=== PATIENT | female | born 1945 | race Caucasian/White ===

== ENCOUNTER 2017-02-10 23:24 | Observation (INO) | payer MEDICARE, OTHER ==
[2017-02-10] MEDS ORDERED: Ondansetron 4 MG/2 ML SDV IVPUSH ONE (23:45)
[2017-02-10] MEDS ORDERED: Morphine 4 MG/ML Syringe IVPUSH PRN (23:45)
[2017-02-10] MEDS ORDERED: Sodium Chloride 0.9% 1,000 ML IV ONE (23:45)
[2017-02-11] MEDS ORDERED: Sodium Chloride 0.9% 1,000 ML IV ONE (00:06)
--- NOTE | 2017-02-11 00:11 | EDM.PDOC ---
ED HPI GENERAL MEDICAL PROBLEM - General Chief Complaint: Gastrointestinal Problem Time Seen by Provider: 02/10/17 23:44 Source of Information: Reports: Patient History Limitations: Reports: No Limitations - History of Present Illness INITIAL COMMENTS - FREE TEXT/NARRATIVE: 71 y/o F with recent diagnosis of lymphoma (per patient, "aggressive", cancer is everywhere including bones and blood), not yet receiving treatment, presents with diffuse back pain and vomiting. Pain started a couple of days ago. Has been in her shoulders and back. Pain has been severe. Took 1 tab oxycodone around 10 AM and 2tab at 4pm with little relief. Started vomiting a few hours ago. Has had about 4 episodes of vomiting. No hematemesis. Denies abdominal pain. Still feels nauseated. No diarrhea or constipation. No fever. No chest pain/SOB/cough. Has f/u scheduled for tomorrow with heme/onc specialist. Back Pain Score (Numeric/FACES): 10 - Related Data Allergies Allergy/AdvReac Type Severity Reaction Status Date / Time erythromycin base Allergy Joint Pain Verified 05/04/16 17:21 [Erythromycin Base] Penicillins Allergy Joint Pain Verified 05/04/16 17:21 propoxyphene HCl Allergy Giddiness Verified 05/04/16 17:21 [From Darvon] Home Meds: Home Meds Albuterol [Ventolin HFA] 2 puff INH BID PRN 05/04/16 [History] Amitriptyline HCl 100 mg PO BEDTIME 05/04/16 [History] Aspirin [Halfprin] 81 mg PO DAILY 05/04/16 [History] Calcium Carbonate/Vitamin D3 [Calcium 500 + Vit D 400] 1 tab PO DAILY 05/04/16 [ History] Glucosamine [Glucosamine Sulfate] 500 mg PO DAILY 05/04/16 [History] Losartan [Cozaar] 25 mg PO DAILY 05/04/16 [History] Metoprolol Succinate [Toprol XL 50mg] 50 mg PO BID 05/04/16 [History] Omeprazole 20 mg PO DAILY 05/04/16 [History] Rosuvastatin [Crestor] 20 mg PO DAILY 02/10/17 [History] Ondansetron [Zofran ODT] 4 mg PO Q4H PRN #24 tab.dis 02/11/17 [Rx] Past Medical History HEENT History: Reports: Cataract Respiratory History: Reports: Bronchitis, Recurrent Neurological History: Reports: CVA Oncologic (Cancer) History: Reports: Lymphoma - Past Surgical History HEENT Surgical History: Reports: Cataract Surgery, Other (See Below) Other HEENT Surgeries/Procedures: throat biopsy carotid atery sugery GI Surgical History: Reports: Appendectomy, Cholecystectomy Female Surgical History: Reports: Hysterectomy Social & Family History - Family History Family Medical History: Noncontributory - Tobacco Use Smoking Status *Q: Never Smoker - Caffeine Use Caffeine Use: Reports: Coffee - Recreational Drug Use Recreational Drug Use: No ED ROS GENERAL - Review of Systems Review Of Systems: See Below Constitutional: Reports: Malaise, Weakness, Fatigue. Denies: Fever HEENT: Reports: No Symptoms Respiratory: Denies: Shortness of Breath Cardiovascular: Denies: Chest Pain Endocrine: Reports: Fatigue GI/Abdominal: Reports: Nausea, Vomiting. Denies: Abdominal Pain : Denies: Dysuria Musculoskeletal: Reports: Back Pain Skin: Reports: No Symptoms Neurological: Reports: No Symptoms ED EXAM, GI/ABD - Physical Exam Exam: See Below Exam Limited By: No Limitations General Appearance: Alert, WD/WN, No Apparent Distress Eyes: Bilateral: Normal Appearance Ears: Normal External Exam Nose: Normal Inspection Throat/Mouth: Other (dry lips, dry mucous membranes) Head: Atraumatic, Normocephalic Neck: Normal Inspection, Supple, Non-Tender, Full Range of Motion Respiratory/Chest: No Respiratory Distress, Lungs Clear, Normal Breath Sounds, Chest Non-Tender Cardiovascular: Normal Peripheral Pulses, Regular Rate, Rhythm, No Murmur GI/Abdominal Exam: Soft, Non-Tender, No Distention. No: Rebound Back Exam: Normal Inspection, Full Range of Motion. No: CVA Tenderness (L), CVA Tenderness (R), Vertebral Tenderness Extremities: Normal Inspection, Normal Range of Motion Neurological: Alert, Oriented, Normal Cognition, No Motor/Sensory Deficits Psychiatric: Normal Affect, Normal Mood Skin Exam: Warm, Dry, Intact, Normal Color, No Rash Course - Vital Signs Last Recorded V/S: Last Vital Signs Temp 35.6 C 02/10/17 23:29 Pulse 93 02/10/17 23:29 Resp 16 02/10/17 23:29 BP 197/106 H 02/10/17 23:29 Pulse Ox 90 L 02/10/17 23:29 - Orders/Labs/Meds Orders: Active Orders 24 hr Category Date Time Status Abdomen Series w Chest 1V [CR] Stat Exams 02/11/17 00:02 Ordered UA W/MICROSCOPIC [URIN] Stat Lab 02/11/17 00:06 Uncollected Morphine Med 02/10/17 23:45 Active 4 mg IVPUSH Q2H PRN Medication Orders Morphine Sulfate (Morphine) 4 mg IVPUSH Q2H PRN PRN Reason: Pain Last Admin: 02/11/17 00:02 Dose: 4 mg Labs: Laboratory Tests 02/10/17 02/10/17 Range/Units 23:40 23:40 WBC 7.24 (3.98-10.04) K/mm3 RBC 4.54 (3.98-5.22) M/mm3 Hgb 13.0 (11.2-15.7) gm/L Hct 39.5 (34.1-44.9) % MCV 87.0 (79.4-94.8) fl MCH 28.6 (25.6-32.2) pg MCHC 32.9 (32.2-35.5) g/dl RDW Std Deviation 46.5 H (36.4-46.3) fL Plt Count 228 (182-369) K/mm3 MPV 9.5 (9.4-12.3) fl Neut % (Auto) 69.6 (34.0-71.1) % Lymph % (Auto) 18.8 L (19.3-51.7) % Thur[place] % (Auto) 7.0 (4.7-12.5) % Eos % (Auto) 2.9 (0.7-5.8) Baso % (Auto) 1.0 (0.1-1.2) % Neut # (Auto) 5.04 (1.56-6.13) K/mm3 Lymph # (Auto) 1.36 (1.18-3.74) K/mm3 [place] # (Auto) 0.51 H (0.24-0.36) K/mm3 Eos # (Auto) 0.21 (0.04-0.36) K/mm3 Baso # (Auto) 0.07 (0.01-0.08) K/mm3 Sodium 142 (136-145) mEq/L Potassium 3.8 (3.5-5.1) mEq/L Chloride 103 (98-107) mEq/L Carbon Dioxide 29 (21-32) mEq/L Anion Gap 13.8 (5-15) BUN 12 (7-18) mg/dL Creatinine 1.2 H (0.55-1.02) mg/dL Est Cr Clr Drug Dosing 38.13 mL/min Estimated GFR (MDRD) 44 (>60) mL/min BUN/Creatinine Ratio 10.0 L (14-18) Glucose 136 H (83-115) mg/dL Calcium 9.2 (8.5-10.1) mg/dL Total Bilirubin 0.4 (0.2-1.0) mg/dL AST 39 H (15-37) U/L ALT 25 (14-59) U/L Alkaline Phosphatase 96 (46-116) U/L Total Protein 7.9 (6.4-8.2) g/dl Albumin 3.8 (3.4-5.0) g/dl Globulin 4.1 gm/dL Albumin/Globulin Ratio 0.9 L (1-2) Lipase 151 (73-393) U/L Meds: Medications Generic Name Dose Route Start Last Admin Trade Name Freq PRN Reason Stop Dose Admin Morphine Sulfate 4 mg 02/10/17 23:45 02/11/17 00:02 Morphine IVPUSH 4 mg Q2H PRN Administration Pain Discontinued Medications Generic Name Dose Route Start Last Admin Trade Name Freq PRN Reason Stop Dose Admin Hydromorphone HCl 1 mg 02/11/17 01:00 02/11/17 01:06 Dilaudid IVPUSH 02/11/17 01:01 1 mg ONETIME ONE Administration Sodium Chloride 1,000 mls @ 1,000 mls/hr 02/10/17 23:45 02/10/17 23:50 Normal Saline IV 02/11/17 00:44 1,000 mls/hr ONETIME ONE Administration Sodium Chloride 1,000 mls @ 2,000 mls/hr 02/11/17 00:06 02/11/17 01:33 Normal Saline IV 02/11/17 00:35 2,000 mls/hr ONETIME ONE Administration Ketorolac Tromethamine 30 mg 02/11/17 00:41 02/11/17 00:48 Toradol IVPUSH 02/11/17 00:42 30 mg ONETIME ONE Administration Metoclopramide HCl 10 mg 02/11/17 00:26 02/11/17 00:33 Reglan PO 02/11/17 00:27 10 mg ONETIME ONE Administration Ondansetron HCl 4 mg 02/10/17 23:45 02/10/17 23:50 Zofran IVPUSH 02/10/17 23:46 4 mg ONETIME ONE Administration Ondansetron HCl 4 mg 02/11/17 00:26 02/11/17 00:32 Zofran IVPUSH 02/11/17 00:27 4 mg ONETIME ONE Administration - Re-Assessments/Exams Free Text/Narrative Re-Assessment/Exam: 02/11/17 00:10 CBC, chem/lft's WNL. 02/11/17 00:42 Abd XR shows no evidence of obstruction. On CXR, no ptx, no infiltrate, mediastinal fullness that I suspect is c/w her hx of extensive lymphoma. She feels better after IVF and zofran. Has tolerated sips of water but still feels queasy. Ordered another 4mg zofran + PO reglan. Pain is currently controlled. Will reeval. 02/11/17 01:38 Pain worse, given dilaudid. Then had another episode of vomiting. Etiology of nausea not clear, possibly due to narcotics which she has required for pain control. She continues to have no abdominal pain. XR doesn't suggest obstruction. Abd soft/nontender. Discussed with Dr. Mathur who agrees to admit for pain and nausea control. Departure - Departure Time of Disposition: 01:39 Disposition: Refer to Observation Clinical Impression: Nausea & vomiting Qualifiers: Vomiting type: unspecified Vomiting Intractability: non-intractable Qualified Code(s): R11.2 - Nausea with vomiting, unspecified Back pain Qualifiers: Back pain location: thoracic back pain Chronicity: acute Back pain laterality: bilateral Qualified Code(s): M54.6 - Pain in thoracic spine - Discharge Information Prescriptions: Ondansetron [Zofran ODT] 4 mg PO Q4H PRN #24 tab.dis PRN Reason: Nausea Referrals: Delbert Forrest MD [Primary Care Provider] - Forms: ED Department Discharge Additional Instructions: 1. Follow up with clinical documentation specialist tomorrow as planned. Discuss pain control plan. 2. Take zofran as prescribed for nausea 3. Drink plenty of fluids. Clear liquid diet until nausea improves, then advance diet to include bland foods such as broth. 4. Return to the Emergency Department if you have worsening vomiting, uncontrolled pain, difficulty breathing, abdominal pain, or any other concerning symptoms. - My Orders Last 24 Hours: My Active Orders 02/10/17 23:45 Morphine 4 mg IVPUSH Q2H PRN 02/11/17 00:02 Abdomen Series w Chest 1V [CR] Stat 02/11/17 00:06 UA W/MICROSCOPIC [URIN] Stat - Assessment/Plan Last 24 Hours: My Active Orders 02/10/17 23:45 Morphine 4 mg IVPUSH Q2H PRN 02/11/17 00:02 Abdomen Series w Chest 1V [CR] Stat 02/11/17 00:06 UA W/MICROSCOPIC [URIN] Stat
[2017-02-11] MEDS ORDERED: Metoclopramide 10 MG Tab PO ONE (00:26)
[2017-02-11] MEDS ORDERED: Ondansetron 4 MG/2 ML SDV IVPUSH ONE (00:26)
[2017-02-11] MEDS ORDERED: Ketorolac 30 MG/ML SDV IVPUSH ONE (00:41)
[2017-02-11] MEDS ORDERED: HYDROmorphone 1 MG/ML Syringe IVPUSH ONE (01:00)
[2017-02-11] MEDS ORDERED: diphenhydrAMINE 50 MG/ML SDV IVPUSH ONE (01:40)
[2017-02-11] MEDS ORDERED: Prochlorperazine 10 MG in Sodium Chloride 0.9% 50 ML IV ONE (01:40)
[2017-02-11] MEDS ORDERED: Sodium Chloride 0.9% 1,000 ML IV SCH (03:15)
[2017-02-11] MEDS ORDERED: Ondansetron 4 MG/2 ML SDV IVPUSH PRN (03:17)
[2017-02-11] MEDS ORDERED: Scopolamine 1.5 MG Transdermal Patch TRDERM SCH (03:30)
--- NOTE | 2017-02-11 06:27 | PCM.HP ---
H&P History of Present Illness - General Date of Service: 02/11/17 Admit Problem/Dx: Admission Diagnosis/Problem Admission Diagnosis/Problem Vomiting Source of Information: Patient, Old Records, Provider, RN Notes Reviewed, Significant Other History Limitations: Reports: No Limitations - History of Present Illness Initial Comments - Free Text/Narative: This is a 71 yo elderly white female with past medical hx/o HTN, HLD, GERD and Possibly Insomnia who presents to ED with complaints of diffuse back pain. Her pain started 2 days ago. Her pain is burning in nature and localized to her spine with radiation to her right shoulder with intermittent numbness and tingling. She has been taking oxycodone but w/o much relief. Her c/o is associated with nauseated and vomiting. She has 4 emesis at home and fills up a vomit bag while in ED. She denies any recent travel. No unusual diet or drinks. She has not gone on a camping trip or hiking. Her last meal was a PB& J sandwich with chips. No sick contact. She had the same food the other day but w/o any trouble. Patient was recently diagnosed with "aggressive form of lymphoma" via biopsy of a mass on her right neck/sub mandibular region. She also had undergone PET scanning and which she was found to have multiple areas of metastatic disease: spine, chest, and hip and lower extremity bones. She has seen Dr. Robbins at [facility] and patient is scheduled for further outpatient testing. Her initial workup in emergency department shows an unremarkable CBC. Her chemistry is remarkable for creatinine of 1.2, glucose of 136, and AST of 39. Her UA is suggestive of mild UTI but patient is asymptomatic. Chest x-ray report reads nodular densities within the chest difficult to exclude metastatic disease. Patient is being admitted for intractable nausea with vomiting and back pain. She is full code. Back Pain Score (Numeric/FACES): 7 - Related Data Allergies/Adverse Reactions: Allergies Allergy/AdvReac Type Severity Reaction Status Date / Time erythromycin base AdvReac Joint Pain Verified 02/11/17 09:03 [Erythromycin Base] Penicillins AdvReac Joint Pain Verified 02/11/17 09:03 propoxyphene HCl AdvReac Giddiness Verified 02/11/17 09:03 [From Darvon] Home Medications: Home Meds Albuterol [Ventolin HFA] 2 puff INH BID PRN 05/04/16 [History] Amitriptyline HCl 100 mg PO BEDTIME 05/04/16 [History] Aspirin [Halfprin] 81 mg PO DAILY 05/04/16 [History] Calcium Carbonate/Vitamin D3 [Calcium 500 + Vit D 400] 1 tab PO DAILY 05/04/16 [ History] Glucosamine [Glucosamine Sulfate] 500 mg PO DAILY 05/04/16 [History] Losartan [Cozaar] 25 mg PO DAILY 05/04/16 [History] Metoprolol Succinate [Toprol XL 50mg] 50 mg PO BID 05/04/16 [History] Omeprazole 20 mg PO DAILY 05/04/16 [History] Rosuvastatin [Crestor] 20 mg PO DAILY 02/10/17 [History] Past Medical History HEENT History: Reports: Cataract Respiratory History: Reports: Bronchitis, Recurrent, Other (See Below) Other Respiratory History: Chronic bronchitis - excessive phlegm Other Gastrointestinal History: possibly has IBS Musculoskeletal History: Reports: Arthritis Other Musculoskeletal History: a couple surgeries on left foot: Pin to left foot - flat footed - Took out extra bone. Unsure if any screws/pins are still remaining. Neurological History: Reports: CVA Other Neuro History: a few CVA's - no residual weaknesses from those. 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 Endocrine/Metabolic History: Reports: Obesity/BMI 30+ Oncologic (Cancer) History: Reports: Lymphoma Other Oncologic History: recent diagnosis. - Past Surgical History HEENT Surgical History: Reports: Cataract Surgery, Other (See Below) Other HEENT Surgeries/Procedures: throat biopsy and "opened up throat". carotid atery sugery. Reading glasses. Full dentures GI Surgical History: Reports: Appendectomy, Cholecystectomy Female Surgical History: Reports: Hysterectomy Social & Family History - Family History Family Medical History: Noncontributory - Tobacco Use Smoking Status *Q: Former Smoker Years of Tobacco use: 20 Packs/Tins Daily: 1 Used Tobacco, but Quit: Yes Month Tobacco Last Used: 1995 Second Hand Smoke Exposure: No - Caffeine Use Caffeine Use: Reports: Coffee Other Caffeine Use: pot of coffee per day - Recreational Drug Use Recreational Drug Use: No H&P Review of Systems - Review of Systems: Review Of Systems: See Below General: Reports: Malaise, Weakness, Fatigue. Denies: Fever, Chills, Decreased Appetite, Weight Loss HEENT: Reports: No Symptoms Pulmonary: Denies: Shortness of Breath Cardiovascular: Denies: Chest Pain, Dyspnea on Exertion Gastrointestinal: Reports: Flatus, Nausea, Vomiting, Other (bloating ). Denies : Abdominal Pain, Diarrhea, Decreased Appetite, Difficulty Swallowing Genitourinary: Reports: No Symptoms Musculoskeletal: Reports: Back Pain Skin: Denies: Cyanosis, Rash, Erythema, Wound, Lesions Psychiatric: Denies: Confusion, Depression, Anxiety, Hallucinations, Suicidal Ideation Neurological: Reports: No Symptoms Hematologic/Lymphatic: Reports: No Symptoms Immunologic: Reports: No Symptoms Exam - Exam Exam: See Below - Vital Signs Vital Signs: Last Vital Signs Temp 35.8 C 02/11/17 02:12 Pulse 98 02/11/17 03:18 Resp 23 H 02/11/17 02:15 BP 116/66 02/11/17 03:18 Pulse Ox 93 L 02/11/17 03:20 Weight: 84.141 kg - Exam General: Alert, Oriented, Cooperative, Mild Distress, Moderate Distress HEENT: Conjunctiva Clear, EACs Clear, EOMI, Hearing Intact, Mucosa Moist & [place] , Nares Patent, Normal Nasal Septum, Pupils Equal, Pupils Reactive Neck: Supple, Trachea Midline, +2 Carotid Pulse wo Bruit, Full Range of Motion, Other (Palpable mass near right mandibular area) Lungs: Clear to Auscultation, Normal Respiratory Effort Cardiovascular: Regular Rate, Regular Rhythm GI/Abdominal Exam: Normal Bowel Sounds, Soft, Non-Tender, No Organomegaly, No Distention, No Abnormal Bruit, No Mass (Female) Exam: Deferred Rectal (Female) Exam: Deferred Back Exam: Normal Inspection, Decreased Range of Motion, Muscle Spasm, Vertebral Tenderness, Other (No skin breaks, obvious deformity or alarming lesions) Extremities: Normal Inspection, Normal Range of Motion, Non-Tender, No Pedal Edema, Normal Capillary Refill Peripheral Pulses: 2+: Posterior Tibial (L), Posterior Tibial (R), Dorsalis Pedis (L), Dorsalis Pedis (R) Skin: Warm, Dry, Intact Neuro Extensive - Mental Status: Oriented x3, Normal Cognition, Memory Intact Neuro Extensive - Motor, Sensory, Reflexes: CN II-XII Intact, Normal Gait Psychiatric: Alert, Normal Affect, Normal Mood - Patient Data Lab Results Last 24 hrs: Laboratory Results - last 24 hr 02/11/17 Range/Units 01:46 Urine Color Yellow (Yellow) Urine Appearance Slt cloudy H (Clear) Urine pH 7.0 (5.0-8.0) Ur Specific [place] 1.020 (1.005-1.030) Urine Protein 1+ H (Negative) Urine Glucose (UA) Negative (Negative) Urine Ketones Negative (Negative) Urine Occult Blood Negative (Negative) Urine Nitrite Negative (Negative) Urine Bilirubin Negative (Negative) Urine Urobilinogen 1.0 (0.2-1.0) Ur Leukocyte Esterase 2+ H (Negative) Urine RBC Not seen (0-5) /hpf Urine WBC 50-75 H (0-5) /hpf Urine WBC Clumps Not seen (NOT SEEN) /hpf Ur Epithelial Cells 0-5 (0-5) /hpf Amorphous Sediment Few H (NOT SEEN) /hpf Urine Bacteria Moderate H (FEW) /hpf Urine Mucus Not seen (FEW) /hpf Urine Yeast Not seen (NOT SEEN) Result Diagrams: 02/10/17 23:40 02/10/17 23:40 *Q Meaningful Use (ADM) - VTE *Q VTE Criteria *Q: - Stroke *Q Stroke Criteria *Q: - AMI *Q AMI Criteria *Q: Problem List Initiated/Reviewed/Updated: Yes Orders Last 24hrs: Active Orders 24 hr Category Date Time Status Patient Status [ADT] Routine ADT 02/11/17 02:13 Active Activity as Tolerated [RC] QSHIFT Care 02/11/17 03:15 Active Oxygen Therapy [RC] ASDIRECTED Care 02/11/17 03:25 Active Telemetry Monitoring [Cardiac Monitoring] [RC] . Care 02/11/17 02:12 Active DIRECTED Clear Liquid Diet [DIET] Diet 02/11/17 Breakfast Active CULTURE URINE [RM] Routine Lab 02/11/17 01:46 Received HYDROmorphone [Dilaudid] Med 02/11/17 03:16 Active 1 mg IVPUSH Q1H PRN Ondansetron [Zofran] Med 02/11/17 03:17 Active 4 mg IVPUSH Q4HR PRN Remove Patch Med 02/14/17 03:30 Active 1 ea TRDERM Q72H Scopolamine [Transderm-Scop] Med 02/11/17 03:30 Active 1.5 mg TRDERM Q72H Sodium Chloride 0.9% [Normal Saline] 1,000 ml Med 02/11/17 03:15 Active IV ASDIRECTED Code Status [Resuscitation Status] Routine Resus Stat 02/11/17 03:14 Ordered Medication Orders Hydromorphone HCl (Dilaudid) 1 mg IVPUSH Q1H PRN PRN Reason: Pain Sodium Chloride (Normal Saline) 1,000 mls @ 100 mls/hr IV ASDIRECTED SAMUEL Last Admin: 02/11/17 03:30 Dose: 100 mls/hr Miscellaneous Information (Remove Patch) 1 ea TRDERM Q72H SAMUEL Ondansetron HCl (Zofran) 4 mg IVPUSH Q4HR PRN PRN Reason: Nausea Scopolamine (Transderm-Scop) 1.5 mg TRDERM Q72H SAMUEL Last Admin: 02/11/17 03:52 Dose: 1.5 mg Assessment/Plan Comment:: Assessment/Plan: Acute: Acute Back Pain - S/p Fall and Recent Diagnosis of Lyphoma S/p Biopsy - Cannot r/o metastatic disease - She now follow Dr. Seymour - She had done recent CT scan (unsure what type), will obtain from [facility] - She does not want us to repeat tests that were already been done, will wait for her reports - Pain medications Intractable Nausea/Vomiting - Ate PB&J [place] and chips - She had PB&J the day before but w/o any problems - Possible food poisoning - No unusual diet/drinks, No recent travel, has not gone camping or hiking - Vomited 4 times at home - Filled up a vomit bag in ED Aggressive Lymphoma with Metastatic Disease - Recently 02/08/17 diagnosed in [place] - Had a biopsy done on the , last month by Dr. Loja, and official path report this past Saturday - She now follows Dr. Robbins as Marilee Archuleta Chronic: HTN HLD GERD Hx/o CVA Plan: Admit to Med-Surg Routine AM Labs Resume Home Meds Start clear liquids and advanced as tolerated PT/OT consult SW/CM for d/c planning Additional orders as above Code status:1
--- NOTE | 2017-02-11 08:38 | CR ---
Abdominal series: Frontal view of the chest was obtained as well as supine and upright views of the abdomen. Comparison: Previous chest x-ray of 08/24/14. Nodular densities are identified within the chest. Difficult to exclude metastatic disease. These nodular densities appear as an interval change from prior study and are most noticeable within the left upper chest. Emphysematous change is seen. Heart size appears within normal limits. Tortuous thoracic aorta is seen. Surgical clips seen within the abdomen. Bowel gas pattern appears within normal limits. No abnormal calcifications or discrete soft tissue abnormality is seen. No free air is identified. Impression: 1. Nodular densities within the chest. Difficult to exclude metastatic disease. Chest CT could be obtained to further evaluate. 2. Other portions of the abdominal series show nothing acute. Diagnostic code #9
[2017-02-11] MEDS ORDERED: Acetaminophen 325 MG Tab PO PRN (08:46)
[2017-02-11] MEDS ORDERED: Metoprolol Tartrate 5 MG/5 ML SDV IVPUSH PRN (08:46)
[2017-02-11] MEDS ORDERED: Promethazine 12.5 MG in Sodium Chloride 0.9% 50 ML IV PRN (08:46)
[2017-02-11] MEDS ORDERED: Albuterol/Ipratropium 3.0-0.5 MG/3 ML Neb Soln NEB PRN (08:46)
[2017-02-11] MEDS ORDERED: LORazepam 2 MG/ML MDV IV PRN (08:46)
[2017-02-11] MEDS ORDERED: Acetaminophen/HYDROcodone 325-5 MG Tab PO PRN (08:46)
[2017-02-11] MEDS ORDERED: hydrALAZINE 20 MG/ML SDV IVPUSH PRN (08:46)
[2017-02-11] MEDS ORDERED: Bisacodyl 5 MG Tab PO PRN (08:46)
[2017-02-11] MEDS ORDERED: Ondansetron 4 MG/2 ML SDV IV PRN (08:46)
[2017-02-11] MEDS ORDERED: Docusate Sodium 100 MG Cap PO PRN (08:46)
[2017-02-11] MEDS ORDERED: Polyethylene Glycol 3350 Powder 17 GM Packet PO PRN (08:46)
[2017-02-11] MEDS: HYDROmorphone 1 MG/ML Syringe IVPUSH PRN ×2 (11:09→21:24)
[2017-02-11] MEDS ORDERED: Albuterol 6.7 GM Inhaler INH PRN (14:33)
[2017-02-11] MEDS ORDERED: fentaNYL 12 MCG/HR Transdermal Patch TRDERM SCH (15:00)
[2017-02-11] MEDS ORDERED: Sodium Chloride 0.9% 10 ML Syringe FLUSH PRN (15:13)
[2017-02-11] MEDS: oxyCODONE 5 MG Tab PO PRN (20:11)
[2017-02-11] MEDS: Docusate Sodium 100 MG Cap PO SCH (20:17)
[2017-02-11] MEDS: Metoprolol Succinate 50 MG Tab.ER **PTOM PO SCH (20:18)
[2017-02-11] MEDS ORDERED: AMITRIPTYLINE 100 MG PO SCH (21:00)
[2017-02-11] MEDS ORDERED: Temazepam 7.5 MG Cap PO PRN (21:00)
[2017-02-12] MEDS: oxyCODONE 5 MG Tab PO PRN ×2 (06:28→13:06)
[2017-02-12] MEDS ORDERED: Non-Formulary Medication 1 Each (Losartan 25 MG) PO SCH (09:00)
[2017-02-12] MEDS ORDERED: Calcium Carbonate/Vitamin D3 1500 MG-200 Units Tab PO SCH (09:00)
[2017-02-12] MEDS ORDERED: ROSUVASTATIN 20 MG PO SCH (09:00)
[2017-02-12] MEDS ORDERED: GLUCOSAMINE 500 MG PO SCH (09:00)
[2017-02-12] MEDS ORDERED: Aspirin 81 MG Tab.EC PO SCH (09:00)
[2017-02-12] MEDS: Docusate Sodium 100 MG Cap PO SCH (09:16)
[2017-02-12] MEDS: Metoprolol Succinate 50 MG Tab.ER **PTOM PO SCH (09:16)
[2017-02-12] MEDS ORDERED: LOSARTAN 25 MG PO SCH (10:00)
--- NOTE | 2017-02-12 11:54 | PCM.DCSUM1 ---
Discharge Summary - Hospital Course Brief History: This is a 71 yo elderly white female with past medical hx/o HTN, HLD, GERD and Possibly Insomnia who presents to ED with complaints of diffuse back pain. Her pain started 2 days ago. Her pain is burning in nature and localized to her spine with radiation to her right shoulder with intermittent numbness and tingling. She has been taking oxycodone but w/o much relief. - Discharge Data Discharge Date: 02/12/17 Discharge Disposition: Home, Self-Care 01 Condition: Good - Discharge Diagnosis/Problem(s) (1) Back pain SNOMED Code(s): 809517193 ICD Code: M54.9 - DORSALGIA, UNSPECIFIED Status: Acute Qualifiers: Back pain location: thoracic back pain Chronicity: acute Back pain laterality: bilateral Qualified Code(s): M54.6 - Pain in thoracic spine (2) Nausea & vomiting SNOMED Code(s): 80998909 ICD Code: R11.2 - NAUSEA WITH VOMITING, UNSPECIFIED Status: Resolved Qualifiers: Vomiting type: unspecified Vomiting Intractability: non-intractable Qualified Code(s): R11.2 - Nausea with vomiting, unspecified (3) Lymphoma SNOMED Code(s): 339402479 ICD Code: C85.90 - NON-HODGKIN LYMPHOMA, UNSPECIFIED, UNSPECIFIED SITE Status: Acute Qualifiers: Lymphoma type: unspecified type Lymphoma site: neck Qualified Code(s): C85.91 - Non-Hodgkin lymphoma, unspecified, lymph nodes of head, face, and neck (4) Hypoxemia SNOMED Code(s): 672358567 ICD Code: R09.02 - HYPOXEMIA Status: Acute Problem Details: 2/2 Metastatic Lung Disease (Lymphoma) and Pulmonary Nodules - Patient Summary/Data Operative Procedure(s) Performed: None Complications: None Consults: Consultations 02/11/17 08:46 Consult to Case Management [CONS] Routine Consult to Environmental Engineering Professor [CONS] Routine Recommended Follow-up Testing/Procedures: None Hospital Course: She was primarily admitted for medical management of intractable nausea and vomiting. We felt this was related to possible food poisoning after eating a peanut butter and jelly sandwich. With supportive care and antiemetic medications, the patient slowly improved on this regimen. Thereafter, she was slowly started on clear diet until she tolerated solid food. On this admission she also complained of back pain with radiation to her right arm. We felt this was related to her metastatic bone disease but a good pain regimen was provided for her. Her hospital course was uncomplicated. However she experienced hypoxemia due to her metastatic lung disease and therefore she will be discharged with supplemental O2. Overall, Gayle has done well since admission. She is now ready for discharge. She will be released with pain medication regimen along with stool softeners. She will also be provided with a reversal agent for oversedation. Patient is to follow-up with her Dr. Robbins at [facility] for further testing and placement of her portable a catheter. She was advised to follow-up with Dr. Reese in 1-2 weeks as scheduled. Her PCP was called and updated about the discharge care plan. - Patient Instructions Diet: Usual Diet as Tolerated Activity: As Tolerated Driving: May Drive Today Showering/Bathing: May Shower Notify Provider of: Fever, Increased Pain, Nausea and/or Vomiting Other/Special Instructions: - Please take all medications as directed. - Continue daily routine activities without restrictions. - Call or follow up with your doctor in 1-2 weeks. - Keep your appointments with Dr. Robbins. - Discharge Plan Prescriptions/Med Rec: Bisacodyl 10 mg RC DAILY PRN #15 supp.rect PRN Reason: Constipation Docusate Sodium [Colace] 100 mg PO BID #60 cap Naloxone [Narcan] 0.4 mg INJECT ASDIRECTED PRN #2 syringe PRN Reason: Oversedation Ondansetron [Zofran ODT] 4 mg PO Q6H PRN #20 tab.dis PRN Reason: Other Scopolamine [Transderm-Scop] 1.5 mg TRDERM Q72H PRN #20 patch PRN Reason: Other fentaNYL [Duragesic] 12 mcg TRDERM Q72H #20 patch oxyCODONE 5 mg PO ASDIRECTED PRN #120 tablet PRN Reason: Other Home Medications: Home Meds Albuterol [Ventolin HFA] 2 puff INH BID PRN 05/04/16 [History] Amitriptyline HCl 100 mg PO BEDTIME 05/04/16 [History] Aspirin [Halfprin] 81 mg PO DAILY 05/04/16 [History] Calcium Carbonate/Vitamin D3 [Calcium 500 + Vit D 400] 1 tab PO DAILY 05/04/16 [ History] Glucosamine [Glucosamine Sulfate] 500 mg PO DAILY 05/04/16 [History] Losartan [Cozaar] 25 mg PO DAILY 05/04/16 [History] Metoprolol Succinate [Toprol XL 50mg] 50 mg PO BID 05/04/16 [History] Omeprazole 20 mg PO DAILY 05/04/16 [History] Rosuvastatin [Crestor] 20 mg PO DAILY 02/10/17 [History] Bisacodyl 10 mg RC DAILY PRN #15 supp.rect 02/12/17 [Rx] Docusate Sodium [Colace] 100 mg PO BID #60 cap 02/12/17 [Rx] Naloxone [Narcan] 0.4 mg INJECT ASDIRECTED PRN #2 syringe 02/12/17 [Rx] Ondansetron [Zofran ODT] 4 mg PO Q6H PRN #20 tab.dis 02/12/17 [Rx] Scopolamine [Transderm-Scop] 1.5 mg TRDERM Q72H PRN #20 patch 02/12/17 [Rx] fentaNYL [Duragesic] 12 mcg TRDERM Q72H #20 patch 02/12/17 [Rx] oxyCODONE 5 mg PO ASDIRECTED PRN #120 tablet 02/12/17 [Rx] Patient Handouts: Shortness of Breath, [id number], Nausea and Vomiting, Adult , Dizziness, [id number], Rehydration, Elderly Referrals: Delbert Forrest MD [Primary Care Provider] - 02/22/17 7:45 am - Discharge Summary/Plan Comment DC Time >30 min.: Yes (45 mins) Discharge Summary/Plan Comment: Discharge to Home - General Info Date of Service: 02/12/17 Admission Dx/Problem (Free Text: Admission Diagnosis/Problem Admission Diagnosis/Problem Vomiting Subjective Update: Follow Up Functional Status: Reports: Pain Controlled, Tolerating Diet, Ambulating. Denies: Urinating - Review of Systems General: Denies: Fever, Weakness, Fatigue, Malaise HEENT: Reports: No Symptoms Pulmonary: Denies: Shortness of Breath Cardiovascular: Denies: Chest Pain Gastrointestinal: Denies: Abdominal Pain, Nausea, Vomiting Genitourinary: Reports: Incontinence Musculoskeletal: Reports: Back Pain Skin: Reports: No Symptoms Neurological: Denies: Confusion, Difficulty Walking, Weakness, Gait Disturbance Psychiatric: Denies: Depression, Mood Lability, Anxiety, Hallucinations - Patient Data Vitals - Most Recent: Last Vital Signs Temp 36.8 C 02/12/17 08:11 Pulse 90 02/12/17 09:16 Resp 14 02/12/17 08:11 BP 140/79 02/12/17 09:16 Pulse Ox 92 L 02/12/17 08:11 Weight - Most Recent: 86.228 kg I&O - Last 24 hours: Intake & Output 02/11/17 02/12/17 02/12/17 22:59 06:59 14:59 Intake Total 2560 625 120 Output Total 950 750 Balance 1610 -125 120 Lab Results - Last 24 hrs: Laboratory Results - last 24 hr 02/12/17 Range/Units 05:05 Sodium 140 (136-145) mEq/L Potassium 4.1 (3.5-5.1) mEq/L Chloride 105 (98-107) mEq/L Carbon Dioxide 29 (21-32) mEq/L Anion Gap 10.1 (5-15) BUN 10 (7-18) mg/dL Creatinine 1.1 H (0.55-1.02) mg/dL Est Cr Clr Drug Dosing 41.60 mL/min Estimated GFR (MDRD) 49 (>60) mL/min BUN/Creatinine Ratio 9.1 L (14-18) Glucose 87 (83-115) mg/dL Calcium 8.6 (8.5-10.1) mg/dL Magnesium 2.1 (1.8-2.4) mg/dl Med Orders - Current: Current Medications Acetaminophen (Tylenol) 650 mg PO Q4H PRN PRN Reason: Pain (Mild 1-3)/fever Albuterol (Proventil Hfa) 0 gm INH BID PRN PRN Reason: wheeze and cough Albuterol/Ipratropium (Duoneb 3.0-0.5 Mg/3 Ml) 3 ml NEB Q4H PRN PRN Reason: Shortness Of Breath/wheezing Amitriptyline HCl (Elavil) 0 mg PO BEDTIME [facility] Last Admin: 02/11/17 20:18 Dose: 100 mg Aspirin (Halfprin) 81 mg PO DAILY [facility] Last Admin: 02/12/17 09:15 Dose: 81 mg Bisacodyl (Dulcolax) 5 mg PO DAILY PRN PRN Reason: Constipation Calcium Carbonate (Calcium Carbonate/Vitamin D 1500 Mg-200 Unit) 1 tab PO DAILY [facility] Last Admin: 02/12/17 09:16 Dose: Not Given Docusate Sodium (Colace) 100 mg PO BID [facility] Last Admin: 02/12/17 09:16 Dose: Not Given Fentanyl (Duragesic) 12 mcg TRDERM Q72H [facility] Last Admin: 02/11/17 15:07 Dose: 12 mcg Hydralazine HCl (Apresoline) 10 mg IVPUSH Q4H PRN PRN Reason: Hypertension Hydromorphone HCl (Dilaudid) 1 mg IVPUSH Q1H PRN PRN Reason: Pain Last Admin: 02/11/17 21:24 Dose: 1 mg Promethazine HCl 12.5 mg/ (Sodium Chloride) 50.5 mls @ 100 mls/hr IV Q6H PRN PRN Reason: Nausea/Vomiting Lorazepam (Ativan) 0.5 mg IV Q6H PRN PRN Reason: Anxiety Magnesium Sulfate (Pharmacy To Dose - Magnesium Replacement) 1 dose .XX ASDIRECTED [facility] Metoprolol Succinate (Toprol Xl) 50 mg PO BID [facility] Last Admin: 02/12/17 09:16 Dose: 50 mg Metoprolol Tartrate (Lopressor) 5 mg IVPUSH Q4H PRN PRN Reason: Tachycardia Miscellaneous Information (Remove Patch) 1 ea TRDERM Q72H [facility] Miscellaneous Information (Remove Patch) 0 ea TRDERM Q72H [facility] Ondansetron HCl (Zofran) 4 mg IV Q6H PRN PRN Reason: Nausea/Vomiting Oxycodone HCl (Oxycodone) 5 mg PO Q4H PRN PRN Reason: Pain Last Admin: 02/12/17 06:28 Dose: 5 mg Omeprazole 20 Mg 0 each PO BEDTIME [facility] Last Admin: 02/11/17 21:25 Dose: 20 each Glucosamine 500 Mg 0 each PO DAILY [facility] Last Admin: 02/12/17 09:15 Dose: Not Given Losartan 25 Mg Dose 0 each PO DAILY [facility] Last Admin: 02/12/17 10:21 Dose: 1 each Polyethylene Glycol (Miralax) 17 gm PO DAILY PRN PRN Reason: Constipation Potassium Chloride (Pharmacy To Dose - Potassium Replacement) 1 dose .XX ASDIRECTED [facility] Rosuvastatin Calcium (Crestor) 0 mg PO DAILY [facility] Last Admin: 02/12/17 09:08 Dose: 10 mg Scopolamine (Transderm-Scop) 1.5 mg TRDERM Q72H [facility] Last Admin: 02/11/17 03:52 Dose: 1.5 mg Senna/Docusate Sodium (Senna Plus) 1 tab PO BID PRN PRN Reason: Constipation Sodium Chloride (Saline Flush) 10 ml FLUSH ASDIRECTED PRN PRN Reason: Keep Vein Open Temazepam (Restoril) 7.5 mg PO BEDTIME PRN PRN Reason: Sleep Discontinued Medications Hydrocodone Bitart/Acetaminophen (Hillister 325-5 Mg) 1 tab PO Q4H PRN PRN Reason: Pain (moderate 4-6) Last Admin: 02/11/17 12:07 Dose: 1 tab Diphenhydramine HCl (Benadryl) 50 mg IVPUSH ONETIME ONE Stop: 02/11/17 01:41 Last Admin: 02/11/17 01:48 Dose: 50 mg Docusate Sodium (Colace) 100 mg PO BID PRN PRN Reason: Constipation Hydromorphone HCl (Dilaudid) 1 mg IVPUSH ONETIME ONE Stop: 02/11/17 01:01 Last Admin: 02/11/17 01:06 Dose: 1 mg Sodium Chloride (Normal Saline) 1,000 mls @ 1,000 mls/hr IV ONETIME ONE Stop: 02/11/17 00:44 Last Admin: 02/10/17 23:50 Dose: 1,000 mls/hr Sodium Chloride (Normal Saline) 1,000 mls @ 2,000 mls/hr IV ONETIME ONE Stop: 02/11/17 00:35 Last Admin: 02/11/17 01:33 Dose: 2,000 mls/hr Prochlorperazine Edisylate 10 (mg/ Sodium Chloride) 52 mls @ 150 mls/hr IV ONETIME ONE Stop: 02/11/17 02:00 Last Admin: 02/11/17 01:49 Dose: 150 mls/hr Sodium Chloride (Normal Saline) 1,000 mls @ 100 mls/hr IV ASDIRECTED [facility] Last Admin: 02/11/17 03:30 Dose: 100 mls/hr Ketorolac Tromethamine (Toradol) 30 mg IVPUSH ONETIME ONE Stop: 02/11/17 00:42 Last Admin: 02/11/17 00:48 Dose: 30 mg Metoclopramide HCl (Reglan) 10 mg PO ONETIME ONE Stop: 02/11/17 00:27 Last Admin: 02/11/17 00:33 Dose: 10 mg Morphine Sulfate (Morphine) 4 mg IVPUSH Q2H PRN PRN Reason: Pain Last Admin: 02/11/17 00:02 Dose: 4 mg Non-Formulary Medication (Losartan) 25 mg PO DAILY [facility] Ondansetron HCl (Zofran) 4 mg IVPUSH ONETIME ONE Stop: 02/10/17 23:46 Last Admin: 02/10/17 23:50 Dose: 4 mg Ondansetron HCl (Zofran) 4 mg IVPUSH ONETIME ONE Stop: 02/11/17 00:27 Last Admin: 02/11/17 00:32 Dose: 4 mg Ondansetron HCl (Zofran) 4 mg IVPUSH Q4HR PRN PRN Reason: Nausea - Exam General: Reports: Alert, Oriented, Cooperative, No Acute Distress HEENT: Reports: Pupils Equal, Pupils Reactive, EOMI, Mucous Membr. Moist/[place] Neck: Reports: Supple, Trachea Midline Lungs: Reports: Clear to Auscultation, Normal Respiratory Effort Cardiovascular: Reports: Regular Rate, Regular Rhythm GI/Abdominal Exam: Normal Bowel Sounds, Soft, Non-Tender, No Organomegaly, No Distention, No Abnormal Bruit, No Mass (Female) Exam: Deferred Rectal (Female) Exam: Deferred Back Exam: Reports: Normal Inspection, Decreased Range of Motion Extremities: Normal Inspection, Normal Range of Motion, Non-Tender, No Pedal Edema, Normal Capillary Refill Skin: Reports: Warm, Dry, Intact Neurological: Reports: No New Focal Deficit Psy/Mental Status: Reports: Alert, Normal Affect, Normal Mood *Q Meaningful Use (DIS) - VTE *Q VTE Criteria *Q: - Stroke *Q Stroke Criteria *Q: - AMI *Q AMI Criteria *Q:
[2017-02-12 12:23] VITALS: BP 130/75
== END 2017-02-12 14:00 | disposition home or self-care (01) ==
LOC: JD.ED 23:24 → JD.MS 02-11 01:40 → UNDOADMOB 02-11 01:40 → JD.MS 02-11 18:52
PROVIDERS: ADMIT Internal Medicine; ATTEND Internal Medicine
DX: M54.6 Pain in thoracic spine (principal); R11.2 Nausea with vomiting, unspecified; C85.91 Non-Hodgkin lymphoma, unspecified, lymph nodes of head, face, and neck; R09.02 Hypoxemia; J42 Unspecified chronic bronchitis; M19.90 Unspecified osteoarthritis, unspecified site; E66.9 Obesity, unspecified; I10 Essential (primary) hypertension; E78.5 Hyperlipidemia, unspecified; K21.9 Gastro-esophageal reflux disease without esophagitis; Z86.73 Personal history of transient ischemic attack (TIA), and cerebral infarction without residual deficits; Z87.891 Personal history of nicotine dependence; Z79.82 Long term (current) use of aspirin; Z79.899 Other long term (current) drug therapy; Z88.0 Allergy status to penicillin; Z88.1 Allergy status to other antibiotic agents; Z88.5 Allergy status to narcotic agent; Z98.890 Other specified postprocedural states; Z90.49 Acquired absence of other specified parts of digestive tract; Z90.710 Acquired absence of both cervix and uterus
CPT/HCPCS: 36415; 74022; 80048; 80053; 81001; 83690; 83735; 85025; 87086; 94761; 96361; 96374; 96375; 99285; A9270; J0780; J1170; J1200; J1885; J2270; J2405; J7040; J7050; 96376; 99284; G0378

== ENCOUNTER 2017-03-30 13:50 | Inpatient (IN) | payer MEDICARE, OTHER ==
[2017-03-30] MEDS ORDERED: Lactated Ringers 1,000 ML IV ONE ×3 (14:13→21:15)
[2017-03-30] MEDS ORDERED: Sodium Chloride 0.9% 10 ML Syringe FLUSH PRN (14:14)
[2017-03-30] MEDS ORDERED: Benzocaine/Menthol 20%-0.5% Spray 56 GM Canister TOP ONE (14:22)
--- NOTE | 2017-03-30 15:38 | EDM.PDOC ---
ED HPI GENERAL MEDICAL PROBLEM - General Chief Complaint: Cardiovascular Problem Stated Complaint: [facility] Time Seen by Provider: 03/30/17 14:17 Source of Information: Reports: Patient, EMS, Family, Significant Other History Limitations: Reports: No Limitations - History of Present Illness INITIAL COMMENTS - FREE TEXT/NARRATIVE: 71-year-old female presents for evaluation treatment of anal pain and dehydration. History is obtained from EMS, the patient's and her daughter. Reports that she has had diarrhea for the last few days. Reports that she is more weak than normal and has a decreased appetite. patient is normally able to get up and do things on her own but she was so weak today family was unable to get her up and therefore to call the ambulance. patient is complaining that her bottom hurts. They have been applying Desitin and hydrocortisone but the discomfort continues. She denies any vomiting, chest pain or shortness of breath. She reports some mild abdominal discomfort to the lower abdomen. Patient has a past medical history of lymphoma. She is currently on her second round of chemotherapy. She had her second dose on Saturday. 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 Currently seen oncologist at [facility] in [place], Dr. Damon Florentino. patient lives at home with her . Perineal Area Pain Score (Numeric/FACES): 5 - Related Data Allergies Allergy/AdvReac Type Severity Reaction Status Date / Time Penicillins Allergy Cannot Verified 03/30/17 14:10 Remember Home Meds: Home Meds Acetaminophen 650 mg PO Q6H PRN 03/30/17 [History] Albuterol [Ventolin HFA] 8 gm INH BID PRN 03/30/17 [History] Allopurinol [Zyloprim] 300 mg PO DAILY 03/30/17 [History] Amitriptyline HCl 100 mg PO BEDTIME 03/30/17 [History] Aspirin 81 mg PO BRK 03/30/17 [History] Losartan [Cozaar] 25 mg PO DAILY 03/30/17 [History] Metoprolol Succinate [Toprol XL] 50 mg PO BID 03/30/17 [History] Omeprazole 20 mg PO DAILY 03/30/17 [History] Pregabalin [Lyrica] 50 mg PO TID 03/30/17 [History] Rosuvastatin [Crestor] 20 mg PO DAILY 03/30/17 [History] Scopolamine [Transderm-Scop] 1.5 mg TRDERM Q72H 03/30/17 [History] fentaNYL [Fentanyl] 1 each TD ASDIRECTED 03/30/17 [History] Social & Family History - Tobacco Use Smoking Status *Q: Never Smoker Second Hand Smoke Exposure: No - Caffeine Use Caffeine Use: Reports: Coffee - Recreational Drug Use Recreational Drug Use: No ED ROS GENERAL - Review of Systems Review Of Systems: See Below Constitutional: Reports: Weakness, Decreased Appetite. Denies: Fever Respiratory: Denies: Shortness of Breath Cardiovascular: Denies: Chest Pain GI/Abdominal: Reports: Abdominal Pain (mild lower abdominal pain ). Denies: Vomiting Neurological: Reports: Syncope (family reports that she has had 2 syncopal episodes over the last 2 days these were unwitnessed) ED EXAM, GENERAL - Physical Exam Exam: See Below Exam Limited By: No Limitations General Appearance: Alert, WD/WN, No Apparent Distress Nose: Normal Inspection Throat/Mouth: Normal Inspection, Normal Voice, No Airway Compromise, Other (dry mucus membranes) Respiratory/Chest: No Respiratory Distress, Lungs Clear, Normal Breath Sounds Cardiovascular: Normal Peripheral Pulses, Regular Rate, Rhythm, No Murmur GI/Abdominal: Normal Bowel Sounds, Soft, Non-Tender Neurological: Alert Psychiatric: Normal Affect, Normal Mood Skin Exam: Warm, Dry, Pallor EKG INTERPRETATION EKG Date: 03/30/17 Time: 14:50 Rate (Beats/Min): 105 [place]: Normal P-Wave: Present QRS: Normal ST-T: Depressed (subtle in V2/V3) QT: Prolonged EKG Interpretation Comments: sinus tachycardia at [address] depression in V2/V3. No ST segment elevation. Reviewed by myself and Dr. Kathleen Willis. Course - Vital Signs Last Recorded V/S: Last Vital Signs Temp 37.4 C 03/30/17 20:49 Pulse 106 H 03/30/17 21:13 Resp 18 03/30/17 20:49 BP 103/52 L 03/30/17 21:13 Pulse Ox 94 L 03/30/17 21:13 - Orders/Labs/Meds Orders: Active Orders 24 hr Category Date Time Status Antiembolic Devices [RC] PER UNIT ROUTINE Care 03/30/17 18:26 Active Cardiac Monitoring [RC] . DIRECTED Care 03/30/17 14:15 Active EKG 12 Lead [EKG Documentation Completion] [RC] STAT Care 03/30/17 14:43 Active Height and Weight [RC] DAILY Care 03/30/17 18:24 Active Intake and Output [RC] QSHIFT Care 03/30/17 18:24 Active Oxygen Therapy [RC] PRN Care 03/30/17 18:24 Active Peripheral IV Care [RC] . DIRECTED Care 03/30/17 14:14 Active RT Aerosol Therapy [RC] ASDIRECTED Care 03/30/17 18:26 Active Up With Assistance [RC] ASDIRECTED Care 03/30/17 18:24 Active Up ad Kaylee [RC] ASDIRECTED Care 03/30/17 18:24 Active VTE/DVT Education [RC] PER UNIT ROUTINE Care 03/30/17 18:24 Active Vital Signs [RC] Q4H Care 03/30/17 18:24 Active Consult to Case Management [CONS] Routine Cons 03/30/17 18:26 Active Consult to Exchange Consultant [CONS] Routine Cons 03/30/17 18:26 Active Consult to Home Service Consultant [CONS] Routine Cons 03/30/17 18:26 Active Consult to Spiritual Care [CONS] Routine Cons 03/30/17 18:26 Active OT Evaluation and Treatment [CONS] Routine Cons 03/30/17 18:26 Active PT Evaluation and Treatment [CONS] Routine Cons 03/30/17 18:26 Active Respiratory Care Assess and Treatment [CONS] Routine Cons 03/30/17 18:26 Active Regular Diet [DIET] Diet 03/30/17 Dinner Active Chest 1V Frontal [CR] Stat Exams 03/30/17 14:14 Taken BASIC METABOLIC PANEL,BMP [CHEM] AM Lab 03/31/17 05:11 Ordered BASIC METABOLIC PANEL,BMP [CHEM] AM Lab 04/01/17 05:11 Ordered BASIC METABOLIC PANEL,BMP [CHEM] AM Lab 04/02/17 05:11 Ordered BASIC METABOLIC PANEL,BMP [CHEM] AM Lab 04/03/17 05:11 Ordered C DIFFICILE BY PCR W/NAP1 [MOLEC] Stat Lab 03/30/17 15:08 Ordered C-REACTIVE PROTEIN [CHEM] AM Lab 03/31/17 05:11 Ordered C-REACTIVE PROTEIN [CHEM] AM Lab 04/01/17 05:11 Ordered C-REACTIVE PROTEIN [CHEM] AM Lab 04/02/17 05:11 Ordered C-REACTIVE PROTEIN [CHEM] AM Lab 04/03/17 05:11 Ordered CBC WITH AUTO DIFF [HEME] AM Lab 03/31/17 05:11 Ordered CBC WITH AUTO DIFF [HEME] AM Lab 04/01/17 05:11 Ordered CBC WITH AUTO DIFF [HEME] AM Lab 04/02/17 05:11 Ordered CBC WITH AUTO DIFF [HEME] AM Lab 04/03/17 05:11 Ordered CULTURE BLOOD [BC] Stat Lab 03/30/17 14:30 Received CULTURE BLOOD [BC] Stat Lab 03/30/17 14:39 Received CULTURE URINE [RM] Stat Lab 03/30/17 14:13 Received MAGNESIUM [CHEM] AM Lab 03/31/17 05:11 Ordered MAGNESIUM [CHEM] AM Lab 04/01/17 05:11 Ordered MAGNESIUM [CHEM] AM Lab 04/02/17 05:11 Ordered MAGNESIUM [CHEM] AM Lab 04/03/17 05:11 Ordered Acetaminophen [Tylenol] Med 03/30/17 18:24 Active 650 mg PO Q4H PRN Acetaminophen/HYDROcodone [[place] 325-5 MG] Med 03/30/17 18:24 Active 1 tab PO Q4H PRN Albuterol [Proventil HFA] Med 03/30/17 18:29 Pending 0 puff INH BID PRN Albuterol/Ipratropium [DuoNeb 3.0-0.5 MG/3 ML] Med 03/30/17 18:24 Active 3 ml NEB Q4H PRN Allopurinol [Zyloprim] Med 03/31/17 09:00 Active 300 mg PO DAILY Amitriptyline [Elavil] Med 03/30/17 21:00 Active 100 mg PO BEDTIME Aspirin Med 03/31/17 07:00 Active 81 mg PO BRK Bisacodyl [Dulcolax] Med 03/30/17 18:24 Active 5 mg PO DAILY PRN Docusate Sodium [Colace] Med 03/30/17 18:24 Active 100 mg PO BID PRN Docusate Sodium/Sennosides [Senna Plus] Med 03/30/17 18:24 Active 1 tab PO BID PRN LORazepam [Ativan] Med 03/30/17 18:24 Active 1 mg IV Q6H PRN LORazepam [Ativan] Med 03/30/17 18:29 Active 2 mg IVPUSH Q4H PRN Losartan [Cozaar] Med 03/31/17 09:00 Active 25 mg PO DAILY Magnesium Rep Pharmacy to Dose [Pharmacy to Dose - Med 03/30/17 18:30 Pending Magnesium Replacement] 1 dose .XX ASDIRECTED Metoprolol Succinate [Toprol XL] Med 03/30/17 21:00 Active 50 mg PO BID Metoprolol Tartrate [Lopressor] Med 03/30/17 18:29 Active 5 mg IVPUSH Q4H PRN Ondansetron [Zofran] Med 03/30/17 18:24 Active 4 mg IV Q6H PRN Pantoprazole [ProTONIX] Med 03/31/17 09:00 Active 40 mg PO DAILY Polyethylene Glycol 3350 [MiraLAX] Med 03/30/17 18:24 Active 17 gm PO DAILY PRN Potassium Rep Pharmacy to Dose [Pharmacy to Dose - Med 03/30/17 18:30 Pending Potassium Replacement] 1 dose .XX ASDIRECTED Pregabalin [Lyrica] Med 03/30/17 21:00 Active 50 mg PO TID Promethazine [Phenergan] 12.5 mg Med 03/30/17 18:24 Active Sodium Chloride 0.9% [Normal Saline] 50 ml IV Q6H Rosuvastatin [Crestor] Med 03/31/17 09:00 Active 20 mg PO DAILY Scopolamine [Transderm-Scop] Med 03/30/17 20:00 Active 1.5 mg TRDERM Q72H Sodium Chloride 0.9% [Saline Flush] Med 03/30/17 14:14 Active 10 ml FLUSH ASDIRECTED PRN Temazepam [Restoril] Med 03/30/17 18:24 Active 7.5 mg PO BEDTIME PRN fentaNYL [Fentanyl] Med 03/30/17 18:30 Pending 1 each TD ASDIRECTED hydrALAZINE [Apresoline] Med 03/30/17 18:29 Active 20 mg IVPUSH Q4H PRN Antiembolic Hose [OM.PC] Per Unit Routine Oth 03/30/17 18:25 Ordered Blood Culture x2 Reflex Set [OM.PC] Stat Oth 03/30/17 14:14 Ordered Peripheral IV Insertion Adult [OM.PC] Routine Oth 03/30/17 14:14 Ordered Resuscitation Status Routine Resus Stat 03/30/17 18:24 Ordered Medication Orders Acetaminophen (Tylenol) 650 mg PO Q4H PRN PRN Reason: Pain (Mild 1-3)/fever Hydrocodone Bitart/Acetaminophen ([place] 325-5 Mg) 1 tab PO Q4H PRN PRN Reason: Pain (moderate 4-6) Albuterol (Proventil Hfa) 0 puff INH BID PRN PRN Reason: Wheezing Albuterol/Ipratropium (Duoneb 3.0-0.5 Mg/3 Ml) 3 ml NEB Q4H PRN PRN Reason: Shortness Of Breath/wheezing Allopurinol (Zyloprim) 300 mg PO DAILY [facility] Amitriptyline HCl (Elavil) 100 mg PO BEDTIME [facility] Aspirin (Aspirin) 81 mg PO BRK [facility] Bisacodyl (Dulcolax) 5 mg PO DAILY PRN PRN Reason: Constipation Cyanocobalamin (Vitamin B12) 1,000 mcg PO DAILY [facility] Docusate Sodium (Colace) 100 mg PO BID PRN PRN Reason: Constipation Dronabinol (Marinol) 2.5 mg PO TIDAC [facility] Hydralazine HCl (Apresoline) 20 mg IVPUSH Q4H PRN PRN Reason: Hypertension Hydromorphone HCl (Dilaudid) 1 mg IVPUSH Q4H PRN PRN Reason: Pain Last Admin: 03/30/17 20:23 Dose: 1 mg Promethazine HCl 12.5 mg/ (Sodium Chloride) 50.5 mls @ 100 mls/hr IV Q6H PRN PRN Reason: Nausea/Vomiting Levofloxacin/Dextrose 750 mg/ (Premix) 150 mls @ 150 mls/hr IV Q24H [facility] Meropenem 500 mg/ Sodium (Chloride) 100 mls @ 200 mls/hr IV Q12H [facility]EL Last Admin: 03/30/17 20:40 Dose: 200 mls/hr Potassium Chloride 10 meq/ (Premix) 100 mls @ 100 mls/hr IV Q1H [facility] Stop: 03/30/17 21:59 Lactated Ringer's (Ringers, Lactated) 1,000 mls @ 250 mls/hr IV ONETIME ONE Stop: 03/31/17 01:14 Lorazepam (Ativan) 1 mg IV Q6H PRN PRN Reason: Anxiety Lorazepam (Ativan) 2 mg IVPUSH Q4H PRN PRN Reason: Seizures Losartan Potassium (Cozaar) 25 mg PO DAILY [facility] Magnesium Sulfate (Pharmacy To Dose - Magnesium Replacement) 1 dose .XX ASDIRECTED [facility] Metoprolol Succinate (Toprol Xl) 50 mg PO BID [facility] Metoprolol Tartrate (Lopressor) 5 mg IVPUSH Q4H PRN PRN Reason: Tachycardia Multivitamins/Minerals (Cerovite Advanced Formula Tablet) 1 tab PO BEDTIME [facility] Fentanyl [Fentanyl] (1 Each) 1 each TD ASDIRECTED [facility] Ondansetron HCl (Zofran) 4 mg IV Q6H PRN PRN Reason: Nausea/Vomiting Pantoprazole Sodium (Protonix) 40 mg PO DAILY [facility] Polyethylene Glycol (Miralax) 17 gm PO DAILY PRN PRN Reason: Constipation Potassium Chloride (Pharmacy To Dose - Potassium Replacement) 1 dose .XX ASDIRECTED [facility] Pregabalin (Lyrica) 50 mg PO TID [facility] Rosuvastatin Calcium (Crestor) 20 mg PO DAILY [facility] Scopolamine (Transderm-Scop) 1.5 mg TRDERM Q72H [facility] Senna/Docusate Sodium (Senna Plus) 1 tab PO BID PRN PRN Reason: Constipation Sodium Chloride (Saline Flush) 10 ml FLUSH ASDIRECTED PRN PRN Reason: Keep Vein Open Last Admin: 03/30/17 14:49 Dose: 10 ml Temazepam (Restoril) 7.5 mg PO BEDTIME PRN PRN Reason: Sleep Thiamine HCl (Vitamin B-1) 100 mg PO BEDTIME [facility] Labs: Laboratory Tests 03/30/17 03/30/17 03/30/17 Range/Units 13:57 14:30 14:30 WBC (3.98-10.04) K/mm3 RBC (3.98-5.22) M/mm3 Hgb (11.2-15.7) gm/L Hct (34.1-44.9) % MCV (79.4-94.8) fl MCH (25.6-32.2) pg MCHC (32.2-35.5) g/dl RDW Std Deviation (36.4-46.3) fL Plt Count (182-369) K/mm3 MPV (9.4-12.3) fl Neutrophils % (Manual) (40-60) % Band Neutrophils % (0-10) % Lymphocytes % (Manual) (20-40) % Atypical Lymphs % % Monocytes % (Manual) (2-10) % Eosinophils % (Manual) (0.7-5.8) % Basophils % (Manual) (0.1-1.2) Toxic Granulation Dohle Bodies Platelet Estimate Plt Morphology Comment Hypochromasia Anisocytosis Macrocytosis RBC Morph Comment Sodium 139 (136-145) mEq/L Potassium 3.3 L (3.5-5.1) mEq/L Chloride 103 (98-107) mEq/L Carbon Dioxide 28 (21-32) mEq/L Anion Gap 11.3 (5-15) BUN 17 (7-18) mg/dL Creatinine 1.1 H (0.55-1.02) mg/dL Est Cr Clr Drug Dosing 36.41 mL/min Estimated GFR (MDRD) 49 (>60) mL/min BUN/Creatinine Ratio 15.5 (14-18) Glucose 97 (83-115) mg/dL Lactic Acid 1.0 (0.4-2.0) mmol/L Calcium 8.8 (8.5-10.1) mg/dL Total Bilirubin 0.8 (0.2-1.0) mg/dL AST 17 (15-37) U/L ALT 17 (14-59) U/L Alkaline Phosphatase 55 (46-116) U/L C-Reactive Protein 25.8 H* (<1.0) mg/dL Total Protein 6.1 L (6.4-8.2) g/dl Albumin 2.9 L (3.4-5.0) g/dl Globulin 3.2 gm/dL Albumin/Globulin Ratio 0.9 L (1-2) Urine Color Yellow (Yellow) Urine Appearance Slt cloudy H (Clear) Urine pH 6.0 (5.0-8.0) Ur Specific [place] 1.015 (1.005-1.030) Urine Protein Trace H (Negative) Urine Glucose (UA) Negative (Negative) Urine Ketones Trace H (Negative) Urine Occult Blood Negative (Negative) Urine Nitrite Negative (Negative) Urine Bilirubin Negative (Negative) Urine Urobilinogen 0.2 (0.2-1.0) Ur Leukocyte Esterase Negative (Negative) Urine RBC 0-5 (0-5) /hpf Urine WBC 0-5 (0-5) /hpf Ur Epithelial Cells 0-5 (0-5) /hpf Urine Bacteria Few (FEW) /hpf Urine Mucus Not seen (FEW) /hpf 03/30/17 Range/Units 14:50 WBC 0.47 L* (3.98-10.04) K/mm3 RBC 3.35 L (3.98-5.22) M/mm3 Hgb 9.3 L (11.2-15.7) gm/L Hct 28.6 L (34.1-44.9) % MCV 85.4 (79.4-94.8) fl MCH 27.8 (25.6-32.2) pg MCHC 32.5 (32.2-35.5) g/dl RDW Std Deviation 49.3 H (36.4-46.3) fL Plt Count 83 L (182-369) K/mm3 MPV 10.4 (9.4-12.3) fl Neutrophils % (Manual) 28 L (40-60) % Band Neutrophils % 0 (0-10) % Lymphocytes % (Manual) 58 H (20-40) % Atypical Lymphs % 0 % Monocytes % (Manual) 10 (2-10) % Eosinophils % (Manual) 4 (0.7-5.8) % Basophils % (Manual) 0 L (0.1-1.2) Toxic Granulation Few Dohle Bodies Few Platelet Estimate Decreased Plt Morphology Comment See note Hypochromasia 1+ slight Anisocytosis 1+ slight Macrocytosis 1+ slight RBC Morph Comment Not Reportable Sodium (136-145) mEq/L Potassium (3.5-5.1) mEq/L Chloride (98-107) mEq/L Carbon Dioxide (21-32) mEq/L Anion Gap (5-15) BUN (7-18) mg/dL Creatinine (0.55-1.02) mg/dL Est Cr Clr Drug Dosing mL/min Estimated GFR (MDRD) (>60) mL/min BUN/Creatinine Ratio (14-18) Glucose (83-115) mg/dL Lactic Acid (0.4-2.0) mmol/L Calcium (8.5-10.1) mg/dL Total Bilirubin (0.2-1.0) mg/dL AST (15-37) U/L ALT (14-59) U/L Alkaline Phosphatase (46-116) U/L C-Reactive Protein (<1.0) mg/dL Total Protein (6.4-8.2) g/dl Albumin (3.4-5.0) g/dl Globulin gm/dL Albumin/Globulin Ratio (1-2) Urine Color (Yellow) Urine Appearance (Clear) Urine pH (5.0-8.0) Ur Specific [place] (1.005-1.030) Urine Protein (Negative) Urine Glucose (UA) (Negative) Urine Ketones (Negative) Urine Occult Blood (Negative) Urine Nitrite (Negative) Urine Bilirubin (Negative) Urine Urobilinogen (0.2-1.0) Ur Leukocyte Esterase (Negative) Urine RBC (0-5) /hpf Urine WBC (0-5) /hpf Ur Epithelial Cells (0-5) /hpf Urine Bacteria (FEW) /hpf Urine Mucus (FEW) /hpf Meds: Medications Generic Name Dose Route Start Last Admin Trade Name Freq PRN Reason Stop Dose Admin Acetaminophen 650 mg 03/30/17 18:24 Tylenol PO Q4H PRN Pain (Mild 1-3)/fever Hydrocodone Bitart/Acetaminophen 1 tab 03/30/17 18:24 [place] 325-5 Mg PO Q4H PRN Pain (moderate 4-6) Albuterol 0 puff 03/30/17 18:29 Proventil Hfa INH BID PRN Wheezing Albuterol/Ipratropium 3 ml 03/30/17 18:24 Duoneb 3.0-0.5 Mg/3 Ml NEB Q4H PRN Shortness Of Breath/wheezing Allopurinol 300 mg 03/31/17 09:00 Zyloprim PO DAILY [facility] Amitriptyline HCl 100 mg 03/30/17 21:00 Elavil PO BEDTIME [facility] Aspirin 81 mg 03/31/17 07:00 Aspirin PO BRK [facility] Bisacodyl 5 mg 03/30/17 18:24 Dulcolax PO DAILY PRN Constipation Cyanocobalamin 1,000 mcg 03/31/17 09:00 Vitamin B12 PO DAILY [facility] Docusate Sodium 100 mg 03/30/17 18:24 Colace PO BID PRN Constipation Dronabinol 2.5 mg 03/31/17 07:00 Marinol PO TIDAC [facility] Hydralazine HCl 20 mg 03/30/17 18:29 Apresoline IVPUSH Q4H PRN Hypertension Hydromorphone HCl 1 mg 03/30/17 20:18 03/30/17 20:23 Dilaudid IVPUSH 1 mg Q4H PRN Administration Pain Promethazine HCl 12.5 mg/ 50.5 mls @ 100 mls/hr 03/30/17 18:24 Sodium Chloride IV Q6H PRN Nausea/Vomiting Levofloxacin/Dextrose 750 mg/ 150 mls @ 150 mls/hr 03/31/17 09:00 Premix IV Q24H [facility] Meropenem 500 mg/ Sodium 100 mls @ 200 mls/hr 03/30/17 19:00 03/30/17 20:40 Chloride IV 200 mls/hr Q12H [facility] Administration Potassium Chloride 10 meq/ 100 mls @ 100 mls/hr 03/30/17 20:00 Premix IV 03/30/17 21:59 Q1H [facility]EL Lactated Ringer's 1,000 mls @ 250 mls/hr 03/30/17 21:15 Ringers, Lactated IV 03/31/17 01:14 ONETIME ONE Lorazepam 1 mg 03/30/17 18:24 Ativan IV Q6H PRN Anxiety Lorazepam 2 mg 03/30/17 18:29 Ativan IVPUSH Q4H PRN Seizures Losartan Potassium 25 mg 03/31/17 09:00 Cozaar PO DAILY [facility] Magnesium Sulfate 1 dose 03/30/17 18:30 Pharmacy To Dose - Magnesium Replacement .XX ASDIRECTED [facility] Metoprolol Succinate 50 mg 03/30/17 21:00 Toprol Xl PO BID [facility] Metoprolol Tartrate 5 mg 03/30/17 18:29 Lopressor IVPUSH Q4H PRN Tachycardia Multivitamins/Minerals 1 tab 03/30/17 21:00 Cerovite Advanced Formula Tablet PO BEDTIME [facility] Fentanyl [Fentanyl] 1 each 03/30/17 18:30 1 Each TD ASDIRECTED [facility] Ondansetron HCl 4 mg 03/30/17 18:24 Zofran IV Q6H PRN Nausea/Vomiting Pantoprazole Sodium 40 mg 03/31/17 09:00 Protonix PO DAILY [facility] Polyethylene Glycol 17 gm 03/30/17 18:24 Miralax PO DAILY PRN Constipation Potassium Chloride 1 dose 03/30/17 18:30 Pharmacy To Dose - Potassium Replacement .XX ASDIRECTED [facility] Pregabalin 50 mg 03/30/17 21:00 Lyrica PO TID [facility] Rosuvastatin Calcium 20 mg 03/31/17 09:00 Crestor PO DAILY [facility] Scopolamine 1.5 mg 03/30/17 20:00 Transderm-Scop TRDERM Q72H [facility] Senna/Docusate Sodium 1 tab 03/30/17 18:24 Senna Plus PO BID PRN Constipation Sodium Chloride 10 ml 03/30/17 14:14 03/30/17 14:49 Saline Flush FLUSH 10 ml ASDIRECTED PRN Administration Keep Vein Open Temazepam 7.5 mg 03/30/17 18:24 Restoril PO BEDTIME PRN Sleep Thiamine HCl 100 mg 03/30/17 21:00 Vitamin B-1 PO BEDTIME [facility] Discontinued Medications Generic Name Dose Route Start Last Admin Trade Name Freq PRN Reason Stop Dose Admin Benzocaine/Menthol 1 gm 03/30/17 14:22 03/30/17 14:48 Dermoplast Pain Relief [place] TOP 03/30/17 14:23 1 spray ONETIME ONE Administration Hydromorphone HCl 0.25 mg 03/30/17 18:24 Dilaudid IVPUSH Q2H PRN Pain (severe 7-10) Lactated Ringer's 1,000 mls @ 999 mls/hr 03/30/17 14:13 03/30/17 14:20 Ringers, Lactated IV 03/30/17 15:13 999 mls/hr .BOLUS ONE Administration Lactated Ringer's 1,000 mls @ 999 mls/hr 03/30/17 15:08 03/30/17 15:45 Ringers, Lactated IV 03/30/17 16:08 999 mls/hr .BOLUS ONE Administration Levofloxacin/Dextrose 750 mg/ 150 mls @ 100 mls/hr 03/30/17 16:36 03/30/17 16 :55 Premix IV 03/30/17 18:05 100 mls/hr ONETIME ONE Administration Lactated Ringer's Confirm 03/30/17 20:51 Ringers, Lactated Administered 03/30/17 20:52 Dose 1,000 mls @ as directed .ROUTE .K-MED ONE - Radiology Interpretation Free Text/Narrative:: chest 1 view shows mild cardiomegaly. no acute intrathoracic process. - Re-Assessments/Exams Free Text/Narrative Re-Assessment/Exam: 03/30/17 16:23 patient's labs have returned. Of note her white blood cell count is markedly decreased at 0.47, hgb is 9.3 and platelets are 83. I called [facility] and was able to talk with the patient's oncologist Dr. Florentino who is on-call this weekend. Believes the pancytopenia is likely from her chemotherapy. Recommend we check for C. difficile, which is currently pending. He also recommends we get blood cultures, which are currently pending. Recommended admitting her for observation for fluids and possibly prophylactic antibiotics. Recommended giving her some Levaquin. felt she be adequately treated in [place] and did not feel she needed to come to [place] presently. 03/30/17 16:[address] Fernandez, hospitalist carbonizer tester. He agrees to accept the patient. Plan will be to keep her here at the hospital. Will give IV fluids and prophylactic antibiotics. Departure - Departure Time of Disposition: 18:50 Disposition: Admitted As Inpatient 65 Condition: Poor Clinical Impression: Dehydration, Pancytopenia - My Orders Last 24 Hours: My Active Orders 03/30/17 14:13 CULTURE URINE [RM] Stat 03/30/17 14:14 Peripheral IV Care [RC] . DIRECTED Chest 1V Frontal [CR] Stat Sodium Chloride 0.9% [Saline Flush] 10 ml FLUSH ASDIRECTED PRN Blood Culture x2 Reflex Set [OM.PC] Stat Peripheral IV Insertion Adult [OM.PC] Routine 03/30/17 14:15 Cardiac Monitoring [RC] . DIRECTED 03/30/17 14:30 CULTURE BLOOD [BC] Stat 03/30/17 14:39 CULTURE BLOOD [BC] Stat 03/30/17 14:43 EKG 12 Lead [EKG Documentation Completion] [RC] STAT 03/30/17 15:08 C DIFFICILE BY PCR W/NAP1 [MOLEC] Stat - Assessment/Plan Last 24 Hours: My Active Orders 03/30/17 14:13 CULTURE URINE [RM] Stat 03/30/17 14:14 Peripheral IV Care [RC] . DIRECTED Chest 1V Frontal [CR] Stat Sodium Chloride 0.9% [Saline Flush] 10 ml FLUSH ASDIRECTED PRN Blood Culture x2 Reflex Set [OM.PC] Stat Peripheral IV Insertion Adult [OM.PC] Routine 03/30/17 14:15 Cardiac Monitoring [RC] . DIRECTED 03/30/17 14:30 CULTURE BLOOD [BC] Stat 03/30/17 14:39 CULTURE BLOOD [BC] Stat 03/30/17 14:43 EKG 12 Lead [EKG Documentation Completion] [RC] STAT 03/30/17 15:08 C DIFFICILE BY PCR W/NAP1 [MOLEC] Stat
[2017-03-30] MEDS ORDERED: Levofloxacin/Dextrose 5%-Water 750 MG in Premix Bag 1 BAG IV ONE (16:36)
--- NOTE | 2017-03-30 18:16 | PCM.HP ---
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 She is currently on chemotherapy. She just completed second cycle of it and has 3 more cycle to complete. Patient reports associated symptoms of generalized weakness, poor appetite, weakness, malaise, fatigue, nausea and vomiting, and diarrhea. Her initial workup in the emergency department shows a CBC remarkable for WBC of 0.47, RBC of 3.35, hemoglobin of 9.3, hematocrit of 28.6, platelet of 83, neutrophils of 28%, lymphocyte of 58% and basophils of 0%. Her chemistry is remarkable for potassium of 3.3, creatinine 1.1, C-reactive protein of 25.8, total protein of 6.1, albumin of 2.9. Her UA is negative for urinary tract infection. A chest x-ray shows no acute abnormality Patient is being admitted for chemotherapy drugs related symptoms. She is full code. Perineal Area Pain Score (Numeric/FACES): 5 - Related Data Allergies/Adverse Reactions: Allergies Allergy/AdvReac Type Severity Reaction Status Date / Time Penicillins Allergy Cannot Verified 03/30/17 14:10 Remember Home Medications: Home Meds Acetaminophen 650 mg PO Q6H PRN 03/30/17 [History] Albuterol [Ventolin HFA] 8 gm INH BID PRN 03/30/17 [History] Allopurinol [Zyloprim] 300 mg PO DAILY 03/30/17 [History] Amitriptyline HCl 100 mg PO BEDTIME 03/30/17 [History] Aspirin 81 mg PO BRK 03/30/17 [History] Losartan [Cozaar] 25 mg PO DAILY 03/30/17 [History] Metoprolol Succinate [Toprol XL] 50 mg PO BID 03/30/17 [History] Omeprazole 20 mg PO DAILY 03/30/17 [History] Pregabalin [Lyrica] 50 mg PO TID 03/30/17 [History] Rosuvastatin [Crestor] 20 mg PO DAILY 03/30/17 [History] Scopolamine [Transderm-Scop] 1.5 mg TRDERM Q72H 03/30/17 [History] fentaNYL [Fentanyl] 1 each TD ASDIRECTED 03/30/17 [History] Social & Family History - Tobacco Use Smoking Status *Q: Never Smoker Second Hand Smoke Exposure: No - Caffeine Use Caffeine Use: Reports: Coffee - Recreational Drug Use Recreational Drug Use: No H&P Review of Systems - Review of Systems: Review Of Systems: ROS reveals no pertinent complaints other than HPI. Exam - Exam Exam: See Below - Vital Signs Vital Signs: Last Vital Signs Temp 36.3 C 03/30/17 14:05 Pulse 111 H 03/30/17 14:05 Resp 20 03/30/17 14:05 BP 91/70 03/30/17 14:05 Pulse Ox 95 03/30/17 14:05 Weight: 49.895 kg - Exam General: Alert, Oriented, Cooperative, Other (Severely weak and pale) HEENT: Conjunctiva Clear, EACs Clear, EOMI, Hearing Intact, Mucosa Moist & [place] , Nares Patent, Normal Nasal Septum, Posterior Pharynx Clear, Pupils Equal, Pupils Reactive Neck: Supple, Trachea Midline, +2 Carotid Pulse wo Bruit. No: JVD Lungs: Clear to Auscultation, Normal Respiratory Effort Cardiovascular: Regular Rate, Regular Rhythm GI/Abdominal Exam: Normal Bowel Sounds, Soft, Non-Tender, No Organomegaly, No Distention, No Abnormal Bruit, No Mass, Tender (Mid abdomen) (Female) Exam: Deferred Rectal (Female) Exam: Deferred Back Exam: Other (deferred) Extremities: Normal Inspection, Normal Range of Motion, Non-Tender, No Pedal Edema, Normal Capillary Refill Peripheral Pulses: 2+: Posterior Tibial (L), Posterior Tibial (R), Dorsalis Pedis (L), Dorsalis Pedis (R) Skin: Warm, Dry, Intact Neuro Extensive - Mental Status: Oriented x3, Normal Cognition, Memory Intact, Slow Response to Commands Neuro Extensive - Motor, Sensory, Reflexes: Other (deferred: she is too weak ). No: Abnormal Gait Psychiatric: Alert, Depressed. No: Normal Affect - Patient Data Lab Results Last 24 hrs: Laboratory Results - last 24 hr 03/30/17 03/30/17 03/30/17 Range/Units 13:57 14:30 14:30 WBC (3.98-10.04) K/mm3 RBC (3.98-5.22) M/mm3 Hgb (11.2-15.7) gm/L Hct (34.1-44.9) % MCV (79.4-94.8) fl MCH (25.6-32.2) pg MCHC (32.2-35.5) g/dl RDW Std Deviation (36.4-46.3) fL Plt Count (182-369) K/mm3 MPV (9.4-12.3) fl Neutrophils % (Manual) (40-60) % Band Neutrophils % (0-10) % Lymphocytes % (Manual) (20-40) % Atypical Lymphs % % Monocytes % (Manual) (2-10) % Eosinophils % (Manual) (0.7-5.8) % Basophils % (Manual) (0.1-1.2) Toxic Granulation Dohle Bodies Platelet Estimate Plt Morphology Comment Hypochromasia Anisocytosis Macrocytosis RBC Morph Comment Sodium 139 (136-145) mEq/L Potassium 3.3 L (3.5-5.1) mEq/L Chloride 103 (98-107) mEq/L Carbon Dioxide 28 (21-32) mEq/L Anion Gap 11.3 (5-15) BUN 17 (7-18) mg/dL Creatinine 1.1 H (0.55-1.02) mg/dL Est Cr Clr Drug Dosing 36.41 mL/min Estimated GFR (MDRD) 49 (>60) mL/min BUN/Creatinine Ratio 15.5 (14-18) Glucose 97 (83-115) mg/dL Lactic Acid 1.0 (0.4-2.0) mmol/L Calcium 8.8 (8.5-10.1) mg/dL Total Bilirubin 0.8 (0.2-1.0) mg/dL AST 17 (15-37) U/L ALT 17 (14-59) U/L Alkaline Phosphatase 55 (46-116) U/L C-Reactive Protein 25.8 H* (<1.0) mg/dL Total Protein 6.1 L (6.4-8.2) g/dl Albumin 2.9 L (3.4-5.0) g/dl Globulin 3.2 gm/dL Albumin/Globulin Ratio 0.9 L (1-2) Urine Color Yellow (Yellow) Urine Appearance Slt cloudy H (Clear) Urine pH 6.0 (5.0-8.0) Ur Specific [place] 1.015 (1.005-1.030) Urine Protein Trace H (Negative) Urine Glucose (UA) Negative (Negative) Urine Ketones Trace H (Negative) Urine Occult Blood Negative (Negative) Urine Nitrite Negative (Negative) Urine Bilirubin Negative (Negative) Urine Urobilinogen 0.2 (0.2-1.0) Ur Leukocyte Esterase Negative (Negative) Urine RBC 0-5 (0-5) /hpf Urine WBC 0-5 (0-5) /hpf Ur Epithelial Cells 0-5 (0-5) /hpf Urine Bacteria Few (FEW) /hpf Urine Mucus Not seen (FEW) /hpf 03/30/17 Range/Units 14:50 WBC 0.47 L* (3.98-10.04) K/mm3 RBC 3.35 L (3.98-5.22) M/mm3 Hgb 9.3 L (11.2-15.7) gm/L Hct 28.6 L (34.1-44.9) % MCV 85.4 (79.4-94.8) fl MCH 27.8 (25.6-32.2) pg MCHC 32.5 (32.2-35.5) g/dl RDW Std Deviation 49.3 H (36.4-46.3) fL Plt Count 83 L (182-369) K/mm3 MPV 10.4 (9.4-12.3) fl Neutrophils % (Manual) 28 L (40-60) % Band Neutrophils % 0 (0-10) % Lymphocytes % (Manual) 58 H (20-40) % Atypical Lymphs % 0 % Monocytes % (Manual) 10 (2-10) % Eosinophils % (Manual) 4 (0.7-5.8) % Basophils % (Manual) 0 L (0.1-1.2) Toxic Granulation Few Dohle Bodies Few Platelet Estimate Decreased Plt Morphology Comment See note Hypochromasia 1+ slight Anisocytosis 1+ slight Macrocytosis 1+ slight RBC Morph Comment Not Reportable Sodium (136-145) mEq/L Potassium (3.5-5.1) mEq/L Chloride (98-107) mEq/L Carbon Dioxide (21-32) mEq/L Anion Gap (5-15) BUN (7-18) mg/dL Creatinine (0.55-1.02) mg/dL Est Cr Clr Drug Dosing mL/min Estimated GFR (MDRD) (>60) mL/min BUN/Creatinine Ratio (14-18) Glucose (83-115) mg/dL Lactic Acid (0.4-2.0) mmol/L Calcium (8.5-10.1) mg/dL Total Bilirubin (0.2-1.0) mg/dL AST (15-37) U/L ALT (14-59) U/L Alkaline Phosphatase (46-116) U/L C-Reactive Protein (<1.0) mg/dL Total Protein (6.4-8.2) g/dl Albumin (3.4-5.0) g/dl Globulin gm/dL Albumin/Globulin Ratio (1-2) Urine Color (Yellow) Urine Appearance (Clear) Urine pH (5.0-8.0) Ur Specific [place] (1.005-1.030) Urine Protein (Negative) Urine Glucose (UA) (Negative) Urine Ketones (Negative) Urine Occult Blood (Negative) Urine Nitrite (Negative) Urine Bilirubin (Negative) Urine Urobilinogen (0.2-1.0) Ur Leukocyte Esterase (Negative) Urine RBC (0-5) /hpf Urine WBC (0-5) /hpf Ur Epithelial Cells (0-5) /hpf Urine Bacteria (FEW) /hpf Urine Mucus (FEW) /hpf Result Diagrams: 03/30/17 14:50 03/30/17 14:30 *Q Meaningful Use (ADM) - VTE *Q VTE Criteria *Q: - Stroke *Q Stroke Criteria *Q: - AMI *Q AMI Criteria *Q: Problem List Initiated/Reviewed/Updated: Yes Orders Last 24hrs: Active Orders 24 hr Category Date Time Status Cardiac Monitoring [RC] . DIRECTED Care 03/30/17 14:15 Active EKG 12 Lead [EKG Documentation Completion] [RC] STAT Care 03/30/17 14:43 Active Peripheral IV Care [RC] . DIRECTED Care 03/30/17 14:14 Active Chest 1V Frontal [CR] Stat Exams 03/30/17 14:14 Taken C DIFFICILE BY PCR W/NAP1 [MOLEC] Stat Lab 03/30/17 15:08 Ordered CULTURE BLOOD [BC] Stat Lab 03/30/17 14:30 Received CULTURE BLOOD [BC] Stat Lab 03/30/17 14:39 Received CULTURE URINE [RM] Stat Lab 03/30/17 16:41 Ordered Levofloxacin/Dextrose 5%-Water [Levaquin in D5W 750 MG/ Med 03/30/17 16:36 Active 150 ML] 750 mg Premix Bag 1 bag IV ONETIME Sodium Chloride 0.9% [Saline Flush] Med 03/30/17 14:14 Active 10 ml FLUSH ASDIRECTED PRN Blood Culture x2 Reflex Set [OM.PC] Stat Oth 03/30/17 14:14 Ordered Peripheral IV Insertion Adult [OM.PC] Routine Oth 03/30/17 14:14 Ordered Medication Orders Levofloxacin/Dextrose 750 mg/ (Premix) 150 mls @ 100 mls/hr IV ONETIME ONE Stop: 03/30/17 18:05 Last Admin: 03/30/17 16:55 Dose: 100 mls/hr Sodium Chloride (Saline Flush) 10 ml FLUSH ASDIRECTED PRN PRN Reason: Keep Vein Open Last Admin: 03/30/17 14:49 Dose: 10 ml Assessment/Plan Comment:: Assessment/Plan: Acute: Chemotherapy Associated Symptoms/Failure to Thrive - Anal Pain, Dehydration, Diarrhea, Poor Appetite, and Generalized Weakness - Recently had her second chemo cycle; she has 3 more cycle to go - Family aware I could only offer her supportive care Severe Leukocytopenia - S/p Chemotherapy for Aggressive form of Lymphoma - She is immuno-suppressed state: very high risk for acquiring infections - WBC is 0.47 and CRP is 25.8 - She still has neutrophils - UA is negative and CXR shows no acute abnormality - Will cover her with ATB Mild Hypokalemia - K 3.3 - 2/2 Diarrhea - Will replete - Monitor 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 Seymour when she was discharged here last time - She has 3 more cycle to complete Moderate Anemia - 2/2 Chemotherapy and underlying Malignancy - Hgb is 9.3, stable right now - Will monitor Generalized Weakness - 2/2 Poor Intake, Anemia and Side Effects of Chemotherapy Drugs - Dietary consult to improve appetite - MVI, Folic Acid, Thiamine and B12 Chronic: Impaired Vision on Right Eye Recurrent Bronchitis Possible IBS OA/DJD CVA w/ residual weakness Plan: Admit to Med-Surg Routine AM Labs Resume Home Meds Blood Cx x2; Pending C-Diff Will Screen for Influenza She can eat whatever she wants IV Levaquin and Meropenem Marinol 2.5 mg po TID before each meal Dietary consult PT/OT consult SW/CM for d/c planning Code status: 1
[2017-03-30] MEDS ORDERED: Promethazine 12.5 MG in Sodium Chloride 0.9% 50 ML IV PRN (18:24)
[2017-03-30] MEDS ORDERED: LORazepam 2 MG/ML MDV IV PRN (18:24)
[2017-03-30] MEDS ORDERED: Ondansetron 4 MG/2 ML SDV IV PRN (18:24)
[2017-03-30] MEDS ORDERED: Acetaminophen 325 MG Tab PO PRN (18:24)
[2017-03-30] MEDS ORDERED: Albuterol/Ipratropium 3.0-0.5 MG/3 ML Neb Soln NEB PRN (18:24)
[2017-03-30] MEDS ORDERED: HYDROmorphone 1 MG/ML Syringe IVPUSH PRN ×2 (18:24→20:18)
[2017-03-30] MEDS ORDERED: Polyethylene Glycol 3350 Powder 17 GM Packet PO PRN (18:24)
[2017-03-30] MEDS ORDERED: Docusate Sodium 100 MG Cap PO PRN (18:24)
[2017-03-30] MEDS ORDERED: Bisacodyl 5 MG Tab PO PRN (18:24)
[2017-03-30] MEDS ORDERED: LORazepam 2 MG/ML MDV IVPUSH PRN (18:29)
[2017-03-30] MEDS ORDERED: hydrALAZINE 20 MG/ML SDV IVPUSH PRN (18:29)
[2017-03-30] MEDS ORDERED: Albuterol 90 MCG/6.7 GM Inhaler INH PRN (18:29)
[2017-03-30] MEDS ORDERED: Metoprolol Tartrate 5 MG/5 ML SDV IVPUSH PRN (18:29)
[2017-03-30] MEDS ORDERED: FENTANYL TD SCH (18:30)
[2017-03-30] MEDS: Meropenem 500 MG in Sodium Chloride 0.9% 100 ML IV SCH (20:40)
[2017-03-30] MEDS ORDERED: Lactated Ringers 1,000 ML ONE (20:51)
[2017-03-30] MEDS ORDERED: Multivitamin/Iron/Folic Acid Tab PO SCH (21:00)
[2017-03-30] MEDS: Scopolamine 1.5 MG Transdermal Patch TRDERM SCH (22:25)
[2017-03-30] MEDS: Potassium Chloride 10 MEQ in Premix Bag 1 BAG IV SCH ×2 (22:25→23:43)
[2017-03-30] MEDS: Metoprolol Succinate 50 MG Tab.ER PO SCH (22:34)
[2017-03-30] MEDS: Thiamine 100 MG Tab PO SCH (22:34)
[2017-03-30] MEDS: Pregabalin 25 MG Cap PO SCH (22:36)
[2017-03-30] MEDS: Amitriptyline 25 MG Tab PO SCH (22:36)
[2017-03-30] MEDS: Witch Hazel Medicated Pads 100/Jar TOP PRN (23:33)
[2017-03-30] MEDS: Acetaminophen/HYDROcodone 325-5 MG Tab PO PRN (23:34)
[2017-03-31] MEDS: Lactated Ringers 1,000 ML IV SCH ×3 (01:11→18:27)
[2017-03-31] MEDS: Benzocaine/Menthol 20%-0.5% Spray 56 GM Canister TOP PRN ×2 (05:26→12:00)
[2017-03-31] MEDS: Acetaminophen/HYDROcodone 325-5 MG Tab PO PRN ×2 (05:26→21:47)
[2017-03-31] MEDS: Witch Hazel Medicated Pads 100/Jar TOP PRN ×4 (05:27→13:00)
[2017-03-31] MEDS: Meropenem 500 MG in Sodium Chloride 0.9% 100 ML IV SCH ×3 (06:50→19:49)
[2017-03-31] MEDS: Aspirin 81 MG Tab.Chew PO SCH (06:51)
[2017-03-31] MEDS: Dronabinol 2.5 MG Cap PO SCH ×3 (07:05→17:29)
[2017-03-31] MEDS ORDERED: fentaNYL 12 MCG/HR Transdermal Patch TRDERM SCH ×2 (07:45→11:00)
--- NOTE | 2017-03-31 07:48 | PCM.PN ---
- General Info Date of Service: 03/31/17 Admission Dx/Problem (Free Text): Chemotherapy Associated Symptoms Subjective Update: Follow Up Functional Status: Reports: Pain Controlled, Urinating. Denies: New Symptoms Pain Score: 0 - Review of Systems General: Reports: Weakness, Fatigue, Malaise. Denies: Fever, Chills HEENT: Reports: No Symptoms Pulmonary: Denies: Shortness of Breath Cardiovascular: Denies: Chest Pain Gastrointestinal: Reports: Other (No appetite). Denies: Abdominal Pain, Nausea , Vomiting Genitourinary: Reports: Retention (per nurse), Other (rectal pain ) Skin: Denies: Cyanosis, Pallor, Diaphoresis, Bruising, Rash Neurological: Reports: Weakness, Gait Disturbance. Denies: Dizziness, Pre- Existing Deficit, Difficulty Walking Psychiatric: Denies: Depression, Mood Lability, Anxiety, Agitation, Cravings, Hallucinations - Patient Data Vitals - Most Recent: Last Vital Signs Temp 37.1 C 03/31/17 04:09 Pulse 84 03/31/17 07:23 Resp 18 03/31/17 07:23 BP 92/54 L 03/31/17 07:23 Pulse Ox 96 03/31/17 07:23 Weight - Most Recent: 79.469 kg I&O - Last 24 Hours: Intake & Output 03/30/17 03/31/17 03/31/17 22:59 06:59 14:59 Intake Total 450 1894 Output Total 600 Balance -150 1894 Lab Results Last 24 Hours: Laboratory Results - last 24 hr 03/31/17 Range/Units 06:21 WBC 0.62 L* (3.98-10.04) K/mm3 RBC 2.61 L (3.98-5.22) M/mm3 Hgb 7.1 L* (11.2-15.7) gm/L Hct 22.6 L (34.1-44.9) % MCV 86.6 (79.4-94.8) fl MCH 27.2 (25.6-32.2) pg MCHC 31.4 L (32.2-35.5) g/dl RDW Std Deviation 49.0 H (36.4-46.3) fL Plt Count 48 L (182-369) K/mm3 MPV 10.0 (9.4-12.3) fl Neut % (Auto) 37.1 (34.0-71.1) % Lymph % (Auto) 24.2 (19.3-51.7) % [place] % (Auto) 35.5 H (4.7-12.5) % Eos % (Auto) 1.6 (0.7-5.8) Baso % (Auto) 1.6 H (0.1-1.2) % Neut # (Auto) 0.23 L (1.56-6.13) K/mm3 Lymph # (Auto) 0.15 L (1.18-3.74) K/mm3 [place] # (Auto) 0.22 L (0.24-0.36) K/mm3 Eos # (Auto) 0.01 L (0.04-0.36) K/mm3 Baso # (Auto) 0.01 (0.01-0.08) K/mm3 Med Orders - Current: Current Medications Acetaminophen (Tylenol) 650 mg PO Q4H PRN PRN Reason: Pain (Mild 1-3)/fever Hydrocodone Bitart/Acetaminophen ([place] 325-5 Mg) 1 tab PO Q4H PRN PRN Reason: Pain (moderate 4-6) Last Admin: 03/31/17 05:26 Dose: 1 tab Albuterol (Proventil Hfa) 1 puff INH BID PRN PRN Reason: Wheezing Albuterol/Ipratropium (Duoneb 3.0-0.5 Mg/3 Ml) 3 ml NEB Q4H PRN PRN Reason: Shortness Of Breath/wheezing Allopurinol (Zyloprim) 300 mg PO DAILY [facility] Amitriptyline HCl (Elavil) 100 mg PO BEDTIME [facility] Last Admin: 03/30/17 22:36 Dose: 100 mg Aspirin (Aspirin) 81 mg PO BRK [facility] Last Admin: 03/31/17 06:51 Dose: 81 mg Benzocaine/Menthol (Dermoplast Pain Relief [place]) 0 gm TOP Q6H PRN PRN Reason: Other Last Admin: 03/31/17 05:26 Dose: 1 spray Bisacodyl (Dulcolax) 5 mg PO DAILY PRN PRN Reason: Constipation Cyanocobalamin (Vitamin B12) 1,000 mcg PO DAILY [facility] Docusate Sodium (Colace) 100 mg PO BID PRN PRN Reason: Constipation Dronabinol (Marinol) 2.5 mg PO TIDAC [facility] Last Admin: 03/31/17 07:05 Dose: Not Given Fentanyl (Duragesic) 12 mcg TRDERM Q72H [facility] Hydralazine HCl (Apresoline) 20 mg IVPUSH Q4H PRN PRN Reason: Hypertension Hydromorphone HCl (Dilaudid) 1 mg IVPUSH Q4H PRN PRN Reason: Pain Last Admin: 03/30/17 20:23 Dose: 1 mg Promethazine HCl 12.5 mg/ (Sodium Chloride) 50.5 mls @ 100 mls/hr IV Q6H PRN PRN Reason: Nausea/Vomiting Levofloxacin/Dextrose 750 mg/ (Premix) 150 mls @ 150 mls/hr IV Q24H [facility] Meropenem 500 mg/ Sodium (Chloride) 100 mls @ 200 mls/hr IV Q12H [facility] Last Admin: 03/31/17 06:50 Dose: 200 mls/hr Lactated Ringer's (Ringers, Lactated) 1,000 mls @ 125 mls/hr IV ASDIRECTED [facility] Last Admin: 03/31/17 01:11 Dose: 125 mls/hr Lorazepam (Ativan) 1 mg IV Q6H PRN PRN Reason: Anxiety Lorazepam (Ativan) 2 mg IVPUSH Q4H PRN PRN Reason: Seizures Losartan Potassium (Cozaar) 25 mg PO DAILY [facility] Magnesium Sulfate (Pharmacy To Dose - Magnesium Replacement) 1 dose .XX ASDIRECTED [facility] Metoprolol Succinate (Toprol Xl) 50 mg PO BID [facility] Last Admin: 03/30/17 22:34 Dose: Not Given Metoprolol Tartrate (Lopressor) 5 mg IVPUSH Q4H PRN PRN Reason: Tachycardia Miscellaneous Information (Remove Patch) 1 ea TRDERM Q72H [facility] Multivitamins/Minerals (Cerovite Advanced Formula Tablet) 1 tab PO BEDTIME [facility] Last Admin: 03/30/17 23:02 Dose: Not Given Ondansetron HCl (Zofran) 4 mg IV Q6H PRN PRN Reason: Nausea/Vomiting Pantoprazole Sodium (Protonix) 40 mg PO DAILY [facility] Polyethylene Glycol (Miralax) 17 gm PO DAILY PRN PRN Reason: Constipation Potassium Chloride (Pharmacy To Dose - Potassium Replacement) 1 dose .XX ASDIRECTED [facility] Pregabalin (Lyrica) 50 mg PO TID [facility] Last Admin: 03/30/17 22:36 Dose: 50 mg Rosuvastatin Calcium (Crestor) 20 mg PO DAILY [facility] Scopolamine (Transderm-Scop) 1.5 mg TRDERM Q72H [facility] Last Admin: 03/30/17 22:25 Dose: 1.5 mg Senna/Docusate Sodium (Senna Plus) 1 tab PO BID PRN PRN Reason: Constipation Sodium Chloride (Saline Flush) 10 ml FLUSH ASDIRECTED PRN PRN Reason: Keep Vein Open Last Admin: 03/30/17 14:49 Dose: 10 ml Temazepam (Restoril) 7.5 mg PO BEDTIME PRN PRN Reason: Sleep Thiamine HCl (Vitamin B-1) 100 mg PO BEDTIME [facility] Last Admin: 03/30/17 22:34 Dose: 100 mg Witch Janae (Tucks) 1 pad TOP ASDIRECTED PRN PRN Reason: Pain Last Admin: 03/31/17 05:27 Dose: 1 pad Discontinued Medications Benzocaine/Menthol (Dermoplast Pain Relief [place]) 1 gm TOP ONETIME ONE Stop: 03/30/17 14:23 Last Admin: 03/30/17 14:48 Dose: 1 spray Hydromorphone HCl (Dilaudid) 0.25 mg IVPUSH Q2H PRN PRN Reason: Pain (severe 7-10) Lactated Ringer's (Ringers, Lactated) 1,000 mls @ 999 mls/hr IV .BOLUS ONE Stop: 03/30/17 15:13 Last Admin: 03/30/17 14:20 Dose: 999 mls/hr Lactated Ringer's (Ringers, Lactated) 1,000 mls @ 999 mls/hr IV .BOLUS ONE Stop: 03/30/17 16:08 Last Admin: 03/30/17 15:45 Dose: 999 mls/hr Levofloxacin/Dextrose 750 mg/ (Premix) 150 mls @ 100 mls/hr IV ONETIME ONE Stop: 03/30/17 18:05 Last Admin: 03/30/17 16:55 Dose: 100 mls/hr Potassium Chloride 10 meq/ (Premix) 100 mls @ 100 mls/hr IV Q1H [facility] Stop: 03/30/17 21:59 Last Admin: 03/30/17 23:43 Dose: 100 mls/hr Lactated Ringer's (Ringers, Lactated) Confirm Administered Dose 1,000 mls @ as directed .ROUTE .STK-MED ONE Stop: 03/30/17 20:52 Last Admin: 03/30/17 22:22 Dose: Not Given Lactated Ringer's (Ringers, Lactated) 1,000 mls @ 250 mls/hr IV ONETIME ONE Stop: 03/31/17 01:14 Last Admin: 03/30/17 21:00 Dose: 250 mls/hr Fentanyl [Fentanyl] (1 Each) 1 each TD ASDIRECTED [facility] - Exam General: Alert, Oriented, Cooperative, No Acute Distress (She looks weak and tired), Other HEENT: Pupils Equal, Pupils Reactive, Mucous Membr. Moist/[place] Neck: Supple, Trachea Midline, No JVD Lungs: Normal Respiratory Effort, Decreased Breath Sounds Cardiovascular: Regular Rate, Regular Rhythm GI/Abdominal Exam: Normal Bowel Sounds, Soft, Non-Tender, No Organomegaly, No Distention, No Abnormal Bruit, No Mass, Other (Perineum and rectum shows erythema and skin irritation) (Female) Exam: Deferred Skin: Warm, Dry, Intact Neurological: No New Focal Deficit Psy/Mental Status: Alert, Normal Affect, Depressed. No: Normal Mood, Suicidal Ideation - Problem List Review Problem List Initiated/Reviewed/Updated: Yes - My Orders Last 24 Hours: My Active Orders 03/30/17 19:00 Meropenem [Merrem] 500 mg Sodium Chloride 0.9% [Normal Saline] 100 ml IV Q12H 03/30/17 20:18 HYDROmorphone [Dilaudid] 1 mg IVPUSH Q4H PRN 03/30/17 21:00 Multivitamins/Iron/Folic Acid [Cerovite Advanced Formula Tablet] 1 tab PO BEDTIME Thiamine [Vitamin B-1] 100 mg PO BEDTIME 03/30/17 23:15 Witch Janae [Tucks] 1 pad TOP ASDIRECTED PRN 03/30/17 23:30 Benzocaine/Menthol [Dermoplast Pain Relief [place]] 0 gm TOP Q6H PRN 03/31/17 00:30 Lactated Ringers [Ringers, Lactated] 1,000 ml IV ASDIRECTED 03/31/17 05:41 Urinary Catheter Assessment [RC] ASDIRECTED 03/31/17 05:45 Insert Urinary Catheter [OM.PC] Q24H 03/31/17 07:00 Dronabinol [Marinol] 2.5 mg PO TIDAC 03/31/17 07:45 fentaNYL [Duragesic] 12 mcg TRDERM Q72H 03/31/17 09:00 Cyanocobalamin (Vitamin B12) [Vitamin B12] 1,000 mcg PO DAILY Levofloxacin/Dextrose 5%-Water [Levaquin in D5W 750 MG/150 ML] 750 mg Premix Bag 1 bag IV Q24H 03/31/17 12:00 HEMOGLOBIN/HEMATOCRIT,HH [HEME] Routine 04/03/17 07:45 Remove Patch 1 ea TRDERM Q72H - Plan Plan:: Assessment/Plan: Acute: Chemotherapy Associated Symptoms/Failure to Thrive - Anal Pain, Dehydration, Diarrhea, Poor Appetite, and Generalized Weakness - Recently had her second chemo cycle; she has 3 more cycle to go - Family aware I could only offer her supportive care Severe Leukocytopenia, marginally improved - S/p Chemotherapy for Aggressive form of Lymphoma - She is immuno-suppressed state: very high risk for acquiring infections - WBC is 0.47--> 0.62 and CRP is 25.8 --> 20 - She has adequate neutrophils; at this time isolation protocol not indicated - UA is negative and CXR shows no acute abnormality - Continue IV Levaquin and Zosyn 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 Seymour when she was discharged here last time - She has 3 more cycle to complete Moderate Anemia - 2/2 Chemotherapy and underlying Malignancy - Hgb is 9.3--> 7.1 cannot r/o high turn over of cell but she had gotten plenty of fluids - Will repeat at 1200, if it stays the same or lower--> will transfuse 2 units Generalized Weakness - 2/2 Poor Intake, Anemia and Side Effects of Chemotherapy Drugs - Dietary consult to improve appetite - MVI, Folic Acid, Thiamine and B12 Resolved: Mild Hypokalemia - K 3.3 --> 3.7 - 2/2 Diarrhea - Monitor Chronic: Impaired Vision on Right Eye Recurrent Bronchitis Possible IBS OA/DJD CVA w/ residual weakness Plan: She is weak and tired Routine AM Labs UA is negative Blood Cx and C-Diff test pending Dietary consult Continue PT/OT Encourage to eat whatever she wants SW/CM for d/c planning Code status: 1 Prognosis is poor. She has advanced lymphoma with multiple area of metastasis.
[2017-03-31] MEDS ORDERED: Bumetanide 1 MG/4 ML MDV IVPUSH ONE (07:51)
[2017-03-31] MEDS ORDERED: Magnesium Sulfate/Water 2 GM in Premix Bag 1 BAG IV ONE (09:00)
[2017-03-31] MEDS ORDERED: Albuterol 6.7 GM Inhaler INH PRN ×2 (09:15→11:28)
[2017-03-31] MEDS: Levofloxacin/Dextrose 5%-Water 750 MG in Premix Bag 1 BAG IV SCH (09:47)
[2017-03-31] MEDS: Cyanocobalamin (Vitamin B12) 1,000 MCG Tab PO SCH (10:06)
[2017-03-31] MEDS: Allopurinol 300 MG Tab PO SCH (10:07)
[2017-03-31] MEDS: Pregabalin 25 MG Cap PO SCH ×3 (10:08→21:43)
[2017-03-31] MEDS: Pantoprazole 40 MG Tab.CR PO SCH (10:09)
[2017-03-31] MEDS: Rosuvastatin 10 MG Tab PO SCH (10:09)
[2017-03-31] MEDS: Midodrine 5 MG Tab PO SCH ×3 (10:47→18:14)
[2017-03-31] MEDS: Losartan 25 MG Tab PO SCH (10:58)
[2017-03-31] MEDS: Metoprolol Succinate 50 MG Tab.ER PO SCH ×2 (10:59→21:46)
--- NOTE | 2017-03-31 12:31 | PCM.SN ---
- Free Text/Narrative Note: Her repeat Hgb is 7.1. She will receive 2 units of PRBC. Patient and family informed about blood transfusion.
[2017-03-31] MEDS ORDERED: Acetaminophen 325 MG Tab PO ONE (12:33)
[2017-03-31] MEDS ORDERED: Dexamethasone 4 MG/ML SDV IVPUSH ONE (12:33)
[2017-03-31] MEDS ORDERED: diphenhydrAMINE 50 MG/ML SDV IVPUSH ONE (12:33)
[2017-03-31] MEDS ORDERED: oxyCODONE 5 MG Tab PO PRN (12:43)
[2017-03-31] MEDS ORDERED: Sodium Chloride 0.9% 250 ML ONE ×2 (13:00→17:43)
[2017-03-31] MEDS ORDERED: Midodrine 5 MG Tab PO PRN (18:57)
[2017-03-31] MEDS: Sodium Chloride 0.9% 1,000 ML IV SCH (19:49)
--- NOTE | 2017-03-31 19:58 | CR ---
Chest: Portable view of the chest was obtained. Comparison: No prior chest x-ray. Heart is mildly enlarged. Atherosclerotic change is seen within the aortic knob. Interstitial changes are seen within both upper lungs. Lungs otherwise are clear. Infusion port is seen entering from the left side. Mild scoliosis is noted within the spine. Surgical clips are seen within the left lower neck. Impression: 1. Interstitial changes within both upper lungs. Without old films uncertain if this is chronic or represents focal upper lobe bronchitis. 2. Other incidental findings. Diagnostic code #3
[2017-03-31] MEDS: Thiamine 100 MG Tab PO SCH (21:43)
[2017-03-31] MEDS: Amitriptyline 25 MG Tab PO SCH (21:44)
[2017-03-31] MEDS: Multivitamins,Therapeutic Tab PO SCH (21:44)
[2017-03-31] MEDS: Temazepam 7.5 MG Cap PO PRN (23:30)
[2017-04-01] MEDS: Meropenem 500 MG in Sodium Chloride 0.9% 100 ML IV SCH ×2 (01:32→06:29)
[2017-04-01] MEDS: Aspirin 81 MG Tab.Chew PO SCH (06:29)
[2017-04-01] MEDS: Dronabinol 2.5 MG Cap PO SCH ×3 (06:29→17:48)
--- NOTE | 2017-04-01 08:01 | PCM.PN ---
- General Info Date of Service: 04/01/17 Admission Dx/Problem (Free Text): Chemotherapy Associated Symptoms--diarrhea, dehydration, weakness Subjective Update: Gayle is seen this morning resting comfortably, just finished bed bath with nursing; tolerated well. Pain is much improved. No further loose stools since last evening. Appetite is improved. She was up standing with PT today but was only able to stand, minimally as she was "just so weak". No other new symptoms reported this morning, no cough, SOB, CP, abd pain. Rectum was "sore and raw" from diarrhea. Anusol suppositories have "helped so much". Review labs and findings, course of stay and expectations of recovery and future treatment with patient and family this morning. Functional Status: Reports: Pain Controlled, Tolerating Diet, Ambulating, Urinating. Denies: New Symptoms - Review of Systems General: Reports: Weakness, Fatigue, Malaise. Denies: Fever, Appetite (minimal) HEENT: Reports: No Symptoms Pulmonary: Reports: No Symptoms. Denies: Shortness of Breath, Cough Cardiovascular: Reports: No Symptoms. Denies: Chest Pain, Dyspnea on Exertion Gastrointestinal: Reports: Diarrhea - Patient Data Vitals - Most Recent: Last Vital Signs Temp 97.7 F 04/01/17 04:12 Pulse 58 L 04/01/17 04:12 Resp 14 04/01/17 04:12 BP 113/60 04/01/17 04:12 Pulse Ox 93 L 04/01/17 04:12 Weight - Most Recent: 180 lb 11.2 oz I&O - Last 24 Hours: Intake & Output 03/31/17 04/01/17 04/01/17 22:59 06:59 14:59 Intake Total 2620 650 Output Total 1350 375 Balance 1270 275 Lab Results Last 24 Hours: Laboratory Results - last 24 hr 03/31/17 03/31/17 03/31/17 Range/Units 06:21 12:17 12:20 WBC (3.98-10.04) K/mm3 RBC (3.98-5.22) M/mm3 Hgb 7.1 L* (11.2-15.7) gm/L Hct 22.6 L (34.1-44.9) % MCV (79.4-94.8) fl MCH (25.6-32.2) pg MCHC (32.2-35.5) g/dl RDW Std Deviation (36.4-46.3) fL Plt Count (182-369) K/mm3 MPV (9.4-12.3) fl Neut % (Auto) (34.0-71.1) % Lymph % (Auto) (19.3-51.7) % [place] % (Auto) (4.7-12.5) % Eos % (Auto) (0.7-5.8) Baso % (Auto) (0.1-1.2) % Neut # (Auto) (1.56-6.13) K/mm3 Lymph # (Auto) (1.18-3.74) K/mm3 [place] # (Auto) (0.24-0.36) K/mm3 Eos # (Auto) (0.04-0.36) K/mm3 Baso # (Auto) (0.01-0.08) K/mm3 Manual Slide Review Sodium (136-145) mEq/L Potassium (3.5-5.1) mEq/L Chloride (98-107) mEq/L Carbon Dioxide (21-32) mEq/L Anion Gap (5-15) BUN (7-18) mg/dL Creatinine (0.55-1.02) mg/dL Est Cr Clr Drug Dosing mL/min Estimated GFR (MDRD) (>60) mL/min BUN/Creatinine Ratio (14-18) Glucose (83-115) mg/dL Calcium (8.5-10.1) mg/dL Magnesium (1.8-2.4) mg/dl C-Reactive Protein 20.0 H* (<1.0) mg/dL Blood Type O POSITIVE Gel Antibody Screen Negative Crossmatch See Detail 04/01/17 04/01/17 Range/Units 05:50 05:50 WBC 3.79 L (3.98-10.04) K/mm3 RBC 3.45 L (3.98-5.22) M/mm3 Hgb 9.8 L (11.2-15.7) gm/L Hct 29.5 L (34.1-44.9) % MCV 85.5 (79.4-94.8) fl MCH 28.4 (25.6-32.2) pg MCHC 33.2 (32.2-35.5) g/dl RDW Std Deviation 46.9 H (36.4-46.3) fL Plt Count 54 L (182-369) K/mm3 MPV 12.0 (9.4-12.3) fl Neut % (Auto) 78.5 H (34.0-71.1) % Lymph % (Auto) 8.4 L (19.3-51.7) % [place] % (Auto) 10.8 (4.7-12.5) % Eos % (Auto) 0.5 L (0.7-5.8) Baso % (Auto) 0.5 (0.1-1.2) % Neut # (Auto) 2.97 (1.56-6.13) K/mm3 Lymph # (Auto) 0.32 L (1.18-3.74) K/mm3 [place] # (Auto) 0.41 H (0.24-0.36) K/mm3 Eos # (Auto) 0.02 L (0.04-0.36) K/mm3 Baso # (Auto) 0.02 (0.01-0.08) K/mm3 Manual Slide Review Abnormal smear Sodium 140 (136-145) mEq/L Potassium 4.2 (3.5-5.1) mEq/L Chloride 107 (98-107) mEq/L Carbon Dioxide 27 (21-32) mEq/L Anion Gap 10.2 (5-15) BUN 12 (7-18) mg/dL Creatinine 0.7 (0.55-1.02) mg/dL Est Cr Clr Drug Dosing 65.37 mL/min Estimated GFR (MDRD) > 60 (>60) mL/min BUN/Creatinine Ratio 17.1 (14-18) Glucose 88 (83-115) mg/dL Calcium 8.4 L (8.5-10.1) mg/dL Magnesium 2.1 (1.8-2.4) mg/dl C-Reactive Protein 14.2 H* (<1.0) mg/dL Blood Type Gel Antibody Screen Crossmatch [place] Results Last 24 Hours: Microbiology 03/31/17 21:40 Influenza Type A Antigen Screen - Final Nasopharyngeal Swab - Nare, Unspecified NEGATIVE INFLUENZA A VIRUS AG Influenza Type B Antigen Screen - Final NEGATIVE INFLUENZA B VIRUS AG Med Orders - Current: Current Medications Acetaminophen (Tylenol) 650 mg PO Q4H PRN PRN Reason: Pain (Mild 1-3)/fever Hydrocodone Bitart/Acetaminophen ([place] 325-5 Mg) 1 tab PO Q4H PRN PRN Reason: Pain (moderate 4-6) Last Admin: 03/31/17 21:47 Dose: 1 tab Albuterol (Proventil Hfa) 0 gm INH BID PRN PRN Reason: Wheezing Albuterol/Ipratropium (Duoneb 3.0-0.5 Mg/3 Ml) 3 ml NEB Q4H PRN PRN Reason: Shortness Of Breath/wheezing Allopurinol (Zyloprim) 300 mg PO DAILY [facility] Last Admin: 03/31/17 10:07 Dose: 300 mg Amitriptyline HCl (Elavil) 100 mg PO BEDTIME [facility] Last Admin: 03/31/17 21:44 Dose: 100 mg Aspirin (Aspirin) 81 mg PO BRK [facility] Last Admin: 04/01/17 06:29 Dose: 81 mg Benzocaine/Menthol (Dermoplast Pain Relief [place]) 0 gm TOP Q6H PRN PRN Reason: Other Last Admin: 03/31/17 12:00 Dose: 1 spray Bisacodyl (Dulcolax) 5 mg PO DAILY PRN PRN Reason: Constipation Cyanocobalamin (Vitamin B12) 1,000 mcg PO DAILY [facility] Last Admin: 03/31/17 10:06 Dose: 1,000 mcg Docusate Sodium (Colace) 100 mg PO BID PRN PRN Reason: Constipation Dronabinol (Marinol) 2.5 mg PO TIDAC [facility] Last Admin: 04/01/17 06:29 Dose: 2.5 mg Fentanyl (Duragesic) 12 mcg TRDERM Q72H [facility] Stop: 04/03/17 10:59 Last Admin: 03/31/17 13:32 Dose: 12 mcg Fentanyl (Duragesic) 25 mcg TRDERM Q72H [facility] Hydralazine HCl (Apresoline) 20 mg IVPUSH Q4H PRN PRN Reason: Hypertension Hydrocortisone Acetate (Anucort-Hc) 25 mg RECTAL BID [facility] Hydromorphone HCl (Dilaudid) 1 mg IVPUSH Q4H PRN PRN Reason: Pain Last Admin: 03/30/17 20:23 Dose: 1 mg Promethazine HCl 12.5 mg/ (Sodium Chloride) 50.5 mls @ 100 mls/hr IV Q6H PRN PRN Reason: Nausea/Vomiting Levofloxacin/Dextrose 750 mg/ (Premix) 150 mls @ 150 mls/hr IV Q24H [facility] Last Admin: 03/31/17 09:47 Dose: 150 mls/hr Meropenem 500 mg/ Sodium (Chloride) 100 mls @ 200 mls/hr IV Q6H [facility] Last Admin: 04/01/17 06:29 Dose: 200 mls/hr Sodium Chloride (Normal Saline) 1,000 mls @ 25 mls/hr IV ASDIRECTED [facility] Last Admin: 03/31/17 19:49 Dose: 25 mls/hr Lorazepam (Ativan) 1 mg IV Q6H PRN PRN Reason: Anxiety Lorazepam (Ativan) 2 mg IVPUSH Q4H PRN PRN Reason: Seizures Losartan Potassium (Cozaar) 25 mg PO DAILY [facility] Last Admin: 03/31/17 10:58 Dose: Not Given Magnesium Sulfate (Pharmacy To Dose - Magnesium Replacement) 1 dose .XX ASDIRECTED [facility] Metoprolol Succinate (Toprol Xl) 50 mg PO BID [facility] Last Admin: 03/31/17 21:46 Dose: 50 mg Metoprolol Tartrate (Lopressor) 5 mg IVPUSH Q4H PRN PRN Reason: Tachycardia Midodrine (Midodrine) 5 mg PO TIDAC PRN PRN Reason: Hypotension Miscellaneous Information (Remove Patch) 1 ea TRDERM Q72H [facility] Multivitamins (Thera) 1 each PO BEDTIME [facility] Last Admin: 03/31/17 21:44 Dose: 1 each Ondansetron HCl (Zofran) 4 mg IV Q6H PRN PRN Reason: Nausea/Vomiting Oxycodone HCl (Oxycodone) 10 mg PO Q6H PRN PRN Reason: Pain Last Admin: 03/31/17 23:30 Dose: 10 mg Pantoprazole Sodium (Protonix) 40 mg PO DAILY [facility] Last Admin: 03/31/17 10:09 Dose: 40 mg Polyethylene Glycol (Miralax) 17 gm PO DAILY PRN PRN Reason: Constipation Potassium Chloride (Pharmacy To Dose - Potassium Replacement) 1 dose .XX ASDIRECTED [facility] Pregabalin (Lyrica) 50 mg PO TID [facility] Last Admin: 03/31/17 21:43 Dose: 50 mg Rosuvastatin Calcium (Crestor) 20 mg PO DAILY [facility] Last Admin: 03/31/17 10:09 Dose: 20 mg Scopolamine (Transderm-Scop) 1.5 mg TRDERM Q72H [facility] Last Admin: 03/30/17 22:25 Dose: 1.5 mg Senna/Docusate Sodium (Senna Plus) 1 tab PO BID PRN PRN Reason: Constipation Sodium Chloride (Saline Flush) 10 ml FLUSH ASDIRECTED PRN PRN Reason: Keep Vein Open Last Admin: 03/30/17 14:49 Dose: 10 ml Temazepam (Restoril) 7.5 mg PO BEDTIME PRN PRN Reason: Sleep Last Admin: 03/31/17 23:30 Dose: 7.5 mg Thiamine HCl (Vitamin B-1) 100 mg PO BEDTIME [facility] Last Admin: 03/31/17 21:43 Dose: 100 mg Witch Janae (Tucks) 1 pad TOP ASDIRECTED PRN PRN Reason: Pain Last Admin: 03/31/17 13:00 Dose: 1 pad Discontinued Medications Acetaminophen (Tylenol) 325 mg PO NOW ONE Stop: 03/31/17 12:34 Last Admin: 03/31/17 13:26 Dose: 325 mg Albuterol (Proventil Hfa) 1 puff INH BID PRN PRN Reason: Wheezing Albuterol (Proventil Hfa) 1 gm INH BID PRN PRN Reason: Wheezing Benzocaine/Menthol (Dermoplast Pain Relief [place]) 1 gm TOP ONETIME ONE Stop: 03/30/17 14:23 Last Admin: 03/30/17 14:48 Dose: 1 spray Bumetanide (Bumex) 0.5 mg IVPUSH ONETIME ONE Stop: 03/31/17 07:52 Last Admin: 03/31/17 10:10 Dose: 0.5 mg Dexamethasone (Dexamethasone) 4 mg IVPUSH ONETIME ONE Stop: 03/31/17 12:34 Last Admin: 03/31/17 13:31 Dose: 4 mg Diphenhydramine HCl (Benadryl) 25 mg IVPUSH ONETIME ONE Stop: 03/31/17 12:34 Last Admin: 03/31/17 13:38 Dose: 25 mg Fentanyl (Duragesic) 12 mcg TRDERM Q72H [facility] Last Admin: 03/31/17 10:47 Dose: 12 mcg Hydromorphone HCl (Dilaudid) 0.25 mg IVPUSH Q2H PRN PRN Reason: Pain (severe 7-10) Lactated Ringer's (Ringers, Lactated) 1,000 mls @ 999 mls/hr IV .BOLUS ONE Stop: 03/30/17 15:13 Last Admin: 03/30/17 14:20 Dose: 999 mls/hr Lactated Ringer's (Ringers, Lactated) 1,000 mls @ 999 mls/hr IV .BOLUS ONE Stop: 03/30/17 16:08 Last Admin: 03/30/17 15:45 Dose: 999 mls/hr Levofloxacin/Dextrose 750 mg/ (Premix) 150 mls @ 100 mls/hr IV ONETIME ONE Stop: 03/30/17 18:05 Last Admin: 03/30/17 16:55 Dose: 100 mls/hr Meropenem 500 mg/ Sodium (Chloride) 100 mls @ 200 mls/hr IV Q12H [facility] Last Admin: 03/31/17 06:50 Dose: 200 mls/hr Potassium Chloride 10 meq/ (Premix) 100 mls @ 100 mls/hr IV Q1H [facility] Stop: 03/30/17 21:59 Last Admin: 03/30/17 23:43 Dose: 100 mls/hr Lactated Ringer's (Ringers, Lactated) Confirm Administered Dose 1,000 mls @ as directed .ROUTE .STK-MED ONE Stop: 03/30/17 20:52 Last Admin: 03/30/17 22:22 Dose: Not Given Lactated Ringer's (Ringers, Lactated) 1,000 mls @ 250 mls/hr IV ONETIME ONE Stop: 03/31/17 01:14 Last Admin: 03/30/17 21:00 Dose: 250 mls/hr Lactated Ringer's (Ringers, Lactated) 1,000 mls @ 125 mls/hr IV ASDIRECTED [facility] Last Admin: 03/31/17 18:27 Dose: 125 mls/hr Magnesium Sulfate 2 gm/ Premix 50 mls @ 50 mls/hr IV ONETIME ONE Stop: 03/31/17 09:59 Last Admin: 03/31/17 09:48 Dose: 50 mls/hr Sodium Chloride (Normal Saline) Confirm Administered Dose 250 mls @ as directed .ROUTE .STK-MED ONE Stop: 03/31/17 13:01 Last Admin: 03/31/17 13:28 Dose: Not Given Sodium Chloride (Normal Saline) Confirm Administered Dose 250 mls @ as directed .ROUTE .STK-MED ONE Stop: 03/31/17 17:44 Last Admin: 03/31/17 23:30 Dose: Not Given Midodrine (Midodrine) 5 mg PO TIDAC [facility] Last Admin: 03/31/17 18:14 Dose: Not Given Multivitamins/Minerals (Cerovite Advanced Formula Tablet) 1 tab PO BEDTIME [facility] Last Admin: 03/30/17 23:02 Dose: Not Given Fentanyl [Fentanyl] (1 Each) 1 each TD ASDIRECTED [facility] - Exam Quality Assessment: DVT Prophylaxis General: Alert, Oriented, Cooperative, No Acute Distress HEENT: Pupils Equal, EOMI, Mucous Membr. Moist/[place] Neck: Supple Lungs: Clear to Auscultation, Normal Respiratory Effort, Decreased Breath Sounds (throughout) Cardiovascular: Regular Rate, Regular Rhythm GI/Abdominal Exam: Normal Bowel Sounds, Soft, Non-Tender (Female) Exam: Deferred Back Exam: Normal Inspection Extremities: Normal Inspection, No Pedal Edema Peripheral Pulses: 2+: Dorsalis Pedis (L), Dorsalis Pedis (R) Neurological: No New Focal Deficit Psy/Mental Status: Alert, Normal Affect, Normal Mood - Problem List & Annotations (1) Nausea & vomiting SNOMED Code(s): 39603308 Code(s): R11.2 - NAUSEA WITH VOMITING, UNSPECIFIED Status: Acute Priority : High Current Visit: Yes Qualifiers: Vomiting type: unspecified Vomiting Intractability: unspecified Qualified Code(s): R11.2 - Nausea with vomiting, unspecified (2) Back pain SNOMED Code(s): 870850887 Code(s): M54.9 - DORSALGIA, UNSPECIFIED Status: Acute Priority: Medium Current Visit: Yes Qualifiers: Chronicity: unspecified (3) Lymphoma SNOMED Code(s): 877133546 Code(s): C85.90 - NON-[place]GKIN LYMPHOMA, UNSPECIFIED, UNSPECIFIED SITE Status: Acute Priority: High Current Visit: Yes Qualifiers: (4) Dehydration SNOMED Code(s): 18977069 Code(s): E86.0 - DEHYDRATION Status: Acute Priority: High Current Visit : Yes (5) Pancytopenia SNOMED Code(s): 012567399 Code(s): D61.818 - OTHER PANCYTOPENIA Status: Acute Priority: High Current Visit: Yes - Problem List Review Problem List Initiated/Reviewed/Updated: Yes - My Orders Last 24 Hours: My Active Orders 04/01/17 08:00 Hydrocortisone Acetate [Anucort-HC] 25 mg RECTAL BID - Plan Plan:: Assessment/Plan: Acute: Chemotherapy Associated Symptoms/Failure to Thrive - Anal Pain, Dehydration, Diarrhea, Poor Appetite, and Generalized Weakness - Recently had her second chemo cycle; she has 3 more cycle to go - Family aware I could only offer her supportive care - Anusol HC suppository, Tucks wipes - Marinol with improvements in appetite noted - [employer] consult Severe Leukocytopenia, ---improved - S/p Chemotherapy for Aggressive form of Lymphoma - She is immuno-suppressed state: very high risk for acquiring infections - WBC is 0.47--> 0.62---today 3.7 - CRP is 25.8 --> 20 - She has adequate neutrophils; at this time isolation protocol not indicated - UA is negative and CXR shows no acute abnormality - Will DC IV abx 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 Seymour when she was discharged here last time; wishes to cont to follow up established Onc in [place] - She has 3 more cycle to complete and wishes to continue with further treatment at this time, stating "I am going to fight this". Anemia with pancytopenia--improving - 2/2 Chemotherapy and underlying Malignancy - Hgb is 9.3--> 7.1 cannot r/o high turn over of cell but she had gotten plenty of fluids - Rec'd 2 units PRBC, hgb back up to 9.8 today. - Cont to follow with daily labs Generalized Weakness - 2/2 Poor Intake, Anemia and Side Effects of Chemotherapy Drugs - Dietary consult to improve appetite, marinol as above - MVI, Folic Acid, Thiamine and B12 Resolved: Mild Hypokalemia - K 3.3 --> 3.7 - 2/2 Diarrhea - Monitor Chronic: Impaired Vision on Right Eye Recurrent Bronchitis Possible IBS OA/DJD CVA w/ residual weakness Plan: She is weak and tired Routine AM Labs UA is negative Blood Cx and C-Diff test pending Dietary consult Continue PT/OT Encourage to eat whatever she wants SW/CM for d/c planning--discussed POC and DC plan with patient and family today , likely DC in 1-2 days pending progress/strength and therapy recommendations. Code status: 1 Prognosis is poor. She has advanced lymphoma with multiple area of metastasis.
[2017-04-01] MEDS: Levofloxacin/Dextrose 5%-Water 750 MG in Premix Bag 1 BAG IV SCH (08:12)
[2017-04-01] MEDS: Rosuvastatin 10 MG Tab PO SCH (08:13)
[2017-04-01] MEDS: Pregabalin 25 MG Cap PO SCH ×3 (08:13→21:53)
[2017-04-01] MEDS: Cyanocobalamin (Vitamin B12) 1,000 MCG Tab PO SCH (08:13)
[2017-04-01] MEDS: Allopurinol 300 MG Tab PO SCH (08:15)
[2017-04-01] MEDS: Pantoprazole 40 MG Tab.CR PO SCH (08:16)
[2017-04-01] MEDS: Hydrocortisone Acetate 25 MG Supp RECTAL SCH ×3 (08:16→21:56)
[2017-04-01] MEDS: Losartan 25 MG Tab PO SCH (08:21)
[2017-04-01] MEDS: Metoprolol Succinate 50 MG Tab.ER PO SCH ×2 (08:21→21:52)
[2017-04-01] MEDS ORDERED: Diphenhydramine/Lidocaine/MagAl/Simethicone 119 ML Bottle PO SCH (13:00)
[2017-04-01] MEDS: Diphenhydramine/Lidocaine/MagAl/Simethicone 119 ML Bottle PO SCH ×2 (18:21→23:09)
[2017-04-01] MEDS: Witch Hazel Medicated Pads 100/Jar TOP PRN ×2 (19:13→23:11)
[2017-04-01] MEDS: Benzocaine/Menthol 20%-0.5% Spray 56 GM Canister TOP PRN ×2 (19:13→23:10)
[2017-04-01] MEDS: Multivitamins,Therapeutic Tab PO SCH (21:51)
[2017-04-01] MEDS: Amitriptyline 25 MG Tab PO SCH (21:54)
[2017-04-01] MEDS: Thiamine 100 MG Tab PO SCH (21:54)
[2017-04-01] MEDS: Temazepam 7.5 MG Cap PO PRN (22:02)
[2017-04-02] MEDS: Sodium Chloride 0.9% 1,000 ML IV SCH (05:44)
[2017-04-02] MEDS: Diphenhydramine/Lidocaine/MagAl/Simethicone 119 ML Bottle PO SCH ×2 (06:24→11:17)
[2017-04-02] MEDS: Dronabinol 2.5 MG Cap PO SCH ×2 (06:24→11:17)
[2017-04-02] MEDS: Aspirin 81 MG Tab.Chew PO SCH (06:24)
[2017-04-02] MEDS: Allopurinol 300 MG Tab PO SCH (08:05)
[2017-04-02] MEDS: Hydrocortisone Acetate 25 MG Supp RECTAL SCH (08:05)
[2017-04-02] MEDS: Cyanocobalamin (Vitamin B12) 1,000 MCG Tab PO SCH (08:05)
[2017-04-02] MEDS: Pregabalin 25 MG Cap PO SCH (08:05)
[2017-04-02] MEDS: Pantoprazole 40 MG Tab.CR PO SCH (08:06)
[2017-04-02] MEDS: Metoprolol Succinate 50 MG Tab.ER PO SCH (08:06)
[2017-04-02] MEDS: Witch Hazel Medicated Pads 100/Jar TOP PRN (08:06)
[2017-04-02] MEDS: Losartan 25 MG Tab PO SCH (08:06)
[2017-04-02] MEDS: Benzocaine/Menthol 20%-0.5% Spray 56 GM Canister TOP PRN (08:07)
[2017-04-02] MEDS: Rosuvastatin 10 MG Tab PO SCH (08:18)
--- NOTE | 2017-04-02 10:42 | PCM.DCSUM1 ---
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 She was admitted for complications associated with chemotherapy drugs. - Discharge Data Discharge Date: 04/02/17 Discharge Disposition: Home, Self-Care 01 Condition: Good - Discharge Diagnosis/Problem(s) (1) Chemotherapy adverse reaction SNOMED Code(s): 728217994 ICD Code: T45.1X5A - ADVERSE EFFECT OF ANTINEOPLASTIC AND IMMUNOSUP DRUGS, INIT Status: Resolved Qualifiers: Encounter type: initial encounter Qualified Code(s): T45.1X5A - Adverse effect of antineoplastic and immunosuppressive drugs, initial encounter (2) Leukocytopenia SNOMED Code(s): 38568893 ICD Code: D72.819 - DECREASED WHITE BLOOD CELL COUNT, UNSPECIFIED Status: Resolved Qualifiers: Neutropenia type: secondary to cancer chemotherapy (3) Lymphoma SNOMED Code(s): 909016317 ICD Code: C85.90 - NON-HODGKIN LYMPHOMA, UNSPECIFIED, UNSPECIFIED SITE Status: Acute Qualifiers: Lymphoma type: unspecified type Lymphoma site: unspecified region Qualified Code(s): C85.90 - Non-Hodgkin lymphoma, unspecified, unspecified site (4) Anemia SNOMED Code(s): 905442919 ICD Code: D64.9 - ANEMIA, UNSPECIFIED Status: Resolved Qualifiers: Anemia type: other cause Other causes of anemia: antineoplastic chemotherapy Qualified Code(s): D64.81 - Anemia due to antineoplastic chemotherapy; T45.1X5A - Adverse effect of antineoplastic and immunosuppressive drugs, initial encounter (5) Episode of generalized weakness SNOMED Code(s): 09879601 ICD Code: R53.1 - WEAKNESS Status: Resolved (6) Hypokalemia due to loss of potassium SNOMED Code(s): 50350684 ICD Code: E87.6 - HYPOKALEMIA Status: Acute - Patient Summary/Data Operative Procedure(s) Performed: None Complications: None Consults: None Recommended Follow-up Testing/Procedures: None Hospital Course: She was primarily admitted for chemotherapy drugs related side effects. She just recently completed her second cycle of chemotherapy for treatment of her aggressive lymphoma. She presented to the emergency department with complaints of generalized weakness, dehydration, poor oral intake, diarrhea, and anal irritation. She received initial treatment before she was sent to the floor for further management. On the floor, she was provided supportive care to include intravenous fluids, pain medications, multivitamins, and elemental minerals to improve nutritional status. She also received intravenous antibiotics due to her immuno-compromised status with severe leukocytopenia. Slowly the patient improved on this regimen. Her white cell count was back in the normal range (3.98-10.04) with a level of 6.10. She was 0.47 on admission. Her hospital course was mildly complicated by sudden drop in her Hgb level of 7.1 which again we felt due to chemotherapy side effects. However she was transfused 2 units of PRBC and she improved to 10.2. No hematemesis, gastrointestinal bleed, or melenic stools observed during this admission. Overall she had done well. She had been clinically stable since yesterday. In fact she was wanting to go home but we felt she was not ready yet clinically. She was discharged with Anucort rectal suppository for constipation. Patient was advised to come back or seek immediate care should her symptoms persist or get worse. The patient expressed understanding and in agreement with the plans as discussed above. All questions were answered. Dr. Solano was called and updated regarding patient's discharge care plan. - Patient Instructions Diet: Usual Diet as Tolerated Activity: As Tolerated Driving: Do Not Drive Showering/Bathing: May Shower Notify Provider of: Fever, Increased Pain, Nausea and/or Vomiting Other/Special Instructions: - Resume all home meds. - Please take new medication as directed. - Resume daily home activity as tolerated. - Follow up with your cancer doctor as initially scheduled - Discharge Plan Prescriptions/Med Rec: Hydrocortisone Acetate [Anucort-HC] 25 mg RECTAL BID #1 supp Home Medications: Home Meds Calcium Carbonate/Vitamin D3 [Calcium 500 + Vit D 400] 1 tab PO DAILY 05/04/16 [ History] Glucosamine [Glucosamine Sulfate] 500 mg PO DAILY 05/04/16 [History] Bisacodyl 10 mg RC DAILY PRN #15 supp.rect 02/12/17 [Rx] Docusate Sodium [Colace] 100 mg PO BID #60 cap 02/12/17 [Rx] Naloxone [Narcan] 0.4 mg INJECT ASDIRECTED PRN #2 syringe 02/12/17 [Rx] Ondansetron [Zofran ODT] 4 mg PO Q6H PRN #20 tab.dis 02/12/17 [Rx] oxyCODONE 5 mg PO ASDIRECTED PRN #120 tablet 02/12/17 [Rx] Acetaminophen 650 mg PO Q6H PRN 03/30/17 [History] Albuterol [Ventolin HFA] 1 puff INH BID PRN 03/30/17 [History] Allopurinol [Zyloprim] 300 mg PO DAILY 03/30/17 [History] Amitriptyline HCl 100 mg PO BEDTIME 03/30/17 [History] Aspirin 81 mg PO BRK 03/30/17 [History] Losartan [Cozaar] 25 mg PO DAILY 03/30/17 [History] Metoprolol Succinate [Toprol XL] 50 mg PO BID 03/30/17 [History] Omeprazole 20 mg PO DAILY 03/30/17 [History] Pregabalin [Lyrica] 50 mg PO TID 03/30/17 [History] Rosuvastatin [Crestor] 20 mg PO DAILY 03/30/17 [History] Scopolamine [Transderm-Scop] 1.5 mg TRDERM Q72H 03/30/17 [History] fentaNYL [Fentanyl] 1 each TD ASDIRECTED 03/30/17 [History] Hydrocortisone Acetate [Anucort-HC] 25 mg RECTAL BID #1 supp 04/02/17 [Rx] Patient Handouts: Chemotherapy, Opportunistic Infections, Bone Metastasis - Discharge Summary/Plan Comment DC Time >30 min.: Yes (45 mins) Discharge Summary/Plan Comment: Discharge to Home - General Info Date of Service: 04/02/17 Admission Dx/Problem (Free Text: Chemotherapy Associated Symptoms Subjective Update: Follow Up Functional Status: Reports: Pain Controlled, Tolerating Diet, Ambulating. Denies: Urinating, New Symptoms - Review of Systems General: Denies: Fever, Weakness, Fatigue, Malaise, Chills HEENT: Reports: No Symptoms Pulmonary: Denies: Shortness of Breath Cardiovascular: Denies: Chest Pain, Palpitations, Dyspnea on Exertion Gastrointestinal: Denies: Abdominal Pain, Constipation, Decreased Appetite, Diarrhea, Nausea, Vomiting Genitourinary: Reports: No Symptoms Musculoskeletal: Reports: No Symptoms Skin: Denies: Cyanosis, Pallor, Diaphoresis, Rash Neurological: Reports: Weakness (Mild weakness). Denies: Confusion, Difficulty Walking, Gait Disturbance Psychiatric: Denies: Depression, Mood Lability, Anxiety, Agitation, Hallucinations Systems Review Comment: No overnight or acute issues. She looks great clinically. She is in good spirit. She is wanting to go home since yesterday. She has no new complaints. Her morning labs are all unremarkable. - Patient Data Vitals - Most Recent: Last Vital Signs Temp 37.1 C 04/02/17 07:45 Pulse 64 04/02/17 08:06 Resp 14 04/02/17 07:45 BP 128/57 L 04/02/17 08:06 Pulse Ox 94 L 04/02/17 10:20 Weight - Most Recent: 81.102 kg I&O - Last 24 hours: Intake & Output 04/01/17 04/02/17 04/02/17 22:59 06:59 14:59 Intake Total 1423 819 120 Output Total 1700 850 Balance -277 -31 120 Lab Results - Last 24 hrs: Laboratory Results - last 24 hr 04/02/17 04/02/17 Range/Units 06:04 06:04 WBC 6.10 (3.98-10.04) K/mm3 RBC 3.60 L (3.98-5.22) M/mm3 Hgb 10.2 L (11.2-15.7) gm/L Hct 31.2 L (34.1-44.9) % MCV 86.7 (79.4-94.8) fl MCH 28.3 (25.6-32.2) pg MCHC 32.7 (32.2-35.5) g/dl RDW Std Deviation 49.5 H (36.4-46.3) fL Plt Count 60 L (182-369) K/mm3 MPV 12.0 (9.4-12.3) fl Neut % (Auto) 72.3 H (34.0-71.1) % Lymph % (Auto) 12.8 L (19.3-51.7) % [place] % (Auto) 6.7 (4.7-12.5) % Eos % (Auto) 0.8 (0.7-5.8) Baso % (Auto) 0.5 (0.1-1.2) % Neut # (Auto) 4.41 (1.56-6.13) K/mm3 Lymph # (Auto) 0.78 L (1.18-3.74) K/mm3 [place] # (Auto) 0.41 H (0.24-0.36) K/mm3 Eos # (Auto) 0.05 (0.04-0.36) K/mm3 Baso # (Auto) 0.03 (0.01-0.08) K/mm3 Manual Slide Review Abnormal smear Sodium 141 (136-145) mEq/L Potassium 4.1 (3.5-5.1) mEq/L Chloride 108 H (98-107) mEq/L Carbon Dioxide 29 (21-32) mEq/L Anion Gap 8.1 (5-15) BUN 11 (7-18) mg/dL Creatinine 0.8 (0.55-1.02) mg/dL Est Cr Clr Drug Dosing 57.11 mL/min Estimated GFR (MDRD) > 60 (>60) mL/min BUN/Creatinine Ratio 13.8 L (14-18) Glucose 82 L (83-115) mg/dL Calcium 8.4 L (8.5-10.1) mg/dL Magnesium 2.0 (1.8-2.4) mg/dl C-Reactive Protein 6.7 H* (<1.0) mg/dL Med Orders - Current: Current Medications Acetaminophen (Tylenol) 650 mg PO Q4H PRN PRN Reason: Pain (Mild 1-3)/fever Hydrocodone Bitart/Acetaminophen ([place] 325-5 Mg) 1 tab PO Q4H PRN PRN Reason: Pain (moderate 4-6) Last Admin: 03/31/17 21:47 Dose: 1 tab Albuterol (Proventil Hfa) 0 gm INH BID PRN PRN Reason: Wheezing Albuterol/Ipratropium (Duoneb 3.0-0.5 Mg/3 Ml) 3 ml NEB Q4H PRN PRN Reason: Shortness Of Breath/wheezing Allopurinol (Zyloprim) 300 mg PO DAILY [facility] Last Admin: 04/02/17 08:05 Dose: 300 mg Amitriptyline HCl (Elavil) 100 mg PO BEDTIME [facility] Last Admin: 04/01/17 21:54 Dose: 100 mg Aspirin (Aspirin) 81 mg PO BRK [facility] Last Admin: 04/02/17 06:24 Dose: 81 mg Benzocaine/Menthol (Dermoplast Pain Relief [place]) 0 gm TOP Q6H PRN PRN Reason: Other Last Admin: 04/02/17 08:07 Dose: 1 spray Bisacodyl (Dulcolax) 5 mg PO DAILY PRN PRN Reason: Constipation Cyanocobalamin (Vitamin B12) 1,000 mcg PO DAILY [facility] Last Admin: 04/02/17 08:05 Dose: 1,000 mcg Diphenhydr/Magaldrate/Simeth/Lidoca (First-Mouthwash Blm Susp) 15 ml PO ACBED [facility] Last Admin: 04/02/17 06:24 Dose: Not Given Docusate Sodium (Colace) 100 mg PO BID PRN PRN Reason: Constipation Last Admin: 04/02/17 08:18 Dose: 100 mg Dronabinol (Marinol) 2.5 mg PO TIDAC [facility] Last Admin: 04/02/17 06:24 Dose: 2.5 mg Fentanyl (Duragesic) 12 mcg TRDERM Q72H [facility] Stop: 04/03/17 10:59 Last Admin: 03/31/17 13:32 Dose: 12 mcg Fentanyl (Duragesic) 25 mcg TRDERM Q72H [facility] Hydralazine HCl (Apresoline) 20 mg IVPUSH Q4H PRN PRN Reason: Hypertension Hydrocortisone Acetate (Anucort-Hc) 25 mg RECTAL BID [facility] Last Admin: 04/02/17 08:05 Dose: 25 mg Hydromorphone HCl (Dilaudid) 1 mg IVPUSH Q4H PRN PRN Reason: Pain Last Admin: 03/30/17 20:23 Dose: 1 mg Promethazine HCl 12.5 mg/ (Sodium Chloride) 50.5 mls @ 100 mls/hr IV Q6H PRN PRN Reason: Nausea/Vomiting Sodium Chloride (Normal Saline) 1,000 mls @ 25 mls/hr IV ASDIRECTED [facility] Last Admin: 04/02/17 05:44 Dose: 25 mls/hr Lorazepam (Ativan) 1 mg IV Q6H PRN PRN Reason: Anxiety Lorazepam (Ativan) 2 mg IVPUSH Q4H PRN PRN Reason: Seizures Losartan Potassium (Cozaar) 25 mg PO DAILY [facility] Last Admin: 04/02/17 08:06 Dose: 25 mg Magnesium Sulfate (Pharmacy To Dose - Magnesium Replacement) 1 dose .XX ASDIRECTED [facility] Metoprolol Succinate (Toprol Xl) 50 mg PO BID [facility] Last Admin: 04/02/17 08:06 Dose: 50 mg Metoprolol Tartrate (Lopressor) 5 mg IVPUSH Q4H PRN PRN Reason: Tachycardia Midodrine (Midodrine) 5 mg PO TIDAC PRN PRN Reason: Hypotension Miscellaneous Information (Remove Patch) 1 ea TRDERM Q72H [facility] Multivitamins (Thera) 1 each PO BEDTIME [facility] Last Admin: 04/01/17 21:51 Dose: 1 each Ondansetron HCl (Zofran) 4 mg IV Q6H PRN PRN Reason: Nausea/Vomiting Oxycodone HCl (Oxycodone) 10 mg PO Q6H PRN PRN Reason: Pain Last Admin: 03/31/17 23:30 Dose: 10 mg Pantoprazole Sodium (Protonix) 40 mg PO DAILY [facility] Last Admin: 04/02/17 08:06 Dose: 40 mg Polyethylene Glycol (Miralax) 17 gm PO DAILY PRN PRN Reason: Constipation Potassium Chloride (Pharmacy To Dose - Potassium Replacement) 1 dose .XX ASDIRECTED [facility] Pregabalin (Lyrica) 50 mg PO TID [facility] Last Admin: 04/02/17 08:05 Dose: 50 mg Rosuvastatin Calcium (Crestor) 20 mg PO DAILY [facility] Last Admin: 04/02/17 08:18 Dose: 20 mg Scopolamine (Transderm-Scop) 1.5 mg TRDERM Q72H [facility] Last Admin: 03/30/17 22:25 Dose: 1.5 mg Senna/Docusate Sodium (Senna Plus) 1 tab PO BID PRN PRN Reason: Constipation Sodium Chloride (Saline Flush) 10 ml FLUSH ASDIRECTED PRN PRN Reason: Keep Vein Open Last Admin: 03/30/17 14:49 Dose: 10 ml Temazepam (Restoril) 7.5 mg PO BEDTIME PRN PRN Reason: Sleep Last Admin: 04/01/17 22:02 Dose: 7.5 mg Thiamine HCl (Vitamin B-1) 100 mg PO BEDTIME [facility] Last Admin: 04/01/17 21:54 Dose: 100 mg Witch Janae (Tucks) 1 pad TOP ASDIRECTED PRN PRN Reason: Pain Last Admin: 04/02/17 08:06 Dose: 1 pad Discontinued Medications Acetaminophen (Tylenol) 325 mg PO NOW ONE Stop: 03/31/17 12:34 Last Admin: 03/31/17 13:26 Dose: 325 mg Albuterol (Proventil Hfa) 1 puff INH BID PRN PRN Reason: Wheezing Albuterol (Proventil Hfa) 1 gm INH BID PRN PRN Reason: Wheezing Benzocaine/Menthol (Dermoplast Pain Relief [place]) 1 gm TOP ONETIME ONE Stop: 03/30/17 14:23 Last Admin: 03/30/17 14:48 Dose: 1 spray Bumetanide (Bumex) 0.5 mg IVPUSH ONETIME ONE Stop: 03/31/17 07:52 Last Admin: 03/31/17 10:10 Dose: 0.5 mg Dexamethasone (Dexamethasone) 4 mg IVPUSH ONETIME ONE Stop: 03/31/17 12:34 Last Admin: 03/31/17 13:31 Dose: 4 mg Diphenhydr/Magaldrate/Simeth/Lidoca (First-Mouthwash Blm Susp) 15 ml PO QID [facility] Diphenhydramine HCl (Benadryl) 25 mg IVPUSH ONETIME ONE Stop: 03/31/17 12:34 Last Admin: 03/31/17 13:38 Dose: 25 mg Fentanyl (Duragesic) 12 mcg TRDERM Q72H [facility] Last Admin: 03/31/17 10:47 Dose: 12 mcg Hydromorphone HCl (Dilaudid) 0.25 mg IVPUSH Q2H PRN PRN Reason: Pain (severe 7-10) Lactated Ringer's (Ringers, Lactated) 1,000 mls @ 999 mls/hr IV .BOLUS ONE Stop: 03/30/17 15:13 Last Admin: 03/30/17 14:20 Dose: 999 mls/hr Lactated Ringer's (Ringers, Lactated) 1,000 mls @ 999 mls/hr IV .BOLUS ONE Stop: 03/30/17 16:08 Last Admin: 03/30/17 15:45 Dose: 999 mls/hr Levofloxacin/Dextrose 750 mg/ (Premix) 150 mls @ 100 mls/hr IV ONETIME ONE Stop: 03/30/17 18:05 Last Admin: 03/30/17 16:55 Dose: 100 mls/hr Levofloxacin/Dextrose 750 mg/ (Premix) 150 mls @ 150 mls/hr IV Q24H [facility] Last Admin: 04/01/17 08:12 Dose: 150 mls/hr Meropenem 500 mg/ Sodium (Chloride) 100 mls @ 200 mls/hr IV Q12H [facility] Last Admin: 03/31/17 06:50 Dose: 200 mls/hr Potassium Chloride 10 meq/ (Premix) 100 mls @ 100 mls/hr IV Q1H [facility] Stop: 03/30/17 21:59 Last Admin: 03/30/17 23:43 Dose: 100 mls/hr Lactated Ringer's (Ringers, Lactated) Confirm Administered Dose 1,000 mls @ as directed .ROUTE .STK-MED ONE Stop: 03/30/17 20:52 Last Admin: 03/30/17 22:22 Dose: Not Given Lactated Ringer's (Ringers, Lactated) 1,000 mls @ 250 mls/hr IV ONETIME ONE Stop: 03/31/17 01:14 Last Admin: 03/30/17 21:00 Dose: 250 mls/hr Lactated Ringer's (Ringers, Lactated) 1,000 mls @ 125 mls/hr IV ASDIRECTED [facility] Last Admin: 03/31/17 18:27 Dose: 125 mls/hr Magnesium Sulfate 2 gm/ Premix 50 mls @ 50 mls/hr IV ONETIME ONE Stop: 03/31/17 09:59 Last Admin: 03/31/17 09:48 Dose: 50 mls/hr Meropenem 500 mg/ Sodium (Chloride) 100 mls @ 200 mls/hr IV Q6H [facility] Last Admin: 04/01/17 06:29 Dose: 200 mls/hr Sodium Chloride (Normal Saline) Confirm Administered Dose 250 mls @ as directed .ROUTE .STK-MED ONE Stop: 03/31/17 13:01 Last Admin: 03/31/17 13:28 Dose: Not Given Sodium Chloride (Normal Saline) Confirm Administered Dose 250 mls @ as directed .ROUTE .STK-MED ONE Stop: 03/31/17 17:44 Last Admin: 03/31/17 23:30 Dose: Not Given Midodrine (Midodrine) 5 mg PO TIDAC [facility] Last Admin: 03/31/17 18:14 Dose: Not Given Multivitamins/Minerals (Cerovite Advanced Formula Tablet) 1 tab PO BEDTIME [facility] Last Admin: 03/30/17 23:02 Dose: Not Given Fentanyl [Fentanyl] (1 Each) 1 each TD ASDIRECTED [facility] - Exam General: Reports: Alert, Oriented, Cooperative, No Acute Distress HEENT: Reports: Pupils Equal, Pupils Reactive, EOMI, Mucous Membr. Moist/[place] Neck: Reports: Supple, Trachea Midline Lungs: Reports: Clear to Auscultation, Normal Respiratory Effort Cardiovascular: Reports: Regular Rate, Regular Rhythm GI/Abdominal Exam: Normal Bowel Sounds, Soft, Non-Tender, No Organomegaly, No Distention (Female) Exam: Deferred Rectal (Female) Exam: Deferred Back Exam: Reports: Normal Inspection, Decreased Range of Motion Extremities: Normal Inspection, Normal Range of Motion, Non-Tender, No Pedal Edema Skin: Reports: Warm, Dry, Intact Neurological: Reports: No New Focal Deficit Psy/Mental Status: Reports: Alert, Normal Affect, Normal Mood *Q Meaningful Use (DIS) - VTE *Q VTE Criteria *Q: - Stroke *Q Stroke Criteria *Q: - AMI *Q AMI Criteria *Q:
[2017-04-02 13:13] VITALS: BP 144/60
[2017-04-02] MEDS: Scopolamine 1.5 MG Transdermal Patch TRDERM SCH (13:35)
[2017-04-03] MEDS ORDERED: fentaNYL 25 MCG/HR Transdermal Patch TRDERM SCH (11:00)
== END 2017-04-02 13:40 | disposition home or self-care (01) | DRG 948 ==
LOC: JD.ED 13:50 → EDBD 13:50 → JD.MS 18:31 → MERGE 18:31
PROVIDERS: ADMIT Internal Medicine; ATTEND Internal Medicine
PROC: 30233N1 Transfusion of Nonautologous Red Blood Cells into Peripheral Vein, Percutaneous Approach (ICD-10-PCS; principal; 2017-03-31)
DX: R53.1 Weakness (principal); D61.818 Other pancytopenia; C85.90 Non-Hodgkin lymphoma, unspecified, unspecified site; C79.51 Secondary malignant neoplasm of bone; C78.00 Secondary malignant neoplasm of unspecified lung; I69.359 Hemiplegia and hemiparesis following cerebral infarction affecting unspecified side; E86.0 Dehydration; T45.1X5A Adverse effect of antineoplastic and immunosuppressive drugs, initial encounter; K62.89 Other specified diseases of anus and rectum; R62.7 Adult failure to thrive; E87.6 Hypokalemia; D64.81 Anemia due to antineoplastic chemotherapy; H54.7 Unspecified visual loss; J40 Bronchitis, not specified as acute or chronic; M19.90 Unspecified osteoarthritis, unspecified site; M54.9 Dorsalgia, unspecified; R11.2 Nausea with vomiting, unspecified; K58.9 Irritable bowel syndrome, unspecified; D72.819 Decreased white blood cell count, unspecified; R19.7 Diarrhea, unspecified; Z88.0 Allergy status to penicillin; Z79.82 Long term (current) use of aspirin; Z79.899 Other long term (current) drug therapy
CPT/HCPCS: 36415; 71010; 80053; 81001; 83605; 85025; 86140; 87040 ×2; 87086; 93005; 96361; 96365; 96366; 99285; A9270 ×2; J1956; J7050; J7120 ×2; P9612; 36430; 51701; 80048; 83735; 85014; 85018; 86850; 86900; 86901; 86922; 87804; 94761; 97110-GO; 97110-GP; 97116-GP; 97162-GP; 97167-GO; 97530-GO; 97530-GP; 97535-GO; J1100; J1170; J1200; J1642; J2185; J3475; J3480; J7030; J7040; P9016; Q0167

== ENCOUNTER 2017-04-05 13:36 | Emergency (ER) | payer MEDICARE, OTHER ==
[2017-04-05] MEDS ORDERED: Sodium Chloride 0.9% 10 ML Syringe FLUSH PRN (14:37)
[2017-04-05] MEDS ORDERED: Sodium Chloride 0.9% 1,000 ML IV SCH (14:45)
--- NOTE | 2017-04-05 14:57 | EDM.PDOC ---
ED HPI GENERAL MEDICAL PROBLEM - General Chief Complaint: Lower Extremity Injury/Pain Stated Complaint: POSS. BLOOD CLOT, RIGHT LEG Time Seen by Provider: 04/05/17 14:25 Source of Information: Reports: Patient History Limitations: Reports: No Limitations - History of Present Illness INITIAL COMMENTS - FREE TEXT/NARRATIVE: Patient is a 71 y/o female who presents to the E.D. complaining of swelling and pain to the right posterior calf that started 2 days ago. Patient states she noticed it while laying on the couch. For the past 2 days it has progressively getting worse. Patient has a history of non-Hodgkin's lymphoma that has spread to her bones. She is currently undergoing chemotherapy treatment. She is on her second round and the next treatment is in approximately 3 weeks. States she has a history of DVT many years ago for unknown reason. With recent diagnosis of non-Hodgkin's lymphoma she has not had a DVT or PE. She denies any shortness of breath, chest pain, dizziness, recent trauma to the affected area, fever chills, abdominal pain, dysuria, or any additional complaints. She was recently admitted to [facility] due to complications of chemotherapy medications and received blood for hgb of 7.1 and fluids for dehydration. Patient does admit to having a poor appetite but states she is thirsty although her oral mucosa is moist. Oncologists is Dr. Waddell with [facility]. Right Posterior Leg Pain Score (Numeric/FACES): 0 - Related Data Allergies Allergy/AdvReac Type Severity Reaction Status Date / Time erythromycin base AdvReac Joint Pain Verified 02/11/17 09:03 [Erythromycin Base] Penicillins AdvReac Joint Pain Verified 02/11/17 09:03 propoxyphene HCl AdvReac Giddiness Verified 02/11/17 09:03 [From [facility]] Home Meds: Home Meds RX: Calcium Carbonate/Vitamin D3 [Calcium 500 + Vit D 400] 1 tab PO DAILY [History] RX: Glucosamine [Glucosamine Sulfate] 500 mg PO DAILY 05/04/16 [History] RX: Bisacodyl 10 mg RC DAILY PRN #15 supp.rect 02/12/17 [Rx] RX: Docusate Sodium [Colace] 100 mg PO BID #60 cap 02/12/17 [Rx] RX: Naloxone [Narcan] 0.4 mg INJECT ASDIRECTED PRN #2 syringe 02/12/17 [Rx] RX: oxyCODONE 5 mg PO ASDIRECTED PRN #120 tablet 02/12/17 [Rx] RX: Acetaminophen 650 mg PO Q6H PRN 03/30/17 [History] RX: Albuterol [Ventolin HFA] 1 puff INH BID PRN 03/30/17 [History] RX: Allopurinol [Zyloprim] 300 mg PO DAILY 03/30/17 [History] RX: Amitriptyline HCl 100 mg PO BEDTIME 03/30/17 [History] RX: Aspirin 81 mg PO BRK 03/30/17 [History] RX: Losartan [Cozaar] 25 mg PO DAILY 03/30/17 [History] RX: Metoprolol Succinate [Toprol XL] 50 mg PO BID 03/30/17 [History] RX: Omeprazole 20 mg PO DAILY 03/30/17 [History] RX: Pregabalin [Lyrica] 50 mg PO TID 03/30/17 [History] RX: Rosuvastatin [Crestor] 20 mg PO DAILY 03/30/17 [History] RX: Scopolamine [Transderm-Scop] 1.5 mg TRDERM Q72H 03/30/17 [History] RX: fentaNYL [Fentanyl] 1 each TD ASDIRECTED 03/30/17 [History] RX: Hydrocortisone Acetate [Anucort-HC] 25 mg RECTAL BID #1 supp 04/02/17 [Rx] RX: Ondansetron [Zofran ODT] 4 mg PO Q6H PRN #20 tab.dis 04/05/17 [Rx] Past Medical History HEENT History: Reports: Cataract Other HEENT History: wears glasses Cardiovascular History: Reports: High Cholesterol, Hypertension Other Cardiovascular History: tia 6 years ago Respiratory History: Reports: Bronchitis, Recurrent Other Respiratory History: Chronic bronchitis - excessive phlegm Other Gastrointestinal History: possibly has IBS Genitourinary History: Reports: Dialysis, Other (See Below) Other Genitourinary History: states had renal failure approx 8 yrs ago--sudden onset, no longer needs dialysis. [employer]AD[employer] History: Reports: Musculoskeletal History: Reports: Arthritis Other Musculoskeletal History: a couple surgeries on left foot: Pin to left foot - flat footed - Took out extra bone. Unsure if any screws/pins are still remaining. Neurological History: Reports: CVA Other Neuro History: a few CVA's - no residual weaknesses from those, during carotid artery surgery. 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 Psychiatric History: Reports: Depression Endocrine/Metabolic History: Reports: Obesity/BMI 30+ Hematologic History: Reports: Anemia, Blood Transfusion(s), Iron Deficiency Oncologic (Cancer) History: Reports: Lung, Lymphoma, Metastatic Other Oncologic History: lymphoma with mets to the bones and has received second round of chemo will have 3 more to go . - Infectious Disease History Infectious Disease History: Reports: Chicken Pox, Measles, Mumps - Past Surgical History HEENT Surgical History: Reports: Cataract Surgery GI Surgical History: Reports: Appendectomy, Cholecystectomy Female Surgical History: Reports: Hysterectomy Social & Family History - Family History Family Medical History: Noncontributory - Tobacco Use Smoking Status *Q: Never Smoker Years of Tobacco use: 20 Packs/Tins Daily: 1 Used Tobacco, but Quit: Yes Month Tobacco Last Used: Second Hand Smoke Exposure: No - Caffeine Use Caffeine Use: Reports: None Other Caffeine Use: quit using caffeine approx 2 months ago. - Recreational Drug Use Recreational Drug Use: No Review of Systems - Review of Systems Review Of Systems: ROS reveals no pertinent complaints other than HPI. ED EXAM, GENERAL - Physical Exam Exam: See Below Exam Limited By: No Limitations General Appearance: Alert, WD/WN, No Apparent Distress Ears: Hearing Grossly Normal Nose: Normal Inspection Throat/Mouth: Normal Voice, No Airway Compromise, Other (oral mucosa is moist) Neck: Normal Inspection, Supple Respiratory/Chest: No Respiratory Distress, Lungs Clear, Normal Breath Sounds, No Accessory Muscle Use, Chest Non-Tender Cardiovascular: Normal Peripheral Pulses, Regular Rate, Rhythm Peripheral Pulses: 2+: Radial (L) GI/Abdominal: Normal Bowel Sounds, Soft, Non-Tender, No Organomegaly, No Distention Extremities: Other (Hematoma to the posterior aspect of the right calf with pain and swelling present. ) Neurological: Alert, Oriented, CN II-XII Intact, Normal Cognition, No Motor/ Sensory Deficits Psychiatric: Normal Affect, Normal Mood Skin Exam: Warm, Dry, Intact Course - Vital Signs Last Recorded V/S: Last Vital Signs Temp 98.4 F 04/05/17 18:30 Pulse 88 04/05/17 18:30 Resp 16 04/05/17 18:30 BP 135/69 04/05/17 18:30 Pulse Ox 96 04/05/17 18:30 Orthostatic Blood Pressure [ 83/51 Standing] Orthostatic Blood Pressure [ 99/86 Sitting] Orthostatic Blood Pressure [ 123/62 Supine] - Orders/Labs/Meds Orders: Active Orders 24 hr Category Date Time Status Orthostatic Vital Signs [RC] ASDIRECTED Care 04/05/17 14:57 Active Orthostatic Vital Signs [RC] ASDIRECTED Care 04/05/17 17:10 Active Peripheral IV Care [RC] . DIRECTED Care 04/05/17 14:37 Active Peripheral IV Insertion Adult [OM.PC] Routine Oth 04/05/17 14:37 Ordered Labs: Laboratory Tests 04/05/17 04/05/17 04/05/17 Range/Units 15:12 15:12 15:12 WBC 8.40 (3.98-10.04) K/mm3 RBC 3.73 L (3.98-5.22) M/mm3 Hgb 10.4 L (11.2-15.7) gm/L Hct 32.7 L (34.1-44.9) % MCV 87.7 (79.4-94.8) fl MCH 27.9 (25.6-32.2) pg MCHC 31.8 L (32.2-35.5) g/dl RDW Std Deviation 50.7 H (36.4-46.3) fL Plt Count 165 L (182-369) K/mm3 MPV 11.1 (9.4-12.3) fl Neut % (Auto) 76.5 H (34.0-71.1) % Lymph % (Auto) 7.3 L (19.3-51.7) % [facility] % (Auto) 10.1 (4.7-12.5) % Eos % (Auto) 0.5 L (0.7-5.8) Baso % (Auto) 0.5 (0.1-1.2) % Neut # (Auto) 6.43 H (1.56-6.13) K/mm3 Lymph # (Auto) 0.61 L (1.18-3.74) K/mm3 [facility] # (Auto) 0.85 H (0.24-0.36) K/mm3 Eos # (Auto) 0.04 (0.04-0.36) K/mm3 Baso # (Auto) 0.04 (0.01-0.08) K/mm3 Manual Slide Review Abnormal smear PT 10.9 (8.0-13.0) SECONDS INR 1.00 APTT 32 (22-36) SECONDS Sodium 141 (136-145) mEq/L Potassium 4.2 (3.5-5.1) mEq/L Chloride 107 (98-107) mEq/L Carbon Dioxide 29 (21-32) mEq/L Anion Gap 9.2 (5-15) BUN 13 (7-18) mg/dL Creatinine 0.8 (0.55-1.02) mg/dL Est Cr Clr Drug Dosing 57.20 mL/min Estimated GFR (MDRD) > 60 (>60) mL/min BUN/Creatinine Ratio 16.3 (14-18) Glucose 98 (83-115) mg/dL Calcium 8.6 (8.5-10.1) mg/dL Total Bilirubin 0.5 (0.2-1.0) mg/dL AST 11 L (15-37) U/L ALT 14 (14-59) U/L Alkaline Phosphatase 69 (46-116) U/L C-Reactive Protein 7.1 H* (<1.0) mg/dL Total Protein 5.5 L (6.4-8.2) g/dl Albumin 2.7 L (3.4-5.0) g/dl Globulin 2.8 gm/dL Albumin/Globulin Ratio 1.0 (1-2) Meds: Medications Discontinued Medications Generic Name Dose Route Start Last Admin Trade Name Freq PRN Reason Stop Dose Admin Heparin Sodium (Porcine) 500 units 04/05/17 17:32 04/05/17 18:40 Heparin Lock Flush 100 Units/Ml FLUSH 04/05/17 17:33 500 units ASDIRECTED ONE Administration Sodium Chloride 1,000 mls @ 150 mls/hr 04/05/17 14:45 04/05/17 15:19 Normal Saline IV 150 mls/hr ASDIRECTED SAMUEL Administration Sodium Chloride 10 ml 04/05/17 14:37 04/05/17 18:38 Saline Flush FLUSH 20 ml ASDIRECTED PRN Administration Keep Vein Open - Re-Assessments/Exams Free Text/Narrative Re-Assessment/Exam: Peripheral IV will be assessed with NS 150mls/hr. Initial labs obtained include : CBC, chem 14, CRP, PTT/INR, PTT, and ultrasound of the right lower leg. BP on initial examination was 82/63 with HR of 78. Recheck of BP is 115/48. Orthostatic vitals ordered. Orthostatic vitals positive. Increased fluids to 250mls/hr. Labs reviewed: White blood cell count 8.40, hemoglobin 10.4, platelet count was 65, neutrophil percent is 76.5, neutrophil #6.43, lymphocyte % is 7.3, lymphocyte #0.61, abnormal smear lymphopenia, coags normal, sodium 141, potassium 4.2, AG 9.2, BUN 13, creatinine 0.8, and CRP 7.1. 04/05/17 17:00 ultrasound of the right lower extremity impression: Superficial thrombophlebitis within the right calf. Nothing seen to indicate deep venous thrombosis within the right lower extremity are within the left common femoral vein. [address] Taveras Oncologists supervisor nutritional yeast at [facility]. Suggested ASA 324mg PO everyday with food. Orthostatic vitals recheck ordered. Patient got up with no issues and ambulated a short ways with a walker. No dizziness. Vitals indicated she is still orthostatic. Offered to administer more fluids. Patient request to go home. 1809 Patient opted to have more fluids. Remaining 500mls of NS are being infused. Infusion completed. Patient requests to go home and prescription for zofran. Prescription for zofran provided. Will discharge patient home with instructions as documented. Departure - Departure Time of Disposition: 17:10 Disposition: Home, Self-Care 01 Condition: Good Clinical Impression: Volume depletion, unspecified, Superficial thrombophlebitis of right leg - Discharge Information Prescriptions: RX: Ondansetron [Zofran ODT] 4 mg PO Q6H PRN #20 tab.dis PRN Reason: Other Instructions: Phlebitis, Venous Thromboembolism Referrals: Delbert Forrest MD [Primary Care Provider] - Forms: ED Department Discharge Additional Instructions: You have superficial thrombophlebitis which is a blood clot within the superficial veins. Nothing indicating you have deep venous thrombosis which would be of concern to developing a pulmonary embolus. Treatment is NSAIDs and warm compresses. I did speak with Dr. Taveras on-call oncologist at [facility] and [facility]. He suggested taking a full dose adult aspirin every day with food. Duration of treatment will be at least one month unless determined not needed by PCP or oncologists. See your PCP this coming week for reevaluation. Push the fluids. Vital signs indicated you were volume depleted with admission to the ED. Return to ED for any new or worsening symptoms. - My Orders Last 24 Hours: My Active Orders 04/05/17 14:37 Peripheral IV Care [RC] . DIRECTED Peripheral IV Insertion Adult [OM.PC] Routine 04/05/17 14:57 Orthostatic Vital Signs [RC] ASDIRECTED 04/05/17 17:10 Orthostatic Vital Signs [RC] ASDIRECTED - Assessment/Plan Last 24 Hours: My Active Orders 04/05/17 14:37 Peripheral IV Care [RC] . DIRECTED Peripheral IV Insertion Adult [OM.PC] Routine 04/05/17 14:57 Orthostatic Vital Signs [RC] ASDIRECTED 04/05/17 17:10 Orthostatic Vital Signs [RC] ASDIRECTED
--- NOTE | 2017-04-05 16:55 | US ---
Right lower extremity deep venous ultrasound: Duplex and color flow imaging was obtained of the left common femoral, right common femoral, superficial femoral, popliteal, posterior tibial and peroneal veins. Normal phasic flow is seen down to the popliteal vein. Normal compression is seen as well as augmentation throughout the deep veins. There are some superficial veins within the right calf showing thrombus. Impression: 1. Superficial thrombophlebitis within the right calf. 2. Nothing seen to indicate deep venous thrombosis within the right lower extremity or within the left common femoral vein. Diagnostic code #3
[2017-04-05 18:34] VITALS: BP 135/69
== END 2017-04-05 18:45 | disposition home or self-care (01) ==
LOC: JD.ED 13:36
DX: I80.01 Phlebitis and thrombophlebitis of superficial vessels of right lower extremity (principal); E86.9 Volume depletion, unspecified; I10 Essential (primary) hypertension; E78.00 Pure hypercholesterolemia, unspecified; E66.9 Obesity, unspecified; F32.9 Major depressive disorder, single episode, unspecified; Z90.49 Acquired absence of other specified parts of digestive tract; Z98.890 Other specified postprocedural states; Z90.710 Acquired absence of both cervix and uterus; Z99.2 Dependence on renal dialysis; Z86.73 Personal history of transient ischemic attack (TIA), and cerebral infarction without residual deficits; M19.90 Unspecified osteoarthritis, unspecified site; Z79.82 Long term (current) use of aspirin; Z79.899 Other long term (current) drug therapy; Z88.0 Allergy status to penicillin; Z88.1 Allergy status to other antibiotic agents; Z88.8 Allergy status to other drugs, medicaments and biological substances
CPT/HCPCS: 36415; 80053; 85025; 85610; 85730; 86140; 93971; 96360; 96361; 99284; J1642; J7040; J7050

== ENCOUNTER 2017-04-19 16:14 | Emergency (ER) | payer MEDICARE, OTHER ==
--- NOTE | 2017-04-19 17:29 | EDM.PDOC ---
ED HPI GENERAL MEDICAL PROBLEM - General Chief Complaint: Fever Stated Complaint: TEMP RISING Time Seen by Provider: 04/19/17 17:21 Source of Information: Reports: Patient History Limitations: Reports: No Limitations - History of Present Illness INITIAL COMMENTS - FREE TEXT/NARRATIVE: 71-year-old female presents to the ED due to feeling very ill. Patient was across the street at [facility] at the [facility] where she received 1800 mils of IV fluids for rehydration today. She had a temperature 102.6 at that institution which continued while she was there. He was thus sent to the ED. Patient last received chemotherapy on April 15. This is her third treatment for non-Hodgkin's lymphoma that was diagnosed in late January by biopsy of the submandibular lymph node. No previous radiation or cancer. At present she has multiple sores in her mouth and throat that make it very difficult to swallow and eat. She took 3 cans of injury yesterday and once so far today. She feels lightheaded dizzy and very weak area is very close to . She has a cough with a little whitish sputum no blood. She's had diarrhea primarily the last 3 days but none since yesterday. Intermittent nausea with occasional vomiting of small quantities of bilious material. Diffuse myalgia. Doesn't think she passed her urine yet today. Has no feelings of dysuria urgency or frequency. She's had previous cholecystectomy appendectomy and one oophorectomy. Developed severe chills with rigors yesterday and again this morning. Onset: Gradual Onset Date: 04/16/17 Duration: Day(s): Location: Reports: Generalized (Over the last 3 days. Generalized weakness with development of fever and severe chills with rigors.) Quality: Reports: Ache (All over.) Severity: Moderate Improves with: Reports: None Worsens with: Reports: Movement (Very weak and finding it difficult to ambulate. ) Context: Reports: Other (.). Denies: Activity, Exercise, Lifting, Sick Contact , Trauma Associated Symptoms: Reports: Confusion, Cough, Fever/Chills, Headaches, Loss of Appetite (Chills and rigors), Malaise, Nausea/Vomiting, Shortness of Breath, Other (Nausea intermittent mild vomiting significant diarrhea postchemotherapy.) . 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) (None.) - Related Data Allergies Allergy/AdvReac Type Severity Reaction Status Date / Time erythromycin base AdvReac Joint Pain Verified 04/19/17 16:26 [Erythromycin Base] Penicillins AdvReac Joint Pain Verified 04/19/17 16:26 propoxyphene HCl AdvReac Giddiness Verified 04/19/17 16:26 [From Margaret] Home Meds: Home Meds Calcium Carbonate/Vitamin D3 [Calcium 500 + Vit D 400] 1 tab PO DAILY 05/04/16 [ History] Glucosamine [Glucosamine Sulfate] 500 mg PO DAILY 05/04/16 [History] Bisacodyl 10 mg RC DAILY PRN #15 supp.rect 02/12/17 [Rx] Docusate Sodium [Colace] 100 mg PO BID #60 cap 02/12/17 [Rx] Naloxone [Narcan] 0.4 mg INJECT ASDIRECTED PRN #2 syringe 02/12/17 [Rx] oxyCODONE 5 mg PO ASDIRECTED PRN #120 tablet 02/12/17 [Rx] Acetaminophen 650 mg PO Q6H PRN 03/30/17 [History] Albuterol [Ventolin HFA] 1 puff INH BID PRN 03/30/17 [History] Allopurinol [Zyloprim] 300 mg PO DAILY 03/30/17 [History] Amitriptyline HCl 100 mg PO BEDTIME 03/30/17 [History] Aspirin 81 mg PO BRK 03/30/17 [History] Losartan [Cozaar] 25 mg PO DAILY 03/30/17 [History] Metoprolol Succinate [Toprol XL] 50 mg PO BID 03/30/17 [History] Omeprazole 20 mg PO DAILY 03/30/17 [History] Pregabalin [Lyrica] 50 mg PO TID 03/30/17 [History] Rosuvastatin [Crestor] 20 mg PO DAILY 03/30/17 [History] Scopolamine [Transderm-Scop] 1.5 mg TRDERM Q72H 03/30/17 [History] fentaNYL [Fentanyl] 1 each TD ASDIRECTED 03/30/17 [History] Hydrocortisone Acetate [Anucort-HC] 25 mg RECTAL BID #1 supp 04/02/17 [Rx] Ondansetron [Zofran ODT] 4 mg PO Q6H PRN #20 tab.dis 04/05/17 [Rx] Past Medical History HEENT History: Reports: Cataract Other HEENT History: wears glasses Cardiovascular History: Reports: High Cholesterol, Hypertension Other Cardiovascular History: tia 6 years ago Respiratory History: Reports: Bronchitis, Recurrent, COPD Other Respiratory History: Chronic bronchitis - excessive phlegm Other Gastrointestinal History: possibly has IBS Genitourinary History: Reports: Dialysis, Other (See Below) Other Genitourinary History: states had renal failure approx 8 yrs ago--sudden onset, no longer needs dialysis. SLP History: Reports: Musculoskeletal History: Reports: Arthritis Other Musculoskeletal History: a couple surgeries on left foot: Pin to left foot - flat footed - Took out extra bone. Unsure if any screws/pins are still remaining. Neurological History: Reports: CVA Other Neuro History: a few CVA's - no residual weaknesses from those, during carotid artery surgery. 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 - Infectious Disease History Infectious Disease History: Reports: Chicken Pox, Measles, Mumps - Past Surgical History HEENT Surgical History: Reports: Cataract Surgery GI Surgical History: Reports: Appendectomy, Cholecystectomy Female Surgical History: Reports: Hysterectomy Social & Family History - Family History Family Medical History: Noncontributory - Tobacco Use Smoking Status *Q: Former Smoker Years of Tobacco use: 20 Packs/Tins Daily: 1 Used Tobacco, but Quit: Yes Month Tobacco Last Used: 1995 Second Hand Smoke Exposure: No - Caffeine Use Caffeine Use: Reports: None Other Caffeine Use: quit using caffeine approx 2 months ago. - Recreational Drug Use Recreational Drug Use: No - Living Situation & Occupation Living situation: Reports: Occupation: Retired ED ROS GENERAL - Review of Systems Review Of Systems: See Below Constitutional: Reports: Fever, Malaise, Weakness, Fatigue, Decreased Appetite, Weight Loss HEENT: Reports: Glasses, Throat Pain (Sores in her mouth and roof of her mouth make it difficult to eat.). Denies: Hearing Loss, Nosebleed, Throat Swelling Respiratory: Reports: Shortness of Breath, Cough (Mostly clear sputum.). Denies : Wheezing, Pleuritic Chest Pain (On minimal exertion.) Cardiovascular: Reports: Blood Pressure Problem, Lightheadedness, Palpitations. Denies: Chest Pain, Claudication, Edema, Orthopnea (I chronic hypertension) Endocrine: Reports: Fatigue GI/Abdominal: Reports: Diarrhea, Decreased Appetite, Hematochezia, Nausea, Vomiting (Intermittent bilious vomiting.). Denies: Melena (Noticed only once. Small quantity) : Reports: No Symptoms, Other (Doesn't believe she is past her water yet today at all.) Musculoskeletal: Reports: Neck Pain (Rib pain), Back Pain, Other Skin: Reports: Pallor (Marked.), Bruising (Bruising abdominal wall from last Lovenox injection.) Neurological: Reports: Confusion, Dizziness, Difficulty Walking, Weakness. Denies: Paresthesia, Pre-Existing Deficit, Seizure, Syncope, Tingling, Trouble Speaking, Change in Speech (Unable to walk without assistance.), Gait Disturbance Psychiatric: Reports: Confusion (Reported confusion yesterday) Hematologic/Lymphatic: Reports: Anemia ( felt to be from high fever.), Easy Bleeding ED EXAM, SEPSIS - Physical Exam Exam: See Below Exam Limited By: No Limitations General Appearance: Alert (She answers all my questions quite appropriately at the time of my exam. She is very warm to palpation.), WD/WN, Moderate Distress, Other (Quite pale in color.) Eye Exam: Bilateral Eye: Normal Inspection Ears: Other (Scopolamine patch posterior to her right ear.) Throat/Mouth: Normal Voice, No Airway Compromise, Other (Roof of her mouth is erythematous posterior oropharynx shows scattered aphthous ulcers and I think a small component of candidiasis.) Head: Atraumatic, Normocephalic Neck: Normal Inspection, Tender Lateral. No: Supple, Carotid Bruit, Lymphadenopathy (L) (Bilaterally.), Lymphadenopathy (R) Respiratory/Chest: Respiratory Distress (Mild tachypnea at rest felt to be due to fever), Decreased Breath Sounds (Breath sounds are diminished to the lower 25 % of lung loaiza posteriorly without any rhonchi), Other (Some tenderness on palpation of the ribs bilaterally.). No: Rales, Rhonchi, Wheezing ( or wheezing.) Cardiovascular: Normal Peripheral Pulses, No Edema, No Gallop, No Murmur, No Rub , Tachycardia. No: JVD Peripheral Pulses: 1+: Posterior Tibial (L), Posterior Tibial (R), Dorsalis Pedis (L), Dorsalis Pedis (R) GI/Abdominal Exam: Normal Bowel Sounds, Soft, Tender, Abnormal Bowel Sounds ( Hypoactive bowel sounds.). No: Rigid, Rebound (Tenderness throughout the left lower quadrant of the abdomen with some guarding. No rebound tenderness) Back: Decreased Range of Motion, Other. No: CVA Tenderness (L) (Mild kyphosis thoracic spine), CVA Tenderness (R) Extremities: No Pedal Edema, Other (Fentanyl patch appreciated to her upper back.). No: Normal Range of Motion, Normal Capillary Refill Neurological: Alert (Evidence of some arthritic changes in her knees and hips.) , Oriented, CN II-XII Intact, Normal Cognition, No Motor/Sensory Deficits. No: Normal Gait Psychiatric: Normal Affect, Normal Mood Skin: Warm, Dry, Intact, Pallor (Moderate pallor) Course - Vital Signs Last Recorded V/S: Last Vital Signs Temp 37.2 C 04/19/17 16:19 Pulse 134 H 04/19/17 16:19 Resp 20 04/19/17 16:19 BP 140/103 H 04/19/17 16:19 Pulse Ox 95 04/19/17 16:19 - Orders/Labs/Meds Orders: Active Orders 24 hr Category Date Time Status Blood Glucose Check, Bedside [RC] ONETIME Care 04/19/17 17:32 Active Oxygen Therapy [RC] ASDIRECTED Care 04/19/17 17:32 Active Abdomen Pelvis w Cont [CT] Stat Exams 04/19/17 17:37 Ordered Chest 1V Frontal [CR] Stat Exams 04/19/17 17:31 Taken CULTURE BLOOD [BC] Stat Lab 04/19/17 17:55 Received CULTURE BLOOD [BC] Stat Lab 04/19/17 18:10 Received URINALYSIS W/MICROSCOPIC [UA W/MICROSCOPIC] [URIN] Stat Lab 04/19/17 17:32 Uncollected Dextrose 5%-0.9% NaCl [Dextrose 5%-Normal Saline] 1,000 Med 04/19/17 17:30 Active ml IV ASDIRECTED Meropenem [Merrem] 1 gm Med 04/19/17 19:52 Active Sodium Chloride 0.9% [Normal Saline] 100 ml IV ONETIME Blood Culture x2 Reflex Set [OM.PC] Stat Oth 04/19/17 17:32 Ordered Medication Orders Dextrose/Sodium Chloride (Dextrose 5%-Normal Saline) 1,000 mls @ 999 mls/hr IV ASDIRECTED SAMUEL Last Admin: 04/19/17 17:53 Dose: 999 mls/hr Meropenem 1 gm/ Sodium (Chloride) 100 mls @ 200 mls/hr IV ONETIME ONE Stop: 04/19/17 20:21 Labs: Laboratory Tests 04/19/17 04/19/17 04/19/17 Range/Units 17:55 17:55 17:55 WBC 0.08 L* (3.98-10.04) K/mm3 RBC 2.63 L (3.98-5.22) M/mm3 Hgb 7.2 L* (11.2-15.7) gm/L Hct 22.5 L (34.1-44.9) % MCV 85.6 (79.4-94.8) fl MCH 27.4 (25.6-32.2) pg MCHC 32.0 L (32.2-35.5) g/dl RDW Std Deviation 48.3 H (36.4-46.3) fL Plt Count 17 L* (182-369) K/mm3 MPV TNP Neutrophils % (Manual) 0 L (40-60) % Band Neutrophils % 0 (0-10) % Lymphocytes % (Manual) 2 L (20-40) % Monocytes % (Manual) 0 L (2-10) % Eosinophils % (Manual) 0 L (0.7-5.8) % Basophils % (Manual) 0 L (0.1-1.2) Differential Comment See note Platelet Estimate Marked dec Anisocytosis 1+ slight Microcytosis 1+ slight Spherocytes 1+ slight Target Cells 1+ slight Tear Drop Cells 1+ slight RBC Morph Comment Not Reportable PT 11.4 (8.0-13.0) SECONDS INR 1.04 Sodium 138 (136-145) mEq/L Potassium 3.8 (3.5-5.1) mEq/L Chloride 104 (98-107) mEq/L Carbon Dioxide 24 (21-32) mEq/L Anion Gap 13.8 (5-15) BUN 16 (7-18) mg/dL Creatinine 0.8 (0.55-1.02) mg/dL Est Cr Clr Drug Dosing 57.20 mL/min Estimated GFR (MDRD) > 60 (>60) mL/min BUN/Creatinine Ratio 20.0 H (14-18) Glucose 129 H (83-115) mg/dL POC Glucose (83-110) mg/dL Lactic Acid (0.4-2.0) mmol/L Calcium 7.8 L (8.5-10.1) mg/dL Magnesium 1.9 (1.8-2.4) mg/dl Total Bilirubin 0.7 (0.2-1.0) mg/dL AST 5 L (15-37) U/L ALT 11 L (14-59) U/L Alkaline Phosphatase 43 L (46-116) U/L Creatine Kinase 7 L (26-192) U/L CK-MB (CK-2) < 0.5 (0-3.6) ng/ml C-Reactive Protein 26.9 H* (<1.0) mg/dL NT-Pro-B Natriuret Pep 749 H (0-125) pg/mL Total Protein 5.1 L (6.4-8.2) g/dl Albumin 2.3 L (3.4-5.0) g/dl Globulin 2.8 gm/dL Albumin/Globulin Ratio 0.8 L (1-2) 04/19/17 04/19/17 Range/Units 17:55 18:02 WBC (3.98-10.04) K/mm3 RBC (3.98-5.22) M/mm3 Hgb (11.2-15.7) gm/L Hct (34.1-44.9) % MCV (79.4-94.8) fl MCH (25.6-32.2) pg MCHC (32.2-35.5) g/dl RDW Std Deviation (36.4-46.3) fL Plt Count (182-369) K/mm3 MPV Neutrophils % (Manual) (40-60) % Band Neutrophils % (0-10) % Lymphocytes % (Manual) (20-40) % Monocytes % (Manual) (2-10) % Eosinophils % (Manual) (0.7-5.8) % Basophils % (Manual) (0.1-1.2) Differential Comment Platelet Estimate Anisocytosis Microcytosis Spherocytes Target Cells Tear Drop Cells RBC Morph Comment PT (8.0-13.0) SECONDS INR Sodium (136-145) mEq/L Potassium (3.5-5.1) mEq/L Chloride (98-107) mEq/L Carbon Dioxide (21-32) mEq/L Anion Gap (5-15) BUN (7-18) mg/dL Creatinine (0.55-1.02) mg/dL Est Cr Clr Drug Dosing mL/min Estimated GFR (MDRD) (>60) mL/min BUN/Creatinine Ratio (14-18) Glucose (83-115) mg/dL POC Glucose 126 H (83-110) mg/dL Lactic Acid 0.6 (0.4-2.0) mmol/L Calcium (8.5-10.1) mg/dL Magnesium (1.8-2.4) mg/dl Total Bilirubin (0.2-1.0) mg/dL AST (15-37) U/L ALT (14-59) U/L Alkaline Phosphatase (46-116) U/L Creatine Kinase (26-192) U/L CK-MB (CK-2) (0-3.6) ng/ml C-Reactive Protein (<1.0) mg/dL NT-Pro-B Natriuret Pep (0-125) pg/mL Total Protein (6.4-8.2) g/dl Albumin (3.4-5.0) g/dl Globulin gm/dL Albumin/Globulin Ratio (1-2) Meds: Medications Generic Name Dose Route Start Last Admin Trade Name Freq PRN Reason Stop Dose Admin Dextrose/Sodium Chloride 1,000 mls @ 999 mls/hr 04/19/17 17:30 04/19/17 17:53 Dextrose 5%-Normal Saline IV 999 mls/hr ASDIRECTED SAMUEL Administration Meropenem 1 gm/ Sodium 100 mls @ 200 mls/hr 04/19/17 19:52 Chloride IV 04/19/17 20:21 ONETIME ONE Discontinued Medications Generic Name Dose Route Start Last Admin Trade Name Freq PRN Reason Stop Dose Admin Acetaminophen 975 mg 04/19/17 17:39 04/19/17 18:24 Tylenol PO 04/19/17 17:40 975 mg NOW ONE Administration Levofloxacin/Dextrose 750 mg/ 150 mls @ 100 mls/hr 04/19/17 17:34 04/19/17 18 :22 Premix IV 04/19/17 19:03 100 mls/hr ONETIME ONE Administration Iopamidol 100 ml 04/19/17 19:27 04/19/17 19:53 Isovue-370 (76%) IVPUSH 04/19/17 19:28 100 ml ONETIME ONE Administration Ondansetron HCl 4 mg 04/19/17 17:30 04/19/17 17:55 Zofran IVPUSH 04/19/17 17:31 4 mg ONETIME ONE Administration - Radiology Interpretation Free Text/Narrative:: 71-year-old female presents to the ED after receiving 1800 mils of fluid at the infusion clinic at [place] today. She has had very poor oral intake for the last 3 days since chemotherapy was administered on April 15. She is currently receiving chemotherapy every 3 weekly for non-Hodgkin's lymphoma that was diagnosed from a large submandibular lymph node in mid January. She has not received any radiation treatment. She has sores in her throat and mouth which make it difficult to eat and swallow. She's also had significant diarrhea since chemotherapy treatment. She appears volume depleted. She hasn't passed any urine so far today according to her. She was apparently quite confused and disoriented at the clinic. Temperature is 102.6 at time my assessment. O2 sats 92-93% on room air and she is hypotensive with systolic of 93. This strongly suggests she is septic. The protocol will be commenced. Blood culture from her Port-A-Cath which is in her left upper anterior chest and one peripheral blood culture be to be done. She will then be given Levaquin 750 mg IV Urine will be obtained by catheterization. 1. Chest x-ray will be obtained as she is too weak to stand for two-view chest x-ray. CT the abdomen be performed without IV contrast as I suspect her renal function will be poor because of poor oral intake for 2-3 days. IV will be D5 normal saline at open. No history of congestive failure and shows no signs of failure at this time. Jugular veins are flat at this time given Tylenol 975 mg orally for fever relief. Zofran 4 mg IV for nausea relief. She does have a scopolamine patch behind her right ear which she wears chronically off and no patch on her back for pain relief. - Re-Assessments/Exams Free Text/Narrative Re-Assessment/Exam: 04/19/17 19:17 Labs are back. Total white count is 0.08 I severe leukopenia. Hemoglobin is low at 7.2 with hematocrit of 22.5. MCV is normal at 85.6. Platelet count is 17,000. Differential is pending. PT is 11.4 INR is 1.04. Sodium is 138 potassium is 3.8. Cord 104 bicarbonate 24. Anion gap is 13.8. BUNs 16 with creatinine of 0.8. EGFR is greater than 60. Glucose is 129. Calcium is low at 7.8. Magnesium okay at 1.9. Total bilirubin is 0.7 AST is 5 is 11. Alk phosphatase normal at 43. Total CPK is 7. C-reactive protein is elevated at 26.9. BNP is pending. Total albumin fraction is low at 2.3 total protein low at 5.1. Chest x-ray is negative for any obvious pneumonia. CT the abdomen is pending and was done without contrast to look for diverticulitis and she has fairly significant left lower quadrant abdominal tenderness on initial exam. 04/19/17 20:15 CT of the abdomen has been completed with IV contrast only as there was a miscommunication as to whether or not she should receive oral contrast. Therefore oral contrast was withheld and CT was done only with IV contrast. On my assessment of the CT is essentially within normal limits showing renal atrophy liver appears normal without any metastatic disease. Spleen is normal pancreas is mildly atrophied. The bowel shows scattered diverticula particularly in the sigmoid colon without any active diverticulitis. Gallbladder and appendix are absent. No signs of intra- abdominal source of sepsis identified. Awaiting formal radiology report. Spoke with Dr. Li oncologist on-call and he is advised starting a second antibiotic meropenem 1 g IV for febrile neutropenia. Patient will be admitted to [facility] under the care of hospitalist . Ideally she may well require platelet transfusion she will need any blood transfusion he has had 2800 mils of fluid and therefore is at risk of volume overload. Current IV is running at 250 mils per hour D5 normal saline. Last BP before she left was down to 101/60. Heart rate was 1 30/m. Sats are 94% on room air temperature 99.9 degrees. Respiratory rate was 16. 04/19/17 20:18 BNP has come back at 749 and therefore the patient will be given Lasix 40 mg IV before she leaves the department. Her lactic acid was normal at 0.6. Patient will be transported to [facility] by ground ambulance which is available at this time. Departure - Departure Time of Disposition: 20:27 Disposition: DC/Tfer to [facility] 02 Condition: Critical Clinical Impression: Leukopenia due to antineoplastic chemotherapy, Thrombocytopenia due to diminished platelet production, Acute febrile illness, History of immunocompromised state Anemia Qualifiers: Anemia type: unspecified type Qualified Code(s): D64.9 - Anemia, unspecified CHF NYHA class III (symptoms with mildly strenuous activities) Qualifiers: Congestive heart failure type: diastolic Congestive heart failure chronicity: acute on chronic Qualified Code(s): I50.33 - Acute on chronic diastolic ( congestive) heart failure Diarrhea Qualifiers: Diarrhea type: unspecified type Qualified Code(s): R19.7 - Diarrhea, unspecified - Discharge Information Referrals: Delbert Forrest MD [Primary Care Provider] - Forms: ED Department Discharge Additional Instructions: Patient transferred to [facility] where she receives oncology care. Acute febrile illness and immunocompromised host. - My Orders Last 24 Hours: My Active Orders 04/19/17 17:30 Dextrose 5%-0.9% NaCl [Dextrose 5%-Normal Saline] 1,000 ml IV ASDIRECTED 04/19/17 17:31 Chest 1V Frontal [CR] Stat 04/19/17 17:32 Blood Glucose Check, Bedside [RC] ONETIME Oxygen Therapy [RC] ASDIRECTED URINALYSIS W/MICROSCOPIC [UA W/MICROSCOPIC] [URIN] Stat Blood Culture x2 Reflex Set [OM.PC] Stat 04/19/17 17:37 Abdomen Pelvis w Cont [CT] Stat 04/19/17 17:55 CULTURE BLOOD [BC] Stat 04/19/17 18:10 CULTURE BLOOD [BC] Stat 04/19/17 19:52 Meropenem [Merrem] 1 gm Sodium Chloride 0.9% [Normal Saline] 100 ml IV ONETIME - Assessment/Plan Last 24 Hours: My Active Orders 04/19/17 17:30 Dextrose 5%-0.9% NaCl [Dextrose 5%-Normal Saline] 1,000 ml IV ASDIRECTED 04/19/17 17:31 Chest 1V Frontal [CR] Stat 04/19/17 17:32 Blood Glucose Check, Bedside [RC] ONETIME Oxygen Therapy [RC] ASDIRECTED URINALYSIS W/MICROSCOPIC [UA W/MICROSCOPIC] [URIN] Stat Blood Culture x2 Reflex Set [OM.PC] Stat 04/19/17 17:37 Abdomen Pelvis w Cont [CT] Stat 04/19/17 17:55 CULTURE BLOOD [BC] Stat 04/19/17 18:10 CULTURE BLOOD [BC] Stat 04/19/17 19:52 Meropenem [Merrem] 1 gm Sodium Chloride 0.9% [Normal Saline] 100 ml IV ONETIME
[2017-04-19] MEDS ORDERED: Dextrose 5%-0.9% NaCl 1,000 ML IV SCH ×2 (17:30→20:30)
[2017-04-19] MEDS ORDERED: Ondansetron 4 MG/2 ML SDV IVPUSH ONE (17:30)
[2017-04-19] MEDS ORDERED: Levofloxacin/Dextrose 5%-Water 750 MG in Premix Bag 1 BAG IV ONE (17:34)
[2017-04-19] MEDS ORDERED: Acetaminophen 325 MG Tab PO ONE (17:39)
[2017-04-19] MEDS ORDERED: Iopamidol 755 Mg/ML 100 ML Bottle IVPUSH ONE (19:27)
[2017-04-19] MEDS ORDERED: Meropenem 1 GM in Sodium Chloride 0.9% 100 ML IV ONE (19:52)
[2017-04-19] MEDS ORDERED: Dextrose 5%-0.9% NaCl 1,000 ML ONE (20:17)
[2017-04-19 21:22] VITALS: BP 101/60
--- NOTE | 2017-04-21 20:02 | CR ---
Chest: Frontal view of the chest was obtained. Comparison: Previous chest x-ray of 03/30/17. Left-sided infusion port is seen. Heart size is within normal limits for portable technique. Interstitial changes are seen which appear fairly stable. Nothing acute is seen within the lungs. Scoliosis is present within the spine. Bony structures are osteopenic. Mild degenerative change is seen within the spine. Impression: 1. Stable findings as described above. Nothing acute is appreciated on portable chest x-ray. Diagnostic code #2
--- NOTE | 2017-04-21 20:02 | CT ---
CT abdomen and pelvis Technique: Multiple axial sections were obtained from above the dome of the diaphragm inferiorly through the pubic symphysis. Intravenous contrast was utilized. No oral contrast has been given. Comparison: No prior CT abdomen or pelvis exam is available. Findings: Both lung bases show emphysematous change and mild scarring. Liver shows no focal parenchymal abnormality. Spleen appears within normal limits. Adrenal glands show no nodule. Pancreas appears within normal limits. Kidneys show areas of scarring without hydronephrosis or mass. Aorta shows ectasia and atherosclerotic calcification which continues into the iliac vessels. There is a soft tissue density being seen within the right anterior abdominal wall located within the subcutaneous fat measuring about 2.3 cm. No mesenteric abnormalities are seen. Appendix is not visualized. No pelvic mass or adenopathy is seen. Previous hysterectomy is noted. Bone window settings were reviewed showing mild degenerative change within the spine. Delayed images were obtained which show contrast within nondilated distal ureters and within the bladder. Impression: 1. Soft tissue density within the anterior subcutaneous fat of the mid abdomen. This may represent a hematoma if patient has no overlying signs of infection. Findings may also relate to change from previous subcutaneous injection. Please correlate if findings can be differentiated clinically. 2. Other incidental findings. 3. Nothing acute is otherwise seen on CT study of the abdomen and pelvis. Diagnostic code #3 Mostly agree with preliminary report issued by [facility], additional finding as noted above ([facility] preliminary report dictated on 04/19/17, 9:23 PM Central Time)
== END 2017-04-19 20:20 ==
LOC: JD.ED 16:14
DX: D70.1 Agranulocytosis secondary to cancer chemotherapy (principal); D69.59 Other secondary thrombocytopenia; R50.9 Fever, unspecified; D64.9 Anemia, unspecified; I50.33 Acute on chronic diastolic (congestive) heart failure; I10 Essential (primary) hypertension; R19.7 Diarrhea, unspecified; Z87.891 Personal history of nicotine dependence; Z79.899 Other long term (current) drug therapy; Z79.82 Long term (current) use of aspirin; Z88.0 Allergy status to penicillin; Z88.1 Allergy status to other antibiotic agents; Z88.8 Allergy status to other drugs, medicaments and biological substances
CPT/HCPCS: 36415; 71010; 74177; 80053; 82550; 82553; 82962; 83605; 83735; 83880; 85025; 85610; 86140; 87040; 96361; 96365; 96366; 96375; 99285; A9270; J1956; J2185; J2405; J7030; J7042; Q9967

== ENCOUNTER 2017-06-15 17:09 | Inpatient (IN) | payer MEDICARE, OTHER ==
[2017-06-15] MEDS ORDERED: Sodium Chloride 0.9% 1,000 ML IV ONE ×2 (18:38→22:04)
--- NOTE | 2017-06-15 18:45 | EDM.PDOC ---
ED HPI GENERAL MEDICAL PROBLEM - General Chief Complaint: IV Access Related Stated Complaint: SENT BY PCP FOR FLUIDS Time Seen by Provider: 06/15/17 18:20 Source of Information: Reports: Patient History Limitations: Reports: No Limitations - History of Present Illness INITIAL COMMENTS - FREE TEXT/NARRATIVE: Patient is a 71-year-old female with a history of non-Hodgkin's lymphoma undergoing chemotherapy. Patient states they contacted her oncologist with instructions to come to the ED for IV fluids. With further history patient states she's had a cough for the past week getting worse. Nonproductive. She developed low-grade fever per patient though 102F today. Upon admission to the ED she is afebrile. She's been exposed to multiple sick people. States earlier this week she had a blood transfusion here in the ED. Every day since then she's received IV fluids for dehydration. She does have some mild sore throat with some sinus congestion. She has generalized body aches with intermittent headache. At time she's felt lightheaded with ambulation which is normal for her after chemotherapy. She utilizes a walker to ambulate. As of recent she developed left-sided lateral chest discomfort along the left breast described as being sharp in nature worsened with taking a deep breath and palpation. She does have a history of DVT's. She has no shortness of breath, abdominal pain, dysuria, swelling to her lower extremities, pain to her lower extremities, or any additional complaints. She did receive her influenza vaccine this year. Abdomen Pain Score (Numeric/FACES): 8 - Related Data Allergies Allergy/AdvReac Type Severity Reaction Status Date / Time erythromycin base AdvReac Joint Pain Verified 06/16/17 01:10 [Erythromycin Base] Penicillins AdvReac Joint Pain Verified 06/16/17 01:10 propoxyphene HCl AdvReac Giddiness Verified 06/16/17 01:10 [From [facility]von] Home Meds: Home Meds Docusate Sodium [Colace] 100 mg PO BID #60 cap 02/12/17 [Rx] Naloxone [Narcan] 0.4 mg INJECT ASDIRECTED PRN #2 syringe 02/12/17 [Rx] Acetaminophen 650 mg PO Q6H PRN 03/30/17 [History] Albuterol [Ventolin HFA] 1 puff INH BID PRN 03/30/17 [History] Amitriptyline HCl 100 mg PO BEDTIME 03/30/17 [History] Aspirin 81 mg PO BRK 03/30/17 [History] Losartan [Cozaar] 25 mg PO BID 03/30/17 [History] Metoprolol Succinate [Toprol XL] 50 mg PO BID 03/30/17 [History] Omeprazole 20 mg PO DAILY 03/30/17 [History] Pregabalin [Lyrica] 50 mg PO TID 03/30/17 [History] Rosuvastatin [Crestor] 20 mg PO DAILY 03/30/17 [History] Scopolamine [Transderm-Scop] 1.5 mg TRDERM Q72H 03/30/17 [History] fentaNYL [Fentanyl] 1 each TD ASDIRECTED 03/30/17 [History] Ondansetron [Zofran ODT] 4 mg PO Q6H PRN #20 tab.dis 04/05/17 [Rx] Past Medical History HEENT History: Reports: Cataract Other HEENT History: wears glasses Cardiovascular History: Reports: High Cholesterol, Hypertension Other Cardiovascular History: tia 6 years ago Respiratory History: Reports: Bronchitis, Recurrent, COPD Other Respiratory History: Chronic bronchitis - excessive phlegm Other Gastrointestinal History: possibly has IBS Genitourinary History: Reports: Dialysis, Other (See Below) Other Genitourinary History: states had renal failure approx 8 yrs ago--sudden onset, no longer needs dialysis. RN MENTAL HEALTH History: Reports: Musculoskeletal History: Reports: Arthritis Other Musculoskeletal History: a couple surgeries on left foot: Pin to left foot - flat footed - Took out extra bone. Unsure if any screws/pins are still remaining. Neurological History: Reports: CVA Other Neuro History: a few CVA's - no residual weaknesses from those, during carotid artery surgery. 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 - Infectious Disease History Infectious Disease History: Reports: Chicken Pox, Measles, Mumps - Past Surgical History HEENT Surgical History: Reports: Cataract Surgery GI Surgical History: Reports: Appendectomy, Cholecystectomy Female Surgical History: Reports: Hysterectomy Social & Family History - Family History Family Medical History: Noncontributory - Tobacco Use Smoking Status *Q: Former Smoker Years of Tobacco use: 20 Packs/Tins Daily: 1 Used Tobacco, but Quit: Yes Month Tobacco Last Used: 1 Second Hand Smoke Exposure: No - Caffeine Use Caffeine Use: Reports: None Other Caffeine Use: quit using caffeine approx 2 months ago. - Recreational Drug Use Recreational Drug Use: No - Living Situation & Occupation Living situation: Reports: Occupation: Retired ED ROS GENERAL - Review of Systems Review Of Systems: See Below Constitutional: Reports: Fever, Chills, Malaise, Fatigue, Decreased Appetite HEENT: Reports: Throat Pain, Throat Swelling Respiratory: Reports: Pleuritic Chest Pain, Cough. Denies: Shortness of Breath , Sputum Cardiovascular: Reports: Chest Pain. Denies: Dyspnea on Exertion, Palpitations , PND, Syncope GI/Abdominal: Reports: No Symptoms Musculoskeletal: Reports: Muscle Pain (Generalized) Skin: Reports: No Symptoms Neurological: Reports: Dizziness (Intermittent), Headache (Intermittent) ED EXAM, GENERAL - Physical Exam Exam: See Below Exam Limited By: No Limitations General Appearance: Alert, WD/WN, No Apparent Distress Eye Exam: Bilateral Eye: PERRL Ears: Hearing Grossly Normal Nose: Normal Inspection, Normal Mucosa Throat/Mouth: Normal Voice, No Airway Compromise, Other (Dry oromucosa with erythema noted to the posterior pharynx.) Neck: Normal Inspection, Supple, Non-Tender Respiratory/Chest: No Respiratory Distress, Lungs Clear, Normal Breath Sounds, No Accessory Muscle Use, Chest Non-Tender Cardiovascular: Normal Peripheral Pulses, Tachycardia Peripheral Pulses: 2+: Radial (L), Radial (R) GI/Abdominal: Normal Bowel Sounds, Soft, Non-Tender, No Organomegaly, No Distention Extremities: Normal Inspection, Normal Range of Motion, Non-Tender, No Pedal Edema Neurological: Alert, Oriented, CN II-XII Intact, Normal Cognition, No Motor/ Sensory Deficits Psychiatric: Normal Affect, Normal Mood Skin Exam: Warm, Dry, Intact, Normal Color, No Rash Course - Vital Signs Last Recorded V/S: Last Vital Signs Temp 99.1 F 06/16/17 07:56 Pulse 112 H 06/16/17 08:05 Resp 16 06/16/17 07:56 BP 120/57 L 06/16/17 07:56 Pulse Ox 93 L 06/16/17 08:05 - Orders/Labs/Meds Orders: Active Orders 24 hr Category Date Time Status Chest 2V [CR] Stat Exams 06/15/17 18:37 Taken Chest PE [Ang Chest] [CT] Stat Exams 06/15/17 20:12 Taken CULTURE BLOOD [BC] Stat Lab 06/15/17 20:08 Received CULTURE BLOOD [BC] Stat Lab 06/15/17 20:16 Received CULTURE STREP A CONFIRMATION [RM] Stat Lab 06/15/17 19:50 Results CULTURE URINE [RM] Stat Lab 06/15/17 20:38 Results STREP SCRN A RAPID W CULT CONF [RM] Stat Lab 06/15/17 19:50 Results Piperacillin/Tazobactam [Zosyn] 4.5 gm Med 06/15/17 22:15 Active Sodium Chloride 0.9% [Normal Saline] 100 ml IV Q8H Sodium Chloride 0.9% [Normal Saline] 100 ml Med 06/15/17 20:45 Active IV ASDIRECTED Sodium Chloride 0.9% [Saline Flush] Med 06/15/17 18:38 Active 10 ml FLUSH ASDIRECTED PRN Blood Culture x2 Reflex Set [OM.PC] Stat Oth 06/15/17 19:42 Ordered Peripheral IV Insertion Adult [OM.PC] Stat Oth 06/15/17 18:37 Ordered Medication Orders Acetaminophen (Tylenol) 650 mg PO Q4H PRN PRN Reason: Fever Acetaminophen (Tylenol) 650 mg PO Q6H PRN PRN Reason: Pain Amitriptyline HCl (Elavil) 100 mg PO BEDTIME SAMUEL Amitriptyline HCl (Elavil) 100 mg PO BEDTIME SAMUEL Aspirin (Halfprin) 81 mg PO WITHBREAKFAST [facility] Docusate Sodium (Colace) 100 mg PO BID [facility] Fentanyl (Duragesic) 12 mcg TRDERM Q72H [facility] Sodium Chloride (Normal Saline) 100 mls @ 75 mls/hr IV ASDIRECTED SAMUEL Last Admin: 06/16/17 07:49 Dose: 75 mls/hr Piperacillin Sod/Tazobactam (Sod 4.5 gm/ Sodium Chloride) 100 mls @ 25 mls/hr IV Q8H [facility] Last Admin: 06/16/17 06:36 Dose: 25 mls/hr Infusion: 06/16/17 02:26 Dose: 25 mls/hr Admin: 06/15/17 22:26 Dose: 25 mls/hr Losartan Potassium (Cozaar) 25 mg PO DAILY SAMUEL Metoprolol Succinate (Toprol Xl) 50 mg PO BID SAMUEL Miscellaneous Information (Remove Patch) 1 ea TRDERM Q72H A[facility] Non-Formulary Medication (Omeprazole) 20 mg PO DAILY SAMUEL Non-Formulary Medication (Pregabalin) 50 mg PO TID [facility]UEL Ondansetron HCl (Zofran) 4 mg IVPUSH Q8H PRN PRN Reason: Nausea Ondansetron HCl (Zofran Odt) 4 mg PO Q6H PRN PRN Reason: Other Rosuvastatin Calcium (Crestor) 20 mg PO DAILY SAMUEL Scopolamine (Transderm-Scop) 1.5 mg TRDERM Q72H [facility]UEL Sodium Chloride (Saline Flush) 10 ml FLUSH ASDIRECTED PRN PRN Reason: Keep Vein Open Last Admin: 06/15/17 21:17 Dose: 10 ml Admin: 06/15/17 19:29 Dose: 10 ml Labs: Laboratory Tests 06/15/17 06/15/17 06/15/17 Range/Units 19:20 19:20 19:20 WBC 1.78 L* (3.98-10.04) K/mm3 RBC 2.72 L (3.98-5.22) M/mm3 Hgb 7.7 L (11.2-15.7) gm/L Hct 24.4 L (34.1-44.9) % MCV 89.7 (79.4-94.8) fl MCH 28.3 (25.6-32.2) pg MCHC 31.6 L (32.2-35.5) g/dl RDW Std Deviation 53.2 H (36.4-46.3) fL Plt Count 79 L (182-369) K/mm3 MPV 10.5 (9.4-12.3) fl Neut % (Auto) 74.1 H (34.0-71.1) % Lymph % (Auto) 13.5 L (19.3-51.7) % [place] % (Auto) 9.6 (4.7-12.5) % Eos % (Auto) 1.1 (0.7-5.8) Baso % (Auto) 0.6 (0.1-1.2) % Neut # (Auto) 1.32 L (1.56-6.13) K/mm3 Lymph # (Auto) 0.24 L (1.18-3.74) K/mm3 [place] # (Auto) 0.17 L (0.24-0.36) K/mm3 Eos # (Auto) 0.02 L (0.04-0.36) K/mm3 Baso # (Auto) 0.01 (0.01-0.08) K/mm3 Manual Slide Review Abnormal smear PT 11.9 (8.0-13.0) SECONDS INR 1.09 APTT (22-36) SECONDS D-Dimer, Quantitative (0.19-0.59) mg/L Sodium 137 (136-145) mEq/L Potassium 3.4 L (3.5-5.1) mEq/L Chloride 101 (98-107) mEq/L Carbon Dioxide 27 (21-32) mEq/L Anion Gap 12.4 (5-15) BUN 9 (7-18) mg/dL Creatinine 0.7 (0.55-1.02) mg/dL Est Cr Clr Drug Dosing 65.37 mL/min Estimated GFR (MDRD) > 60 (>60) mL/min BUN/Creatinine Ratio 12.9 L (14-18) Glucose 108 (83-115) mg/dL Lactic Acid (0.4-2.0) mmol/L Calcium 8.8 (8.5-10.1) mg/dL Magnesium (1.8-2.4) mg/dl Total Bilirubin 0.6 (0.2-1.0) mg/dL AST 14 L (15-37) U/L ALT 10 L (14-59) U/L Alkaline Phosphatase 47 (46-116) U/L Troponin I 0.057 H* (0.00-0.056) ng/mL C-Reactive Protein 11.9 H* (<1.0) mg/dL Total Protein 5.5 L (6.4-8.2) g/dl Albumin 2.7 L (3.4-5.0) g/dl Globulin 2.8 gm/dL Albumin/Globulin Ratio 1.0 (1-2) Urine Color (Yellow) Urine Appearance (Clear) Urine pH (5.0-8.0) Ur Specific Christine (1.005-1.030) Urine Protein (Negative) Urine Glucose (UA) (Negative) Urine Ketones (Negative) Urine Occult Blood (Negative) Urine Nitrite (Negative) Urine Bilirubin (Negative) Urine Urobilinogen (0.2-1.0) Ur Leukocyte Esterase (Negative) Urine RBC (0-5) /hpf Urine WBC (0-5) /hpf Ur Epithelial Cells (0-5) /hpf Urine Bacteria (FEW) /hpf Urine Mucus (FEW) /hpf 06/15/17 06/15/17 06/15/17 Range/Units 19:20 19:20 19:20 WBC (3.98-10.04) K/mm3 RBC (3.98-5.22) M/mm3 Hgb (11.2-15.7) gm/L Hct (34.1-44.9) % MCV (79.4-94.8) fl MCH (25.6-32.2) pg MCHC (32.2-35.5) g/dl RDW Std Deviation (36.4-46.3) fL Plt Count (182-369) K/mm3 MPV (9.4-12.3) fl Neut % (Auto) (34.0-71.1) % Lymph % (Auto) (19.3-51.7) % [place] % (Auto) (4.7-12.5) % Eos % (Auto) (0.7-5.8) Baso % (Auto) (0.1-1.2) % Neut # (Auto) (1.56-6.13) K/mm3 Lymph # (Auto) (1.18-3.74) K/mm3 [place] # (Auto) (0.24-0.36) K/mm3 Eos # (Auto) (0.04-0.36) K/mm3 Baso # (Auto) (0.01-0.08) K/mm3 Manual Slide Review PT (8.0-13.0) SECONDS INR APTT 38 H (22-36) SECONDS D-Dimer, Quantitative 2.44 H (0.19-0.59) mg/L Sodium (136-145) mEq/L Potassium (3.5-5.1) mEq/L Chloride (98-107) mEq/L Carbon Dioxide (21-32) mEq/L Anion Gap (5-15) BUN (7-18) mg/dL Creatinine (0.55-1.02) mg/dL Est Cr Clr Drug Dosing mL/min Estimated GFR (MDRD) (>60) mL/min BUN/Creatinine Ratio (14-18) Glucose (83-115) mg/dL Lactic Acid 0.7 (0.4-2.0) mmol/L Calcium (8.5-10.1) mg/dL Magnesium (1.8-2.4) mg/dl Total Bilirubin (0.2-1.0) mg/dL AST (15-37) U/L ALT (14-59) U/L Alkaline Phosphatase (46-116) U/L Troponin I (0.00-0.056) ng/mL C-Reactive Protein (<1.0) mg/dL Total Protein (6.4-8.2) g/dl Albumin (3.4-5.0) g/dl Globulin gm/dL Albumin/Globulin Ratio (1-2) Urine Color (Yellow) Urine Appearance (Clear) Urine pH (5.0-8.0) Ur Specific Christine (1.005-1.030) Urine Protein (Negative) Urine Glucose (UA) (Negative) Urine Ketones (Negative) Urine Occult Blood (Negative) Urine Nitrite (Negative) Urine Bilirubin (Negative) Urine Urobilinogen (0.2-1.0) Ur Leukocyte Esterase (Negative) Urine RBC (0-5) /hpf Urine WBC (0-5) /hpf Ur Epithelial Cells (0-5) /hpf Urine Bacteria (FEW) /hpf Urine Mucus (FEW) /hpf 06/15/17 06/15/17 06/15/17 Range/Units 20:38 21:45 21:45 WBC (3.98-10.04) K/mm3 RBC (3.98-5.22) M/mm3 Hgb (11.2-15.7) gm/L Hct (34.1-44.9) % MCV (79.4-94.8) fl MCH (25.6-32.2) pg MCHC (32.2-35.5) g/dl RDW Std Deviation (36.4-46.3) fL Plt Count (182-369) K/mm3 MPV (9.4-12.3) fl Neut % (Auto) (34.0-71.1) % Lymph % (Auto) (19.3-51.7) % [place] % (Auto) (4.7-12.5) % Eos % (Auto) (0.7-5.8) Baso % (Auto) (0.1-1.2) % Neut # (Auto) (1.56-6.13) K/mm3 Lymph # (Auto) (1.18-3.74) K/mm3 [place] # (Auto) (0.24-0.36) K/mm3 Eos # (Auto) (0.04-0.36) K/mm3 Baso # (Auto) (0.01-0.08) K/mm3 Manual Slide Review PT (8.0-13.0) SECONDS INR APTT (22-36) SECONDS D-Dimer, Quantitative (0.19-0.59) mg/L Sodium (136-145) mEq/L Potassium (3.5-5.1) mEq/L Chloride (98-107) mEq/L Carbon Dioxide (21-32) mEq/L Anion Gap (5-15) BUN (7-18) mg/dL Creatinine (0.55-1.02) mg/dL Est Cr Clr Drug Dosing mL/min Estimated GFR (MDRD) (>60) mL/min BUN/Creatinine Ratio (14-18) Glucose (83-115) mg/dL Lactic Acid (0.4-2.0) mmol/L Calcium (8.5-10.1) mg/dL Magnesium 1.4 L (1.8-2.4) mg/dl Total Bilirubin (0.2-1.0) mg/dL AST (15-37) U/L ALT (14-59) U/L Alkaline Phosphatase (46-116) U/L Troponin I 0.046 (0.00-0.056) ng/mL C-Reactive Protein (<1.0) mg/dL Total Protein (6.4-8.2) g/dl Albumin (3.4-5.0) g/dl Globulin gm/dL Albumin/Globulin Ratio (1-2) Urine Color Yellow (Yellow) Urine Appearance Clear (Clear) Urine pH 7.0 (5.0-8.0) Ur Specific Christine 1.020 (1.005-1.030) Urine Protein Negative (Negative) Urine Glucose (UA) Negative (Negative) Urine Ketones Negative (Negative) Urine Occult Blood Negative (Negative) Urine Nitrite Negative (Negative) Urine Bilirubin Negative (Negative) Urine Urobilinogen 1.0 (0.2-1.0) Ur Leukocyte Esterase Negative (Negative) Urine RBC 0-5 (0-5) /hpf Urine WBC 0-5 (0-5) /hpf Ur Epithelial Cells 0-5 (0-5) /hpf Urine Bacteria Occasional (FEW) /hpf Urine Mucus Not seen (FEW) /hpf Meds: Medications Generic Name Dose Route Start Last Admin Trade Name Freq PRN Reason Stop Dose Admin Acetaminophen 650 mg 06/16/17 00:58 Tylenol PO Q4H PRN Fever Acetaminophen 650 mg 06/16/17 10:37 Tylenol PO Q6H PRN Pain Amitriptyline HCl 100 mg 06/16/17 21:00 Elavil PO BEDTIME SAMUEL Amitriptyline HCl 100 mg 06/16/17 21:00 Elavil PO BEDTIME [facility] Aspirin 81 mg 06/17/17 07:00 Halfprin PO WITHBREAKFAST [facility] Docusate Sodium 100 mg 06/16/17 21:00 Colace PO BID [facility] Fentanyl 12 mcg 06/18/17 09:00 Duragesic TRDERM Q72H SAMUEL Sodium Chloride 100 mls @ 75 mls/hr 06/15/17 20:45 06/16/17 07:49 Normal Saline IV 75 mls/hr ASDIRECTED SAMUEL Administration Piperacillin Sod/Tazobactam 100 mls @ 25 mls/hr 06/15/17 22:15 06/16/17 06:36 Sod 4.5 gm/ Sodium Chloride IV 25 mls/hr Q8H SAMUEL Administration Losartan Potassium 25 mg 06/17/17 09:00 Cozaar PO DAILY SAMUEL Metoprolol Succinate 50 mg 06/16/17 21:00 Toprol Xl PO BID [facility] Miscellaneous Information 1 ea 06/19/17 10:30 Remove Patch TRDERM Q72H [facility]UEL Non-Formulary Medication 20 mg 06/17/17 09:00 Omeprazole PO DAILY SAMUEL Non-Formulary Medication 50 mg 06/16/17 15:00 Pregabalin PO TID SAMUEL Ondansetron HCl 4 mg 06/16/17 00:56 Zofran IVPUSH Q8H PRN Nausea Ondansetron HCl 4 mg 06/16/17 10:25 Zofran Odt PO Q6H PRN Other Rosuvastatin Calcium 20 mg 06/17/17 09:00 Crestor PO DAILY SAMUEL Scopolamine 1.5 mg 06/16/17 10:45 Transderm-Scop TRDERM Q72H [facility]UEL Sodium Chloride 10 ml 06/15/17 18:38 06/15/17 21:17 Saline Flush FLUSH 10 ml ASDIRECTED PRN Administration Keep Vein Open Discontinued Medications Generic Name Dose Route Start Last Admin Trade Name Freq PRN Reason Stop Dose Admin Amitriptyline HCl 100 mg 06/16/17 01:28 06/16/17 01:38 Elavil PO 06/16/17 01:29 100 mg ONETIME ONE Administration Enoxaparin Sodium 40 mg 06/15/17 22:08 06/15/17 22:36 Lovenox SUBCUT 06/15/17 22:09 40 mg ONETIME ONE Administration Sodium Chloride 1,000 mls @ 250 mls/hr 06/15/17 18:38 06/15/17 19:29 Normal Saline IV 06/15/17 22:37 250 mls/hr ONETIME ONE Administration Sodium Chloride 1,000 mls @ 100 mls/hr 06/15/17 22:04 06/15/17 22:10 Normal Saline IV 06/16/17 08:03 100 mls/hr ONETIME ONE Administration Levofloxacin/Dextrose 750 mg/ 150 mls @ 100 mls/hr 06/15/17 22:06 06/15/17 22 :30 Premix IV 06/15/17 23:35 100 mls/hr ONETIME ONE Administration Levofloxacin/Dextrose Confirm 06/15/17 22:20 06/16/17 00:38 Levaquin In D5w 750 Mg/150 Ml Administered 06/15/17 22:21 Not Given Dose 150 mls @ as directed IV .STK-MED ONE Magnesium Sulfate 2 gm/ Premix 50 mls @ 25 mls/hr 06/15/17 22:28 06/16/17 01: 20 IV 06/16/17 00:27 Not Given ONETIME ONE Magnesium Sulfate/Dextrose 1 100 mls @ 100 mls/hr 06/16/17 01:15 06/16/17 01: 24 gm/ Premix IV 06/16/17 05:14 Not Given Q1H SAMUEL Magnesium Sulfate 2 gm/ Premix 50 mls @ 25 mls/hr 06/16/17 01:15 06/16/17 01: 20 IV 06/16/17 03:14 25 mls/hr ONETIME ONE Administration Iopamidol 100 ml 06/15/17 20:31 06/15/17 21:17 Isovue-370 (76%) IVPUSH 06/15/17 20:32 100 ml ONETIME ONE Administration Scopolamine 1.5 mg 06/16/17 10:30 Transderm-Scop TRDERM Q72H [facility] - Re-Assessments/Exams Free Text/Narrative Re-Assessment/Exam: IV established with normal saline 250 mL per hour. Initial labs and studies include CBC, chem 14, CRP, d-dimer, influenza screen, coag study, strep screen, troponin, UA,chest x-ray, and EKG. D-dimer is ordered due to the pain having left-sided sharp pleuritic pain with O2 sats in the 80s. Chest x-ray reviewed: No acute findings noted. Reviewed with Dr. Guzmán. Final interpretation is pending. EKG revealed: Sinus tachycardia rate of [address] changes noted. 1950 D-dimer elevated 2.44 with a troponin elevated 0.057. Labs reviewed: WBC 1.78, Hgb 7.7, Platelet count 79, Sodium 137, potassium 3.4, AG 12.4, creatinine 0.7, and CRP 11.9. CT angio of the chest ordered to rule out PE. Patient has chronic anemia secondary to chemotherapy. states hemoglobin was lower than 7.7 this past week thus prompting 2 units of blood transfused. She denies dark tarry stools or blood within her stool. She does have some intermittent hemorrhoids that do flareup with wiping or having a large stool. Was planning on obtaining stool Hemoccult to ensure that there is no blood within the stool. Patient refuses. Influenza and Strep Screen was negative. 06/15/17 21:34 CT chest with IV contrast impression: No evidence of central pulmonary embolism. Moderate central lobar emphysema. Prominent soft atheromatous plaque in the thoracic aorta. 2137 Called [facility]. Patients Hemoglobin was 9.7 on 06/11/2017 after receiving 2 units of blood on 06/10/2017. Spoke with Dr. Naranjo onsite health coach oncologist. Due to the low absolute neutrophil count with documented fever at home. She recommends admission to the hospital for infectious workup including blood cultures 2, UA culture, and IV antibiotics for 48 hours. [address] Pacheco. She has agreed to admit the patient. Patient was admitted to [facility] telemetry. Requested Levaquin 750 mg IV and Zosyn 4.5 g IV. In addition requested lactic acid, magnesium, and Lovenox 40 mg subcutaneous. Diet will be clear liquids only. MCG to be completed. 06/15/17 22:29 second troponin 0.046 trending downward. Lactic acid 0.7. Magnesium was 1.4. Ordered 2 g of mag IV. Departure - Departure Time of Disposition: 23:34 Disposition: Admitted As Inpatient 65 Condition: Fair Clinical Impression: Neutropenia with fever - Discharge Information - My Orders Last 24 Hours: My Active Orders 06/15/17 18:37 Chest 2V [CR] Stat Peripheral IV Insertion Adult [OM.PC] Stat 06/15/17 18:38 Sodium Chloride 0.9% [Saline Flush] 10 ml FLUSH ASDIRECTED PRN 06/15/17 19:42 Blood Culture x2 Reflex Set [OM.PC] Stat 06/15/17 19:50 CULTURE STREP A CONFIRMATION [RM] Stat STREP SCRN A RAPID W CULT CONF [RM] Stat 06/15/17 20:08 CULTURE BLOOD [BC] Stat 06/15/17 20:12 Chest PE [Ang Chest] [CT] Stat 06/15/17 20:16 CULTURE BLOOD [BC] Stat 06/15/17 20:38 CULTURE URINE [RM] Stat 06/15/17 20:45 Sodium Chloride 0.9% [Normal Saline] 100 ml IV ASDIRECTED 06/15/17 22:15 Piperacillin/Tazobactam [Zosyn] 4.5 gm Sodium Chloride 0.9% [Normal Saline] 100 ml IV Q8H - Assessment/Plan Last 24 Hours: My Active Orders 06/15/17 18:37 Chest 2V [CR] Stat Peripheral IV Insertion Adult [OM.PC] Stat 06/15/17 18:38 Sodium Chloride 0.9% [Saline Flush] 10 ml FLUSH ASDIRECTED PRN 06/15/17 19:42 Blood Culture x2 Reflex Set [OM.PC] Stat 06/15/17 19:50 CULTURE STREP A CONFIRMATION [RM] Stat STREP SCRN A RAPID W CULT CONF [RM] Stat 06/15/17 20:08 CULTURE BLOOD [BC] Stat 06/15/17 20:12 Chest PE [Ang Chest] [CT] Stat 06/15/17 20:16 CULTURE BLOOD [BC] Stat 06/15/17 20:38 CULTURE URINE [RM] Stat 06/15/17 20:45 Sodium Chloride 0.9% [Normal Saline] 100 ml IV ASDIRECTED 06/15/17 22:15 Piperacillin/Tazobactam [Zosyn] 4.5 gm Sodium Chloride 0.9% [Normal Saline] 100 ml IV Q8H
[2017-06-15] MEDS: Sodium Chloride 0.9% 10 ML Syringe FLUSH PRN ×2 (19:29→21:17)
[2017-06-15] MEDS ORDERED: Iopamidol 755 Mg/ML 100 ML Bottle IVPUSH ONE (20:31)
[2017-06-15] MEDS ORDERED: Levofloxacin/Dextrose 5%-Water 750 MG in Premix Bag 1 BAG IV ONE (22:06)
[2017-06-15] MEDS ORDERED: Enoxaparin 40 MG/0.4 ML Syringe SUBCUT ONE (22:08)
[2017-06-15] MEDS ORDERED: Levofloxacin/Dextrose 5%-Water 150 ML IV ONE (22:20)
[2017-06-15] MEDS: Piperacillin/Tazobactam 4.5 GM in Sodium Chloride 0.9% 100 ML IV SCH (22:26)
[2017-06-15] MEDS ORDERED: Magnesium Sulfate/Water 2 GM in Premix Bag 1 BAG IV ONE (22:28)
[2017-06-16] MEDS ORDERED: Ondansetron 4 MG/2 ML SDV IVPUSH PRN (00:56)
[2017-06-16] MEDS ORDERED: Magnesium Sulfate/Water 2 GM in Premix Bag 1 BAG IV ONE (01:15)
[2017-06-16] MEDS ORDERED: Amitriptyline 25 MG Tab PO ONE (01:28)
[2017-06-16] MEDS: Piperacillin/Tazobactam 4.5 GM in Sodium Chloride 0.9% 100 ML IV SCH ×3 (06:36→21:58)
[2017-06-16] MEDS: Sodium Chloride 0.9% 100 ML IV SCH ×2 (07:49→20:25)
--- NOTE | 2017-06-16 09:34 | PCM.HP ---
H&P History of Present Illness - General Date of Service: 06/16/17 Admit Problem/Dx: Admission Diagnosis/Problem Admission Diagnosis/Problem Fever Source of Information: Patient, Provider History Limitations: Reports: No Limitations - History of Present Illness Initial Comments - Free Text/Narative: 71 year old female recently completed CTX for NHL with bone mets, presents after several ED presentations for IVF/PRBCs. At this time she reports a temp of 102 F associated with fever, chills, malaise as well as generalized weakness. She admits to decreased appetite, a sore throat as well as a pleuritic cough. Her complaints have occurred within the last 48-72 hours. She presented to the ED after noting that her temperature was elevated. 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 An infectious work has been started in the ED. She will be admitted to [facility] in reverse isolation. Onset of Symptoms: Reports: Gradual Duration of Symptoms: Reports: Day(s):, Getting Worse Location: Reports: Head, Chest, Generalized Quality: Reports: Ache, Sharp, Stabbing Improves with: Reports: Medication Worsens with: Reports: None Context: Reports: Sick Contact, Other (post CTX) Associated Symptoms: Reports: Fever/Chills, Malaise, Weakness Abdomen Pain Score (Numeric/FACES): 8 - Related Data Allergies/Adverse Reactions: Allergies Allergy/AdvReac Type Severity Reaction Status Date / Time erythromycin base AdvReac Joint Pain Verified 06/16/17 01:10 [Erythromycin Base] Penicillins AdvReac Joint Pain Verified 06/16/17 01:10 propoxyphene HCl AdvReac Giddiness Verified 06/16/17 01:10 [From Darvon] Home Medications: Home Meds Docusate Sodium [Colace] 100 mg PO BID #60 cap 02/12/17 [Rx] Naloxone [Narcan] 0.4 mg INJECT ASDIRECTED PRN #2 syringe 02/12/17 [Rx] Acetaminophen 650 mg PO Q6H PRN 03/30/17 [History] Albuterol [Ventolin HFA] 1 puff INH BID PRN 03/30/17 [History] Amitriptyline HCl 100 mg PO BEDTIME 03/30/17 [History] Aspirin 81 mg PO BRK 03/30/17 [History] Losartan [Cozaar] 25 mg PO BID 03/30/17 [History] Metoprolol Succinate [Toprol XL] 50 mg PO BID 03/30/17 [History] Omeprazole 20 mg PO DAILY 03/30/17 [History] Pregabalin [Lyrica] 50 mg PO TID 03/30/17 [History] Rosuvastatin [Crestor] 20 mg PO DAILY 03/30/17 [History] Scopolamine [Transderm-Scop] 1.5 mg TRDERM Q72H 03/30/17 [History] fentaNYL [Fentanyl] 1 each TD ASDIRECTED 03/30/17 [History] Ondansetron [Zofran ODT] 4 mg PO Q6H PRN #20 tab.dis 04/05/17 [Rx] Past Medical History HEENT History: Reports: Cataract Other HEENT History: wears glasses Cardiovascular History: Reports: High Cholesterol, Hypertension Other Cardiovascular History: tia 6 years ago Respiratory History: Reports: Bronchitis, Recurrent, COPD Other Respiratory History: Chronic bronchitis - excessive phlegm Other Gastrointestinal History: possibly has IBS Genitourinary History: Reports: Dialysis, Other (See Below) Other Genitourinary History: states had renal failure approx 8 yrs ago--sudden onset, no longer needs dialysis. 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 Unsure if any screws/pins are still remaining. Neurological History: Reports: CVA Other Neuro History: a few CVA's - no residual weaknesses from those, during carotid artery surgery. 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 - Infectious Disease History Infectious Disease History: Reports: Influenza - Past Surgical History Head Surgeries/Procedures: Reports: None HEENT Surgical History: Reports: Cataract Surgery GI Surgical History: Reports: Appendectomy, Cholecystectomy Female Surgical History: Reports: Hysterectomy Neurological Surgical History: Reports: None Musculoskeletal Surgical History: Reports: None Oncologic Surgical History: Reports: None Social & Family History - Family History Family Medical History: Noncontributory - Tobacco Use Smoking Status *Q: Former Smoker Years of Tobacco use: 20 Packs/Tins Daily: 1 Used Tobacco, but Quit: No Month Tobacco Last Used: 1 Second Hand Smoke Exposure: No - Caffeine Use Caffeine Use: Reports: None Other Caffeine Use: quit using caffeine approx 2 months ago. - Recreational Drug Use Recreational Drug Use: No - Living Situation & Occupation Living situation: Reports: Occupation: Retired H&P Review of Systems - Review of Systems: Review Of Systems: See Below General: Reports: Fever, Malaise, Weakness, Decreased Appetite HEENT: Reports: Sore Throat Pulmonary: Reports: No Symptoms Cardiovascular: Reports: No Symptoms Gastrointestinal: Reports: No Symptoms Genitourinary: Reports: No Symptoms Musculoskeletal: Reports: No Symptoms Skin: Reports: No Symptoms Psychiatric: Reports: No Symptoms Neurological: Reports: Dizziness Hematologic/Lymphatic: Reports: Anemia Immunologic: Reports: No Symptoms Exam - Exam Exam: See Below - Vital Signs Vital Signs: Last Vital Signs Temp 37.3 C 06/16/17 07:56 Pulse 112 H 06/16/17 08:05 Resp 16 06/16/17 07:56 BP 120/57 L 06/16/17 07:56 Pulse Ox 93 L 06/16/17 08:05 Weight: 70.443 kg - Exam Quality Assessment: Supplemental Oxygen, DVT Prophylaxis General: Alert, Oriented HEENT: EOMI, Hearing Intact, Nares Patent, Normal Nasal Septum, Pupils Equal, Pupils Reactive, PERRLA Neck: Supple, Trachea Midline Lungs: Normal Respiratory Effort Cardiovascular: Regular Rate GI/Abdominal Exam: Normal Bowel Sounds, Soft, Non-Tender, No Organomegaly, No Distention (Female) Exam: Deferred Rectal (Female) Exam: Deferred Back Exam: Normal Inspection Extremities: Normal Inspection, Normal Range of Motion, Non-Tender, Slow Capillary Refill Skin: Warm Neurological: Cranial Nerves Intact, Normal Speech Neuro Extensive - Mental Status: Alert, Oriented x3, Normal Mood/Affect, Normal Cognition, Memory Intact Neuro Extensive - Motor, Sensory, Reflexes: CN II-XII Intact Psychiatric: Alert, Normal Affect, Normal Mood - Patient Data Lab Results Last 24 hrs: Laboratory Results - last 24 hr 06/16/17 06/16/17 06/16/17 Range/Units 05:50 05:50 05:50 WBC 1.66 L* (3.98-10.04) K/mm3 RBC 2.64 L (3.98-5.22) M/mm3 Hgb 7.4 L (11.2-15.7) gm/L Hct 23.9 L (34.1-44.9) % MCV 90.5 (79.4-94.8) fl MCH 28.0 (25.6-32.2) pg MCHC 31.0 L (32.2-35.5) g/dl RDW Std Deviation 54.4 H (36.4-46.3) fL Plt Count 99 L (182-369) K/mm3 MPV 11.0 (9.4-12.3) fl Neut % (Auto) 74.8 H (34.0-71.1) % Lymph % (Auto) 9.6 L (19.3-51.7) % Wayne % (Auto) 12.0 (4.7-12.5) % Eos % (Auto) 1.2 (0.7-5.8) Baso % (Auto) 0.6 (0.1-1.2) % Neut # (Auto) 1.24 L (1.56-6.13) K/mm3 Lymph # (Auto) 0.16 L (1.18-3.74) K/mm3 Wayne # (Auto) 0.20 L (0.24-0.36) K/mm3 Eos # (Auto) 0.02 L (0.04-0.36) K/mm3 Baso # (Auto) 0.01 (0.01-0.08) K/mm3 Manual Slide Review Abnormal smear Sodium 137 (136-145) mEq/L Potassium 3.5 (3.5-5.1) mEq/L Chloride 103 (98-107) mEq/L Carbon Dioxide 27 (21-32) mEq/L Anion Gap 10.5 (5-15) BUN 8 (7-18) mg/dL Creatinine 0.7 (0.55-1.02) mg/dL Est Cr Clr Drug Dosing 65.37 mL/min Estimated GFR (MDRD) > 60 (>60) mL/min BUN/Creatinine Ratio 11.4 L (14-18) Glucose 101 (83-115) mg/dL Lactic Acid 0.8 (0.4-2.0) mmol/L Calcium 8.2 L (8.5-10.1) mg/dL Magnesium 2.1 (1.8-2.4) mg/dl C-Reactive Protein 11.7 H* (<1.0) mg/dL Result Diagrams: 06/16/17 05:50 06/16/17 05:50 *Q Meaningful Use (ADM) - VTE *Q VTE Criteria *Q: - Stroke *Q Stroke Criteria *Q: - AMI *Q AMI Criteria *Q: - Problem List (1) Neutropenia with fever SNOMED Code(s): 387141905 ICD Code: D70.9 - NEUTROPENIA, UNSPECIFIED; R50.81 - FEVER PRESENTING WITH CONDITIONS CLASSIFIED ELSEWHERE Status: Acute Current Visit: Yes (2) Acute febrile illness SNOMED Code(s): 955073689 ICD Code: R50.9 - FEVER, UNSPECIFIED Status: Acute Current Visit: No (3) Anemia SNOMED Code(s): 339859975 ICD Code: D64.9 - ANEMIA, UNSPECIFIED Status: Acute Current Visit: No Qualifiers: Anemia type: unspecified type Qualified Code(s): D64.9 - Anemia, unspecified (4) Dehydration SNOMED Code(s): 36104184 ICD Code: E86.0 - DEHYDRATION Status: Acute Priority: High Current Visit: No (5) Hypokalemia due to loss of potassium SNOMED Code(s): 52008079 ICD Code: E87.6 - HYPOKALEMIA Status: Acute Current Visit: No (6) Leukopenia due to antineoplastic chemotherapy SNOMED Code(s): 366121469 ICD Code: D70.1 - AGRANULOCYTOSIS SECONDARY TO CANCER CHEMOTHERAPY; T45.1X5A - ADVERSE EFFECT OF ANTINEOPLASTIC AND IMMUNOSUP DRUGS, INIT Status: Acute Current Visit: No (7) CHF NYHA class III (symptoms with mildly strenuous activities) SNOMED Code(s): 243656385 ICD Code: I50.9 - HEART FAILURE, UNSPECIFIED Status: Acute Current Visit : No Qualifiers: Congestive heart failure type: diastolic Congestive heart failure chronicity: acute on chronic Qualified Code(s): I50.33 - Acute on chronic diastolic (congestive) heart failure (8) History of immunocompromised state SNOMED Code(s): 779079321 ICD Code: Z86.2 - PRSNL HISTORY OF DIS OF THE BLD/BLD-FORM ORG/IMMUN MECHNSM Status: Acute Current Visit: No (9) Thrombocytopenia due to diminished platelet production SNOMED Code(s): 12862532 ICD Code: D69.59 - OTHER SECONDARY THROMBOCYTOPENIA Status: Acute Current Visit: No (10) Volume depletion, unspecified SNOMED Code(s): 53797972 ICD Code: E86.9 - VOLUME DEPLETION, UNSPECIFIED Status: Acute Current Visit: No (11) Leukocytopenia SNOMED Code(s): 84616700 ICD Code: D72.819 - DECREASED WHITE BLOOD CELL COUNT, UNSPECIFIED Status: Resolved Current Visit: No Qualifiers: Neutropenia type: secondary to cancer chemotherapy Problem List Initiated/Reviewed/Updated: Yes Orders Last 24hrs: Active Orders 24 hr Category Date Time Status Admission Status [Patient Status] [ADT] Routine ADT 06/15/17 23:34 Active Acetaminophen [Tylenol] Med 06/16/17 00:58 Active 650 mg PO Q4H PRN Amitriptyline [Elavil] Med 06/16/17 21:00 Active 100 mg PO BEDTIME Ondansetron [Zofran] Med 06/16/17 00:56 Active 4 mg IVPUSH Q8H PRN Code Status [Resuscitation Status] Routine Resus Stat 06/16/17 03:21 Ordered Medication Orders Acetaminophen (Tylenol) 650 mg PO Q4H PRN PRN Reason: Fever Amitriptyline HCl (Elavil) 100 mg PO BEDTIME [facility] Sodium Chloride (Normal Saline) 100 mls @ 75 mls/hr IV ASDIRECTED [facility] Last Admin: 06/16/17 07:49 Dose: 75 mls/hr Piperacillin Sod/Tazobactam (Sod 4.5 gm/ Sodium Chloride) 100 mls @ 25 mls/hr IV Q8H [facility] Last Admin: 06/16/17 06:36 Dose: 25 mls/hr Infusion: 06/16/17 02:26 Dose: 25 mls/hr Admin: 06/15/17 22:26 Dose: 25 mls/hr Ondansetron HCl (Zofran) 4 mg IVPUSH Q8H PRN PRN Reason: Nausea Sodium Chloride (Saline Flush) 10 ml FLUSH ASDIRECTED PRN PRN Reason: Keep Vein Open Last Admin: 06/15/17 21:17 Dose: 10 ml Admin: 06/15/17 19:29 Dose: 10 ml Assessment/Plan Comment:: Impression: Borderline neutropenic fever, self reported temp >102.0 F S/P CTX for NHL with bone mets; CTX next week is scheduled. Received IVF as well as PRBCs post CTX; Hgb previous <7.0 Pancytopenia post CTX Chronic HTN HLD Hx of TIA Hx of ARF COPD, former tobacco Plan: IVF Empiric RX with Levoquin/Zosyn PRBC if HGB <7.5 Neupogen or equivalent for neutropenia Reverse isolation DVT prophylaxis, high risk GI prophylaxis SW/PT/OT consult
[2017-06-16] MEDS ORDERED: Ondansetron 4 MG Tab.DIS PO PRN (10:25)
[2017-06-16] MEDS ORDERED: Scopolamine 1.5 MG Transdermal Patch TRDERM SCH ×2 (10:30→22:00)
[2017-06-16] MEDS ORDERED: Acetaminophen 325 MG Tab PO PRN (10:37)
[2017-06-16] MEDS: Enoxaparin 40 MG/0.4 ML Syringe SUBCUT SCH (11:48)
[2017-06-16] MEDS: Pregabalin 25 MG Cap PO SCH ×2 (14:26→20:27)
[2017-06-16] MEDS: Acetaminophen 325 MG Tab PO PRN (20:21)
[2017-06-16] MEDS: Amitriptyline 25 MG Tab PO SCH (20:25)
[2017-06-16] MEDS: Metoprolol Succinate 50 MG Tab.ER PO SCH (20:26)
[2017-06-16] MEDS: Docusate Sodium 100 MG Cap PO SCH (20:28)
[2017-06-16] MEDS ORDERED: Amitriptyline 25 MG Tab PO SCH (21:00)
[2017-06-16] MEDS: fentaNYL 12 MCG/HR Transdermal Patch TRDERM SCH (21:51)
[2017-06-16] MEDS: Levofloxacin/Dextrose 5%-Water 750 MG in Premix Bag 1 BAG IV SCH (22:01)
[2017-06-16] MEDS: Remove Patch*SCOPOLAMINE TRDERM SCH (22:36)
[2017-06-16] MEDS: Remove Patch*FENTANYL TRDERM SCH (22:38)
[2017-06-17] MEDS: Piperacillin/Tazobactam 4.5 GM in Sodium Chloride 0.9% 100 ML IV SCH ×2 (05:52→13:55)
[2017-06-17] MEDS: Aspirin 81 MG Tab.EC PO SCH ×2 (05:57→08:57)
[2017-06-17] MEDS: Pantoprazole 40 MG Tab.CR PO SCH ×2 (05:57→08:57)
--- NOTE | 2017-06-17 07:53 | CR ---
Chest: Two views of the chest were obtained. Comparison: Prior chest x-ray of 04/19/17. Heart size appears within normal limits for technique. Tortuous thoracic aorta is seen. Infusion port is seen entering from the left side. Lung markings are increased questionably more prominent than on prior study and difficult to exclude superimposed bronchitis with fibrosis. No alveolar type densities are seen. Slight scoliosis is noted within the spine. Impression: 1. Possible fibrosis with superimposed acute bronchitis. 2. Other incidental findings. Diagnostic code #3
--- NOTE | 2017-06-17 07:53 | CT ---
CT chest Technique: Multiple axial sections were obtained from above the lung apices inferiorly through the lung bases. Intravenous contrast was utilized. Study has been performed as a pulmonary angiogram protocol. Findings: Atherosclerotic plaque is noted within the thoracic aorta as well as atherosclerotic calcification. Small mediastinal lymph nodes are seen which are believed to be within normal limits. Coronary artery calcification is seen. Pulmonary arteries are not optimally opacified but no filling defects are seen to indicate pulmonary embolism within the main or segmental branches. Small portion of the visualized upper abdominal structures shows incidental cyst within the right kidney. Diffuse emphysematous change with pulmonary fibrosis is seen within both lungs. Impression: 1. No findings of pulmonary embolism within the main or segmental branches. 2. Emphysematous change with pulmonary fibrosis. 3. Other incidental findings as noted above. Diagnostic code #3 Agree with preliminary report issued by [employer] ([facility] preliminary report dictated on 06/15/17, 12:27 PM Central Time)
[2017-06-17] MEDS: Docusate Sodium 100 MG Cap PO SCH ×2 (08:31→21:55)
[2017-06-17] MEDS: Rosuvastatin 10 MG Tab PO SCH (08:32)
[2017-06-17] MEDS: Losartan 25 MG Tab PO SCH (08:32)
[2017-06-17] MEDS: Enoxaparin 40 MG/0.4 ML Syringe SUBCUT SCH (08:33)
[2017-06-17] MEDS: Metoprolol Succinate 50 MG Tab.ER PO SCH ×2 (08:34→21:56)
[2017-06-17] MEDS: Pregabalin 25 MG Cap PO SCH ×3 (08:34→21:55)
[2017-06-17] MEDS: Acetaminophen 325 MG Tab PO PRN ×2 (08:58→16:29)
[2017-06-17] MEDS: Sodium Chloride 0.9% 1,000 ML IV SCH (12:45)
--- NOTE | 2017-06-17 18:15 | PCM.PN ---
- General Info Date of Service: 06/17/17 Functional Status: Reports: Tolerating Diet, Ambulating - Review of Systems General: Reports: Weakness, Fatigue HEENT: Reports: No Symptoms Pulmonary: Reports: No Symptoms Cardiovascular: Reports: No Symptoms Gastrointestinal: Reports: No Symptoms Genitourinary: Reports: No Symptoms Musculoskeletal: Reports: No Symptoms Skin: Reports: No Symptoms Neurological: Reports: No Symptoms Psychiatric: Reports: No Symptoms - Patient Data Vitals - Most Recent: Last Vital Signs Temp 39.3 C H 06/17/17 16:29 Pulse 97 06/17/17 15:57 Resp 21 H 06/17/17 15:57 BP 134/63 06/17/17 15:57 Pulse Ox 92 L 06/17/17 15:57 Weight - Most Recent: 70.845 kg I&O - Last 24 Hours: Intake & Output 06/17/17 06/17/17 06/17/17 06:59 14:59 22:59 Intake Total 3187 316 8103 Output Total 1600 700 Balance -250 120 650 Lab Results Last 24 Hours: Laboratory Results - last 24 hr 06/17/17 06/17/17 Range/Units 05:40 05:40 WBC 5.93 (3.98-10.04) K/mm3 RBC 2.66 L (3.98-5.22) M/mm3 Hgb 7.4 L (11.2-15.7) gm/L Hct 24.4 L (34.1-44.9) % MCV 91.7 (79.4-94.8) fl MCH 27.8 (25.6-32.2) pg MCHC 30.3 L (32.2-35.5) g/dl RDW Std Deviation 55.9 H (36.4-46.3) fL Plt Count 123 L (182-369) K/mm3 MPV 10.9 (9.4-12.3) fl Neut % (Auto) 90.7 H (34.0-71.1) % Lymph % (Auto) 2.7 L (19.3-51.7) % [place] % (Auto) 4.6 L (4.7-12.5) % Eos % (Auto) 0.5 L (0.7-5.8) Baso % (Auto) 0.2 (0.1-1.2) % Neut # (Auto) 5.38 (1.56-6.13) K/mm3 Lymph # (Auto) 0.16 L (1.18-3.74) K/mm3 [place] # (Auto) 0.27 (0.24-0.36) K/mm3 Eos # (Auto) 0.03 L (0.04-0.36) K/mm3 Baso # (Auto) 0.01 (0.01-0.08) K/mm3 Manual Slide Review Abnormal smear Sodium 141 (136-145) mEq/L Potassium 3.5 (3.5-5.1) mEq/L Chloride 107 (98-107) mEq/L Carbon Dioxide 27 (21-32) mEq/L Anion Gap 10.5 (5-15) BUN 7 (7-18) mg/dL Creatinine 0.7 (0.55-1.02) mg/dL Est Cr Clr Drug Dosing 65.37 mL/min Estimated GFR (MDRD) > 60 (>60) mL/min BUN/Creatinine Ratio 10.0 L (14-18) Glucose 91 (83-115) mg/dL Calcium 8.2 L (8.5-10.1) mg/dL Magnesium 2.0 (1.8-2.4) mg/dl C-Reactive Protein 15.7 H* (<1.0) mg/dL Med Orders - Current: Current Medications Acetaminophen (Tylenol) 650 mg PO Q4H PRN PRN Reason: Fever Last Admin: 06/17/17 16:29 Dose: 650 mg Amitriptyline HCl (Elavil) 100 mg PO BEDTIME [facility] Last Admin: 06/16/17 20:25 Dose: 100 mg Aspirin (Halfprin) 81 mg PO WITHBREAKFAST [facility] Last Admin: 06/17/17 08:57 Dose: 81 mg Docusate Sodium (Colace) 100 mg PO BID [facility] Last Admin: 06/17/17 08:31 Dose: 100 mg Enoxaparin Sodium (Lovenox) 40 mg SUBCUT DAILY [facility] Last Admin: 06/17/17 08:33 Dose: 40 mg Fentanyl (Duragesic) 12 mcg TRDERM Q72H [facility] Last Admin: 06/16/17 21:51 Dose: 12 mcg Piperacillin Sod/Tazobactam (Sod 4.5 gm/ Sodium Chloride) 100 mls @ 25 mls/hr IV Q8H [facility] Last Admin: 06/17/17 13:55 Dose: 25 mls/hr Levofloxacin/Dextrose 750 mg/ (Premix) 150 mls @ 100 mls/hr IV Q24H [facility] Last Admin: 06/16/17 22:01 Dose: 100 mls/hr Sodium Chloride (Normal Saline) 1,000 mls @ 75 mls/hr IV ASDIRECTED [facility] Last Admin: 06/17/17 12:45 Dose: 75 mls/hr Losartan Potassium (Cozaar) 25 mg PO DAILY [facility] Last Admin: 06/17/17 08:32 Dose: 25 mg Metoprolol Succinate (Toprol Xl) 50 mg PO BID [facility] Last Admin: 06/17/17 08:34 Dose: 50 mg Miscellaneous Information (Remove Patch) 1 ea TRDERM Q72H [facility] Last Admin: 06/16/17 22:38 Dose: Not Given Miscellaneous Information (Remove Patch) 1 ea TRDERM Q72H [facility] Last Admin: 06/16/17 22:36 Dose: Not Given Ondansetron HCl (Zofran) 4 mg IVPUSH Q8H PRN PRN Reason: Nausea Ondansetron HCl (Zofran Odt) 4 mg PO Q6H PRN PRN Reason: Other Pantoprazole Sodium (Protonix) 40 mg PO DAILY@0700 [facility] Last Admin: 06/17/17 08:57 Dose: 40 mg Pregabalin (Lyrica) 50 mg PO TID [facility] Last Admin: 06/17/17 14:02 Dose: 50 mg Rosuvastatin Calcium (Crestor) 20 mg PO DAILY [facility] Last Admin: 06/17/17 08:32 Dose: 20 mg Scopolamine (Transderm-Scop) 1.5 mg TRDERM Q72H [facility] Last Admin: 06/16/17 21:53 Dose: 1.5 mg Sodium Chloride (Saline Flush) 10 ml FLUSH ASDIRECTED PRN PRN Reason: Keep Vein Open Last Admin: 06/15/17 21:17 Dose: 10 ml Discontinued Medications Acetaminophen (Tylenol) 650 mg PO Q6H PRN PRN Reason: Pain Amitriptyline HCl (Elavil) 100 mg PO ONETIME ONE Stop: 06/16/17 01:29 Last Admin: 06/16/17 01:38 Dose: 100 mg Amitriptyline HCl (Elavil) 100 mg PO BEDTIME [facility] Last Admin: 06/16/17 23:28 Dose: Not Given Enoxaparin Sodium (Lovenox) 40 mg SUBCUT ONETIME ONE Stop: 06/15/17 22:09 Last Admin: 06/15/17 22:36 Dose: 40 mg Fentanyl (Duragesic) 12 mcg TRDERM Q72H [facility] Sodium Chloride (Normal Saline) 1,000 mls @ 250 mls/hr IV ONETIME ONE Stop: 06/15/17 22:37 Last Admin: 06/15/17 19:29 Dose: 250 mls/hr Sodium Chloride (Normal Saline) 100 mls @ 75 mls/hr IV ASDIRECTED [facility] Last Admin: 06/16/17 20:25 Dose: 75 mls/hr Sodium Chloride (Normal Saline) 1,000 mls @ 100 mls/hr IV ONETIME ONE Stop: 06/16/17 08:03 Last Admin: 06/15/17 22:10 Dose: 100 mls/hr Levofloxacin/Dextrose 750 mg/ (Premix) 150 mls @ 100 mls/hr IV ONETIME ONE Stop: 06/15/17 23:35 Last Admin: 06/15/17 22:30 Dose: 100 mls/hr Levofloxacin/Dextrose (Levaquin In D5w 750 Mg/150 Ml) Confirm Administered Dose 150 mls @ as directed IV .STK-MED ONE Stop: 06/15/17 22:21 Last Admin: 06/16/17 00:38 Dose: Not Given Magnesium Sulfate 2 gm/ Premix 50 mls @ 25 mls/hr IV ONETIME ONE Stop: 06/16/17 00:27 Last Admin: 06/16/17 01:20 Dose: Not Given Magnesium Sulfate/Dextrose 1 (gm/ Premix) 100 mls @ 100 mls/hr IV Q1H [facility] Stop: 06/16/17 05:14 Last Admin: 06/16/17 01:24 Dose: Not Given Magnesium Sulfate 2 gm/ Premix 50 mls @ 25 mls/hr IV ONETIME ONE Stop: 06/16/17 03:14 Last Admin: 06/16/17 01:20 Dose: 25 mls/hr Iopamidol (Isovue-370 (76%)) 100 ml IVPUSH ONETIME ONE Stop: 06/15/17 20:32 Last Admin: 06/15/17 21:17 Dose: 100 ml Miscellaneous Information (Remove Patch) 1 ea TRDERM Q72H [facility] Miscellaneous Information (Remove Patch) 1 ea TRDERM Q72H [facility] Scopolamine (Transderm-Scop) 1.5 mg TRDERM Q72H [facility] Last Admin: 06/16/17 11:12 Dose: Not Given Scopolamine (Transderm-Scop) 1.5 mg TRDERM Q72H [facility] Tbo-Filgrastim (Granix) 300 mcg SUBCUT DAILY [facility] Stop: 06/17/17 09:01 Last Admin: 06/17/17 12:33 Dose: Not Given - Exam Quality Assessment: Supplemental Oxygen, DVT Prophylaxis General: Alert, Oriented, Cooperative HEENT: Pupils Equal, Pupils Reactive, EOMI Neck: Trachea Midline, No JVD Lungs: Normal Respiratory Effort, Decreased Breath Sounds Cardiovascular: Regular Rate GI/Abdominal Exam: Normal Bowel Sounds, Soft, Non-Tender, No Organomegaly, No Distention (Female) Exam: Deferred Back Exam: Normal Inspection Extremities: Normal Inspection Skin: Warm Neurological: No New Focal Deficit Psy/Mental Status: Alert, Normal Affect, Normal Mood - Problem List & Annotations (1) Neutropenia with fever SNOMED Code(s): 946975023 Code(s): D70.9 - NEUTROPENIA, UNSPECIFIED; R50.81 - FEVER PRESENTING WITH CONDITIONS CLASSIFIED ELSEWHERE Status: Acute Current Visit: Yes (2) Acute febrile illness SNOMED Code(s): 216597620 Code(s): R50.9 - FEVER, UNSPECIFIED Status: Acute Current Visit: No (3) Anemia SNOMED Code(s): 423725148 Code(s): D64.9 - ANEMIA, UNSPECIFIED Status: Acute Current Visit: No Qualifiers: Anemia type: unspecified type Qualified Code(s): D64.9 - Anemia, unspecified (4) Dehydration SNOMED Code(s): 15619975 Code(s): E86.0 - DEHYDRATION Status: Acute Priority: High Current Visit : No (5) Hypokalemia due to loss of potassium SNOMED Code(s): 64619020 Code(s): E87.6 - HYPOKALEMIA Status: Acute Current Visit: No (6) Leukopenia due to antineoplastic chemotherapy SNOMED Code(s): 770876915 Code(s): D70.1 - AGRANULOCYTOSIS SECONDARY TO CANCER CHEMOTHERAPY; T45.1X5A - ADVERSE EFFECT OF ANTINEOPLASTIC AND IMMUNOSUP DRUGS, INIT Status: Acute Current Visit: No (7) CHF NYHA class III (symptoms with mildly strenuous activities) SNOMED Code(s): 716947029 Code(s): I50.9 - HEART FAILURE, UNSPECIFIED Status: Acute Current Visit: No Qualifiers: Congestive heart failure type: diastolic Congestive heart failure chronicity: acute on chronic Qualified Code(s): I50.33 - Acute on chronic diastolic (congestive) heart failure (8) History of immunocompromised state SNOMED Code(s): 367685411 Code(s): Z86.2 - PRSNL HISTORY OF DIS OF THE BLD/BLD-FORM ORG/IMMUN MECHNSM Status: Acute Current Visit: No (9) Thrombocytopenia due to diminished platelet production SNOMED Code(s): 57379714 Code(s): D69.59 - OTHER SECONDARY THROMBOCYTOPENIA Status: Acute Current Visit: No (10) Volume depletion, unspecified SNOMED Code(s): 61361990 Code(s): E86.9 - VOLUME DEPLETION, UNSPECIFIED Status: Acute Current Visit: No (11) Leukocytopenia SNOMED Code(s): 76026665 Code(s): D72.819 - DECREASED WHITE BLOOD CELL COUNT, UNSPECIFIED Status: Resolved Current Visit: No Qualifiers: Neutropenia type: secondary to cancer chemotherapy Qualified Code(s): D70.1 - Agranulocytosis secondary to cancer chemotherapy; T45.1X5A - Adverse effect of antineoplastic and immunosuppressive drugs, initial encounter; T45.1X5A - Adverse effect of antineoplastic and immunosuppressive drugs, initial encounter - Problem List Review Problem List Initiated/Reviewed/Updated: Yes - My Orders Last 24 Hours: My Active Orders 06/16/17 21:00 Amitriptyline [Elavil] 100 mg PO BEDTIME Docusate Sodium [Colace] 100 mg PO BID Metoprolol Succinate [Toprol XL] 50 mg PO BID 06/16/17 22:00 Remove Patch 1 ea TRDERM Q72H Remove Patch 1 ea TRDERM Q72H Scopolamine [Transderm-Scop] 1.5 mg TRDERM Q72H fentaNYL [Duragesic] 12 mcg TRDERM Q72H 06/16/17 22:30 Levofloxacin/Dextrose 5%-Water [Levaquin in D5W 750 MG/150 ML] 750 mg Premix Bag 1 bag IV Q24H 06/16/17 23:39 Activity as Tolerated [RC] .Routine 06/17/17 07:00 Aspirin [Halfprin] 81 mg PO WITHBREAKFAST Pantoprazole [ProTONIX] 40 mg PO DAILY@0700 06/17/17 09:00 Losartan [Cozaar] 25 mg PO DAILY Rosuvastatin [Crestor] 20 mg PO DAILY 06/17/17 11:16 OT Evaluation and Treatment [CONS] Routine PT Evaluation and Treatment [CONS] Routine 06/17/17 12:45 Sodium Chloride 0.9% [Normal Saline] 1,000 ml IV ASDIRECTED 06/17/17 Dinner Soft Diet [DIET] 06/18/17 05:00 BASIC METABOLIC PANEL,BMP [CHEM] DAILY CBC WITH AUTO DIFF [HEME] DAILY CRP [C-REACTIVE PROTEIN] [CHEM] DAILY MAGNESIUM [CHEM] DAILY 06/19/17 05:00 BASIC METABOLIC PANEL,BMP [CHEM] DAILY CBC WITH AUTO DIFF [HEME] DAILY CRP [C-REACTIVE PROTEIN] [CHEM] DAILY MAGNESIUM [CHEM] DAILY 06/20/17 05:00 BASIC METABOLIC PANEL,BMP [CHEM] DAILY CBC WITH AUTO DIFF [HEME] DAILY CRP [C-REACTIVE PROTEIN] [CHEM] DAILY MAGNESIUM [CHEM] DAILY - Plan Plan:: Impression: Borderline neutropenic fever, self reported temp >102.0 F S/P CTX for NHL with bone mets; CTX next week is scheduled. Received IVF as well as PRBCs post CTX; Hgb previous <7.0 Pancytopenia post CTX--improving Chronic HTN HLD Hx of TIA Hx of ARF COPD, former tobacco Plan: IVF Empiric RX with Levoquin/Zosyn PRBC if HGB <7.5--transfuse 06/18/17. Neupogen or equivalent for neutropenia, completed 1 day with increase WBC >5.0 Reverse isolation, DCd DVT prophylaxis, high risk GI prophylaxis
[2017-06-17] MEDS: Levofloxacin/Dextrose 5%-Water 750 MG in Premix Bag 1 BAG IV SCH (21:53)
[2017-06-17] MEDS: Amitriptyline 25 MG Tab PO SCH (21:55)
[2017-06-18] MEDS: Piperacillin/Tazobactam 4.5 GM in Sodium Chloride 0.9% 100 ML IV SCH ×4 (00:16→21:51)
[2017-06-18] MEDS: Sodium Chloride 0.9% 1,000 ML IV SCH (00:18)
[2017-06-18] MEDS: Benzonatate 100 MG Cap PO PRN (07:19)
[2017-06-18] MEDS: Aspirin 81 MG Tab.EC PO SCH (07:20)
[2017-06-18] MEDS: Pantoprazole 40 MG Tab.CR PO SCH (07:20)
[2017-06-18] MEDS ORDERED: Furosemide 20 MG/2 ML VIAL IVPUSH ONE (07:58)
[2017-06-18] MEDS ORDERED: fentaNYL 12 MCG/HR Transdermal Patch TRDERM SCH (09:00)
[2017-06-18] MEDS ORDERED: Scopolamine 1.5 MG Transdermal Patch TRDERM SCH (09:00)
[2017-06-18] MEDS ORDERED: Remove Patch*SCOPOLAMINE TRDERM SCH (09:00)
[2017-06-18] MEDS ORDERED: Remove Patch*FENTANYL TRDERM SCH (09:00)
[2017-06-18] MEDS: Metoprolol Succinate 50 MG Tab.ER PO SCH ×2 (09:17→21:06)
[2017-06-18] MEDS: Docusate Sodium 100 MG Cap PO SCH ×2 (09:17→21:06)
[2017-06-18] MEDS: Losartan 25 MG Tab PO SCH (09:17)
[2017-06-18] MEDS: Enoxaparin 40 MG/0.4 ML Syringe SUBCUT SCH (09:18)
[2017-06-18] MEDS: Rosuvastatin 10 MG Tab PO SCH (09:18)
[2017-06-18] MEDS: Pregabalin 25 MG Cap PO SCH ×3 (09:18→21:04)
[2017-06-18] MEDS ORDERED: Sodium Chloride 0.9% 500 ML IV SCH (09:45)
--- NOTE | 2017-06-18 11:18 | CR ---
Chest: Two views of the chest were obtained. Comparison: Prior chest x-ray of 06/15/17. Diffuse increased lung markings are seen which are stable from most recent study. Increasing density believed to be present within the left upper chest as an interval change from prior exam. Heart size is within normal limits. Tortuous thoracic aorta is seen. Bony structures show mild scoliosis and kyphosis within the spine with mild scattered degenerative change. Impression: 1. Questionable increasing parenchymal density within the left upper chest. Difficult to exclude developing pneumonia superimposed upon pulmonary fibrosis and scarring. Diagnostic code #3
--- NOTE | 2017-06-18 18:33 | PCM.PN ---
- General Info Date of Service: 06/18/17 Admission Dx/Problem (Free Text): Admission Diagnosis/Problem Admission Diagnosis/Problem Fever Functional Status: Reports: Pain Controlled, Tolerating Diet, Ambulating, Urinating. Denies: New Symptoms - Review of Systems General: Reports: Fever, Weakness, Fatigue, Malaise, Chills HEENT: Denies: Ear Pain, Eye Pain, Sore Throat, Visual Changes Pulmonary: Reports: Shortness of Breath, Cough, Sputum. Denies: Hemoptysis, Wheezing Cardiovascular: Reports: Dyspnea on Exertion, Lightheadedness (improved after recieving blood ). Denies: Chest Pain, Palpitations Gastrointestinal: Reports: Constipation. Denies: Abdominal Pain, Nausea, Vomiting Genitourinary: Reports: No Symptoms. Denies: Dysuria, Frequency, Burning, Pain , Urgency Musculoskeletal: Reports: No Symptoms. Denies: Neck Pain, Shoulder Pain, Arm Pain, Hand Pain, Back Pain, Leg Pain Skin: Reports: No Symptoms Neurological: Reports: No Symptoms Psychiatric: Reports: No Symptoms - Patient Data Vitals - Most Recent: Last Vital Signs Temp 97.9 F 06/18/17 15:55 Pulse 90 06/18/17 15:55 Resp 18 06/18/17 15:55 BP 117/62 06/18/17 15:01 Pulse Ox 97 06/18/17 15:55 Weight - Most Recent: 158 lb 9.6 oz I&O - Last 24 Hours: Intake & Output 06/18/17 06/18/17 06/18/17 06:59 14:59 22:59 Intake Total 2550 480 900 Output Total 1100 1600 Balance 1450 480 -700 Lab Results Last 24 Hours: Laboratory Results - last 24 hr 06/18/17 06/18/17 06/18/17 Range/Units 07:15 07:15 07:15 WBC 4.44 (3.98-10.04) K/mm3 RBC 2.34 L (3.98-5.22) M/mm3 Hgb 6.5 L* (11.2-15.7) gm/L Hct 21.4 L (34.1-44.9) % MCV 91.5 (79.4-94.8) fl MCH 27.8 (25.6-32.2) pg MCHC 30.4 L (32.2-35.5) g/dl RDW Std Deviation 55.6 H (36.4-46.3) fL Plt Count 142 L (182-369) K/mm3 MPV 9.8 (9.4-12.3) fl Neut % (Auto) 89.4 H (34.0-71.1) % Lymph % (Auto) 3.4 L (19.3-51.7) % [place] % (Auto) 5.9 (4.7-12.5) % Eos % (Auto) 0.2 L (0.7-5.8) Baso % (Auto) 0.2 (0.1-1.2) % Neut # (Auto) 3.97 (1.56-6.13) K/mm3 Lymph # (Auto) 0.15 L (1.18-3.74) K/mm3 [place] # (Auto) 0.26 (0.24-0.36) K/mm3 Eos # (Auto) 0.01 L (0.04-0.36) K/mm3 Baso # (Auto) 0.01 (0.01-0.08) K/mm3 Manual Slide Review Abnormal smear Sodium 138 (136-145) mEq/L Potassium 3.3 L (3.5-5.1) mEq/L Chloride 105 (98-107) mEq/L Carbon Dioxide 24 (21-32) mEq/L Anion Gap 12.3 (5-15) BUN 6 L (7-18) mg/dL Creatinine 0.7 (0.55-1.02) mg/dL Est Cr Clr Drug Dosing 65.37 mL/min Estimated GFR (MDRD) > 60 (>60) mL/min BUN/Creatinine Ratio 8.6 L (14-18) Glucose 83 (83-115) mg/dL Calcium 7.7 L (8.5-10.1) mg/dL Magnesium 1.6 L (1.8-2.4) mg/dl C-Reactive Protein 17.0 H* (<1.0) mg/dL Blood Type O POSITIVE Gel Antibody Screen Negative Crossmatch See Detail Med Orders - Current: Current Medications Acetaminophen (Tylenol) 650 mg PO Q4H PRN PRN Reason: Fever Last Admin: 06/17/17 16:29 Dose: 650 mg Amitriptyline HCl (Elavil) 100 mg PO BEDTIME [facility] Last Admin: 06/17/17 21:55 Dose: 100 mg Aspirin (Halfprin) 81 mg PO WITHBREAKFAST [facility] Last Admin: 06/18/17 07:20 Dose: 81 mg Benzonatate (Tessalon Perles) 100 mg PO TID PRN PRN Reason: Cough Last Admin: 06/18/17 07:19 Dose: 100 mg Docusate Sodium (Colace) 100 mg PO BID [facility] Last Admin: 06/18/17 09:17 Dose: 100 mg Enoxaparin Sodium (Lovenox) 40 mg SUBCUT DAILY [facility] Last Admin: 06/18/17 09:18 Dose: 40 mg Fentanyl (Duragesic) 12 mcg TRDERM Q72H [facility] Last Admin: 06/16/17 21:51 Dose: 12 mcg Piperacillin Sod/Tazobactam (Sod 4.5 gm/ Sodium Chloride) 100 mls @ 25 mls/hr IV Q8H [facility] Last Admin: 06/18/17 15:04 Dose: 25 mls/hr Levofloxacin/Dextrose 750 mg/ (Premix) 150 mls @ 100 mls/hr IV Q24H [facility] Last Admin: 06/17/17 21:53 Dose: 100 mls/hr Sodium Chloride (Normal Saline) 1,000 mls @ 75 mls/hr IV ASDIRECTED [facility] Last Admin: 06/18/17 00:18 Dose: 75 mls/hr Losartan Potassium (Cozaar) 25 mg PO DAILY [facility] Last Admin: 06/18/17 09:17 Dose: 25 mg Metoprolol Succinate (Toprol Xl) 50 mg PO BID [facility] Last Admin: 06/18/17 09:17 Dose: 50 mg Miscellaneous Information (Remove Patch) 1 ea TRDERM Q72H [facility] Last Admin: 06/16/17 22:38 Dose: Not Given Miscellaneous Information (Remove Patch) 1 ea TRDERM Q72H [facility] Last Admin: 06/16/17 22:36 Dose: Not Given Ondansetron HCl (Zofran) 4 mg IVPUSH Q8H PRN PRN Reason: Nausea Ondansetron HCl (Zofran Odt) 4 mg PO Q6H PRN PRN Reason: Other Pantoprazole Sodium (Protonix) 40 mg PO DAILY@0700 [facility] Last Admin: 06/18/17 07:20 Dose: 40 mg Pregabalin (Lyrica) 50 mg PO TID [facility] Last Admin: 06/18/17 15:04 Dose: 50 mg Rosuvastatin Calcium (Crestor) 20 mg PO DAILY [facility] Last Admin: 06/18/17 09:18 Dose: 20 mg Scopolamine (Transderm-Scop) 1.5 mg TRDERM Q72H [facility] Last Admin: 06/16/17 21:53 Dose: 1.5 mg Sodium Chloride (Saline Flush) 10 ml FLUSH ASDIRECTED PRN PRN Reason: Keep Vein Open Last Admin: 06/15/17 21:17 Dose: 10 ml Discontinued Medications Acetaminophen (Tylenol) 650 mg PO Q6H PRN PRN Reason: Pain Amitriptyline HCl (Elavil) 100 mg PO ONETIME ONE Stop: 06/16/17 01:29 Last Admin: 06/16/17 01:38 Dose: 100 mg Amitriptyline HCl (Elavil) 100 mg PO BEDTIME [facility] Last Admin: 06/16/17 23:28 Dose: Not Given Enoxaparin Sodium (Lovenox) 40 mg SUBCUT ONETIME ONE Stop: 06/15/17 22:09 Last Admin: 06/15/17 22:36 Dose: 40 mg Fentanyl (Duragesic) 12 mcg TRDERM Q72H [facility] Furosemide (Lasix) 20 mg IVPUSH DAILY ONE Stop: 06/18/17 07:59 Last Admin: 06/18/17 12:19 Dose: Not Given Sodium Chloride (Normal Saline) 1,000 mls @ 250 mls/hr IV ONETIME ONE Stop: 06/15/17 22:37 Last Admin: 06/15/17 19:29 Dose: 250 mls/hr Sodium Chloride (Normal Saline) 100 mls @ 75 mls/hr IV ASDIRECTED [facility] Last Admin: 06/16/17 20:25 Dose: 75 mls/hr Sodium Chloride (Normal Saline) 1,000 mls @ 100 mls/hr IV ONETIME ONE Stop: 06/16/17 08:03 Last Admin: 06/15/17 22:10 Dose: 100 mls/hr Levofloxacin/Dextrose 750 mg/ (Premix) 150 mls @ 100 mls/hr IV ONETIME ONE Stop: 06/15/17 23:35 Last Admin: 06/15/17 22:30 Dose: 100 mls/hr Levofloxacin/Dextrose (Levaquin In D5w 750 Mg/150 Ml) Confirm Administered Dose 150 mls @ as directed IV .STK-MED ONE Stop: 06/15/17 22:21 Last Admin: 06/16/17 00:38 Dose: Not Given Magnesium Sulfate 2 gm/ Premix 50 mls @ 25 mls/hr IV ONETIME ONE Stop: 06/16/17 00:27 Last Admin: 06/16/17 01:20 Dose: Not Given Magnesium Sulfate/Dextrose 1 (gm/ Premix) 100 mls @ 100 mls/hr IV Q1H [facility] Stop: 06/16/17 05:14 Last Admin: 06/16/17 01:24 Dose: Not Given Magnesium Sulfate 2 gm/ Premix 50 mls @ 25 mls/hr IV ONETIME ONE Stop: 06/16/17 03:14 Last Admin: 06/16/17 01:20 Dose: 25 mls/hr Sodium Chloride (Normal Saline) 500 mls @ 50 mls/hr IV DAILY [facility] Last Admin: 06/18/17 11:58 Dose: 50 mls/hr Iopamidol (Isovue-370 (76%)) 100 ml IVPUSH ONETIME ONE Stop: 06/15/17 20:32 Last Admin: 06/15/17 21:17 Dose: 100 ml Miscellaneous Information (Remove Patch) 1 ea TRDERM Q72H [facility] Miscellaneous Information (Remove Patch) 1 ea TRDERM Q72H [facility] Scopolamine (Transderm-Scop) 1.5 mg TRDERM Q72H [facility] Last Admin: 06/16/17 11:12 Dose: Not Given Scopolamine (Transderm-Scop) 1.5 mg TRDERM Q72H [facility] Tbo-Filgrastim (Granix) 300 mcg SUBCUT DAILY [facility] Stop: 06/17/17 09:01 Last Admin: 06/17/17 12:33 Dose: Not Given - Exam Quality Assessment: Supplemental Oxygen, DVT Prophylaxis General: Alert, Oriented, Cooperative. No: No Acute Distress HEENT: Pupils Equal, Pupils Reactive, EOMI, Mucous Membr. Moist/[place] Neck: Supple, Trachea Midline, No JVD, No Thyromegaly Lungs: Normal Respiratory Effort, Decreased Breath Sounds Cardiovascular: Regular Rate GI/Abdominal Exam: Normal Bowel Sounds, Soft, Non-Tender, No Organomegaly, No Distention, No Abnormal Bruit, No Mass, Pelvis Stable (Female) Exam: Deferred Back Exam: Normal Inspection, Full Range of Motion Extremities: Normal Inspection, Normal Range of Motion, Non-Tender, No Pedal Edema, Normal Capillary Refill Peripheral Pulses: 2+: Radial (L), Radial (R), Posterior Tibial (L), Posterior Tibial (R), Dorsalis Pedis (L), Dorsalis Pedis (R) Skin: Warm, Dry, Intact Neurological: No New Focal Deficit Psy/Mental Status: Alert, Normal Affect, Normal Mood - Problem List & Annotations (1) Acute febrile illness SNOMED Code(s): 772824317 Code(s): R50.9 - FEVER, UNSPECIFIED Status: Acute Priority: High Current Visit: Yes (2) Anemia SNOMED Code(s): 655656729 Code(s): D64.9 - ANEMIA, UNSPECIFIED Status: Acute Priority: High Current Visit: Yes Qualifiers: Anemia type: unspecified type Qualified Code(s): D64.9 - Anemia, unspecified (3) Neutropenia with fever SNOMED Code(s): 641325809 Code(s): D70.9 - NEUTROPENIA, UNSPECIFIED; R50.81 - FEVER PRESENTING WITH CONDITIONS CLASSIFIED ELSEWHERE Status: Acute Current Visit: Yes (4) CHF NYHA class III (symptoms with mildly strenuous activities) SNOMED Code(s): 096670531 Code(s): I50.9 - HEART FAILURE, UNSPECIFIED Status: Acute Priority: Medium Current Visit: Yes Qualifiers: Congestive heart failure type: diastolic Congestive heart failure chronicity: acute on chronic Qualified Code(s): I50.33 - Acute on chronic diastolic (congestive) heart failure (5) Dehydration SNOMED Code(s): 90344215 Code(s): E86.0 - DEHYDRATION Status: Acute Priority: High Current Visit : Yes (6) History of immunocompromised state SNOMED Code(s): 736401151 Code(s): Z86.2 - PRSNL HISTORY OF DIS OF THE BLD/BLD-FORM ORG/IMMUN MECHNSM Status: Acute Priority: High Current Visit: Yes (7) Hypokalemia due to loss of potassium SNOMED Code(s): 37803506 Code(s): E87.6 - HYPOKALEMIA Status: Acute Priority: Medium Current Visit: Yes (8) Leukopenia due to antineoplastic chemotherapy SNOMED Code(s): 223509395 Code(s): D70.1 - AGRANULOCYTOSIS SECONDARY TO CANCER CHEMOTHERAPY; T45.1X5A - ADVERSE EFFECT OF ANTINEOPLASTIC AND IMMUNOSUP DRUGS, INIT Status: Acute Priority: Medium Current Visit: Yes (9) Lymphoma SNOMED Code(s): 218644324 Code(s): C85.90 - NON-HODGKIN LYMPHOMA, UNSPECIFIED, UNSPECIFIED SITE Status: Acute Priority: High Current Visit: Yes Qualifiers: Lymphoma type: unspecified type Lymphoma site: unspecified region Qualified Code(s): C85.90 - Non-Hodgkin lymphoma, unspecified, unspecified site (10) Volume depletion, unspecified SNOMED Code(s): 37442623 Code(s): E86.9 - VOLUME DEPLETION, UNSPECIFIED Status: Acute Priority: High Current Visit: Yes - Problem List Review Problem List Initiated/Reviewed/Updated: Yes - Plan Plan:: Impression: Borderline neutropenic fever, self reported temp >102.0 F - Now afebrile S/P CTX for NHL with bone mets; CTX next week is scheduled. Received IVF as well as PRBCs post CTX; Hgb previous <7.0 Pancytopenia post CTX - improving CXR today: 1. Questionable increasing parenchymal density within the left upper chest. Difficult to exclude developing pneumonia superimposed upon pulmonary fibrosis and scarring. Chronic HTN HLD Hx of TIA Hx of ARF COPD, former tobacco Plan: IVF Empiric RX with Levoquin/Zosyn PRBC if HGB <7.5 - received two units today. Follow-up CBC ordered once antibiotic finishes Neupogen or equivalent for neutropenia - completed one day with WBC >5.0 Reverse isolation - discontinued DVT prophylaxis, high risk GI prophylaxis
[2017-06-18] MEDS ORDERED: Magnesium Sulfate/Water 2 GM in Premix Bag 1 BAG IV ONE (19:12)
[2017-06-18] MEDS ORDERED: Potassium Chloride 10 MEQ in Premix Bag 1 BAG IV SCH (19:30)
[2017-06-18] MEDS ORDERED: Magnesium Oxide 400 MG Tab PO ONE (19:32)
[2017-06-18] MEDS: Amitriptyline 25 MG Tab PO SCH (21:04)
[2017-06-18] MEDS: Potassium Chloride 20 MEQ Tab.ER PO SCH (21:04)
[2017-06-18] MEDS: Levofloxacin/Dextrose 5%-Water 750 MG in Premix Bag 1 BAG IV SCH (21:49)
[2017-06-18] MEDS: Acetaminophen 325 MG Tab PO PRN (21:56)
[2017-06-19] MEDS: Potassium Chloride 20 MEQ Tab.ER PO SCH (01:47)
[2017-06-19] MEDS: Pantoprazole 40 MG Tab.CR PO SCH (06:38)
[2017-06-19] MEDS: Piperacillin/Tazobactam 4.5 GM in Sodium Chloride 0.9% 100 ML IV SCH ×3 (06:38→23:11)
[2017-06-19] MEDS: Aspirin 81 MG Tab.EC PO SCH (06:38)
[2017-06-19] MEDS: Metoprolol Succinate 50 MG Tab.ER PO SCH ×2 (09:24→20:31)
[2017-06-19] MEDS: Pregabalin 25 MG Cap PO SCH ×3 (09:24→20:30)
[2017-06-19] MEDS: Rosuvastatin 10 MG Tab PO SCH (09:24)
[2017-06-19] MEDS: Enoxaparin 40 MG/0.4 ML Syringe SUBCUT SCH (09:24)
[2017-06-19] MEDS: Losartan 25 MG Tab PO SCH (09:25)
[2017-06-19] MEDS: Docusate Sodium 100 MG Cap PO SCH ×2 (09:25→20:35)
[2017-06-19] MEDS: Acetaminophen 325 MG Tab PO PRN ×2 (09:45→20:32)
[2017-06-19] MEDS: Benzonatate 100 MG Cap PO PRN ×2 (09:46→17:14)
[2017-06-19] MEDS: Albuterol 0.083% 2.5 MG/3 ML Neb Soln NEB SCH ×3 (09:51→21:37)
[2017-06-19] MEDS ORDERED: Furosemide 20 MG/2 ML VIAL IVPUSH ONE (10:29)
[2017-06-19] MEDS ORDERED: Magnesium Sulfate/Water 2 GM in Premix Bag 1 BAG IV ONE (10:33)
--- NOTE | 2017-06-19 10:45 | PCM.PN ---
- General Info Date of Service: 06/19/17 Functional Status: Reports: Tolerating Diet, Ambulating, Urinating - Review of Systems General: Reports: Fatigue HEENT: Reports: No Symptoms Pulmonary: Reports: Shortness of Breath, Cough Cardiovascular: Reports: No Symptoms Gastrointestinal: Reports: No Symptoms Genitourinary: Reports: No Symptoms Musculoskeletal: Reports: No Symptoms Skin: Reports: No Symptoms Neurological: Reports: No Symptoms Psychiatric: Reports: No Symptoms - Patient Data Vitals - Most Recent: Last Vital Signs Temp 37.5 C 06/19/17 08:00 Pulse 120 H 06/19/17 09:24 Resp 28 H 06/19/17 08:00 BP 124/68 06/19/17 09:24 Pulse Ox 93 L 06/19/17 09:51 Weight - Most Recent: 69.808 kg I&O - Last 24 Hours: Intake & Output 06/18/17 06/19/17 06/19/17 22:59 06:59 14:59 Intake Total 1170 1854 Output Total 1600 900 Balance -430 954 Lab Results Last 24 Hours: Laboratory Results - last 24 hr 06/18/17 06/18/17 06/18/17 Range/Units 07:15 07:15 20:19 WBC 5.23 (3.98-10.04) K/mm3 RBC 3.33 L (3.98-5.22) M/mm3 Hgb 9.5 L (11.2-15.7) gm/L Hct 29.3 L (34.1-44.9) % MCV 88.0 (79.4-94.8) fl MCH 28.5 (25.6-32.2) pg MCHC 32.4 (32.2-35.5) g/dl RDW Std Deviation 51.9 H (36.4-46.3) fL Plt Count 153 L (182-369) K/mm3 MPV 10.2 (9.4-12.3) fl Neut % (Auto) (34.0-71.1) % Lymph % (Auto) (19.3-51.7) % [place] % (Auto) (4.7-12.5) % Eos % (Auto) (0.7-5.8) Baso % (Auto) (0.1-1.2) % Neut # (Auto) (1.56-6.13) K/mm3 Lymph # (Auto) (1.18-3.74) K/mm3 [place] # (Auto) (0.24-0.36) K/mm3 Eos # (Auto) (0.04-0.36) K/mm3 Baso # (Auto) (0.01-0.08) K/mm3 Manual Slide Review Sodium 138 (136-145) mEq/L Potassium 3.3 L (3.5-5.1) mEq/L Chloride 105 (98-107) mEq/L Carbon Dioxide 24 (21-32) mEq/L Anion Gap 12.3 (5-15) BUN 6 L (7-18) mg/dL Creatinine 0.7 (0.55-1.02) mg/dL Est Cr Clr Drug Dosing 65.37 mL/min Estimated GFR (MDRD) > 60 (>60) mL/min BUN/Creatinine Ratio 8.6 L (14-18) Glucose 83 (83-115) mg/dL Calcium 7.7 L (8.5-10.1) mg/dL Magnesium 1.6 L (1.8-2.4) mg/dl C-Reactive Protein 17.0 H* (<1.0) mg/dL Blood Type O POSITIVE Gel Antibody Screen Negative Crossmatch See Detail 06/19/17 06/19/17 Range/Units 06:04 06:04 WBC 4.11 (3.98-10.04) K/mm3 RBC 3.42 L (3.98-5.22) M/mm3 Hgb 9.7 L (11.2-15.7) gm/L Hct 30.4 L (34.1-44.9) % MCV 88.9 (79.4-94.8) fl MCH 28.4 (25.6-32.2) pg MCHC 31.9 L (32.2-35.5) g/dl RDW Std Deviation 53.5 H (36.4-46.3) fL Plt Count 154 L (182-369) K/mm3 MPV 10.7 (9.4-12.3) fl Neut % (Auto) 79.0 H (34.0-71.1) % Lymph % (Auto) 7.1 L (19.3-51.7) % [place] % (Auto) 12.2 (4.7-12.5) % Eos % (Auto) 0.5 L (0.7-5.8) Baso % (Auto) 0.2 (0.1-1.2) % Neut # (Auto) 3.25 (1.56-6.13) K/mm3 Lymph # (Auto) 0.29 L (1.18-3.74) K/mm3 [place] # (Auto) 0.50 H (0.24-0.36) K/mm3 Eos # (Auto) 0.02 L (0.04-0.36) K/mm3 Baso # (Auto) 0.01 (0.01-0.08) K/mm3 Manual Slide Review Abnormal smear Sodium 141 (136-145) mEq/L Potassium 4.3 (3.5-5.1) mEq/L Chloride 108 H (98-107) mEq/L Carbon Dioxide 26 (21-32) mEq/L Anion Gap 11.3 (5-15) BUN 5 L (7-18) mg/dL Creatinine 0.7 (0.55-1.02) mg/dL Est Cr Clr Drug Dosing 65.37 mL/min Estimated GFR (MDRD) > 60 (>60) mL/min BUN/Creatinine Ratio 7.1 L (14-18) Glucose 104 (83-115) mg/dL Calcium 8.5 (8.5-10.1) mg/dL Magnesium 1.9 (1.8-2.4) mg/dl C-Reactive Protein 17.8 H* (<1.0) mg/dL Blood Type Gel Antibody Screen Crossmatch Med Orders - Current: Current Medications Acetaminophen (Tylenol) 650 mg PO Q4H PRN PRN Reason: Fever Last Admin: 06/19/17 09:45 Dose: 650 mg Al Hydroxide/Mg Hydroxide (Mag-Al Plus) 15 ml PO Q8H [facility] Stop: 06/20/17 02:38 Albuterol (Proventil Neb Soln) 2.5 mg NEB QIDRT [facility] Last Admin: 06/19/17 09:51 Dose: 2.5 mg Amitriptyline HCl (Elavil) 100 mg PO BEDTIME [facility] Last Admin: 06/18/17 21:04 Dose: 100 mg Aspirin (Halfprin) 81 mg PO WITHBREAKFAST [facility] Last Admin: 06/19/17 06:38 Dose: 81 mg Benzonatate (Tessalon Perles) 100 mg PO TID PRN PRN Reason: Cough Last Admin: 06/19/17 09:46 Dose: 100 mg Docusate Sodium (Colace) 100 mg PO BID [facility] Last Admin: 06/19/17 09:25 Dose: 100 mg Enoxaparin Sodium (Lovenox) 40 mg SUBCUT DAILY [facility] Last Admin: 06/19/17 09:24 Dose: 40 mg Fentanyl (Duragesic) 12 mcg TRDERM Q72H [facility] Last Admin: 06/16/17 21:51 Dose: 12 mcg Guaifenesin/Codeine Phosphate (Robitussin Ac) 10 ml PO Q6H PRN PRN Reason: Cough Piperacillin Sod/Tazobactam (Sod 4.5 gm/ Sodium Chloride) 100 mls @ 25 mls/hr IV Q8H [facility] Last Admin: 06/19/17 06:38 Dose: 25 mls/hr Levofloxacin/Dextrose 750 mg/ (Premix) 150 mls @ 100 mls/hr IV Q24H [facility] Last Admin: 06/18/17 21:49 Dose: 100 mls/hr Magnesium Sulfate 2 gm/ Premix 50 mls @ 25 mls/hr IV ONETIME ONE Stop: 06/19/17 12:32 Losartan Potassium (Cozaar) 25 mg PO DAILY [facility] Last Admin: 06/19/17 09:25 Dose: 25 mg Metoprolol Succinate (Toprol Xl) 50 mg PO BID [facility] Last Admin: 06/19/17 09:24 Dose: 50 mg Miscellaneous Information (Remove Patch) 1 ea TRDERM Q72H [facility] Last Admin: 06/16/17 22:38 Dose: Not Given Miscellaneous Information (Remove Patch) 1 ea TRDERM Q72H [facility] Last Admin: 06/16/17 22:36 Dose: Not Given Ondansetron HCl (Zofran) 4 mg IVPUSH Q8H PRN PRN Reason: Nausea Ondansetron HCl (Zofran Odt) 4 mg PO Q6H PRN PRN Reason: Other Pantoprazole Sodium (Protonix) 40 mg PO DAILY@0700 [facility] Last Admin: 06/19/17 06:38 Dose: 40 mg Pregabalin (Lyrica) 50 mg PO TID [facility] Last Admin: 06/19/17 09:24 Dose: 50 mg Rosuvastatin Calcium (Crestor) 20 mg PO DAILY [facility] Last Admin: 06/19/17 09:24 Dose: 20 mg Sodium Chloride (Saline Flush) 10 ml FLUSH ASDIRECTED PRN PRN Reason: Keep Vein Open Last Admin: 06/15/17 21:17 Dose: 10 ml Tbo-Filgrastim (Granix) 300 mcg SUBCUT ONETIME ONE Stop: 06/19/17 12:01 Discontinued Medications Acetaminophen (Tylenol) 650 mg PO Q6H PRN PRN Reason: Pain Amitriptyline HCl (Elavil) 100 mg PO ONETIME ONE Stop: 06/16/17 01:29 Last Admin: 06/16/17 01:38 Dose: 100 mg Amitriptyline HCl (Elavil) 100 mg PO BEDTIME [facility] Last Admin: 06/16/17 23:28 Dose: Not Given Enoxaparin Sodium (Lovenox) 40 mg SUBCUT ONETIME ONE Stop: 06/15/17 22:09 Last Admin: 06/15/17 22:36 Dose: 40 mg Fentanyl (Duragesic) 12 mcg TRDERM Q72H [facility] Furosemide (Lasix) 20 mg IVPUSH DAILY ONE Stop: 06/18/17 07:59 Last Admin: 06/18/17 12:19 Dose: Not Given Furosemide (Lasix) 20 mg IVPUSH NOW ONE Stop: 06/19/17 10:30 Sodium Chloride (Normal Saline) 1,000 mls @ 250 mls/hr IV ONETIME ONE Stop: 06/15/17 22:37 Last Admin: 06/15/17 19:29 Dose: 250 mls/hr Sodium Chloride (Normal Saline) 100 mls @ 75 mls/hr IV ASDIRECTED [facility] Last Admin: 06/16/17 20:25 Dose: 75 mls/hr Sodium Chloride (Normal Saline) 1,000 mls @ 100 mls/hr IV ONETIME ONE Stop: 06/16/17 08:03 Last Admin: 06/15/17 22:10 Dose: 100 mls/hr Levofloxacin/Dextrose 750 mg/ (Premix) 150 mls @ 100 mls/hr IV ONETIME ONE Stop: 06/15/17 23:35 Last Admin: 06/15/17 22:30 Dose: 100 mls/hr Levofloxacin/Dextrose (Levaquin In D5w 750 Mg/150 Ml) Confirm Administered Dose 150 mls @ as directed IV .STK-MED ONE Stop: 06/15/17 22:21 Last Admin: 06/16/17 00:38 Dose: Not Given Magnesium Sulfate 2 gm/ Premix 50 mls @ 25 mls/hr IV ONETIME ONE Stop: 06/16/17 00:27 Last Admin: 06/16/17 01:20 Dose: Not Given Magnesium Sulfate/Dextrose 1 (gm/ Premix) 100 mls @ 100 mls/hr IV Q1H [facility] Stop: 06/16/17 05:14 Last Admin: 06/16/17 01:24 Dose: Not Given Magnesium Sulfate 2 gm/ Premix 50 mls @ 25 mls/hr IV ONETIME ONE Stop: 06/16/17 03:14 Last Admin: 06/16/17 01:20 Dose: 25 mls/hr Sodium Chloride (Normal Saline) 1,000 mls @ 75 mls/hr IV ASDIRECTED [facility] Last Admin: 06/18/17 00:18 Dose: 75 mls/hr Sodium Chloride (Normal Saline) 500 mls @ 50 mls/hr IV DAILY [facility] Last Admin: 06/18/17 11:58 Dose: 50 mls/hr Magnesium Sulfate 2 gm/ Premix 50 mls @ 25 mls/hr IV ONETIME ONE Stop: 06/18/17 21:11 Last Admin: 06/18/17 22:31 Dose: Not Given Potassium Chloride 10 meq/ (Premix) 100 mls @ 100 mls/hr IV Q1H [facility] Stop: 06/18/17 23:29 Last Admin: 06/18/17 22:31 Dose: Not Given Iopamidol (Isovue-370 (76%)) 100 ml IVPUSH ONETIME ONE Stop: 06/15/17 20:32 Last Admin: 06/15/17 21:17 Dose: 100 ml Magnesium Oxide (Magnesium Oxide) 400 mg PO ONETIME ONE Stop: 06/18/17 19:33 Last Admin: 06/18/17 21:04 Dose: 400 mg Miscellaneous Information (Remove Patch) 1 ea TRDERM Q72H [facility] Miscellaneous Information (Remove Patch) 1 ea TRDERM Q72H [facility] Potassium Chloride (Klor-Con M20) 40 meq PO BID@0100,2100 [facility] Stop: 06/19/17 01:01 Last Admin: 06/19/17 01:47 Dose: 40 meq Scopolamine (Transderm-Scop) 1.5 mg TRDERM Q72H [facility] Last Admin: 06/16/17 11:12 Dose: Not Given Scopolamine (Transderm-Scop) 1.5 mg TRDERM Q72H [facility] Scopolamine (Transderm-Scop) 1.5 mg TRDERM Q72H [facility] Last Admin: 06/16/17 21:53 Dose: 1.5 mg Tbo-Filgrastim (Granix) 300 mcg SUBCUT DAILY [facility] Stop: 06/17/17 09:01 Last Admin: 06/17/17 12:33 Dose: Not Given - Exam Quality Assessment: Supplemental Oxygen, DVT Prophylaxis General: Alert, Oriented, Cooperative, No Acute Distress HEENT: Pupils Equal, Pupils Reactive, EOMI Neck: Trachea Midline, No JVD Lungs: Normal Respiratory Effort Cardiovascular: Regular Rate GI/Abdominal Exam: Normal Bowel Sounds, Soft, Non-Tender, No Organomegaly, No Distention (Female) Exam: Normal External Exam Back Exam: Normal Inspection Extremities: Normal Inspection, Non-Tender Skin: Warm Neurological: No New Focal Deficit, Normal Gait, Normal Speech Psy/Mental Status: Alert, Normal Affect, Normal Mood - Problem List & Annotations (1) Neutropenia with fever SNOMED Code(s): 283090382 Code(s): D70.9 - NEUTROPENIA, UNSPECIFIED; R50.81 - FEVER PRESENTING WITH CONDITIONS CLASSIFIED ELSEWHERE Status: Acute Current Visit: Yes (2) Acute febrile illness SNOMED Code(s): 682207358 Code(s): R50.9 - FEVER, UNSPECIFIED Status: Acute Priority: High Current Visit: Yes (3) Anemia SNOMED Code(s): 635224129 Code(s): D64.9 - ANEMIA, UNSPECIFIED Status: Acute Priority: High Current Visit: Yes Qualifiers: Anemia type: unspecified type Qualified Code(s): D64.9 - Anemia, unspecified (4) Dehydration SNOMED Code(s): 27615001 Code(s): E86.0 - DEHYDRATION Status: Acute Priority: High Current Visit : Yes (5) Hypokalemia due to loss of potassium SNOMED Code(s): 73829149 Code(s): E87.6 - HYPOKALEMIA Status: Acute Priority: Medium Current Visit: Yes (6) Leukopenia due to antineoplastic chemotherapy SNOMED Code(s): 389945015 Code(s): D70.1 - AGRANULOCYTOSIS SECONDARY TO CANCER CHEMOTHERAPY; T45.1X5A - ADVERSE EFFECT OF ANTINEOPLASTIC AND IMMUNOSUP DRUGS, INIT Status: Acute Priority: Medium Current Visit: Yes (7) CHF NYHA class III (symptoms with mildly strenuous activities) SNOMED Code(s): 903329328 Code(s): I50.9 - HEART FAILURE, UNSPECIFIED Status: Acute Priority: Medium Current Visit: Yes Qualifiers: Congestive heart failure type: diastolic Congestive heart failure chronicity: acute on chronic Qualified Code(s): I50.33 - Acute on chronic diastolic (congestive) heart failure (8) History of immunocompromised state SNOMED Code(s): 768940396 Code(s): Z86.2 - PRSNL HISTORY OF DIS OF THE BLD/BLD-FORM ORG/IMMUN MECHNSM Status: Acute Priority: High Current Visit: Yes (9) Thrombocytopenia due to diminished platelet production SNOMED Code(s): 30949083 Code(s): D69.59 - OTHER SECONDARY THROMBOCYTOPENIA Status: Acute Current Visit: No (10) Volume depletion, unspecified SNOMED Code(s): 09323928 Code(s): E86.9 - VOLUME DEPLETION, UNSPECIFIED Status: Acute Priority: High Current Visit: Yes (11) Leukocytopenia SNOMED Code(s): 47253345 Code(s): D72.819 - DECREASED WHITE BLOOD CELL COUNT, UNSPECIFIED Status: Resolved Current Visit: No Qualifiers: Neutropenia type: secondary to cancer chemotherapy - Problem List Review Problem List Initiated/Reviewed/Updated: Yes - My Orders Last 24 Hours: My Active Orders 06/18/17 Lunch Heart Healthy Diet [DIET] 06/19/17 09:33 Codeine/guaiFENesin [Robitussin AC] 10 ml PO Q6H PRN 06/19/17 10:33 Magnesium Sulfate/Water [Magnesium Sulfate 2 GM in Water 50 ML] 2 gm Premix Bag 1 bag IV ONETIME 06/19/17 10:34 Bedrest Bedside Commode [RC] ASDIRECTED 06/19/17 10:37 Alum Hydrox/Mag Hydrox/Simeth [Mag-Al Plus] 15 ml PO Q8H 06/19/17 12:00 Tbo-Filgrastim [Granix] 300 mcg SUBCUT ONETIME ONE 06/20/17 05:00 BASIC METABOLIC PANEL,BMP [CHEM] DAILY CBC WITH AUTO DIFF [HEME] DAILY CRP [C-REACTIVE PROTEIN] [CHEM] DAILY MAGNESIUM [CHEM] DAILY - Plan Plan:: Impression: Borderline neutropenic fever, self reported temp >102.0 F - Now afebrile S/P CTX for NHL with bone mets; CTX next week is scheduled. Received IVF as well as PRBCs post CTX; Hgb previous <7.0 Pancytopenia post CTX - improving CXR today: 1. Questionable increasing parenchymal density within the left upper chest. Difficult to exclude developing pneumonia superimposed upon pulmonary fibrosis and scarring. Chronic HTN HLD Hx of TIA Hx of ARF COPD, former tobacco Plan: IVF--->stopped; diurese as tolerated. Empiric RX with Levoquin/Zosyn PRBC if HGB <7.5 - received two units today. Follow-up CBC ordered once antibiotic finishes Neupogen or equivalent for neutropenia - completed one day with WBC >5.0 Reverse isolation - discontinued DVT prophylaxis, high risk GI prophylaxis
[2017-06-19] MEDS: Aluminum Hydroxide/Magnesium Hydroxide/Simethicone Susp 30 ML Cup PO SCH ×2 (11:06→18:23)
[2017-06-19] MEDS: Codeine/guaiFENesin 100-10 MG/5 ML Syrup 5 ML Cup PO PRN (17:14)
[2017-06-19] MEDS: Amitriptyline 25 MG Tab PO SCH (20:30)
[2017-06-19] MEDS: Bisacodyl 5 MG Tab PO SCH (20:35)
[2017-06-19] MEDS: Levofloxacin/Dextrose 5%-Water 750 MG in Premix Bag 1 BAG IV SCH (21:32)
[2017-06-19] MEDS: fentaNYL 12 MCG/HR Transdermal Patch TRDERM SCH (21:32)
[2017-06-19] MEDS: Remove Patch*FENTANYL TRDERM SCH (21:34)
[2017-06-20] MEDS: Remove Patch*SCOPOLAMINE TRDERM SCH (00:14)
[2017-06-20] MEDS: Aluminum Hydroxide/Magnesium Hydroxide/Simethicone Susp 30 ML Cup PO SCH (01:42)
[2017-06-20] MEDS: Pantoprazole 40 MG Tab.CR PO SCH (06:27)
[2017-06-20] MEDS: Aspirin 81 MG Tab.EC PO SCH (06:27)
[2017-06-20] MEDS: Piperacillin/Tazobactam 4.5 GM in Sodium Chloride 0.9% 100 ML IV SCH ×3 (06:27→22:59)
[2017-06-20] MEDS: Albuterol 0.083% 2.5 MG/3 ML Neb Soln NEB SCH ×4 (06:34→20:50)
[2017-06-20] MEDS: Docusate Sodium 100 MG Cap PO SCH ×2 (08:30→21:01)
[2017-06-20] MEDS: Enoxaparin 40 MG/0.4 ML Syringe SUBCUT SCH (08:31)
[2017-06-20] MEDS: Codeine/guaiFENesin 100-10 MG/5 ML Syrup 5 ML Cup PO PRN ×2 (08:31→21:03)
[2017-06-20] MEDS: Bisacodyl 5 MG Tab PO SCH (08:31)
[2017-06-20] MEDS: Metoprolol Succinate 50 MG Tab.ER PO SCH ×2 (08:32→21:04)
[2017-06-20] MEDS: Rosuvastatin 10 MG Tab PO SCH (08:38)
[2017-06-20] MEDS: Benzonatate 100 MG Cap PO PRN (08:40)
[2017-06-20] MEDS: Losartan 25 MG Tab PO SCH (08:40)
[2017-06-20] MEDS: Pregabalin 25 MG Cap PO SCH ×3 (08:40→21:01)
[2017-06-20] MEDS ORDERED: Potassium Chloride 20 MEQ Tab.ER PO ONE (09:15)
[2017-06-20] MEDS: Acetaminophen 325 MG Tab PO PRN ×2 (09:41→21:03)
--- NOTE | 2017-06-20 10:04 | CR ---
Chest: Two views of the chest were obtained. Comparison: Prior chest x-ray of 06/18/17. Heart size and mediastinum are stable. Infusion port is seen which is stable. Diffuse increased lung markings are noted which appear more prominent than on prior study which is felt to be due to less degree of inspiration on current study than previous causing some accentuation. No alveolar type densities are seen. Bony structures are unremarkable. Several air-fluid levels are seen within bowel which are likely incidental if patient has no bowel symptoms. Impression: 1. When allowing for less inspiratory effort on current exam, I do not see any definite interval change from previous exam. Diagnostic code #3
--- NOTE | 2017-06-20 15:22 | PCM.PN ---
- General Info Date of Service: 06/20/17 Admission Dx/Problem (Free Text): Episode of SOB, required 8 l/m of O2; currently comfortable. Has had repeat CXR 2 view which is unchanged from previous study. Status has changed to ICU, will monitor closely. Functional Status: Reports: Tolerating Diet, Ambulating, Urinating - Review of Systems General: Reports: Weakness, Fatigue, Malaise HEENT: Reports: Glasses Pulmonary: Reports: Shortness of Breath, Cough, Sputum, Wheezing Cardiovascular: Reports: No Symptoms Gastrointestinal: Reports: No Symptoms Genitourinary: Reports: No Symptoms Musculoskeletal: Reports: No Symptoms Skin: Reports: No Symptoms Neurological: Reports: No Symptoms Psychiatric: Reports: No Symptoms - Patient Data Vitals - Most Recent: Last Vital Signs Temp 36.8 C 06/20/17 12:00 Pulse 101 H 06/20/17 12:00 Resp 19 06/20/17 12:00 BP 95/40 L 06/20/17 12:00 Pulse Ox 93 L 06/20/17 12:00 Weight - Most Recent: 72.257 kg I&O - Last 24 Hours: Intake & Output 06/20/17 06/20/17 06/20/17 06:59 14:59 22:59 Intake Total 750 210 Output Total 150 Balance 750 60 Lab Results Last 24 Hours: Laboratory Results - last 24 hr 06/20/17 06/20/17 06/20/17 Range/Units 05:40 05:40 09:57 WBC 10.42 H (3.98-10.04) K/mm3 RBC 3.24 L (3.98-5.22) M/mm3 Hgb 9.2 L (11.2-15.7) gm/L Hct 29.2 L (34.1-44.9) % MCV 90.1 (79.4-94.8) fl MCH 28.4 (25.6-32.2) pg MCHC 31.5 L (32.2-35.5) g/dl RDW Std Deviation 54.5 H (36.4-46.3) fL Plt Count 160 L (182-369) K/mm3 MPV 10.4 (9.4-12.3) fl Neut % (Auto) 90.7 H (34.0-71.1) % Lymph % (Auto) 2.7 L (19.3-51.7) % Prentiss % (Auto) 5.3 (4.7-12.5) % Eos % (Auto) 0.1 L (0.7-5.8) Baso % (Auto) 0.1 (0.1-1.2) % Neut # (Auto) 9.46 H (1.56-6.13) K/mm3 Lymph # (Auto) 0.28 L (1.18-3.74) K/mm3 Prentiss # (Auto) 0.55 H (0.24-0.36) K/mm3 Eos # (Auto) 0.01 L (0.04-0.36) K/mm3 Baso # (Auto) 0.01 (0.01-0.08) K/mm3 Manual Slide Review Abnormal smear Puncture Site Lt radial ABG pH 7.42 (7.35-7.45) ABG pCO2 36.5 (35.0-45.0) mmHg ABG pO2 61.0 L (80.0-100.0) mmHg ABG HCO3 23.1 (22.0-26.0) meq/L ABG O2 Saturation 91.9 L (96.0-97.0) % ABG Base Excess -0.7 (-2-2.0) Harsha Test Positive A-a Gradient 214 mmHg O2 Delivery Device Simple mask Oxygen Flow Rate 10.0 FiO2 50.00 (21.00-100.00) % Sodium 141 (136-145) mEq/L Potassium 3.3 L (3.5-5.1) mEq/L Chloride 106 (98-107) mEq/L Carbon Dioxide 28 (21-32) mEq/L Anion Gap 10.3 (5-15) BUN 6 L (7-18) mg/dL Creatinine 0.8 (0.55-1.02) mg/dL Est Cr Clr Drug Dosing 57.20 mL/min Estimated GFR (MDRD) > 60 (>60) mL/min BUN/Creatinine Ratio 7.5 L (14-18) Glucose 99 (83-115) mg/dL Calcium 8.2 L (8.5-10.1) mg/dL Magnesium 2.1 (1.8-2.4) mg/dl C-Reactive Protein 18.0 H* (<1.0) mg/dL Med Orders - Current: Current Medications Acetaminophen (Tylenol) 650 mg PO Q4H PRN PRN Reason: Fever Last Admin: 06/20/17 09:41 Dose: 650 mg Albuterol (Proventil Neb Soln) 2.5 mg NEB QIDRT [facility] Last Admin: 06/20/17 10:17 Dose: 2.5 mg Amitriptyline HCl (Elavil) 100 mg PO BEDTIME [facility] Last Admin: 06/19/17 20:30 Dose: 100 mg Aspirin (Halfprin) 81 mg PO WITHBREAKFAST [facility] Last Admin: 06/20/17 06:27 Dose: 81 mg Benzonatate (Tessalon Perles) 100 mg PO TID PRN PRN Reason: Cough Last Admin: 06/20/17 08:40 Dose: 100 mg Bisacodyl (Dulcolax) 5 mg PO DAILY [facility] Last Admin: 06/20/17 08:31 Dose: Not Given Docusate Sodium (Colace) 100 mg PO BID [facility] Last Admin: 06/20/17 08:30 Dose: Not Given Enoxaparin Sodium (Lovenox) 40 mg SUBCUT DAILY [facility] Last Admin: 06/20/17 08:31 Dose: 40 mg Fentanyl (Duragesic) 12 mcg TRDERM Q72H [facility] Last Admin: 06/19/17 21:32 Dose: 12 mcg Guaifenesin/Codeine Phosphate (Robitussin Ac) 10 ml PO Q6H PRN PRN Reason: Cough Last Admin: 06/20/17 08:31 Dose: 10 ml Piperacillin Sod/Tazobactam (Sod 4.5 gm/ Sodium Chloride) 100 mls @ 25 mls/hr IV Q8H [facility] Last Admin: 06/20/17 14:16 Dose: 25 mls/hr Levofloxacin/Dextrose 750 mg/ (Premix) 150 mls @ 100 mls/hr IV Q24H [facility] Last Admin: 06/19/17 21:32 Dose: 100 mls/hr Losartan Potassium (Cozaar) 25 mg PO DAILY [facility] Last Admin: 06/20/17 08:40 Dose: 25 mg Metoprolol Succinate (Toprol Xl) 50 mg PO BID [facility] Last Admin: 06/20/17 08:32 Dose: 50 mg Miscellaneous Information (Remove Patch) 1 ea TRDERM Q72H [facility] Last Admin: 06/19/17 21:34 Dose: 1 ea Miscellaneous Information (Remove Patch) 1 ea TRDERM Q72H [facility] Last Admin: 06/20/17 00:14 Dose: Not Given Ondansetron HCl (Zofran) 4 mg IVPUSH Q8H PRN PRN Reason: Nausea Ondansetron HCl (Zofran Odt) 4 mg PO Q6H PRN PRN Reason: Other Pantoprazole Sodium (Protonix) 40 mg PO DAILY@0700 [facility] Last Admin: 06/20/17 06:27 Dose: 40 mg Pregabalin (Lyrica) 50 mg PO TID [facility] Last Admin: 06/20/17 08:40 Dose: 50 mg Rosuvastatin Calcium (Crestor) 20 mg PO DAILY [facility] Last Admin: 06/20/17 08:38 Dose: 20 mg Sodium Chloride (Saline Flush) 10 ml FLUSH ASDIRECTED PRN PRN Reason: Keep Vein Open Last Admin: 06/15/17 21:17 Dose: 10 ml Discontinued Medications Acetaminophen (Tylenol) 650 mg PO Q6H PRN PRN Reason: Pain Al Hydroxide/Mg Hydroxide (Mag-Al Plus) 15 ml PO Q8H [facility] Stop: 06/20/17 02:38 Last Admin: 06/20/17 01:42 Dose: Not Given Amitriptyline HCl (Elavil) 100 mg PO ONETIME ONE Stop: 06/16/17 01:29 Last Admin: 06/16/17 01:38 Dose: 100 mg Amitriptyline HCl (Elavil) 100 mg PO BEDTIME [facility] Last Admin: 06/16/17 23:28 Dose: Not Given Enoxaparin Sodium (Lovenox) 40 mg SUBCUT ONETIME ONE Stop: 06/15/17 22:09 Last Admin: 06/15/17 22:36 Dose: 40 mg Fentanyl (Duragesic) 12 mcg TRDERM Q72H [facility] Furosemide (Lasix) 20 mg IVPUSH DAILY ONE Stop: 06/18/17 07:59 Last Admin: 06/18/17 12:19 Dose: Not Given Furosemide (Lasix) 20 mg IVPUSH NOW ONE Stop: 06/19/17 10:30 Last Admin: 06/19/17 11:05 Dose: 20 mg Sodium Chloride (Normal Saline) 1,000 mls @ 250 mls/hr IV ONETIME ONE Stop: 06/15/17 22:37 Last Admin: 06/15/17 19:29 Dose: 250 mls/hr Sodium Chloride (Normal Saline) 100 mls @ 75 mls/hr IV ASDIRECTED [facility] Last Admin: 06/16/17 20:25 Dose: 75 mls/hr Sodium Chloride (Normal Saline) 1,000 mls @ 100 mls/hr IV ONETIME ONE Stop: 06/16/17 08:03 Last Admin: 06/15/17 22:10 Dose: 100 mls/hr Levofloxacin/Dextrose 750 mg/ (Premix) 150 mls @ 100 mls/hr IV ONETIME ONE Stop: 06/15/17 23:35 Last Admin: 06/15/17 22:30 Dose: 100 mls/hr Levofloxacin/Dextrose (Levaquin In D5w 750 Mg/150 Ml) Confirm Administered Dose 150 mls @ as directed IV .STK-MED ONE Stop: 06/15/17 22:21 Last Admin: 06/16/17 00:38 Dose: Not Given Magnesium Sulfate 2 gm/ Premix 50 mls @ 25 mls/hr IV ONETIME ONE Stop: 06/16/17 00:27 Last Admin: 06/16/17 01:20 Dose: Not Given Magnesium Sulfate/Dextrose 1 (gm/ Premix) 100 mls @ 100 mls/hr IV Q1H [facility] Stop: 06/16/17 05:14 Last Admin: 06/16/17 01:24 Dose: Not Given Magnesium Sulfate 2 gm/ Premix 50 mls @ 25 mls/hr IV ONETIME ONE Stop: 06/16/17 03:14 Last Admin: 06/16/17 01:20 Dose: 25 mls/hr Sodium Chloride (Normal Saline) 1,000 mls @ 75 mls/hr IV ASDIRECTED [facility] Last Admin: 06/18/17 00:18 Dose: 75 mls/hr Sodium Chloride (Normal Saline) 500 mls @ 50 mls/hr IV DAILY [facility] Last Admin: 06/18/17 11:58 Dose: 50 mls/hr Magnesium Sulfate 2 gm/ Premix 50 mls @ 25 mls/hr IV ONETIME ONE Stop: 06/18/17 21:11 Last Admin: 06/18/17 22:31 Dose: Not Given Potassium Chloride 10 meq/ (Premix) 100 mls @ 100 mls/hr IV Q1H [facility] Stop: 06/18/17 23:29 Last Admin: 06/18/17 22:31 Dose: Not Given Magnesium Sulfate 2 gm/ Premix 50 mls @ 25 mls/hr IV ONETIME ONE Stop: 06/19/17 12:32 Last Admin: 06/19/17 11:06 Dose: 25 mls/hr Iopamidol (Isovue-370 (76%)) 100 ml IVPUSH ONETIME ONE Stop: 06/15/17 20:32 Last Admin: 06/15/17 21:17 Dose: 100 ml Magnesium Oxide (Magnesium Oxide) 400 mg PO ONETIME ONE Stop: 06/18/17 19:33 Last Admin: 06/18/17 21:04 Dose: 400 mg Miscellaneous Information (Remove Patch) 1 ea TRDERM Q72H [facility] Miscellaneous Information (Remove Patch) 1 ea TRDERM Q72H [facility] Potassium Chloride (Klor-Con M20) 40 meq PO BID@0100,2100 [facility] Stop: 06/19/17 01:01 Last Admin: 06/19/17 01:47 Dose: 40 meq Potassium Chloride (Klor-Con M20) 40 meq PO ONETIME ONE Stop: 06/20/17 09:16 Last Admin: 06/20/17 09:42 Dose: 40 meq Scopolamine (Transderm-Scop) 1.5 mg TRDERM Q72H [facility] Last Admin: 06/16/17 11:12 Dose: Not Given Scopolamine (Transderm-Scop) 1.5 mg TRDERM Q72H [facility] Scopolamine (Transderm-Scop) 1.5 mg TRDERM Q72H [facility] Last Admin: 06/16/17 21:53 Dose: 1.5 mg Tbo-Filgrastim (Granix) 300 mcg SUBCUT DAILY [facility] Stop: 06/17/17 09:01 Last Admin: 06/17/17 12:33 Dose: Not Given Tbo-Filgrastim (Granix) 300 mcg SUBCUT ONETIME ONE Stop: 06/19/17 12:01 Last Admin: 06/19/17 12:22 Dose: 300 mcg - Exam Quality Assessment: Supplemental Oxygen, DVT Prophylaxis General: Alert, Oriented, Cooperative, Mild Distress HEENT: Pupils Equal, Pupils Reactive, EOMI Neck: Trachea Midline, No JVD Lungs: Normal Respiratory Effort, Decreased Breath Sounds, Wheezing Cardiovascular: Regular Rate, Tachycardia GI/Abdominal Exam: Normal Bowel Sounds, Soft, Non-Tender, No Organomegaly, No Distention (Female) Exam: Deferred Back Exam: Normal Inspection Extremities: Normal Inspection Skin: Warm Neurological: No New Focal Deficit, Normal Speech Psy/Mental Status: Alert - Problem List & Annotations (1) Neutropenia with fever SNOMED Code(s): 607211745 Code(s): D70.9 - NEUTROPENIA, UNSPECIFIED; R50.81 - FEVER PRESENTING WITH CONDITIONS CLASSIFIED ELSEWHERE Status: Acute Current Visit: Yes (2) Acute febrile illness SNOMED Code(s): 486806201 Code(s): R50.9 - FEVER, UNSPECIFIED Status: Acute Priority: High Current Visit: Yes (3) Anemia SNOMED Code(s): 935517210 Code(s): D64.9 - ANEMIA, UNSPECIFIED Status: Acute Priority: High Current Visit: Yes Qualifiers: Anemia type: unspecified type Qualified Code(s): D64.9 - Anemia, unspecified (4) Dehydration SNOMED Code(s): 99329833 Code(s): E86.0 - DEHYDRATION Status: Acute Priority: High Current Visit : Yes (5) Hypokalemia due to loss of potassium SNOMED Code(s): 05290258 Code(s): E87.6 - HYPOKALEMIA Status: Acute Priority: Medium Current Visit: Yes (6) Leukopenia due to antineoplastic chemotherapy SNOMED Code(s): 865251900 Code(s): D70.1 - AGRANULOCYTOSIS SECONDARY TO CANCER CHEMOTHERAPY; T45.1X5A - ADVERSE EFFECT OF ANTINEOPLASTIC AND IMMUNOSUP DRUGS, INIT Status: Acute Priority: Medium Current Visit: Yes (7) CHF NYHA class III (symptoms with mildly strenuous activities) SNOMED Code(s): 081882919 Code(s): I50.9 - HEART FAILURE, UNSPECIFIED Status: Acute Priority: Medium Current Visit: Yes Qualifiers: Congestive heart failure type: diastolic Congestive heart failure chronicity: acute on chronic Qualified Code(s): I50.33 - Acute on chronic diastolic (congestive) heart failure (8) History of immunocompromised state SNOMED Code(s): 004947043 Code(s): Z86.2 - PRSNL HISTORY OF DIS OF [facility] BLD[facility] Status: Acute Priority: High Current Visit: Yes (9) Thrombocytopenia due to diminished platelet production SNOMED Code(s): 37767059 Code(s): D69.59 - OTHER SECONDARY THROMBOCYTOPENIA Status: Acute Current Visit: No (10) Volume depletion, unspecified SNOMED Code(s): 39333558 Code(s): E86.9 - VOLUME DEPLETION, UNSPECIFIED Status: Acute Priority: High Current Visit: Yes (11) Leukocytopenia SNOMED Code(s): 84518024 Code(s): D72.819 - DECREASED WHITE BLOOD CELL COUNT, UNSPECIFIED Status: Resolved Current Visit: No Qualifiers: Neutropenia type: secondary to cancer chemotherapy - Problem List Review Problem List Initiated/Reviewed/Updated: Yes - My Orders Last 24 Hours: My Active Orders 06/19/17 21:00 Bisacodyl [Dulcolax] 5 mg PO DAILY 06/20/17 09:29 Patient Status [ADT] Routine 06/21/17 05:00 CBC WITH AUTO DIFF [HEME] DAILY CRP [C-REACTIVE PROTEIN] [CHEM] DAILY MAGNESIUM [CHEM] DAILY 06/21/17 05:11 BASIC METABOLIC PANEL,BMP [CHEM] DAILY 06/22/17 05:00 CBC WITH AUTO DIFF [HEME] DAILY CRP [C-REACTIVE PROTEIN] [CHEM] DAILY MAGNESIUM [CHEM] DAILY 06/22/17 05:11 BASIC METABOLIC PANEL,BMP [CHEM] DAILY 06/23/17 05:00 CBC WITH AUTO DIFF [HEME] DAILY CRP [C-REACTIVE PROTEIN] [CHEM] DAILY MAGNESIUM [CHEM] DAILY 06/23/17 05:11 BASIC METABOLIC PANEL,BMP [CHEM] DAILY 06/24/17 05:00 CBC WITH AUTO DIFF [HEME] DAILY CRP [C-REACTIVE PROTEIN] [CHEM] DAILY MAGNESIUM [CHEM] DAILY 06/24/17 05:11 BASIC METABOLIC PANEL,BMP [CHEM] DAILY - Plan Plan:: Impression: Acute resp distress, will transfer to ICU. Hypoxic-->started on 8l/m. Borderline neutropenic fever, self reported temp >102.0 F - Now afebrile S/P CTX for NHL with bone mets; CTX next week is scheduled. Received IVF as well as PRBCs post CTX; Hgb previous <7.0 Pancytopenia post CTX - improving CXR today: 1. Questionable increasing parenchymal density within the left upper chest. Difficult to exclude developing pneumonia superimposed upon pulmonary fibrosis and scarring. Chronic HTN HLD Hx of TIA Hx of ARF COPD, former tobacco Plan: IVF--->stopped; diurese as tolerated. Empiric RX with Levoquin/Zosyn Keep O2 sat>92% Neupogen or equivalent for neutropenia - completed one day with WBC >5.0 Reverse isolation - discontinued DVT prophylaxis, high risk GI prophylaxis
[2017-06-20] MEDS: Amitriptyline 25 MG Tab PO SCH (21:02)
[2017-06-20] MEDS: methylPREDNISolone Sodium Succinate 125 MG/2 ML SDV IVPUSH SCH (21:03)
[2017-06-20] MEDS: Levofloxacin/Dextrose 5%-Water 750 MG in Premix Bag 1 BAG IV SCH (21:30)
[2017-06-20] MEDS: Morphine 4 MG/ML Syringe IVPUSH PRN (21:37)
[2017-06-20] MEDS ORDERED: Albuterol/Ipratropium 3.0-0.5 MG/3 ML Neb Soln ONE (22:30)
[2017-06-20] MEDS: Albuterol/Ipratropium 3.0-0.5 MG/3 ML Neb Soln NEB SCH (22:37)
[2017-06-21] MEDS: methylPREDNISolone Sodium Succinate 125 MG/2 ML SDV IVPUSH SCH ×4 (03:55→21:49)
[2017-06-21] MEDS: Morphine 4 MG/ML Syringe IVPUSH PRN (04:35)
[2017-06-21] MEDS: Albuterol/Ipratropium 3.0-0.5 MG/3 ML Neb Soln NEB SCH ×7 (04:39→20:32)
[2017-06-21] MEDS: Albuterol 0.083% 2.5 MG/3 ML Neb Soln NEB PRN (06:13)
[2017-06-21] MEDS ORDERED: Albuterol/Ipratropium 3.0-0.5 MG/3 ML Neb Soln ONE (07:35)
[2017-06-21] MEDS: Enoxaparin 40 MG/0.4 ML Syringe SUBCUT SCH (08:34)
[2017-06-21] MEDS: Pantoprazole 40 MG Tab.CR PO SCH (08:35)
[2017-06-21] MEDS: Docusate Sodium 100 MG Cap PO SCH ×2 (08:35→21:51)
[2017-06-21] MEDS: Pregabalin 25 MG Cap PO SCH ×3 (08:44→21:49)
[2017-06-21] MEDS: Bisacodyl 5 MG Tab PO SCH (08:44)
[2017-06-21] MEDS: Piperacillin/Tazobactam 4.5 GM in Sodium Chloride 0.9% 100 ML IV SCH ×2 (08:49→16:07)
[2017-06-21] MEDS: Rosuvastatin 10 MG Tab PO SCH (08:56)
[2017-06-21] MEDS: Aspirin 81 MG Tab.EC PO SCH (08:58)
[2017-06-21] MEDS: Losartan 25 MG Tab PO SCH (10:00)
[2017-06-21] MEDS: Metoprolol Succinate 50 MG Tab.ER PO SCH ×2 (11:36→21:49)
--- NOTE | 2017-06-21 11:46 | CR ---
Chest: Portable view of the chest was obtained. Comparison: Prior chest x-ray 06/20/17. Diffuse increased lung markings are seen. Findings are fairly stable from prior exam. Infusion port is seen. Heart is within normal limits for portable technique. Tortuous thoracic aorta is seen. Surgical clips are seen at the base of the neck. Impression: 1. Findings as described above. No appreciable change is seen from prior chest x-ray. Diagnostic code #3
--- NOTE | 2017-06-21 16:27 | PCM.PN ---
- General Info Date of Service: 06/21/17 Subjective Update: STEPHANIE with hypoxia, required high flow last night. Has been started on BIPA 06/12 with improved RR and O2 saturation. Functional Status: Reports: Tolerating Diet, Ambulating, Urinating - Review of Systems General: Reports: Weakness, Fatigue HEENT: Reports: No Symptoms Pulmonary: Reports: Shortness of Breath (improved) Cardiovascular: Reports: No Symptoms Gastrointestinal: Reports: No Symptoms Genitourinary: Reports: No Symptoms Musculoskeletal: Reports: No Symptoms Skin: Reports: No Symptoms Neurological: Reports: No Symptoms Psychiatric: Reports: No Symptoms - Patient Data Vitals - Most Recent: Last Vital Signs Temp 36.3 C 06/21/17 16:00 Pulse 98 06/21/17 16:00 Resp 25 H 06/21/17 16:00 BP 115/53 L 06/21/17 16:00 Pulse Ox 97 06/21/17 16:00 Weight - Most Recent: 74.162 kg I&O - Last 24 Hours: Intake & Output 06/21/17 06/21/17 06/21/17 06:59 14:59 22:59 Intake Total 550 Output Total 300 1100 Balance 250 -1100 Lab Results Last 24 Hours: Laboratory Results - last 24 hr 06/20/17 06/21/17 06/21/17 Range/Units 21:01 04:45 04:45 WBC 6.57 (3.98-10.04) K/mm3 RBC 3.47 L (3.98-5.22) M/mm3 Hgb 9.9 L (11.2-15.7) gm/L Hct 31.6 L (34.1-44.9) % MCV 91.1 (79.4-94.8) fl MCH 28.5 (25.6-32.2) pg MCHC 31.3 L (32.2-35.5) g/dl RDW Std Deviation 55.5 H (36.4-46.3) fL Plt Count 176 L (182-369) K/mm3 MPV 10.4 (9.4-12.3) fl Neut % (Auto) 91.9 H (34.0-71.1) % Lymph % (Auto) 3.8 L (19.3-51.7) % [place] % (Auto) 3.0 L (4.7-12.5) % Eos % (Auto) 0 L (0.7-5.8) Baso % (Auto) 0.2 (0.1-1.2) % Neut # (Auto) 6.04 (1.56-6.13) K/mm3 Lymph # (Auto) 0.25 L (1.18-3.74) K/mm3 [place] # (Auto) 0.20 L (0.24-0.36) K/mm3 Eos # (Auto) 0.00 L (0.04-0.36) K/mm3 Baso # (Auto) 0.01 (0.01-0.08) K/mm3 Manual Slide Review Abnormal smear Puncture Site Lt radial ABG pH 7.43 (7.35-7.45) ABG pCO2 35.8 (35.0-45.0) mmHg ABG pO2 70.0 L (80.0-100.0) mmHg ABG HCO3 23.4 (22.0-26.0) meq/L ABG O2 Saturation 97.0 (96.0-97.0) % ABG Base Excess -0.1 (-2-2.0) Harsha Test Positive A-a Gradient 526 mmHg O2 Delivery Device Nrb Oxygen Flow Rate 15.0 FiO2 100.00 (21.00-100.00) % Sodium (136-145) mEq/L Potassium (3.5-5.1) mEq/L Chloride (98-107) mEq/L Carbon Dioxide (21-32) mEq/L Anion Gap (5-15) BUN (7-18) mg/dL Creatinine (0.55-1.02) mg/dL Est Cr Clr Drug Dosing mL/min Estimated GFR (MDRD) (>60) mL/min BUN/Creatinine Ratio (14-18) Glucose (83-115) mg/dL Calcium (8.5-10.1) mg/dL Magnesium 2.1 (1.8-2.4) mg/dl C-Reactive Protein 15.6 H* (<1.0) mg/dL 06/21/17 Range/Units 04:45 WBC (3.98-10.04) K/mm3 RBC (3.98-5.22) M/mm3 Hgb (11.2-15.7) gm/L Hct (34.1-44.9) % MCV (79.4-94.8) fl MCH (25.6-32.2) pg MCHC (32.2-35.5) g/dl RDW Std Deviation (36.4-46.3) fL Plt Count (182-369) K/mm3 MPV (9.4-12.3) fl Neut % (Auto) (34.0-71.1) % Lymph % (Auto) (19.3-51.7) % [place] % (Auto) (4.7-12.5) % Eos % (Auto) (0.7-5.8) Baso % (Auto) (0.1-1.2) % Neut # (Auto) (1.56-6.13) K/mm3 Lymph # (Auto) (1.18-3.74) K/mm3 [place] # (Auto) (0.24-0.36) K/mm3 Eos # (Auto) (0.04-0.36) K/mm3 Baso # (Auto) (0.01-0.08) K/mm3 Manual Slide Review Puncture Site ABG pH (7.35-7.45) ABG pCO2 (35.0-45.0) mmHg ABG pO2 (80.0-100.0) mmHg ABG HCO3 (22.0-26.0) meq/L ABG O2 Saturation (96.0-97.0) % ABG Base Excess (-2-2.0) Harsha Test A-a Gradient mmHg O2 Delivery Device Oxygen Flow Rate FiO2 (21.00-100.00) % Sodium 143 (136-145) mEq/L Potassium 3.7 (3.5-5.1) mEq/L Chloride 108 H (98-107) mEq/L Carbon Dioxide 27 (21-32) mEq/L Anion Gap 11.7 (5-15) BUN 9 (7-18) mg/dL Creatinine 0.8 (0.55-1.02) mg/dL Est Cr Clr Drug Dosing 57.20 mL/min Estimated GFR (MDRD) > 60 (>60) mL/min BUN/Creatinine Ratio 11.3 L (14-18) Glucose 171 H (83-115) mg/dL Calcium 8.9 (8.5-10.1) mg/dL Magnesium (1.8-2.4) mg/dl C-Reactive Protein (<1.0) mg/dL Med Orders - Current: Current Medications Acetaminophen (Tylenol) 650 mg PO Q4H PRN PRN Reason: Fever Last Admin: 06/20/17 21:03 Dose: 650 mg Albuterol (Proventil Neb Soln) 2.5 mg NEB Q4HRRT PRN PRN Reason: Shortness of Breath Last Admin: 06/21/17 06:13 Dose: 2.5 mg Albuterol/Ipratropium (Duoneb 3.0-0.5 Mg/3 Ml) 3 ml NEB QIDRT [facility] Last Admin: 06/21/17 15:59 Dose: 3 ml Amitriptyline HCl (Elavil) 100 mg PO BEDTIME [facility] Last Admin: 06/20/17 21:02 Dose: 100 mg Aspirin (Halfprin) 81 mg PO WITHBREAKFAST [facility] Last Admin: 06/21/17 08:58 Dose: 81 mg Benzonatate (Tessalon Perles) 100 mg PO TID PRN PRN Reason: Cough Last Admin: 06/20/17 08:40 Dose: 100 mg Bisacodyl (Dulcolax) 5 mg PO DAILY [facility] Last Admin: 06/21/17 08:44 Dose: 5 mg Docusate Sodium (Colace) 100 mg PO BID [facility] Last Admin: 06/21/17 08:35 Dose: 100 mg Enoxaparin Sodium (Lovenox) 40 mg SUBCUT DAILY [facility] Last Admin: 06/21/17 08:34 Dose: 40 mg Fentanyl (Duragesic) 12 mcg TRDERM Q72H [facility] Last Admin: 06/19/17 21:32 Dose: 12 mcg Guaifenesin/Codeine Phosphate (Robitussin Ac) 10 ml PO Q6H PRN PRN Reason: Cough Last Admin: 06/20/17 08:31 Dose: 10 ml Levofloxacin/Dextrose 750 mg/ (Premix) 150 mls @ 100 mls/hr IV Q24H [facility] Last Admin: 06/20/17 21:30 Dose: 100 mls/hr Piperacillin Sod/Tazobactam (Sod 4.5 gm/ Sodium Chloride) 100 mls @ 25 mls/hr IV Q8H [facility] Last Admin: 06/21/17 16:07 Dose: 25 mls/hr Losartan Potassium (Cozaar) 25 mg PO DAILY [facility] Last Admin: 06/21/17 10:00 Dose: Not Given Methylprednisolone Sodium Succinate (Solu-Medrol) 125 mg IVPUSH Q6H [facility] Last Admin: 06/21/17 16:06 Dose: 125 mg Metoprolol Succinate (Toprol Xl) 50 mg PO BID [facility] Last Admin: 06/21/17 11:36 Dose: 50 mg Miscellaneous Information (Remove Patch) 1 ea TRDERM Q72H [facility] Last Admin: 06/19/17 21:34 Dose: 1 ea Miscellaneous Information (Remove Patch) 1 ea TRDERM Q72H [facility] Last Admin: 06/20/17 00:14 Dose: Not Given Morphine Sulfate (Morphine) 1 mg IVPUSH Q2H PRN PRN Reason: Shortness of Breath Last Admin: 06/21/17 04:35 Dose: 1 mg Ondansetron HCl (Zofran) 4 mg IVPUSH Q8H PRN PRN Reason: Nausea Last Admin: 06/21/17 10:02 Dose: 4 mg Ondansetron HCl (Zofran Odt) 4 mg PO Q6H PRN PRN Reason: Other Pantoprazole Sodium (Protonix) 40 mg PO DAILY@0700 [facility] Last Admin: 06/21/17 08:35 Dose: 40 mg Pregabalin (Lyrica) 50 mg PO TID [facility] Last Admin: 06/21/17 16:04 Dose: 50 mg Rosuvastatin Calcium (Crestor) 20 mg PO DAILY [facility] Last Admin: 06/21/17 08:56 Dose: 20 mg Sodium Chloride (Saline Flush) 10 ml FLUSH ASDIRECTED PRN PRN Reason: Keep Vein Open Last Admin: 06/15/17 21:17 Dose: 10 ml Discontinued Medications Acetaminophen (Tylenol) 650 mg PO Q6H PRN PRN Reason: Pain Al Hydroxide/Mg Hydroxide (Mag-Al Plus) 15 ml PO Q8H [facility] Stop: 06/20/17 02:38 Last Admin: 06/20/17 01:42 Dose: Not Given Albuterol (Proventil Neb Soln) 2.5 mg NEB QIDRT [facility] Last Admin: 06/20/17 20:50 Dose: 2.5 mg Albuterol/Ipratropium (Duoneb 3.0-0.5 Mg/3 Ml) Confirm Administered Dose 3 ml .ROUTE .STK-MED ONE Stop: 06/20/17 22:31 Last Admin: 06/20/17 22:57 Dose: Not Given Albuterol/Ipratropium (Duoneb 3.0-0.5 Mg/3 Ml) Confirm Administered Dose 3 ml .ROUTE .STK-MED ONE Stop: 06/21/17 07:36 Last Admin: 06/21/17 09:21 Dose: Not Given Amitriptyline HCl (Elavil) 100 mg PO ONETIME ONE Stop: 06/16/17 01:29 Last Admin: 06/16/17 01:38 Dose: 100 mg Amitriptyline HCl (Elavil) 100 mg PO BEDTIME [facility] Last Admin: 06/16/17 23:28 Dose: Not Given Enoxaparin Sodium (Lovenox) 40 mg SUBCUT ONETIME ONE Stop: 06/15/17 22:09 Last Admin: 06/15/17 22:36 Dose: 40 mg Fentanyl (Duragesic) 12 mcg TRDERM Q72H [facility] Furosemide (Lasix) 20 mg IVPUSH DAILY ONE Stop: 06/18/17 07:59 Last Admin: 06/18/17 12:19 Dose: Not Given Furosemide (Lasix) 20 mg IVPUSH NOW ONE Stop: 06/19/17 10:30 Last Admin: 06/19/17 11:05 Dose: 20 mg Sodium Chloride (Normal Saline) 1,000 mls @ 250 mls/hr IV ONETIME ONE Stop: 06/15/17 22:37 Last Admin: 06/15/17 19:29 Dose: 250 mls/hr Sodium Chloride (Normal Saline) 100 mls @ 75 mls/hr IV ASDIRECTED [facility] Last Admin: 06/16/17 20:25 Dose: 75 mls/hr Sodium Chloride (Normal Saline) 1,000 mls @ 100 mls/hr IV ONETIME ONE Stop: 06/16/17 08:03 Last Admin: 06/15/17 22:10 Dose: 100 mls/hr Levofloxacin/Dextrose 750 mg/ (Premix) 150 mls @ 100 mls/hr IV ONETIME ONE Stop: 06/15/17 23:35 Last Admin: 06/15/17 22:30 Dose: 100 mls/hr Piperacillin Sod/Tazobactam (Sod 4.5 gm/ Sodium Chloride) 100 mls @ 25 mls/hr IV Q8H [facility] Last Admin: 06/20/17 14:16 Dose: 25 mls/hr Levofloxacin/Dextrose (Levaquin In D5w 750 Mg/150 Ml) Confirm Administered Dose 150 mls @ as directed IV .STK-MED ONE Stop: 06/15/17 22:21 Last Admin: 06/16/17 00:38 Dose: Not Given Magnesium Sulfate 2 gm/ Premix 50 mls @ 25 mls/hr IV ONETIME ONE Stop: 06/16/17 00:27 Last Admin: 06/16/17 01:20 Dose: Not Given Magnesium Sulfate/Dextrose 1 (gm/ Premix) 100 mls @ 100 mls/hr IV Q1H [facility] Stop: 06/16/17 05:14 Last Admin: 06/16/17 01:24 Dose: Not Given Magnesium Sulfate 2 gm/ Premix 50 mls @ 25 mls/hr IV ONETIME ONE Stop: 06/16/17 03:14 Last Admin: 06/16/17 01:20 Dose: 25 mls/hr Sodium Chloride (Normal Saline) 1,000 mls @ 75 mls/hr IV ASDIRECTED [facility] Last Admin: 06/18/17 00:18 Dose: 75 mls/hr Sodium Chloride (Normal Saline) 500 mls @ 50 mls/hr IV DAILY [facility] Last Admin: 06/18/17 11:58 Dose: 50 mls/hr Magnesium Sulfate 2 gm/ Premix 50 mls @ 25 mls/hr IV ONETIME ONE Stop: 06/18/17 21:11 Last Admin: 06/18/17 22:31 Dose: Not Given Potassium Chloride 10 meq/ (Premix) 100 mls @ 100 mls/hr IV Q1H [facility] Stop: 06/18/17 23:29 Last Admin: 06/18/17 22:31 Dose: Not Given Magnesium Sulfate 2 gm/ Premix 50 mls @ 25 mls/hr IV ONETIME ONE Stop: 06/19/17 12:32 Last Admin: 06/19/17 11:06 Dose: 25 mls/hr Vancomycin HCl 1 gm/ Sodium (Chloride) 250 mls @ 250 mls/hr IV ONETIME ONE Stop: 06/20/17 22:10 Last Admin: 06/20/17 21:58 Dose: 250 mls/hr Iopamidol (Isovue-370 (76%)) 100 ml IVPUSH ONETIME ONE Stop: 06/15/17 20:32 Last Admin: 06/15/17 21:17 Dose: 100 ml Magnesium Oxide (Magnesium Oxide) 400 mg PO ONETIME ONE Stop: 06/18/17 19:33 Last Admin: 06/18/17 21:04 Dose: 400 mg Miscellaneous Information (Remove Patch) 1 ea TRDERM Q72H [facility] Miscellaneous Information (Remove Patch) 1 ea TRDERM Q72H [facility] Potassium Chloride (Klor-Con M20) 40 meq PO BID@0100,2100 [facility] Stop: 06/19/17 01:01 Last Admin: 06/19/17 01:47 Dose: 40 meq Potassium Chloride (Klor-Con M20) 40 meq PO ONETIME ONE Stop: 06/20/17 09:16 Last Admin: 06/20/17 09:42 Dose: 40 meq Scopolamine (Transderm-Scop) 1.5 mg TRDERM Q72H [facility] Last Admin: 06/16/17 11:12 Dose: Not Given Scopolamine (Transderm-Scop) 1.5 mg TRDERM Q72H [facility] Scopolamine (Transderm-Scop) 1.5 mg TRDERM Q72H [facility] Last Admin: 06/16/17 21:53 Dose: 1.5 mg Tbo-Filgrastim (Granix) 300 mcg SUBCUT DAILY [facility] Stop: 06/17/17 09:01 Last Admin: 06/17/17 12:33 Dose: Not Given Tbo-Filgrastim (Granix) 300 mcg SUBCUT ONETIME ONE Stop: 06/19/17 12:01 Last Admin: 06/19/17 12:22 Dose: 300 mcg - Exam Quality Assessment: Supplemental Oxygen, Urine Catheter, DVT Prophylaxis General: Alert, Oriented, Cooperative, No Acute Distress HEENT: Pupils Equal, Pupils Reactive, EOMI Neck: Trachea Midline, No JVD Lungs: Normal Respiratory Effort, Decreased Breath Sounds Cardiovascular: Regular Rate, Regular Rhythm GI/Abdominal Exam: Normal Bowel Sounds, Soft, Non-Tender, No Organomegaly, No Distention (Female) Exam: Deferred Back Exam: Normal Inspection Extremities: Normal Inspection, Normal Range of Motion, Non-Tender, No Pedal Edema Skin: Warm Neurological: No New Focal Deficit Psy/Mental Status: Alert, Normal Affect, Normal Mood - Problem List & Annotations (1) Neutropenia with fever SNOMED Code(s): 930651315 Code(s): D70.9 - NEUTROPENIA, UNSPECIFIED; R50.81 - FEVER PRESENTING WITH CONDITIONS CLASSIFIED ELSEWHERE Status: Acute Current Visit: Yes (2) Acute febrile illness SNOMED Code(s): 371720140 Code(s): R50.9 - FEVER, UNSPECIFIED Status: Acute Priority: High Current Visit: Yes (3) Anemia SNOMED Code(s): 164345310 Code(s): D64.9 - ANEMIA, UNSPECIFIED Status: Acute Priority: High Current Visit: Yes Qualifiers: Anemia type: unspecified type Qualified Code(s): D64.9 - Anemia, unspecified (4) Dehydration SNOMED Code(s): 22374181 Code(s): E86.0 - DEHYDRATION Status: Acute Priority: High Current Visit : Yes (5) Hypokalemia due to loss of potassium SNOMED Code(s): 43693979 Code(s): E87.6 - HYPOKALEMIA Status: Acute Priority: Medium Current Visit: Yes (6) Leukopenia due to antineoplastic chemotherapy SNOMED Code(s): 950728219 Code(s): D70.1 - AGRANULOCYTOSIS SECONDARY TO CANCER CHEMOTHERAPY; T45.1X5A - ADVERSE EFFECT OF ANTINEOPLASTIC AND IMMUNOSUP DRUGS, INIT Status: Acute Priority: Medium Current Visit: Yes (7) CHF NYHA class III (symptoms with mildly strenuous activities) SNOMED Code(s): 136039608 Code(s): I50.9 - HEART FAILURE, UNSPECIFIED Status: Acute Priority: Medium Current Visit: Yes Qualifiers: Congestive heart failure type: diastolic Congestive heart failure chronicity: acute on chronic Qualified Code(s): I50.33 - Acute on chronic diastolic (congestive) heart failure (8) History of immunocompromised state SNOMED Code(s): 502867159 Code(s): Z86.2 - PRSNL HISTORY OF DIS OF THE BLD/BLD-FORM ORG/IMMUN MECHNSM Status: Acute Priority: High Current Visit: Yes (9) Thrombocytopenia due to diminished platelet production SNOMED Code(s): 07767939 Code(s): D69.59 - OTHER SECONDARY THROMBOCYTOPENIA Status: Acute Current Visit: No (10) Volume depletion, unspecified SNOMED Code(s): 67143447 Code(s): E86.9 - VOLUME DEPLETION, UNSPECIFIED Status: Acute Priority: High Current Visit: Yes (11) Leukocytopenia SNOMED Code(s): 07056217 Code(s): D72.819 - DECREASED WHITE BLOOD CELL COUNT, UNSPECIFIED Status: Resolved Current Visit: No Qualifiers: Neutropenia type: secondary to cancer chemotherapy - Problem List Review Problem List Initiated/Reviewed/Updated: Yes - My Orders Last 24 Hours: My Active Orders 06/20/17 20:51 CULTURE BLOOD [BC] Stat 06/20/17 21:00 methylPREDNISolone Sod Succ [Solu-MEDROL] 125 mg IVPUSH Q6H 06/20/17 21:06 Blood Culture x2 Reflex Set [OM.PC] Stat 06/20/17 21:07 RT Aerosol Therapy [RC] ASDIRECTED 06/20/17 21:08 Morphine 1 mg IVPUSH Q2H PRN 06/20/17 21:11 Albuterol [Proventil Neb Soln] 2.5 mg NEB Q4HRRT PRN 06/20/17 21:15 CULTURE BLOOD [BC] Stat 06/21/17 06:00 Albuterol/Ipratropium [DuoNeb 3.0-0.5 MG/3 ML] 3 ml NEB QIDRT 06/21/17 09:39 RT BiPAP/CPAP [RC] ASDIRECTED 06/22/17 05:00 CBC WITH AUTO DIFF [HEME] DAILY CRP [C-REACTIVE PROTEIN] [CHEM] DAILY MAGNESIUM [CHEM] DAILY 06/22/17 05:11 BASIC METABOLIC PANEL,BMP [CHEM] DAILY 06/23/17 05:00 CBC WITH AUTO DIFF [HEME] DAILY CRP [C-REACTIVE PROTEIN] [CHEM] DAILY MAGNESIUM [CHEM] DAILY 06/23/17 05:11 BASIC METABOLIC PANEL,BMP [CHEM] DAILY 06/24/17 05:00 CBC WITH AUTO DIFF [HEME] DAILY CRP [C-REACTIVE PROTEIN] [CHEM] DAILY MAGNESIUM [CHEM] DAILY 06/24/17 05:11 BASIC METABOLIC PANEL,BMP [CHEM] DAILY - Plan Plan:: Impression: Acute resp distress, resovled. Hypoxic-->High flow, now requiring BIPAP 06/12 Borderline neutropenic fever, self reported temp >102.0 F - Now afebrile S/P CTX for NHL with bone mets; CTX next week is scheduled. Received IVF as well as PRBCs post CTX; Hgb previous <7.0 Pancytopenia-->resolved PNA one dose of Vanco, cont Levoquin/Zosyn Chronic HTN HLD Hx of TIA Hx of ARF COPD, former tobacco Plan: IVF--->as needed. [facility] RX with Levoquin/Zosyn Keep O2 sat>92% DVT prophylaxis, high risk GI prophylaxis
[2017-06-21] MEDS: Amitriptyline 25 MG Tab PO SCH (21:50)
[2017-06-21] MEDS: Levofloxacin/Dextrose 5%-Water 750 MG in Premix Bag 1 BAG IV SCH (23:47)
[2017-06-22] MEDS: Piperacillin/Tazobactam 4.5 GM in Sodium Chloride 0.9% 100 ML IV SCH ×3 (01:30→16:53)
[2017-06-22] MEDS: methylPREDNISolone Sodium Succinate 125 MG/2 ML SDV IVPUSH SCH ×4 (03:59→21:47)
[2017-06-22] MEDS: Albuterol/Ipratropium 3.0-0.5 MG/3 ML Neb Soln NEB SCH ×4 (05:42→20:45)
[2017-06-22] MEDS: Pantoprazole 40 MG Tab.CR PO SCH (07:28)
[2017-06-22] MEDS: Aspirin 81 MG Tab.EC PO SCH (07:28)
--- NOTE | 2017-06-22 09:45 | PCM.PN ---
- General Info Date of Service: 06/22/17 Functional Status: Reports: Tolerating Diet, Urinating - Review of Systems General: Reports: No Symptoms HEENT: Reports: No Symptoms Pulmonary: Reports: Shortness of Breath Cardiovascular: Reports: No Symptoms Gastrointestinal: Reports: No Symptoms Genitourinary: Reports: No Symptoms Musculoskeletal: Reports: No Symptoms Skin: Reports: No Symptoms Neurological: Reports: No Symptoms Psychiatric: Reports: No Symptoms - Patient Data Vitals - Most Recent: Last Vital Signs Temp 36.1 C 06/22/17 04:00 Pulse 70 06/22/17 04:00 Resp 19 06/22/17 04:00 BP 106/57 L 06/22/17 04:00 Pulse Ox 73 L 06/22/17 05:42 Weight - Most Recent: 74.661 kg I&O - Last 24 Hours: Intake & Output 06/21/17 06/22/17 06/22/17 22:59 06:59 14:59 Intake Total 375 513 Output Total 235 260 Balance 140 253 Lab Results Last 24 Hours: Laboratory Results - last 24 hr 06/22/17 06/22/17 06/22/17 Range/Units 05:26 05:26 05:26 WBC 7.51 (3.98-10.04) K/mm3 RBC 3.24 L (3.98-5.22) M/mm3 Hgb 9.3 L (11.2-15.7) gm/L Hct 29.7 L (34.1-44.9) % MCV 91.7 (79.4-94.8) fl MCH 28.7 (25.6-32.2) pg MCHC 31.3 L (32.2-35.5) g/dl RDW Std Deviation 54.2 H (36.4-46.3) fL Plt Count 200 (182-369) K/mm3 MPV 10.6 (9.4-12.3) fl Neut % (Auto) 88.9 H (34.0-71.1) % Lymph % (Auto) 2.4 L (19.3-51.7) % [place] % (Auto) 7.5 (4.7-12.5) % Eos % (Auto) 0 L (0.7-5.8) Baso % (Auto) 0.1 (0.1-1.2) % Neut # (Auto) 6.68 H (1.56-6.13) K/mm3 Lymph # (Auto) 0.18 L (1.18-3.74) K/mm3 [place] # (Auto) 0.56 H (0.24-0.36) K/mm3 Eos # (Auto) 0.00 L (0.04-0.36) K/mm3 Baso # (Auto) 0.01 (0.01-0.08) K/mm3 Manual Slide Review Abnormal smear Sodium 146 H (136-145) mEq/L Potassium 3.8 (3.5-5.1) mEq/L Chloride 109 H (98-107) mEq/L Carbon Dioxide 29 (21-32) mEq/L Anion Gap 11.8 (5-15) BUN 13 (7-18) mg/dL Creatinine 0.7 (0.55-1.02) mg/dL Est Cr Clr Drug Dosing 65.37 mL/min Estimated GFR (MDRD) > 60 (>60) mL/min BUN/Creatinine Ratio 18.6 H (14-18) Glucose 131 H (83-115) mg/dL Calcium 9.1 (8.5-10.1) mg/dL Magnesium 2.2 (1.8-2.4) mg/dl C-Reactive Protein 15.7 H* (<1.0) mg/dL [place] Results Last 24 Hours: Microbiology 06/20/17 21:15 Aerobic Blood Culture - Preliminary Blood - Venous - Lab Draw NO GROWTH AFTER 1 DAY Anaerobic Blood Culture - Preliminary NO GROWTH AFTER 1 DAY 06/20/17 20:51 Aerobic Blood Culture - Preliminary Blood - Venous NO GROWTH AFTER 1 DAY Anaerobic Blood Culture - Preliminary NO GROWTH AFTER 1 DAY Med Orders - Current: Current Medications Acetaminophen (Tylenol) 650 mg PO Q4H PRN PRN Reason: Fever Last Admin: 06/20/17 21:03 Dose: 650 mg Albuterol (Proventil Neb Soln) 2.5 mg NEB Q4HRRT PRN PRN Reason: Shortness of Breath Last Admin: 06/21/17 06:13 Dose: 2.5 mg Albuterol/Ipratropium (Duoneb 3.0-0.5 Mg/3 Ml) 3 ml NEB QIDRT [facility] Last Admin: 06/22/17 09:35 Dose: 3 ml Amitriptyline HCl (Elavil) 100 mg PO BEDTIME [facility] Last Admin: 06/21/17 21:50 Dose: 100 mg Aspirin (Halfprin) 81 mg PO WITHBREAKFAST [facility] Last Admin: 06/22/17 07:28 Dose: 81 mg Benzonatate (Tessalon Perles) 100 mg PO TID PRN PRN Reason: Cough Last Admin: 06/20/17 08:40 Dose: 100 mg Bisacodyl (Dulcolax) 5 mg PO DAILY [facility] Last Admin: 06/21/17 08:44 Dose: 5 mg Docusate Sodium (Colace) 100 mg PO BID [facility] Last Admin: 06/21/17 21:51 Dose: Not Given Enoxaparin Sodium (Lovenox) 40 mg SUBCUT DAILY [facility] Last Admin: 06/21/17 08:34 Dose: 40 mg Fentanyl (Duragesic) 12 mcg TRDERM Q72H [facility] Last Admin: 06/19/17 21:32 Dose: 12 mcg Guaifenesin/Codeine Phosphate (Robitussin Ac) 10 ml PO Q6H PRN PRN Reason: Cough Last Admin: 06/20/17 08:31 Dose: 10 ml Levofloxacin/Dextrose 750 mg/ (Premix) 150 mls @ 100 mls/hr IV Q24H [facility] Last Admin: 06/21/17 23:47 Dose: 100 mls/hr Piperacillin Sod/Tazobactam (Sod 4.5 gm/ Sodium Chloride) 100 mls @ 25 mls/hr IV Q8H [facility] Last Admin: 06/22/17 07:28 Dose: 25 mls/hr Losartan Potassium (Cozaar) 25 mg PO DAILY [facility] Last Admin: 06/21/17 10:00 Dose: Not Given Methylprednisolone Sodium Succinate (Solu-Medrol) 125 mg IVPUSH Q6H [facility] Last Admin: 06/22/17 03:59 Dose: 125 mg Metoprolol Succinate (Toprol Xl) 50 mg PO BID [facility] Last Admin: 06/21/17 21:49 Dose: 50 mg Miscellaneous Information (Remove Patch) 1 ea TRDERM Q72H [facility] Last Admin: 06/19/17 21:34 Dose: 1 ea Miscellaneous Information (Remove Patch) 1 ea TRDERM Q72H [facility] Last Admin: 06/20/17 00:14 Dose: Not Given Morphine Sulfate (Morphine) 1 mg IVPUSH Q2H PRN PRN Reason: Shortness of Breath Last Admin: 06/21/17 04:35 Dose: 1 mg Ondansetron HCl (Zofran) 4 mg IVPUSH Q8H PRN PRN Reason: Nausea Last Admin: 06/21/17 10:02 Dose: 4 mg Ondansetron HCl (Zofran Odt) 4 mg PO Q6H PRN PRN Reason: Other Pantoprazole Sodium (Protonix) 40 mg PO DAILY@0700 [facility] Last Admin: 06/22/17 07:28 Dose: 40 mg Pregabalin (Lyrica) 50 mg PO TID [facility] Last Admin: 06/21/17 21:49 Dose: 50 mg Rosuvastatin Calcium (Crestor) 20 mg PO DAILY [facility] Last Admin: 06/21/17 08:56 Dose: 20 mg Sodium Chloride (Saline Flush) 10 ml FLUSH ASDIRECTED PRN PRN Reason: Keep Vein Open Last Admin: 06/15/17 21:17 Dose: 10 ml Discontinued Medications Acetaminophen (Tylenol) 650 mg PO Q6H PRN PRN Reason: Pain Al Hydroxide/Mg Hydroxide (Mag-Al Plus) 15 ml PO Q8H [facility] Stop: 06/20/17 02:38 Last Admin: 06/20/17 01:42 Dose: Not Given Albuterol (Proventil Neb Soln) 2.5 mg NEB QIDRT [facility] Last Admin: 06/20/17 20:50 Dose: 2.5 mg Albuterol/Ipratropium (Duoneb 3.0-0.5 Mg/3 Ml) Confirm Administered Dose 3 ml .ROUTE .STK-MED ONE Stop: 06/20/17 22:31 Last Admin: 06/20/17 22:57 Dose: Not Given Albuterol/Ipratropium (Duoneb 3.0-0.5 Mg/3 Ml) Confirm Administered Dose 3 ml .ROUTE .STK-MED ONE Stop: 06/21/17 07:36 Last Admin: 06/21/17 09:21 Dose: Not Given Amitriptyline HCl (Elavil) 100 mg PO ONETIME ONE Stop: 06/16/17 01:29 Last Admin: 06/16/17 01:38 Dose: 100 mg Amitriptyline HCl (Elavil) 100 mg PO BEDTIME [facility] Last Admin: 06/16/17 23:28 Dose: Not Given Enoxaparin Sodium (Lovenox) 40 mg SUBCUT ONETIME ONE Stop: 06/15/17 22:09 Last Admin: 06/15/17 22:36 Dose: 40 mg Fentanyl (Duragesic) 12 mcg TRDERM Q72H [facility] Furosemide (Lasix) 20 mg IVPUSH DAILY ONE Stop: 06/18/17 07:59 Last Admin: 06/18/17 12:19 Dose: Not Given Furosemide (Lasix) 20 mg IVPUSH NOW ONE Stop: 06/19/17 10:30 Last Admin: 06/19/17 11:05 Dose: 20 mg Sodium Chloride (Normal Saline) 1,000 mls @ 250 mls/hr IV ONETIME ONE Stop: 06/15/17 22:37 Last Admin: 06/15/17 19:29 Dose: 250 mls/hr Sodium Chloride (Normal Saline) 100 mls @ 75 mls/hr IV ASDIRECTED [facility] Last Admin: 06/16/17 20:25 Dose: 75 mls/hr Sodium Chloride (Normal Saline) 1,000 mls @ 100 mls/hr IV ONETIME ONE Stop: 06/16/17 08:03 Last Admin: 06/15/17 22:10 Dose: 100 mls/hr Levofloxacin/Dextrose 750 mg/ (Premix) 150 mls @ 100 mls/hr IV ONETIME ONE Stop: 06/15/17 23:35 Last Admin: 06/15/17 22:30 Dose: 100 mls/hr Piperacillin Sod/Tazobactam (Sod 4.5 gm/ Sodium Chloride) 100 mls @ 25 mls/hr IV Q8H [facility] Last Admin: 06/20/17 14:16 Dose: 25 mls/hr Levofloxacin/Dextrose (Levaquin In D5w 750 Mg/150 Ml) Confirm Administered Dose 150 mls @ as directed IV .STK-MED ONE Stop: 06/15/17 22:21 Last Admin: 06/16/17 00:38 Dose: Not Given Magnesium Sulfate 2 gm/ Premix 50 mls @ 25 mls/hr IV ONETIME ONE Stop: 06/16/17 00:27 Last Admin: 06/16/17 01:20 Dose: Not Given Magnesium Sulfate/Dextrose 1 (gm/ Premix) 100 mls @ 100 mls/hr IV Q1H [facility] Stop: 06/16/17 05:14 Last Admin: 06/16/17 01:24 Dose: Not Given Magnesium Sulfate 2 gm/ Premix 50 mls @ 25 mls/hr IV ONETIME ONE Stop: 06/16/17 03:14 Last Admin: 06/16/17 01:20 Dose: 25 mls/hr Sodium Chloride (Normal Saline) 1,000 mls @ 75 mls/hr IV ASDIRECTED [facility] Last Admin: 06/18/17 00:18 Dose: 75 mls/hr Sodium Chloride (Normal Saline) 500 mls @ 50 mls/hr IV DAILY [facility] Last Admin: 06/18/17 11:58 Dose: 50 mls/hr Magnesium Sulfate 2 gm/ Premix 50 mls @ 25 mls/hr IV ONETIME ONE Stop: 06/18/17 21:11 Last Admin: 06/18/17 22:31 Dose: Not Given Potassium Chloride 10 meq/ (Premix) 100 mls @ 100 mls/hr IV Q1H [facility] Stop: 06/18/17 23:29 Last Admin: 06/18/17 22:31 Dose: Not Given Magnesium Sulfate 2 gm/ Premix 50 mls @ 25 mls/hr IV ONETIME ONE Stop: 06/19/17 12:32 Last Admin: 06/19/17 11:06 Dose: 25 mls/hr Vancomycin HCl 1 gm/ Sodium (Chloride) 250 mls @ 250 mls/hr IV ONETIME ONE Stop: 06/20/17 22:10 Last Admin: 06/20/17 21:58 Dose: 250 mls/hr Iopamidol (Isovue-370 (76%)) 100 ml IVPUSH ONETIME ONE Stop: 06/15/17 20:32 Last Admin: 06/15/17 21:17 Dose: 100 ml Magnesium Oxide (Magnesium Oxide) 400 mg PO ONETIME ONE Stop: 06/18/17 19:33 Last Admin: 06/18/17 21:04 Dose: 400 mg Miscellaneous Information (Remove Patch) 1 ea TRDERM Q72H [facility] Miscellaneous Information (Remove Patch) 1 ea TRDERM Q72H [facility] Potassium Chloride (Klor-Con M20) 40 meq PO BID@0100,2100 [facility] Stop: 06/19/17 01:01 Last Admin: 06/19/17 01:47 Dose: 40 meq Potassium Chloride (Klor-Con M20) 40 meq PO ONETIME ONE Stop: 06/20/17 09:16 Last Admin: 06/20/17 09:42 Dose: 40 meq Scopolamine (Transderm-Scop) 1.5 mg TRDERM Q72H [facility] Last Admin: 06/16/17 11:12 Dose: Not Given Scopolamine (Transderm-Scop) 1.5 mg TRDERM Q72H [facility] Scopolamine (Transderm-Scop) 1.5 mg TRDERM Q72H [facility] Last Admin: 06/16/17 21:53 Dose: 1.5 mg Tbo-Filgrastim (Granix) 300 mcg SUBCUT DAILY [facility] Stop: 06/17/17 09:01 Last Admin: 06/17/17 12:33 Dose: Not Given Tbo-Filgrastim (Granix) 300 mcg SUBCUT ONETIME ONE Stop: 06/19/17 12:01 Last Admin: 06/19/17 12:22 Dose: 300 mcg - Exam Quality Assessment: Urine Catheter, DVT Prophylaxis General: Alert, Oriented, Cooperative, No Acute Distress HEENT: Pupils Equal, Pupils Reactive, EOMI Neck: Supple, Trachea Midline, No JVD Lungs: Normal Respiratory Effort, Decreased Breath Sounds Cardiovascular: Regular Rate, Regular Rhythm GI/Abdominal Exam: Normal Bowel Sounds, Soft, Non-Tender, No Organomegaly, No Distention (Female) Exam: Deferred Back Exam: Normal Inspection Extremities: Normal Inspection Skin: Warm, Dry Neurological: No New Focal Deficit Psy/Mental Status: Alert, Normal Affect, Normal Mood - Problem List & Annotations (1) Neutropenia with fever SNOMED Code(s): 501112646 Code(s): D70.9 - NEUTROPENIA, UNSPECIFIED; R50.81 - FEVER PRESENTING WITH CONDITIONS CLASSIFIED ELSEWHERE Status: Resolved Current Visit: Yes (2) Acute febrile illness SNOMED Code(s): 318565806 Code(s): R50.9 - FEVER, UNSPECIFIED Status: Acute Priority: High Current Visit: Yes (3) Anemia SNOMED Code(s): 003582735 Code(s): D64.9 - ANEMIA, UNSPECIFIED Status: Resolved Priority: High Current Visit: Yes Qualifiers: Anemia type: unspecified type Qualified Code(s): D64.9 - Anemia, unspecified (4) Dehydration SNOMED Code(s): 40936446 Code(s): E86.0 - DEHYDRATION Status: Acute Priority: High Current Visit : Yes (5) Hypokalemia due to loss of potassium SNOMED Code(s): 75527563 Code(s): E87.6 - HYPOKALEMIA Status: Acute Priority: Medium Current Visit: Yes (6) Leukopenia due to antineoplastic chemotherapy SNOMED Code(s): 047826228 Code(s): D70.1 - AGRANULOCYTOSIS SECONDARY TO CANCER CHEMOTHERAPY; T45.1X5A - ADVERSE EFFECT OF ANTINEOPLASTIC AND IMMUNOSUP DRUGS, INIT Status: Acute Priority: Medium Current Visit: Yes (7) CHF NYHA class III (symptoms with mildly strenuous activities) SNOMED Code(s): 405625117 Code(s): I50.9 - HEART FAILURE, UNSPECIFIED Status: Acute Priority: Medium Current Visit: Yes Qualifiers: Congestive heart failure type: diastolic Congestive heart failure chronicity: acute on chronic Qualified Code(s): I50.33 - Acute on chronic diastolic (congestive) heart failure (8) History of immunocompromised state SNOMED Code(s): 592786238 Code(s): Z86.2 - PRSNL HISTORY OF DIS OF THE BLD/BLD-FORM ORG/IMMUN MECHNSM Status: Acute Priority: High Current Visit: Yes (9) Thrombocytopenia due to diminished platelet production SNOMED Code(s): 62418047 Code(s): D69.59 - OTHER SECONDARY THROMBOCYTOPENIA Status: Acute Current Visit: No (10) Volume depletion, unspecified SNOMED Code(s): 71186715 Code(s): E86.9 - VOLUME DEPLETION, UNSPECIFIED Status: Acute Priority: High Current Visit: Yes (11) Leukocytopenia SNOMED Code(s): 70270379 Code(s): D72.819 - DECREASED WHITE BLOOD CELL COUNT, UNSPECIFIED Status: Resolved Current Visit: No Qualifiers: Neutropenia type: secondary to cancer chemotherapy - Problem List Review Problem List Initiated/Reviewed/Updated: Yes - My Orders Last 24 Hours: My Active Orders 06/21/17 09:39 RT BiPAP/CPAP [RC] ASDIRECTED 06/23/17 05:00 CBC WITH AUTO DIFF [HEME] DAILY CRP [C-REACTIVE PROTEIN] [CHEM] DAILY MAGNESIUM [CHEM] DAILY 06/23/17 05:11 BASIC METABOLIC PANEL,BMP [CHEM] DAILY 06/24/17 05:00 CBC WITH AUTO DIFF [HEME] DAILY CRP [C-REACTIVE PROTEIN] [CHEM] DAILY MAGNESIUM [CHEM] DAILY 06/24/17 05:11 BASIC METABOLIC PANEL,BMP [CHEM] DAILY - Plan Plan:: Impression: Acute resp distress, resovled. Hypoxic-->High flow, now requiring BIPAP 06/12 Borderline neutropenic fever, self reported temp >102.0 F - Now afebrile S/P CTX for NHL with bone mets; CTX next week is scheduled. Received IVF as well as PRBCs post CTX; Hgb previous <7.0 Pancytopenia-->resolved PNA one dose of Vanco, cont Levoquin/Zosyn Chronic HTN HLD Hx of TIA Hx of ARF COPD, former tobacco Plan: IVF--->as needed. [facility] RX with Levoquin/Zosyn Keep O2 sat>92%; Veenti mask trial with BIPAP as needed. DVT prophylaxis, high risk GI prophylaxis
[2017-06-22] MEDS: Docusate Sodium 100 MG Cap PO SCH ×2 (10:19→21:49)
[2017-06-22] MEDS: Bisacodyl 5 MG Tab PO SCH (10:19)
[2017-06-22] MEDS: Pregabalin 25 MG Cap PO SCH ×3 (10:20→21:47)
[2017-06-22] MEDS: Rosuvastatin 10 MG Tab PO SCH (10:20)
[2017-06-22] MEDS: Losartan 25 MG Tab PO SCH (10:20)
[2017-06-22] MEDS: Metoprolol Succinate 50 MG Tab.ER PO SCH ×2 (10:21→21:47)
[2017-06-22] MEDS: Enoxaparin 40 MG/0.4 ML Syringe SUBCUT SCH (10:22)
[2017-06-22] MEDS ORDERED: Lactoperoxi/Gluc Oxid/Pot Thio 42 GM Tube MUCMEM SCH (13:45)
[2017-06-22] MEDS ORDERED: Lidocaine 2% Viscous Solution 15 ML Cup PO PRN (14:43)
[2017-06-22] MEDS ORDERED: Lactoperoxi/Gluc Oxid/Pot Thio 42 GM Tube MUCMEM PRN (15:49)
[2017-06-22] MEDS: Benzonatate 100 MG Cap PO PRN (16:53)
[2017-06-22] MEDS: Budesonide 0.25 MG/2 ML Neb Susp NEB SCH (20:45)
[2017-06-22] MEDS ORDERED: Furosemide 20 MG/2 ML VIAL IVPUSH ONE (21:15)
[2017-06-22] MEDS: Amitriptyline 25 MG Tab PO SCH (21:47)
[2017-06-22] MEDS: Remove Patch*FENTANYL TRDERM SCH (21:48)
[2017-06-22] MEDS: Levofloxacin/Dextrose 5%-Water 750 MG in Premix Bag 1 BAG IV SCH (21:48)
[2017-06-22] MEDS: Remove Patch*SCOPOLAMINE TRDERM SCH (21:51)
[2017-06-22] MEDS: fentaNYL 12 MCG/HR Transdermal Patch TRDERM SCH (22:05)
[2017-06-22] MEDS: Acetaminophen 325 MG Tab PO PRN (22:17)
[2017-06-23] MEDS: Piperacillin/Tazobactam 4.5 GM in Sodium Chloride 0.9% 100 ML IV SCH ×4 (00:07→23:20)
[2017-06-23] MEDS: Codeine/guaiFENesin 100-10 MG/5 ML Syrup 5 ML Cup PO PRN (00:11)
[2017-06-23] MEDS: methylPREDNISolone Sodium Succinate 125 MG/2 ML SDV IVPUSH SCH ×3 (03:18→15:21)
[2017-06-23] MEDS: Pantoprazole 40 MG Tab.CR PO SCH (06:08)
[2017-06-23] MEDS: Aspirin 81 MG Tab.EC PO SCH (06:09)
[2017-06-23] MEDS: Albuterol/Ipratropium 3.0-0.5 MG/3 ML Neb Soln NEB SCH ×4 (06:13→21:19)
[2017-06-23] MEDS: Budesonide 0.25 MG/2 ML Neb Susp NEB SCH ×2 (06:13→21:19)
[2017-06-23] MEDS: Pregabalin 25 MG Cap PO SCH ×3 (08:00→21:33)
[2017-06-23] MEDS: Bisacodyl 5 MG Tab PO SCH (08:01)
[2017-06-23] MEDS: Rosuvastatin 10 MG Tab PO SCH (08:01)
[2017-06-23] MEDS: Docusate Sodium 100 MG Cap PO SCH ×2 (08:01→21:38)
[2017-06-23] MEDS: Losartan 25 MG Tab PO SCH (08:01)
[2017-06-23] MEDS: Enoxaparin 40 MG/0.4 ML Syringe SUBCUT SCH (08:02)
[2017-06-23] MEDS: Metoprolol Succinate 50 MG Tab.ER PO SCH ×2 (08:02→21:34)
[2017-06-23] MEDS ORDERED: Diphenhydramine/Lidocaine/MagAl/Simethicone 119 ML Bottle PO PRN (08:43)
--- NOTE | 2017-06-23 10:43 | PCM.PN ---
- General Info Date of Service: 06/23/17 Admission Dx/Problem (Free Text): Neutropenic Fever Subjective Update: STEPHANIE with hypoxia, required high flow last night. Has been started on BIPA 06/12 with improved RR and O2 saturation. Functional Status: Reports: Pain Controlled, Tolerating Diet, Ambulating, Urinating. Denies: New Symptoms - Review of Systems General: Denies: Fever, Weakness, Chills HEENT: Reports: No Symptoms Pulmonary: Denies: Shortness of Breath Cardiovascular: Denies: Chest Pain, Dyspnea on Exertion, Lightheadedness Gastrointestinal: Denies: Abdominal Pain, Decreased Appetite, Nausea, Vomiting Genitourinary: Reports: No Symptoms Musculoskeletal: Reports: No Symptoms Skin: Denies: Cyanosis, Bruising, Rash Neurological: Denies: Confusion, Difficulty Walking, Weakness, Gait Disturbance Psychiatric: Denies: Depression, Anxiety, Agitation, Hallucinations Systems Review Comment:: No significant overnight or acute issues. She feels pretty good. She slept okay last night. She still coughs up a little clear phlegm. She report no changes on her appetite. She is currently on 15 L high flow supplemental O2 with PRN BIPAP. Her CBC is fairly stable. She has no new complaints. - Patient Data Vitals - Most Recent: Last Vital Signs Temp 36.6 C 06/23/17 07:49 Pulse 93 06/23/17 08:02 Resp 20 06/23/17 07:49 BP 129/67 06/23/17 08:02 Pulse Ox 90 L 06/23/17 10:11 Weight - Most Recent: 75.795 kg I&O - Last 24 Hours: Intake & Output 06/22/17 06/23/17 06/23/17 22:59 06:59 14:59 Intake Total 100 800 Output Total 190 825 200 Balance -90 -25 -200 Lab Results Last 24 Hours: Laboratory Results - last 24 hr 06/23/17 06/23/17 06/23/17 Range/Units 05:54 05:54 05:54 WBC 6.77 (3.98-10.04) K/mm3 RBC 3.46 L (3.98-5.22) M/mm3 Hgb 9.6 L (11.2-15.7) gm/L Hct 31.9 L (34.1-44.9) % MCV 92.2 (79.4-94.8) fl MCH 27.7 (25.6-32.2) pg MCHC 30.1 L (32.2-35.5) g/dl RDW Std Deviation 55.7 H (36.4-46.3) fL Plt Count 223 (182-369) K/mm3 MPV 10.2 (9.4-12.3) fl Neut % (Auto) 90.2 H (34.0-71.1) % Lymph % (Auto) 2.5 L (19.3-51.7) % Banks % (Auto) 6.6 (4.7-12.5) % Eos % (Auto) 0 L (0.7-5.8) Baso % (Auto) 0.0 L (0.1-1.2) % Neut # (Auto) 6.10 (1.56-6.13) K/mm3 Lymph # (Auto) 0.17 L (1.18-3.74) K/mm3 Banks # (Auto) 0.45 H (0.24-0.36) K/mm3 Eos # (Auto) 0.00 L (0.04-0.36) K/mm3 Baso # (Auto) 0.00 L (0.01-0.08) K/mm3 Manual Slide Review Abnormal smear Puncture Site ABG pH (7.35-7.45) ABG pCO2 (35.0-45.0) mmHg ABG pO2 (80.0-100.0) mmHg ABG HCO3 (22.0-26.0) meq/L ABG O2 Saturation (96.0-97.0) % ABG Base Excess (-2-2.0) A-a Gradient mmHg O2 Delivery Device Oxygen Flow Rate FiO2 (21.00-100.00) % Sodium 146 H (136-145) mEq/L Potassium 3.8 (3.5-5.1) mEq/L Chloride 108 H (98-107) mEq/L Carbon Dioxide 30 (21-32) mEq/L Anion Gap 11.8 (5-15) BUN 18 (7-18) mg/dL Creatinine 0.9 (0.55-1.02) mg/dL Est Cr Clr Drug Dosing 50.84 mL/min Estimated GFR (MDRD) > 60 (>60) mL/min BUN/Creatinine Ratio 20.0 H (14-18) Glucose 115 (83-115) mg/dL Calcium 9.2 (8.5-10.1) mg/dL Magnesium 2.3 (1.8-2.4) mg/dl C-Reactive Protein 6.4 H* (<1.0) mg/dL 06/23/ Range/Units 06:53 WBC (3.98-10.04) K/mm3 RBC (3.98-5.22) M/mm3 Hgb (11.2-15.7) gm/L Hct (34.1-44.9) % MCV (79.4-94.8) fl MCH (25.6-32.2) pg MCHC (32.2-35.5) g/dl RDW Std Deviation (36.4-46.3) fL Plt Count (182-369) K/mm3 MPV (9.4-12.3) fl Neut % (Auto) (34.0-71.1) % Lymph % (Auto) (19.3-51.7) % Banks % (Auto) (4.7-12.5) % Eos % (Auto) (0.7-5.8) Baso % (Auto) (0.1-1.2) % Neut # (Auto) (1.56-6.13) K/mm3 Lymph # (Auto) (1.18-3.74) K/mm3 Banks # (Auto) (0.24-0.36) K/mm3 Eos # (Auto) (0.04-0.36) K/mm3 Baso # (Auto) (0.01-0.08) K/mm3 Manual Slide Review Puncture Site Lt radial ABG pH 7.42 (7.35-7.45) ABG pCO2 43.6 (35.0-45.0) mmHg ABG pO2 50.0 L (80.0-100.0) mmHg ABG HCO3 27.6 H (22.0-26.0) meq/L ABG O2 Saturation 89.3 L (96.0-97.0) % ABG Base Excess 3.2 H (-2-2.0) A-a Gradient 535 mmHg O2 Delivery Device [place] Oxygen Flow Rate 15.0 FiO2 100.00 (21.00-100.00) % Sodium (136-145) mEq/L Potassium (3.5-5.1) mEq/L Chloride (98-107) mEq/L Carbon Dioxide (21-32) mEq/L Anion Gap (5-15) BUN (7-18) mg/dL Creatinine (0.55-1.02) mg/dL Est Cr Clr Drug Dosing mL/min Estimated GFR (MDRD) (>60) mL/min BUN/Creatinine Ratio (14-18) Glucose (83-115) mg/dL Calcium (8.5-10.1) mg/dL Magnesium (1.8-2.4) mg/dl C-Reactive Protein (<1.0) mg/dL [place] Results Last 24 Hours: Microbiology 06/20/17 21:15 Aerobic Blood Culture - Preliminary Blood - Venous - Lab Draw NO GROWTH AFTER 2 DAYS Anaerobic Blood Culture - Preliminary NO GROWTH AFTER 2 DAYS 06/20/17 20:51 Aerobic Blood Culture - Preliminary Blood - Venous NO GROWTH AFTER 2 DAYS Anaerobic Blood Culture - Preliminary NO GROWTH AFTER 2 DAYS Med Orders - Current: Current Medications Acetaminophen (Tylenol) 650 mg PO Q4H PRN PRN Reason: Fever Last Admin: 06/22/17 22:17 Dose: 650 mg Albuterol (Proventil Neb Soln) 2.5 mg NEB Q4HRRT PRN PRN Reason: Shortness of Breath Last Admin: 06/21/17 06:13 Dose: 2.5 mg Albuterol/Ipratropium (Duoneb 3.0-0.5 Mg/3 Ml) 3 ml NEB QIDRT [facility] Last Admin: 06/23/17 10:04 Dose: 3 ml Amitriptyline HCl (Elavil) 100 mg PO BEDTIME [facility] Last Admin: 06/22/17 21:47 Dose: 100 mg Aspirin (Halfprin) 81 mg PO WITHBREAKFAST [facility] Last Admin: 06/23/17 06:09 Dose: 81 mg Benzonatate (Tessalon Perles) 100 mg PO TID PRN PRN Reason: Cough Last Admin: 06/22/17 16:53 Dose: 100 mg Bisacodyl (Dulcolax) 5 mg PO DAILY [facility] Last Admin: 06/23/17 08:01 Dose: Not Given Budesonide (Pulmicort) 0.25 mg NEB BIDRT [facility] Last Admin: 06/23/17 06:13 Dose: 0.25 mg Diphenhydr/Magaldrate/Simeth/Lidoca (First-Mouthwash Blm Susp) 5 ml PO Q4H PRN PRN Reason: MOUTH SORES Docusate Sodium (Colace) 100 mg PO BID [facility] Last Admin: 06/23/17 08:01 Dose: 100 mg Enoxaparin Sodium (Lovenox) 40 mg SUBCUT DAILY [facility] Last Admin: 06/23/17 08:02 Dose: 40 mg Fentanyl (Duragesic) 12 mcg TRDERM Q72H [facility] Last Admin: 06/22/17 22:05 Dose: 12 mcg Guaifenesin/Codeine Phosphate (Robitussin Ac) 10 ml PO Q6H PRN PRN Reason: Cough Last Admin: 06/23/17 00:11 Dose: 10 ml Levofloxacin/Dextrose 750 mg/ (Premix) 150 mls @ 100 mls/hr IV Q24H [facility] Last Admin: 06/22/17 21:48 Dose: 100 mls/hr Piperacillin Sod/Tazobactam (Sod 4.5 gm/ Sodium Chloride) 100 mls @ 25 mls/hr IV Q8H [facility] Last Admin: 06/23/17 07:40 Dose: 25 mls/hr Losartan Potassium (Cozaar) 25 mg PO DAILY [facility] Last Admin: 06/23/17 08:01 Dose: 25 mg Methylprednisolone Sodium Succinate (Solu-Medrol) 125 mg IVPUSH Q6H [facility] Last Admin: 06/23/17 08:00 Dose: 125 mg Metoprolol Succinate (Toprol Xl) 50 mg PO BID [facility] Last Admin: 06/23/17 08:02 Dose: 50 mg Miscellaneous Information (Remove Patch) 1 ea TRDERM Q72H [facility] Last Admin: 06/22/17 21:48 Dose: 1 ea Miscellaneous Information (Remove Patch) 1 ea TRDERM Q72H [facility] Last Admin: 06/22/17 21:51 Dose: Not Given Morphine Sulfate (Morphine) 1 mg IVPUSH Q2H PRN PRN Reason: Shortness of Breath Last Admin: 06/21/17 04:35 Dose: 1 mg Ondansetron HCl (Zofran) 4 mg IVPUSH Q8H PRN PRN Reason: Nausea Last Admin: 06/21/17 10:02 Dose: 4 mg Ondansetron HCl (Zofran Odt) 4 mg PO Q6H PRN PRN Reason: Other Pantoprazole Sodium (Protonix) 40 mg PO DAILY@0700 [facility] Last Admin: 06/23/17 06:08 Dose: 40 mg Pregabalin (Lyrica) 50 mg PO TID [facility] Last Admin: 06/23/17 08:00 Dose: 50 mg Rosuvastatin Calcium (Crestor) 20 mg PO DAILY [facility] Last Admin: 06/23/17 08:01 Dose: 20 mg Sodium Chloride (Saline Flush) 10 ml FLUSH ASDIRECTED PRN PRN Reason: Keep Vein Open Last Admin: 06/15/17 21:17 Dose: 10 ml Discontinued Medications Acetaminophen (Tylenol) 650 mg PO Q6H PRN PRN Reason: Pain Al Hydroxide/Mg Hydroxide (Mag-Al Plus) 15 ml PO Q8H [facility] Stop: 06/20/17 02:38 Last Admin: 06/20/17 01:42 Dose: Not Given Albuterol (Proventil Neb Soln) 2.5 mg NEB QIDRT [facility] Last Admin: 06/20/17 20:50 Dose: 2.5 mg Albuterol/Ipratropium (Duoneb 3.0-0.5 Mg/3 Ml) Confirm Administered Dose 3 ml .ROUTE .STK-MED ONE Stop: 06/20/17 22:31 Last Admin: 06/20/17 22:57 Dose: Not Given Albuterol/Ipratropium (Duoneb 3.0-0.5 Mg/3 Ml) Confirm Administered Dose 3 ml .ROUTE .STK-MED ONE Stop: 06/21/17 07:36 Last Admin: 06/21/17 09:21 Dose: Not Given Amitriptyline HCl (Elavil) 100 mg PO ONETIME ONE Stop: 06/16/17 01:29 Last Admin: 06/16/17 01:38 Dose: 100 mg Amitriptyline HCl (Elavil) 100 mg PO BEDTIME [facility] Last Admin: 06/16/17 23:28 Dose: Not Given Enoxaparin Sodium (Lovenox) 40 mg SUBCUT ONETIME ONE Stop: 06/15/17 22:09 Last Admin: 06/15/17 22:36 Dose: 40 mg Fentanyl (Duragesic) 12 mcg TRDERM Q72H [facility] Furosemide (Lasix) 20 mg IVPUSH DAILY ONE Stop: 06/18/17 07:59 Last Admin: 06/18/17 12:19 Dose: Not Given Furosemide (Lasix) 20 mg IVPUSH NOW ONE Stop: 06/19/17 10:30 Last Admin: 06/19/17 11:05 Dose: 20 mg Furosemide (Lasix) 20 mg IVPUSH NOW ONE Stop: 06/22/17 21:16 Last Admin: 06/22/17 21:47 Dose: 20 mg Glucose Oxid/Lactoperoxid/Muramidas (Biotene Oralbalance Gel) 42 gm MUCMEM ASDIRECTED [facility] Glucose Oxid/Lactoperoxid/Muramidas (Biotene Oralbalance Gel) 42 gm MUCMEM Q4HR PRN PRN Reason: sores in mouth Sodium Chloride (Normal Saline) 1,000 mls @ 250 mls/hr IV ONETIME ONE Stop: 06/15/17 22:37 Last Admin: 06/15/17 19:29 Dose: 250 mls/hr Sodium Chloride (Normal Saline) 100 mls @ 75 mls/hr IV ASDIRECTED [facility] Last Admin: 06/16/17 20:25 Dose: 75 mls/hr Sodium Chloride (Normal Saline) 1,000 mls @ 100 mls/hr IV ONETIME ONE Stop: 06/16/17 08:03 Last Admin: 06/15/17 22:10 Dose: 100 mls/hr Levofloxacin/Dextrose 750 mg/ (Premix) 150 mls @ 100 mls/hr IV ONETIME ONE Stop: 06/15/17 23:35 Last Admin: 06/15/17 22:30 Dose: 100 mls/hr Piperacillin Sod/Tazobactam (Sod 4.5 gm/ Sodium Chloride) 100 mls @ 25 mls/hr IV Q8H [facility] Last Admin: 06/20/17 14:16 Dose: 25 mls/hr Levofloxacin/Dextrose (Levaquin In D5w 750 Mg/150 Ml) Confirm Administered Dose 150 mls @ as directed IV .STK-MED ONE Stop: 06/15/17 22:21 Last Admin: 06/16/17 00:38 Dose: Not Given Magnesium Sulfate 2 gm/ Premix 50 mls @ 25 mls/hr IV ONETIME ONE Stop: 06/16/17 00:27 Last Admin: 06/16/17 01:20 Dose: Not Given Magnesium Sulfate/Dextrose 1 (gm/ Premix) 100 mls @ 100 mls/hr IV Q1H [facility] Stop: 06/16/17 05:14 Last Admin: 06/16/17 01:24 Dose: Not Given Magnesium Sulfate 2 gm/ Premix 50 mls @ 25 mls/hr IV ONETIME ONE Stop: 06/16/17 03:14 Last Admin: 06/16/17 01:20 Dose: 25 mls/hr Sodium Chloride (Normal Saline) 1,000 mls @ 75 mls/hr IV ASDIRECTED [facility] Last Admin: 06/18/17 00:18 Dose: 75 mls/hr Sodium Chloride (Normal Saline) 500 mls @ 50 mls/hr IV DAILY [facility] Last Admin: 06/18/17 11:58 Dose: 50 mls/hr Magnesium Sulfate 2 gm/ Premix 50 mls @ 25 mls/hr IV ONETIME ONE Stop: 06/18/17 21:11 Last Admin: 06/18/17 22:31 Dose: Not Given Potassium Chloride 10 meq/ (Premix) 100 mls @ 100 mls/hr IV Q1H [facility] Stop: 06/18/17 23:29 Last Admin: 06/18/17 22:31 Dose: Not Given Magnesium Sulfate 2 gm/ Premix 50 mls @ 25 mls/hr IV ONETIME ONE Stop: 06/19/17 12:32 Last Admin: 06/19/17 11:06 Dose: 25 mls/hr Vancomycin HCl 1 gm/ Sodium (Chloride) 250 mls @ 250 mls/hr IV ONETIME ONE Stop: 06/20/17 22:10 Last Admin: 06/20/17 21:58 Dose: 250 mls/hr Iopamidol (Isovue-370 (76%)) 100 ml IVPUSH ONETIME ONE Stop: 06/15/17 20:32 Last Admin: 06/15/17 21:17 Dose: 100 ml Lidocaine HCl (Xylocaine 2% Viscous) 15 ml PO ASDIRECTED PRN PRN Reason: oral cavity discomfort Last Admin: 06/22/17 16:40 Dose: 15 ml Magnesium Oxide (Magnesium Oxide) 400 mg PO ONETIME ONE Stop: 06/18/17 19:33 Last Admin: 06/18/17 21:04 Dose: 400 mg Miscellaneous Information (Remove Patch) 1 ea TRDERM Q72H [facility] Miscellaneous Information (Remove Patch) 1 ea TRDERM Q72H [facility] Potassium Chloride (Klor-Con M20) 40 meq PO BID@0100,2100 [facility] Stop: 06/19/17 01:01 Last Admin: 06/19/17 01:47 Dose: 40 meq Potassium Chloride (Klor-Con M20) 40 meq PO ONETIME ONE Stop: 06/20/17 09:16 Last Admin: 06/20/17 09:42 Dose: 40 meq Scopolamine (Transderm-Scop) 1.5 mg TRDERM Q72H [facility] Last Admin: 06/16/17 11:12 Dose: Not Given Scopolamine (Transderm-Scop) 1.5 mg TRDERM Q72H [facility] Scopolamine (Transderm-Scop) 1.5 mg TRDERM Q72H [facility] Last Admin: 06/16/17 21:53 Dose: 1.5 mg Tbo-Filgrastim (Granix) 300 mcg SUBCUT DAILY [facility] Stop: 06/17/17 09:01 Last Admin: 06/17/17 12:33 Dose: Not Given Tbo-Filgrastim (Granix) 300 mcg SUBCUT ONETIME ONE Stop: 06/19/17 12:01 Last Admin: 06/19/17 12:22 Dose: 300 mcg - Exam Quality Assessment: Supplemental Oxygen General: Alert, Oriented, Cooperative, No Acute Distress HEENT: Pupils Equal, Pupils Reactive, EOMI, Mucous Membr. Moist/[place] Neck: Supple, Trachea Midline Lungs: Clear to Auscultation, Normal Respiratory Effort, Decreased Breath Sounds Cardiovascular: Regular Rate, Regular Rhythm GI/Abdominal Exam: Normal Bowel Sounds, Soft, Non-Tender, No Organomegaly, No Distention, No Abnormal Bruit, No Mass (Female) Exam: Deferred Back Exam: Normal Inspection, Decreased Range of Motion Extremities: Normal Inspection, Normal Range of Motion, Non-Tender, No Pedal Edema, Normal Capillary Refill Peripheral Pulses: 2+: Dorsalis Pedis (L), Dorsalis Pedis (R) Skin: Warm, Dry, Intact Neurological: No New Focal Deficit Psy/Mental Status: Alert, Normal Affect, Normal Mood - Problem List Review Problem List Initiated/Reviewed/Updated: Yes - My Orders Last 24 Hours: My Active Orders 06/23/17 10:21 DC Garcia Catheter [Urinary Catheter Removal] [RC] Per Unit Routine - Plan Plan:: Impression: Acute: Hypoxia - Improved - Risk Factors: Emphysema and Fibrosis - Contributory: Bronchitis vs PNA - High flow 15 L NC - Continue PRN BIPAP; IS/FV as directed - Encourage to ambulate Bronchitis vs PNA - Received one dose of Vanco - Continue Levaquin/Zosyn - Routine RT care, IS/FV as directed - Supplemental O2 - Recent CXR: ? 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
[2017-06-23] MEDS: Acetaminophen 325 MG Tab PO PRN ×3 (10:53→21:45)
[2017-06-23] MEDS ORDERED: Furosemide 40 MG/4 ML VIAL IVPUSH ONE (16:58)
[2017-06-23] MEDS: Codeine/guaiFENesin 100-10 MG/5 ML Syrup 5 ML Cup PO SCH ×2 (17:46→22:32)
[2017-06-23] MEDS: Levofloxacin/Dextrose 5%-Water 750 MG in Premix Bag 1 BAG IV SCH (21:32)
[2017-06-23] MEDS: Amitriptyline 25 MG Tab PO SCH (21:33)
[2017-06-24] MEDS: Albuterol 0.083% 2.5 MG/3 ML Neb Soln NEB PRN (04:26)
[2017-06-24] MEDS: Morphine 4 MG/ML Syringe IVPUSH PRN (04:36)
[2017-06-24] MEDS: Albuterol/Ipratropium 3.0-0.5 MG/3 ML Neb Soln NEB SCH ×3 (06:41→18:41)
[2017-06-24] MEDS: Budesonide 0.25 MG/2 ML Neb Susp NEB SCH (06:42)
[2017-06-24] MEDS: Codeine/guaiFENesin 100-10 MG/5 ML Syrup 5 ML Cup PO SCH ×2 (06:47→12:33)
[2017-06-24] MEDS: Aspirin 81 MG Tab.EC PO SCH (07:54)
[2017-06-24] MEDS: Pantoprazole 40 MG Tab.CR PO SCH (07:54)
[2017-06-24] MEDS: Piperacillin/Tazobactam 4.5 GM in Sodium Chloride 0.9% 100 ML IV SCH (07:55)
[2017-06-24] MEDS: Losartan 25 MG Tab PO SCH (08:10)
[2017-06-24] MEDS: Metoprolol Succinate 50 MG Tab.ER PO SCH (08:12)
[2017-06-24] MEDS: Enoxaparin 40 MG/0.4 ML Syringe SUBCUT SCH (08:13)
[2017-06-24] MEDS: Rosuvastatin 10 MG Tab PO SCH (08:13)
[2017-06-24] MEDS: Pregabalin 25 MG Cap PO SCH ×2 (08:13→15:56)
[2017-06-24] MEDS: Bisacodyl 5 MG Tab PO SCH (08:17)
[2017-06-24] MEDS: Docusate Sodium 100 MG Cap PO SCH (08:17)
--- NOTE | 2017-06-24 08:33 | CR ---
Chest: Portable view of the chest was obtained. Comparison: Prior chest x-ray of 06/21/17. Heart slightly enlarged. Tortuous thoracic aorta is seen. Infusion port is seen entering from the left side. Scoliosis and degenerative change is seen within the spine. Diffuse interstitial change is noted. Findings remain fairly stable from prior exam. Impression: 1. Diffuse interstitial change and other findings. No significant change is seen from previous chest x-ray. Diagnostic code #3 Agree with preliminary report issued by [facility] ([facility] preliminary report dictated on 06/23/17, 9:42 AM Central Time)
[2017-06-24] MEDS ORDERED: methylPREDNISolone Sodium Succinate 125 MG/2 ML SDV IVPUSH SCH (09:00)
--- NOTE | 2017-06-24 09:15 | PCM.PN ---
- General Info Date of Service: 06/24/17 Admission Dx/Problem (Free Text): Neutropenic Fever Subjective Update: STEPHANIE with hypoxia, required high flow last night. Has been started on BIPA 06/12 with improved RR and O2 saturation. Functional Status: Reports: Pain Controlled, Tolerating Diet, New Symptoms ( Severe Dyspnea/Hypoxemia). 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 She was also found tachycardic with O2 sat in the low 50s. At that time, she was already on 15L high flow O2 but immediately switched to BIPAP. ABG and stat CXR were ordered this morning. - Patient Data Vitals - Most Recent: Last Vital Signs Temp 36.3 C 06/24/17 08:00 Pulse 95 06/24/17 08:12 Resp 22 H 06/24/17 08:00 BP 122/71 06/24/17 08:12 Pulse Ox 86 L 06/24/17 08:00 Weight - Most Recent: 72.756 kg I&O - Last 24 Hours: Intake & Output 06/23/17 06/24/17 06/24/17 22:59 06:59 14:59 Intake Total 527 700 Output Total 300 300 Balance 227 400 Lab Results Last 24 Hours: Laboratory Results - last 24 hr 06/24/17 06/24/17 06/24/17 Range/Units 05:51 05:51 05:51 WBC 7.71 (3.98-10.04) K/mm3 RBC 3.46 L (3.98-5.22) M/mm3 Hgb 9.9 L (11.2-15.7) gm/L Hct 32.1 L (34.1-44.9) % MCV 92.8 (79.4-94.8) fl MCH 28.6 (25.6-32.2) pg MCHC 30.8 L (32.2-35.5) g/dl RDW Std Deviation 57.1 H (36.4-46.3) fL Plt Count 232 (182-369) K/mm3 MPV 10.2 (9.4-12.3) fl Neut % (Auto) 84.8 H (34.0-71.1) % Lymph % (Auto) 4.5 L (19.3-51.7) % Park % (Auto) 8.8 (4.7-12.5) % Eos % (Auto) 0 L (0.7-5.8) Baso % (Auto) 0.1 (0.1-1.2) % Neut # (Auto) 6.53 H (1.56-6.13) K/mm3 Lymph # (Auto) 0.35 L (1.18-3.74) K/mm3 Park # (Auto) 0.68 H (0.24-0.36) K/mm3 Eos # (Auto) 0.00 L (0.04-0.36) K/mm3 Baso # (Auto) 0.01 (0.01-0.08) K/mm3 Manual Slide Review Abnormal smear Puncture Site ABG pH (7.35-7.45) ABG pCO2 (35.0-45.0) mmHg ABG pO2 (80.0-100.0) mmHg ABG HCO3 (22.0-26.0) meq/L ABG O2 Saturation (96.0-97.0) % ABG Base Excess (-2-2.0) Harsha Test O2 Delivery Device Oxygen Flow Rate FiO2 (21.00-100.00) % PEEP cmH20 Pressure Support cmH2O Sodium 146 H (136-145) mEq/L Potassium 3.1 L (3.5-5.1) mEq/L Chloride 109 H (98-107) mEq/L Carbon Dioxide 31 (21-32) mEq/L Anion Gap 9.1 (5-15) BUN 21 H (7-18) mg/dL Creatinine 0.8 (0.55-1.02) mg/dL Est Cr Clr Drug Dosing 57.20 mL/min Estimated GFR (MDRD) > 60 (>60) mL/min BUN/Creatinine Ratio 26.3 H (14-18) Glucose 95 (83-115) mg/dL Calcium 9.0 (8.5-10.1) mg/dL Magnesium 2.3 (1.8-2.4) mg/dl C-Reactive Protein 3.3 H* (<1.0) mg/dL 06/24/ Range/Units 08:15 WBC (3.98-10.04) K/mm3 RBC (3.98-5.22) M/mm3 Hgb (11.2-15.7) gm/L Hct (34.1-44.9) % MCV (79.4-94.8) fl MCH (25.6-32.2) pg MCHC (32.2-35.5) g/dl RDW Std Deviation (36.4-46.3) fL Plt Count (182-369) K/mm3 MPV (9.4-12.3) fl Neut % (Auto) (34.0-71.1) % Lymph % (Auto) (19.3-51.7) % Park % (Auto) (4.7-12.5) % Eos % (Auto) (0.7-5.8) Baso % (Auto) (0.1-1.2) % Neut # (Auto) (1.56-6.13) K/mm3 Lymph # (Auto) (1.18-3.74) K/mm3 Park # (Auto) (0.24-0.36) K/mm3 Eos # (Auto) (0.04-0.36) K/mm3 Baso # (Auto) (0.01-0.08) K/mm3 Manual Slide Review Puncture Site Lt radial ABG pH 7.43 (7.35-7.45) ABG pCO2 45.0 (35.0-45.0) mmHg ABG pO2 60.0 L (80.0-100.0) mmHg ABG HCO3 29.3 H (22.0-26.0) meq/L ABG O2 Saturation 81.0 L (96.0-97.0) % ABG Base Excess 4.8 H (-2-2.0) Harsha Test Positive O2 Delivery Device Bipap Oxygen Flow Rate 15.0 FiO2 15.00 L (21.00-100.00) % PEEP 6.0 cmH20 Pressure Support 12.0 cmH2O Sodium (136-145) mEq/L Potassium (3.5-5.1) mEq/L Chloride (98-107) mEq/L Carbon Dioxide (21-32) mEq/L Anion Gap (5-15) BUN (7-18) mg/dL Creatinine (0.55-1.02) mg/dL Est Cr Clr Drug Dosing mL/min Estimated GFR (MDRD) (>60) mL/min BUN/Creatinine Ratio (14-18) Glucose (83-115) mg/dL Calcium (8.5-10.1) mg/dL Magnesium (1.8-2.4) mg/dl C-Reactive Protein (<1.0) mg/dL [place] Results Last 24 Hours: Microbiology 06/20/17 21:15 Aerobic Blood Culture - Preliminary Blood - Venous - Lab Draw NO GROWTH AFTER 3 DAYS Anaerobic Blood Culture - Preliminary NO GROWTH AFTER 3 DAYS 06/20/17 20:51 Aerobic Blood Culture - Preliminary Blood - Venous NO GROWTH AFTER 3 DAYS Anaerobic Blood Culture - Preliminary NO GROWTH AFTER 3 DAYS Med Orders - Current: Current Medications Acetaminophen (Tylenol) 650 mg PO Q4H PRN PRN Reason: Fever Last Admin: 06/23/17 21:45 Dose: 650 mg Albuterol (Proventil Neb Soln) 2.5 mg NEB Q4HRRT PRN PRN Reason: Shortness of Breath Last Admin: 06/24/17 04:26 Dose: 2.5 mg Albuterol/Ipratropium (Duoneb 3.0-0.5 Mg/3 Ml) 3 ml NEB QIDRT [facility] Last Admin: 06/24/17 09:13 Dose: 3 ml Amitriptyline HCl (Elavil) 100 mg PO BEDTIME [facility] Last Admin: 06/23/17 21:33 Dose: 100 mg Aspirin (Halfprin) 81 mg PO WITHBREAKFAST [facility] Last Admin: 06/24/17 07:54 Dose: 81 mg Benzonatate (Tessalon Perles) 100 mg PO TID PRN PRN Reason: Cough Last Admin: 06/22/17 16:53 Dose: 100 mg Bisacodyl (Dulcolax) 5 mg PO DAILY [facility] Last Admin: 06/24/17 08:17 Dose: Not Given Budesonide (Pulmicort) 0.25 mg NEB BIDRT [facility] Last Admin: 06/24/17 06:42 Dose: 0.25 mg Diphenhydr/Magaldrate/Simeth/Lidoca (First-Mouthwash Blm Susp) 5 ml PO Q4H PRN PRN Reason: MOUTH SORES Docusate Sodium (Colace) 100 mg PO BID [facility] Last Admin: 06/24/17 08:17 Dose: Not Given Enoxaparin Sodium (Lovenox) 40 mg SUBCUT DAILY [facility] Last Admin: 06/24/17 08:13 Dose: 40 mg Fentanyl (Duragesic) 12 mcg TRDERM Q72H [facility] Last Admin: 06/22/17 22:05 Dose: 12 mcg Guaifenesin/Codeine Phosphate (Robitussin Ac) 10 ml PO Q6H [facility] Last Admin: 06/24/17 06:47 Dose: Not Given Levofloxacin/Dextrose 750 mg/ (Premix) 150 mls @ 100 mls/hr IV Q24H [facility] Last Admin: 06/23/17 21:32 Dose: 100 mls/hr Piperacillin Sod/Tazobactam (Sod 4.5 gm/ Sodium Chloride) 100 mls @ 25 mls/hr IV Q8H [facility] Last Admin: 06/24/17 07:55 Dose: 25 mls/hr Losartan Potassium (Cozaar) 25 mg PO DAILY [facility] Last Admin: 06/24/17 08:10 Dose: 25 mg Methylprednisolone Sodium Succinate (Solu-Medrol) 60 mg IVPUSH Q12H [facility] Last Admin: 06/24/17 08:13 Dose: 60 mg Metoprolol Succinate (Toprol Xl) 50 mg PO BID [facility] Last Admin: 06/24/17 08:12 Dose: 50 mg Miscellaneous Information (Remove Patch) 1 ea TRDERM Q72H [facility] Last Admin: 06/22/17 21:48 Dose: 1 ea Miscellaneous Information (Remove Patch) 1 ea TRDERM Q72H [facility] Last Admin: 06/22/17 21:51 Dose: Not Given Morphine Sulfate (Morphine) 1 mg IVPUSH Q2H PRN PRN Reason: Shortness of Breath Last Admin: 06/24/17 04:36 Dose: 1 mg Ondansetron HCl (Zofran) 4 mg IVPUSH Q8H PRN PRN Reason: Nausea Last Admin: 06/21/17 10:02 Dose: 4 mg Ondansetron HCl (Zofran Odt) 4 mg PO Q6H PRN PRN Reason: Other Pantoprazole Sodium (Protonix) 40 mg PO DAILY@0700 [facility] Last Admin: 06/24/17 07:54 Dose: 40 mg Pregabalin (Lyrica) 50 mg PO TID [facility] Last Admin: 06/24/17 08:13 Dose: 50 mg Rosuvastatin Calcium (Crestor) 20 mg PO DAILY [facility] Last Admin: 06/24/17 08:13 Dose: 20 mg Sodium Chloride (Saline Flush) 10 ml FLUSH ASDIRECTED PRN PRN Reason: Keep Vein Open Last Admin: 06/15/17 21:17 Dose: 10 ml Discontinued Medications Acetaminophen (Tylenol) 650 mg PO Q6H PRN PRN Reason: Pain Al Hydroxide/Mg Hydroxide (Mag-Al Plus) 15 ml PO Q8H [facility] Stop: 06/20/17 02:38 Last Admin: 06/20/17 01:42 Dose: Not Given Albuterol (Proventil Neb Soln) 2.5 mg NEB QIDRT [facility] Last Admin: 06/20/17 20:50 Dose: 2.5 mg Albuterol/Ipratropium (Duoneb 3.0-0.5 Mg/3 Ml) Confirm Administered Dose 3 ml .ROUTE .STK-MED ONE Stop: 06/20/17 22:31 Last Admin: 06/20/17 22:57 Dose: Not Given Albuterol/Ipratropium (Duoneb 3.0-0.5 Mg/3 Ml) Confirm Administered Dose 3 ml .ROUTE .STK-MED ONE Stop: 06/21/17 07:36 Last Admin: 06/21/17 09:21 Dose: Not Given Amitriptyline HCl (Elavil) 100 mg PO ONETIME ONE Stop: 06/16/17 01:29 Last Admin: 06/16/17 01:38 Dose: 100 mg Amitriptyline HCl (Elavil) 100 mg PO BEDTIME [facility] Last Admin: 06/16/17 23:28 Dose: Not Given Enoxaparin Sodium (Lovenox) 40 mg SUBCUT ONETIME ONE Stop: 06/15/17 22:09 Last Admin: 06/15/17 22:36 Dose: 40 mg Fentanyl (Duragesic) 12 mcg TRDERM Q72H [facility] Furosemide (Lasix) 20 mg IVPUSH DAILY ONE Stop: 06/18/17 07:59 Last Admin: 06/18/17 12:19 Dose: Not Given Furosemide (Lasix) 20 mg IVPUSH NOW ONE Stop: 06/19/17 10:30 Last Admin: 06/19/17 11:05 Dose: 20 mg Furosemide (Lasix) 20 mg IVPUSH NOW ONE Stop: 06/22/17 21:16 Last Admin: 06/22/17 21:47 Dose: 20 mg Furosemide (Lasix) 10 mg IVPUSH NOW ONE Stop: 06/23/17 16:59 Last Admin: 06/23/17 17:45 Dose: 10 mg Glucose Oxid/Lactoperoxid/Muramidas (Biotene Oralbalance Gel) 42 gm MUCMEM ASDIRECTED [facility] Glucose Oxid/Lactoperoxid/Muramidas (Biotene Oralbalance Gel) 42 gm MUCMEM Q4HR PRN PRN Reason: sores in mouth Guaifenesin/Codeine Phosphate (Robitussin Ac) 10 ml PO Q6H PRN PRN Reason: Cough Last Admin: 06/23/17 00:11 Dose: 10 ml Sodium Chloride (Normal Saline) 1,000 mls @ 250 mls/hr IV ONETIME ONE Stop: 06/15/17 22:37 Last Admin: 06/15/17 19:29 Dose: 250 mls/hr Sodium Chloride (Normal Saline) 100 mls @ 75 mls/hr IV ASDIRECTED [facility] Last Admin: 06/16/17 20:25 Dose: 75 mls/hr Sodium Chloride (Normal Saline) 1,000 mls @ 100 mls/hr IV ONETIME ONE Stop: 06/16/17 08:03 Last Admin: 06/15/17 22:10 Dose: 100 mls/hr Levofloxacin/Dextrose 750 mg/ (Premix) 150 mls @ 100 mls/hr IV ONETIME ONE Stop: 06/15/17 23:35 Last Admin: 06/15/17 22:30 Dose: 100 mls/hr Piperacillin Sod/Tazobactam (Sod 4.5 gm/ Sodium Chloride) 100 mls @ 25 mls/hr IV Q8H [facility] Last Admin: 06/20/17 14:16 Dose: 25 mls/hr Levofloxacin/Dextrose (Levaquin In D5w 750 Mg/150 Ml) Confirm Administered Dose 150 mls @ as directed IV .STK-MED ONE Stop: 06/15/17 22:21 Last Admin: 06/16/17 00:38 Dose: Not Given Magnesium Sulfate 2 gm/ Premix 50 mls @ 25 mls/hr IV ONETIME ONE Stop: 06/16/17 00:27 Last Admin: 06/16/17 01:20 Dose: Not Given Magnesium Sulfate/Dextrose 1 (gm/ Premix) 100 mls @ 100 mls/hr IV Q1H [facility] Stop: 06/16/17 05:14 Last Admin: 06/16/17 01:24 Dose: Not Given Magnesium Sulfate 2 gm/ Premix 50 mls @ 25 mls/hr IV ONETIME ONE Stop: 06/16/17 03:14 Last Admin: 06/16/17 01:20 Dose: 25 mls/hr Sodium Chloride (Normal Saline) 1,000 mls @ 75 mls/hr IV ASDIRECTED [facility] Last Admin: 06/18/17 00:18 Dose: 75 mls/hr Sodium Chloride (Normal Saline) 500 mls @ 50 mls/hr IV DAILY [facility] Last Admin: 06/18/17 11:58 Dose: 50 mls/hr Magnesium Sulfate 2 gm/ Premix 50 mls @ 25 mls/hr IV ONETIME ONE Stop: 06/18/17 21:11 Last Admin: 06/18/17 22:31 Dose: Not Given Potassium Chloride 10 meq/ (Premix) 100 mls @ 100 mls/hr IV Q1H [facility] Stop: 06/18/17 23:29 Last Admin: 06/18/17 22:31 Dose: Not Given Magnesium Sulfate 2 gm/ Premix 50 mls @ 25 mls/hr IV ONETIME ONE Stop: 06/19/17 12:32 Last Admin: 06/19/17 11:06 Dose: 25 mls/hr Vancomycin HCl 1 gm/ Sodium (Chloride) 250 mls @ 250 mls/hr IV ONETIME ONE Stop: 06/20/17 22:10 Last Admin: 06/20/17 21:58 Dose: 250 mls/hr Iopamidol (Isovue-370 (76%)) 100 ml IVPUSH ONETIME ONE Stop: 06/15/17 20:32 Last Admin: 06/15/17 21:17 Dose: 100 ml Lidocaine HCl (Xylocaine 2% Viscous) 15 ml PO ASDIRECTED PRN PRN Reason: oral cavity discomfort Last Admin: 06/22/17 16:40 Dose: 15 ml Magnesium Oxide (Magnesium Oxide) 400 mg PO ONETIME ONE Stop: 06/18/17 19:33 Last Admin: 06/18/17 21:04 Dose: 400 mg Methylprednisolone Sodium Succinate (Solu-Medrol) 125 mg IVPUSH Q6H [facility] Last Admin: 06/23/17 15:21 Dose: 125 mg Miscellaneous Information (Remove Patch) 1 ea TRDERM Q72H [facility] Miscellaneous Information (Remove Patch) 1 ea TRDERM Q72H [facility] Potassium Chloride (Klor-Con M20) 40 meq PO BID@0100,2100 [facility] Stop: 06/19/17 01:01 Last Admin: 06/19/17 01:47 Dose: 40 meq Potassium Chloride (Klor-Con M20) 40 meq PO ONETIME ONE Stop: 06/20/17 09:16 Last Admin: 06/20/17 09:42 Dose: 40 meq Scopolamine (Transderm-Scop) 1.5 mg TRDERM Q72H [facility] Last Admin: 06/16/17 11:12 Dose: Not Given Scopolamine (Transderm-Scop) 1.5 mg TRDERM Q72H [facility] Scopolamine (Transderm-Scop) 1.5 mg TRDERM Q72H [facility] Last Admin: 06/16/17 21:53 Dose: 1.5 mg Tbo-Filgrastim (Granix) 300 mcg SUBCUT DAILY [facility] Stop: 06/17/17 09:01 Last Admin: 06/17/17 12:33 Dose: Not Given Tbo-Filgrastim (Granix) 300 mcg SUBCUT ONETIME ONE Stop: 06/19/17 12:01 Last Admin: 06/19/17 12:22 Dose: 300 mcg - My Orders Last 24 Hours: My Active Orders 06/23/17 17:15 Codeine/guaiFENesin [Robitussin AC] 10 ml PO Q6H 06/24/17 08:14 Chest 1V Frontal [CR] Stat 06/24/17 09:00 methylPREDNISolone Sod Succ [Solu-MEDROL] 60 mg IVPUSH Q12H - Plan Plan:: Impression: Acute: Hypoxia - Improved - Risk Factors: Emphysema and Fibrosis - Contributory: Bronchitis vs PNA - High flow 15 L NC - Continue PRN BIPAP; IS/FV as directed - Encourage to ambulate Bronchitis vs PNA - Received one dose of Vanco - Continue Levaquin/Zosyn - Routine RT care, IS/FV as directed - Supplemental O2 - Recent CXR: ? 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
--- NOTE | 2017-06-24 09:36 | CR ---
Chest: Portable view of the chest was obtained. Comparison: Prior chest x-ray of 06/23/17. Diffuse interstitial change is again noted. Most of these findings are stable from prior study although there is possible increased density from prior chest x-ray within the left upper lung within the perihilar region. Heart size and mediastinum are stable. Left-sided infusion catheter is seen. Impression: 1. Questionable increased density within the left upper chest from prior study. Findings may represent asymmetric pulmonary vascular congestion as well as pneumonia. Changes of aspiration are also possible. 2. Other interstitial change appears to be fairly stable. Diagnostic code #3
[2017-06-24] MEDS: Acetaminophen 325 MG Tab PO PRN (10:26)
[2017-06-24] MEDS ORDERED: Morphine 2 MG/ML Syringe IVPUSH PRN (11:28)
[2017-06-24 12:17] VITALS: BP 138/89
[2017-06-24] MEDS ORDERED: Rocuronium 50 MG/5 ML Vial ONE (13:00)
[2017-06-24] MEDS ORDERED: Rocuronium 50 MG/5 ML Vial IVPUSH ONE (13:45)
[2017-06-24] MEDS ORDERED: Midazolam 1 MG/ML 5 ML SDV IVPUSH ONE (13:45)
--- NOTE | 2017-06-24 13:53 | PCM.DCSUM1 ---
Discharge Summary - Hospital Course Brief History: 71 year old female recently completed CTX for NHL with bone mets , presents after several ED presentations for IVF/PRBCs. At this time she reports a temp of 102 F associated with fever, chills, malaise as well as generalized weakness. - Discharge Data Discharge Date: 06/24/17 Discharge Disposition: DC/Tfer to [facility] 02 Condition: Good - Discharge Diagnosis/Problem(s) (1) Febrile neutropenia SNOMED Code(s): 972304383 ICD Code: D70.9 - NEUTROPENIA, UNSPECIFIED; R50.81 - FEVER PRESENTING WITH CONDITIONS CLASSIFIED ELSEWHERE Status: Acute (2) Pneumonia SNOMED Code(s): 075797989 ICD Code: J18.9 - PNEUMONIA, UNSPECIFIED ORGANISM Status: Acute Qualifiers: Pneumonia type: due to unspecified organism Laterality: unspecified laterality Lung location: unspecified part of lung Qualified Code(s): J18.9 - Pneumonia, unspecified organism (3) Acute lung injury SNOMED Code(s): 945600204 ICD Code: S27.309A - UNSPECIFIED INJURY OF LUNG, UNSPECIFIED, INITIAL ENCOUNTER Status: Acute Qualifiers: Encounter type: initial encounter Qualified Code(s): S27.309A - Unspecified injury of lung, unspecified, initial encounter (4) ARDS (adult respiratory distress syndrome) SNOMED Code(s): 11259934 ICD Code: J80 - ACUTE RESPIRATORY DISTRESS SYNDROME Status: Acute - Patient Summary/Data Operative Procedure(s) Performed: Rapid Sequence Intubation Complications: None Consults: Consultations 06/17/17 11:16 OT Evaluation and Treatment [CONS] Routine PT Evaluation and Treatment [CONS] Routine Labs Pending at D/C: None Recommended Follow-up Testing/Procedures: Possible bronchoscopy Planned Operative Procedure(s) after DC: None Hospital Course: Patient was primarily admitted for medical treatment of neutropenic fever. 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 She received adequate treatment to improved her CBC. Unfortunately, her hospital course was complicated by development of pneumonia. She was provided intravenous antibiotics but she responded marginally and subsequently developed acute lung injury and likely went into what we believed an early developing ARDS. Patient was on high flow 15 nasal canula with intermittent BIPAP to support her oxygenation. She had been here for over 9 days with little to no improvement on her respiratory status. After she developed acute respiratory distress this morning, we immediately addressed her code status. After talking to her family, she decided to go for comfort measures. However not long after that, she rescinded her code status and upgraded it instead to full code with request transfer to [place]. We immediately contact [facility] and got a hold of Dr. Perkins, Business System Consultant. After discussing her case with him, Dr. Perkins agreed to take her in but recommended she be intubated. Right away, we updated the patient and her family and they agreed for the planned transfer. - Patient Instructions Diet: NPO Activity: Bedrest Driving: Do Not Drive Notify Provider of: Fever, Increased Pain, Swelling and Redness, Nausea and/or Vomiting Other/Special Instructions: - Transfer to [facility] under the services of Dr. Perkins, Business System Consultant - Discharge Plan Home Medications: Home Meds Docusate Sodium [Colace] 100 mg PO BID #60 cap 02/12/17 [Rx] Naloxone [Narcan] 0.4 mg INJECT ASDIRECTED PRN #2 syringe 02/12/17 [Rx] Acetaminophen 650 mg PO Q6H PRN 03/30/17 [History] Albuterol [Ventolin HFA] 1 puff INH BID PRN 03/30/17 [History] Amitriptyline HCl 100 mg PO BEDTIME 03/30/17 [History] Aspirin 81 mg PO BRK 03/30/17 [History] Losartan [Cozaar] 25 mg PO BID 03/30/17 [History] Metoprolol Succinate [Toprol XL] 50 mg PO BID 03/30/17 [History] Omeprazole 20 mg PO DAILY 03/30/17 [History] Pregabalin [Lyrica] 50 mg PO TID 03/30/17 [History] Rosuvastatin [Crestor] 20 mg PO DAILY 03/30/17 [History] Scopolamine [Transderm-Scop] 1.5 mg TRDERM Q72H 03/30/17 [History] fentaNYL [Fentanyl] 1 each TD ASDIRECTED 03/30/17 [History] Ondansetron [Zofran ODT] 4 mg PO Q6H PRN #20 tab.dis 04/05/17 [Rx] Referrals: Damon Florentino MD [Primary Care Provider] - - General Info Date of Service: 06/24/17 Admission Dx/Problem (Free Text: Neutropenic Fever Subjective Update: Follow Up Functional Status: Reports: Pain Controlled, New Symptoms (Dyspnea and shortness of breath). Denies: Ambulating, Urinating - Review of Systems General: Reports: Fatigue, Malaise. Denies: Fever, Chills HEENT: Reports: No Symptoms Pulmonary: Reports: Shortness of Breath Cardiovascular: Reports: No Symptoms Gastrointestinal: Reports: Decreased Appetite. Denies: Abdominal Pain, Nausea, Vomiting Genitourinary: Reports: No Symptoms Musculoskeletal: Reports: No Symptoms Skin: Denies: Cyanosis, Mottled, Pallor, Diaphoresis, Rash Neurological: Reports: Weakness. 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 She is now BIPAP but her O2 sat still in the low 80s. She does not looks good. - Patient Data Vitals - Most Recent: Last Vital Signs Temp 37.2 C 06/24/17 12:00 Pulse 102 H 06/24/17 12:00 Resp 19 06/24/17 12:00 BP 138/89 06/24/17 12:00 Pulse Ox 90 L 06/24/17 12:00 Weight - Most Recent: 72.756 kg I&O - Last 24 hours: Intake & Output 06/23/17 06/24/17 06/24/17 22:59 06:59 14:59 Intake Total 527 700 Output Total 300 300 Balance 227 400 Lab Results - Last 24 hrs: Laboratory Results - last 24 hr 06/24/17 06/24/17 06/24/17 Range/Units 05:51 05:51 05:51 WBC 7.71 (3.98-10.04) K/mm3 RBC 3.46 L (3.98-5.22) M/mm3 Hgb 9.9 L (11.2-15.7) gm/L Hct 32.1 L (34.1-44.9) % MCV 92.8 (79.4-94.8) fl MCH 28.6 (25.6-32.2) pg MCHC 30.8 L (32.2-35.5) g/dl RDW Std Deviation 57.1 H (36.4-46.3) fL Plt Count 232 (182-369) K/mm3 MPV 10.2 (9.4-12.3) fl Neut % (Auto) 84.8 H (34.0-71.1) % Lymph % (Auto) 4.5 L (19.3-51.7) % Cameron % (Auto) 8.8 (4.7-12.5) % Eos % (Auto) 0 L (0.7-5.8) Baso % (Auto) 0.1 (0.1-1.2) % Neut # (Auto) 6.53 H (1.56-6.13) K/mm3 Lymph # (Auto) 0.35 L (1.18-3.74) K/mm3 Cameron # (Auto) 0.68 H (0.24-0.36) K/mm3 Eos # (Auto) 0.00 L (0.04-0.36) K/mm3 Baso # (Auto) 0.01 (0.01-0.08) K/mm3 Manual Slide Review Abnormal smear Puncture Site ABG pH (7.35-7.45) ABG pCO2 (35.0-45.0) mmHg ABG pO2 (80.0-100.0) mmHg ABG HCO3 (22.0-26.0) meq/L ABG O2 Saturation (96.0-97.0) % ABG Base Excess (-2-2.0) Harsha Test O2 Delivery Device Oxygen Flow Rate FiO2 (21.00-100.00) % PEEP cmH20 Pressure Support cmH2O Sodium 146 H (136-145) mEq/L Potassium 3.1 L (3.5-5.1) mEq/L Chloride 109 H (98-107) mEq/L Carbon Dioxide 31 (21-32) mEq/L Anion Gap 9.1 (5-15) BUN 21 H (7-18) mg/dL Creatinine 0.8 (0.55-1.02) mg/dL Est Cr Clr Drug Dosing 57.20 mL/min Estimated GFR (MDRD) > 60 (>60) mL/min BUN/Creatinine Ratio 26.3 H (14-18) Glucose 95 (83-115) mg/dL Calcium 9.0 (8.5-10.1) mg/dL Magnesium 2.3 (1.8-2.4) mg/dl C-Reactive Protein 3.3 H* (<1.0) mg/dL 06/24/17 Range/Units 08:15 WBC (3.98-10.04) K/mm3 RBC (3.98-5.22) M/mm3 Hgb (11.2-15.7) gm/L Hct (34.1-44.9) % MCV (79.4-94.8) fl MCH (25.6-32.2) pg MCHC (32.2-35.5) g/dl RDW Std Deviation (36.4-46.3) fL Plt Count (182-369) K/mm3 MPV (9.4-12.3) fl Neut % (Auto) (34.0-71.1) % Lymph % (Auto) (19.3-51.7) % Cameron % (Auto) (4.7-12.5) % Eos % (Auto) (0.7-5.8) Baso % (Auto) (0.1-1.2) % Neut # (Auto) (1.56-6.13) K/mm3 Lymph # (Auto) (1.18-3.74) K/mm3 Cameron # (Auto) (0.24-0.36) K/mm3 Eos # (Auto) (0.04-0.36) K/mm3 Baso # (Auto) (0.01-0.08) K/mm3 Manual Slide Review Puncture Site Lt radial ABG pH 7.43 (7.35-7.45) ABG pCO2 45.0 (35.0-45.0) mmHg ABG pO2 60.0 L (80.0-100.0) mmHg ABG HCO3 29.3 H (22.0-26.0) meq/L ABG O2 Saturation 81.0 L (96.0-97.0) % ABG Base Excess 4.8 H (-2-2.0) Harsha Test Positive O2 Delivery Device Bipap Oxygen Flow Rate 15.0 FiO2 15.00 L (21.00-100.00) % PEEP 6.0 cmH20 Pressure Support 12.0 cmH2O Sodium (136-145) mEq/L Potassium (3.5-5.1) mEq/L Chloride (98-107) mEq/L Carbon Dioxide (21-32) mEq/L Anion Gap (5-15) BUN (7-18) mg/dL Creatinine (0.55-1.02) mg/dL Est Cr Clr Drug Dosing mL/min Estimated GFR (MDRD) (>60) mL/min BUN/Creatinine Ratio (14-18) Glucose (83-115) mg/dL Calcium (8.5-10.1) mg/dL Magnesium (1.8-2.4) mg/dl C-Reactive Protein (<1.0) mg/dL ROHAN Results - Last 24 hrs: Microbiology 06/20/17 21:15 Aerobic Blood Culture - Preliminary Blood - Venous - Lab Draw NO GROWTH AFTER 3 DAYS Anaerobic Blood Culture - Preliminary NO GROWTH AFTER 3 DAYS 06/20/17 20:51 Aerobic Blood Culture - Preliminary Blood - Venous NO GROWTH AFTER 3 DAYS Anaerobic Blood Culture - Preliminary NO GROWTH AFTER 3 DAYS Med Orders - Current: Current Medications Acetaminophen (Tylenol) 650 mg PO Q4H PRN PRN Reason: Fever Last Admin: 06/24/17 10:26 Dose: 650 mg Albuterol (Proventil Neb Soln) 2.5 mg NEB Q4HRRT PRN PRN Reason: Shortness of Breath Last Admin: 06/24/17 04:26 Dose: 2.5 mg Albuterol/Ipratropium (Duoneb 3.0-0.5 Mg/3 Ml) 3 ml NEB QIDRT [facility] Last Admin: 06/24/17 09:13 Dose: 3 ml Amitriptyline HCl (Elavil) 100 mg PO BEDTIME [facility] Last Admin: 06/23/17 21:33 Dose: 100 mg Aspirin (Halfprin) 81 mg PO WITHBREAKFAST [facility] Last Admin: 06/24/17 07:54 Dose: 81 mg Benzonatate (Tessalon Perles) 100 mg PO TID PRN PRN Reason: Cough Last Admin: 06/22/17 16:53 Dose: 100 mg Bisacodyl (Dulcolax) 5 mg PO DAILY [facility] Last Admin: 06/24/17 08:17 Dose: Not Given Budesonide (Pulmicort) 0.25 mg NEB BIDRT [facility] Last Admin: 06/24/17 06:42 Dose: 0.25 mg Diphenhydr/Magaldrate/Simeth/Lidoca (First-Mouthwash Blm Susp) 5 ml PO Q4H PRN PRN Reason: MOUTH SORES Docusate Sodium (Colace) 100 mg PO BID [facility] Last Admin: 06/24/17 08:17 Dose: Not Given Enoxaparin Sodium (Lovenox) 40 mg SUBCUT DAILY [facility] Last Admin: 06/24/17 08:13 Dose: 40 mg Fentanyl (Duragesic) 12 mcg TRDERM Q72H [facility] Last Admin: 06/22/17 22:05 Dose: 12 mcg Guaifenesin/Codeine Phosphate (Robitussin Ac) 10 ml PO Q6H [facility] Last Admin: 06/24/17 12:33 Dose: Not Given Propofol (Diprivan 100 Ml) 100 mls @ 2.16 mls/hr IV TITRATE [facility]; 5 MCG/KG/MIN PRN Reason: Protocol Losartan Potassium (Cozaar) 25 mg PO DAILY [facility] Last Admin: 06/24/17 08:10 Dose: 25 mg Methylprednisolone Sodium Succinate (Solu-Medrol) 60 mg IVPUSH Q12H [facility] Last Admin: 06/24/17 08:13 Dose: 60 mg Metoprolol Succinate (Toprol Xl) 50 mg PO BID [facility] Last Admin: 06/24/17 08:12 Dose: 50 mg Miscellaneous Information (Remove Patch) 1 ea TRDERM Q72H [facility] Last Admin: 06/22/17 21:48 Dose: 1 ea Miscellaneous Information (Remove Patch) 1 ea TRDERM Q72H [facility] Last Admin: 06/22/17 21:51 Dose: Not Given Morphine Sulfate (Morphine) 0.25 mg IVPUSH Q2H PRN PRN Reason: Shortness of Breath Ondansetron HCl (Zofran) 4 mg IVPUSH Q8H PRN PRN Reason: Nausea Last Admin: 06/21/17 10:02 Dose: 4 mg Ondansetron HCl (Zofran Odt) 4 mg PO Q6H PRN PRN Reason: Other Pantoprazole Sodium (Protonix) 40 mg PO DAILY@0700 [facility] Last Admin: 06/24/17 07:54 Dose: 40 mg Pregabalin (Lyrica) 50 mg PO TID [facility] Last Admin: 06/24/17 08:13 Dose: 50 mg Rosuvastatin Calcium (Crestor) 20 mg PO DAILY [facility] Last Admin: 06/24/17 08:13 Dose: 20 mg Sodium Chloride (Saline Flush) 10 ml FLUSH ASDIRECTED PRN PRN Reason: Keep Vein Open Last Admin: 06/15/17 21:17 Dose: 10 ml Discontinued Medications Acetaminophen (Tylenol) 650 mg PO Q6H PRN PRN Reason: Pain Al Hydroxide/Mg Hydroxide (Mag-Al Plus) 15 ml PO Q8H [facility] Stop: 06/20/17 02:38 Last Admin: 06/20/17 01:42 Dose: Not Given Albuterol (Proventil Neb Soln) 2.5 mg NEB QIDRT [facility] Last Admin: 06/20/17 20:50 Dose: 2.5 mg Albuterol/Ipratropium (Duoneb 3.0-0.5 Mg/3 Ml) Confirm Administered Dose 3 ml .ROUTE .STK-MED ONE Stop: 06/20/17 22:31 Last Admin: 06/20/17 22:57 Dose: Not Given Albuterol/Ipratropium (Duoneb 3.0-0.5 Mg/3 Ml) Confirm Administered Dose 3 ml .ROUTE .STK-MED ONE Stop: 06/21/17 07:36 Last Admin: 06/21/17 09:21 Dose: Not Given Amitriptyline HCl (Elavil) 100 mg PO ONETIME ONE Stop: 06/16/17 01:29 Last Admin: 06/16/17 01:38 Dose: 100 mg Amitriptyline HCl (Elavil) 100 mg PO BEDTIME [facility] Last Admin: 06/16/17 23:28 Dose: Not Given Enoxaparin Sodium (Lovenox) 40 mg SUBCUT ONETIME ONE Stop: 06/15/17 22:09 Last Admin: 06/15/17 22:36 Dose: 40 mg Fentanyl (Duragesic) 12 mcg TRDERM Q72H [facility] Furosemide (Lasix) 20 mg IVPUSH DAILY ONE Stop: 06/18/17 07:59 Last Admin: 06/18/17 12:19 Dose: Not Given Furosemide (Lasix) 20 mg IVPUSH NOW ONE Stop: 06/19/17 10:30 Last Admin: 06/19/17 11:05 Dose: 20 mg Furosemide (Lasix) 20 mg IVPUSH NOW ONE Stop: 06/22/17 21:16 Last Admin: 06/22/17 21:47 Dose: 20 mg Furosemide (Lasix) 10 mg IVPUSH NOW ONE Stop: 06/23/17 16:59 Last Admin: 06/23/17 17:45 Dose: 10 mg Glucose Oxid/Lactoperoxid/Muramidas (Biotene Oralbalance Gel) 42 gm MUCMEM ASDIRECTED [facility] Glucose Oxid/Lactoperoxid/Muramidas (Biotene Oralbalance Gel) 42 gm MUCMEM Q4HR PRN PRN Reason: sores in mouth Guaifenesin/Codeine Phosphate (Robitussin Ac) 10 ml PO Q6H PRN PRN Reason: Cough Last Admin: 06/23/17 00:11 Dose: 10 ml Sodium Chloride (Normal Saline) 1,000 mls @ 250 mls/hr IV ONETIME ONE Stop: 06/15/17 22:37 Last Admin: 06/15/17 19:29 Dose: 250 mls/hr Sodium Chloride (Normal Saline) 100 mls @ 75 mls/hr IV ASDIRECTED [facility] Last Admin: 06/16/17 20:25 Dose: 75 mls/hr Sodium Chloride (Normal Saline) 1,000 mls @ 100 mls/hr IV ONETIME ONE Stop: 06/16/17 08:03 Last Admin: 06/15/17 22:10 Dose: 100 mls/hr Levofloxacin/Dextrose 750 mg/ (Premix) 150 mls @ 100 mls/hr IV ONETIME ONE Stop: 06/15/17 23:35 Last Admin: 06/15/17 22:30 Dose: 100 mls/hr Piperacillin Sod/Tazobactam (Sod 4.5 gm/ Sodium Chloride) 100 mls @ 25 mls/hr IV Q8H [facility] Last Admin: 06/20/17 14:16 Dose: 25 mls/hr Levofloxacin/Dextrose (Levaquin In D5w 750 Mg/150 Ml) Confirm Administered Dose 150 mls @ as directed IV .STK-MED ONE Stop: 06/15/17 22:21 Last Admin: 06/16/17 00:38 Dose: Not Given Magnesium Sulfate 2 gm/ Premix 50 mls @ 25 mls/hr IV ONETIME ONE Stop: 06/16/17 00:27 Last Admin: 06/16/17 01:20 Dose: Not Given Magnesium Sulfate/Dextrose 1 (gm/ Premix) 100 mls @ 100 mls/hr IV Q1H [facility] Stop: 06/16/17 05:14 Last Admin: 06/16/17 01:24 Dose: Not Given Magnesium Sulfate 2 gm/ Premix 50 mls @ 25 mls/hr IV ONETIME ONE Stop: 06/16/17 03:14 Last Admin: 06/16/17 01:20 Dose: 25 mls/hr Levofloxacin/Dextrose 750 mg/ (Premix) 150 mls @ 100 mls/hr IV Q24H [facility] Last Admin: 06/23/17 21:32 Dose: 100 mls/hr Sodium Chloride (Normal Saline) 1,000 mls @ 75 mls/hr IV ASDIRECTED [facility] Last Admin: 06/18/17 00:18 Dose: 75 mls/hr Sodium Chloride (Normal Saline) 500 mls @ 50 mls/hr IV DAILY [facility] Last Admin: 06/18/17 11:58 Dose: 50 mls/hr Magnesium Sulfate 2 gm/ Premix 50 mls @ 25 mls/hr IV ONETIME ONE Stop: 06/18/17 21:11 Last Admin: 06/18/17 22:31 Dose: Not Given Potassium Chloride 10 meq/ (Premix) 100 mls @ 100 mls/hr IV Q1H [facility] Stop: 06/18/17 23:29 Last Admin: 06/18/17 22:31 Dose: Not Given Magnesium Sulfate 2 gm/ Premix 50 mls @ 25 mls/hr IV ONETIME ONE Stop: 06/19/17 12:32 Last Admin: 06/19/17 11:06 Dose: 25 mls/hr Vancomycin HCl 1 gm/ Sodium (Chloride) 250 mls @ 250 mls/hr IV ONETIME ONE Stop: 06/20/17 22:10 Last Admin: 06/20/17 21:58 Dose: 250 mls/hr Piperacillin Sod/Tazobactam (Sod 4.5 gm/ Sodium Chloride) 100 mls @ 25 mls/hr IV Q8H [facility] Last Admin: 06/24/17 07:55 Dose: 25 mls/hr Iopamidol (Isovue-370 (76%)) 100 ml IVPUSH ONETIME ONE Stop: 06/15/17 20:32 Last Admin: 06/15/17 21:17 Dose: 100 ml Lidocaine HCl (Xylocaine 2% Viscous) 15 ml PO ASDIRECTED PRN PRN Reason: oral cavity discomfort Last Admin: 06/22/17 16:40 Dose: 15 ml Magnesium Oxide (Magnesium Oxide) 400 mg PO ONETIME ONE Stop: 06/18/17 19:33 Last Admin: 06/18/17 21:04 Dose: 400 mg Methylprednisolone Sodium Succinate (Solu-Medrol) 125 mg IVPUSH Q6H [facility] Last Admin: 06/23/17 15:21 Dose: 125 mg Midazolam HCl (Versed 1 Mg/Ml) 3 mg IVPUSH ONETIME ONE Stop: 06/24/17 13:46 Miscellaneous Information (Remove Patch) 1 ea TRDERM Q72H [facility] Miscellaneous Information (Remove Patch) 1 ea TRDERM Q72H [facility] Morphine Sulfate (Morphine) 1 mg IVPUSH Q2H PRN PRN Reason: Shortness of Breath Last Admin: 06/24/17 04:36 Dose: 1 mg Potassium Chloride (Klor-Con M20) 40 meq PO BID@0100,2100 [facility] Stop: 06/19/17 01:01 Last Admin: 06/19/17 01:47 Dose: 40 meq Potassium Chloride (Klor-Con M20) 40 meq PO ONETIME ONE Stop: 06/20/17 09:16 Last Admin: 06/20/17 09:42 Dose: 40 meq Rocuronium [place] (Zemuron) 45 mg IVPUSH ONETIME ONE Stop: 06/24/17 13:46 Scopolamine (Transderm-Scop) 1.5 mg TRDERM Q72H [facility] Last Admin: 06/16/17 11:12 Dose: Not Given Scopolamine (Transderm-Scop) 1.5 mg TRDERM Q72H [facility] Scopolamine (Transderm-Scop) 1.5 mg TRDERM Q72H [facility] Last Admin: 06/16/17 21:53 Dose: 1.5 mg Tbo-Filgrastim (Granix) 300 mcg SUBCUT DAILY [facility] Stop: 06/17/17 09:01 Last Admin: 06/17/17 12:33 Dose: Not Given Tbo-Filgrastim (Granix) 300 mcg SUBCUT ONETIME ONE Stop: 06/19/17 12:01 Last Admin: 06/19/17 12:22 Dose: 300 mcg - Exam Quality Assessment: Reports: Supplemental Oxygen General: Reports: Alert, Moderate Distress HEENT: Reports: Pupils Equal, Pupils Reactive, Mucous Membr. Moist/[place] Neck: Reports: Supple, No JVD Lungs: Reports: Crackles. Denies: Normal Respiratory Effort Cardiovascular: Reports: Regular Rhythm, Tachycardia GI/Abdominal Exam: Normal Bowel Sounds, Soft, Non-Tender, No Organomegaly, No Distention, No Abnormal Bruit, No Mass (Female) Exam: Deferred Rectal (Female) Exam: Deferred Back Exam: Reports: Normal Inspection, Decreased Range of Motion Extremities: Normal Inspection, Normal Range of Motion, Non-Tender, No Pedal Edema, Normal Capillary Refill Skin: Reports: Warm, Dry, Intact Neurological: Reports: No New Focal Deficit Psy/Mental Status: Reports: Alert, Normal Affect, Normal Mood *Q Meaningful Use (DIS) - VTE *Q VTE Criteria *Q: - Stroke *Q Stroke Criteria *Q: - AMI *Q AMI Criteria *Q:
--- NOTE | 2017-06-24 14:06 | PCM.PRNOTE ---
- Free Text/Narrative Note: Endotracheal Intubation Date: 06/24/2017 Time: 1340 Indication: Respiratory Distress Attending: Racquel Us DO A time-out was completed verifying correct patient, procedure, site, positioning , and special equipment if applicable. The patient was placed in a flat position. Sedation was obtained using 3 mg of Versed, and additionally with 60 mg of Rocuronium. The patient was easily ventilated using an ambu bag. The MAC 4 BLADE was used and inserted into the oropharynx at which time there was a Grade 1 view of the vocal cords. A 7-slovenian endotracheal tube was inserted and visualized going through the vocal cords. The stylette was removed. Colorimetric change was visualized on the CO2 meter. Breath sounds were heard in both lung loaiza equally. The endotracheal tube was placed at 22 cm, measured at the gum. Post intubation chest x-ray showed stable placement of ET tube.
--- NOTE | 2017-06-24 14:34 | CR ---
Chest: Portable view of the chest was obtained. Comparison: Prior chest x-ray of 06/24/17. Diffuse interstitial change is seen. Findings remain fairly stable. Endotracheal tube is seen with tip lying at the level of the clavicles. Left-sided infusion port is seen. Mild degenerative change is scattered within the spine. Impression: 1. Tip of endotracheal tube at the clavicular level. 2. Diffuse interstitial change which remains fairly stable. Diagnostic code #3
--- NOTE | 2017-06-24 14:41 | PCM.SN ---
- Free Text/Narrative Note: Patient woke up this am severely dyspneic, tachycardic/tachypenic and short of breath with an O2 sat in the low 50s. She was already on 15 high flow O2 but immediately switched to BIPAP. Her ABG this AM showed respiratory alkalosis with a PO2 of 60. Chest x-ray showed diffused pulmonary markings. Spoke to her about ALI/ARDS and informed patient this diagnosis was not good for her and that she might need intubation. Patient was DNI at that time but after carefully considering her options and talking to her family, she opted for comfort measures. About an hour after she rescinded her code status, she changed her mind and upgraded her code status to full code. From there, she requested transfer to [place] for upper level of care. Prior to transfer, Dr. Florentino and I spoke and discussed patient's clinical prognosis and diagnosis. Not too long after that, I called [facility] in [place] for possible transfer and personally talked to Dr. Perkins. After carefully discussing the case with him, Dr. Perkins agreed to take patient in under his services but would like for her to be intubated. Patient was intubated with the following vent setting of 450 ml VT, RR of 22, PEEP of 5, and FiO2 of 100%. She was taken to the airport via ground transportation for air lift to [place].
== END 2017-06-24 14:15 | DRG 808 ==
LOC: JD.ED 17:09 → UNDOADMIN 23:02 → JD.MS 23:02 → JD.ICU 06-20 08:59 → UNDODISIN 06-24 14:15
PROVIDERS: ADMIT Internal Medicine Cardiovascular Disease; ATTEND Internal Medicine Cardiovascular Disease
PROC: 30233N1 Transfusion of Nonautologous Red Blood Cells into Peripheral Vein, Percutaneous Approach (ICD-10-PCS; 2017-06-18)
PROC: 0BH17EZ Insertion of Endotracheal Airway into Trachea, Via Natural or Artificial Opening (ICD-10-PCS; principal; 2017-06-24)
PROC: 5A1935Z Respiratory Ventilation, Less than 24 Consecutive Hours (ICD-10-PCS; 2017-06-24)
DX: D70.9 Neutropenia, unspecified (principal); I50.33 Acute on chronic diastolic (congestive) heart failure; I10 Essential (primary) hypertension; E78.00 Pure hypercholesterolemia, unspecified; J18.9 Pneumonia, unspecified organism; C85.90 Non-Hodgkin lymphoma, unspecified, unspecified site; C79.51 Secondary malignant neoplasm of bone; S27.309A Unspecified injury of lung, unspecified, initial encounter; J80 Acute respiratory distress syndrome; R50.81 Fever presenting with conditions classified elsewhere; R53.1 Weakness; D64.9 Anemia, unspecified; D50.9 Iron deficiency anemia, unspecified; E86.0 Dehydration; E87.6 Hypokalemia; D70.1 Agranulocytosis secondary to cancer chemotherapy; T45.1X5A Adverse effect of antineoplastic and immunosuppressive drugs, initial encounter; I11.0 Hypertensive heart disease with heart failure; Z86.2 Personal history of diseases of the blood and blood-forming organs and certain disorders involving the immune mechanism; D69.59 Other secondary thrombocytopenia; D72.819 Decreased white blood cell count, unspecified; E78.5 Hyperlipidemia, unspecified; Z86.73 Personal history of transient ischemic attack (TIA), and cerebral infarction without residual deficits; J44.9 Chronic obstructive pulmonary disease, unspecified; Z87.891 Personal history of nicotine dependence; R09.02 Hypoxemia; M19.90 Unspecified osteoarthritis, unspecified site; Z86.718 Personal history of other venous thrombosis and embolism; F32.9 Major depressive disorder, single episode, unspecified; E66.9 Obesity, unspecified; H54.7 Unspecified visual loss; Z88.0 Allergy status to penicillin; Z88.1 Allergy status to other antibiotic agents; Z88.6 Allergy status to analgesic agent; Z79.82 Long term (current) use of aspirin; Z79.899 Other long term (current) drug therapy
CPT/HCPCS: 36415; 71020; 71275; 80053; 81001; 83605; 83735; 84484 ×2; 85025; 85379; 85610; 85730; 86140; 87040 ×2; 87081; 87086; 87430; 87804 ×2; 93005; 96361; 96365; 96372; 99285; J1650; J1956; J2543; J7030; J7040 ×2; J7050 ×2; Q9967; 31500; 36430; 36600; 71010; 71010-26; 80048; 82803; 85027; 86850; 86900; 86901; 86922; 93010; 94002; 94640; 94660; 94667; 94760; 94761; 97116-GP; 97162-GP; 97165-GO; 99238; 99284-25; A9270-GY; J1447; J1940; J2250; J2270; J2405; J2930; J3370; J3475; J3490; J7634; P9016